=== PATIENT | female | born 1975 | race Caucasian/White ===

== ENCOUNTER 2024-07-07 17:53 | Emergency (ER) | payer OTHER ==
--- OUTSIDE RECORDS SUMMARY | 2024-07-07 17:57 | XMS REPORT | Continuity of Care Document ---
Author Name Unknown Address [address] [facility] [address] [place] [address] [facility] Address [address] [facility] [address] [place] [address] Care Team Providers Care Seater Grinder Name Role Phone Toribio Marcus OBREGON Primary Care Physician [phone] Coretta Morris Attending Clinician Unav ailable TERESA PALMA Attending Clinician Unavailable TERESA PALMA Attending Clinician Unavailable Teresa Palma MD Attending Clinician [phone] Aldo, Generic Provider Attending Clinician Unavailable Elinor Carrillo NP Attending Clinician [phone] MACARIO ERWIN Attending Clinician Unavailab marquez Carlson, Generic Provider Attending Clinician Unavailable CHINA MONTANEZ Attending Clinician Unavailable Hansa VASQUEZ Attending Clinician Unavailable Hansa Brandon Attending Clinician [phone] POLY REYEZ Attending Clinician Unavailab Poly Parr DO Attending Clinician [phone] Tiny Coulter Attending Clinician Unavailable Dai Lehman Attending Clinician Unavailable Coretta Morris Admitting Clinician Unav ailable Hansa VASQUEZ Admitting Clinician Unavailable Physician, No Primary or Family Admitting Clinic christiano Unavailable Payers Payer Name Policy Type Policy Number Effective Date Expirati on Date Source HIM [facility] OON [id number] 2023 00:00:00 [facility] ANAMIRANDA BEGUM [facility] 9 [id number] 2023 00:00:00 Allergies, Adverse Reactions, Alerts Allergy Name Allergy Type Status Severity Reaction(s) Onset Date Inactive Date Treating Clinician Comments Source No Known Allergie s DA Active U 2019-05- 00:00: 00 [facility] No Known Allergie s DA Active U 2019-05 00:00: 00 [facility] No Known Allergie s DA Active U 2019-05- 00:00: 00 [facility] No Known Allergie s DA Active U 2019-0518 00:00: 00 [facility] No Known Allergie s DA Active U 2019-05 2- 00:00: 00 [facility] No Known Allergie s DA Active U 2019-05- 00:00: 00 [facility] No Known Contrast Allergie s DA Active U 2- 00:00: 00 [facility] No Known Drug Allergie s DA Active U 2- 00:00: 00 [facility] No Known Food Allergie s DA Active U 2-05 00:00: 00 [facility] No Known Other Allergie s DA Active U 2-05 00:00: 00 [facility] NO KNOWN ALLERGIE S Drug Class Active [facility] Social History Social Habit Start Date Stop Date Quantity Comments Source Sexual orientation [facility] Exposure to SARS-CoV-2 (event) 2022-09-01 00:00:00 2022-09-11 13:24:00 Not sure [facility] Sex assigned at 1975 00:00:00 1975 00:00:00 [facility] Smoking Status Start Date Stop Date Source Tobacco smoking consumption unknown [facility] Medications Ordered Medication Name Filled Medication Name Start Date Stop Date Current Medication? Ordering Clinician Indication Dosage Frequency Signature (SIG) Comments Components Source HYDROcodone -acetaminop hen (NORCO) 10-325 mg tablet 1 tablet 07-02 13:45: 00 07-02 13:30 :00 No 1{tbl} 1 tablet, Oral, ONCE NOW, 1 dose, On Sarai 07/02/24 at 0745, Routine [facility] fentanyl PF (SUBLIMAZE (PF)) injection 50 mcg 07-02 11:00: 00 07-02 11:30 :00 No 50ug 50 mcg, Slow IV Push, ONCE, 1 dose, On [facility] 07/02/24 at 0500, Routine [facility] traMADoL (ULTRAM) 50 mg tablet 07-02 00:00: 00 Yes [id number] 50mg Take 1 tablet by mouth every 6 (six) hours as needed for Pain (scale 7-10). Indication s: acute pain [facility] Lantus Solostar U-100 Insulin 100 unit/mL (3 mL) subcutaneou s pen - 00:00: 00 Yes (3 mL) Jhony Fuller atorvastati n 20 mg tablet - 00:00: 00 Yes 1mg Jhony Fuller telmisartan 40 mg tablet - 00:00: 00 Yes 1mg Jhony Fuller Xigduo XR 5 mg-1,000 mg tablet,exte nded release - 00:00: 00 Yes 1mg Jhony Fuller gabapentin 300 mg capsule - 00:00: 00 Yes 1mg Jhony Fuller Lantus Solostar U-100 Insulin 100 unit/mL (3 mL) subcutaneou s pen - 00:00: 00 Yes (3 mL) Jhony Fuller atorvastati n 20 mg tablet - 00:00: 00 Yes 1mg Jhony Fuller lisinopril 20 mg tablet 05-26 00:00: 00 Yes 1mg Jhony Fuller metformin ER 1,000 mg 24 hr tablet,exte nded release (gastric reten.) 05-26 00:00: 00 Yes 1mg Jhony Fuller sulfamethox azole-trime thoprim (BACTRIM DS) 800-160 mg per tablet 1 tablet 2023-05 22:15: 00 05-17 22:21 :00 No 1{tbl} 1 tablet, Oral, ONCE, 1 dose, On 05/17/24 at 1615, CLOTILDE, Reason for Anti-Infec tive: Documented Infection, Documented Infection Site: Skin / Soft Tissue, Duration of Therapy: Once (ED) [facility] ketorolac (TORADOL) injection 15 mg 2023-05 20:45: 00 05-17 20:26 :00 No 15mg 15 mg, Slow IV Push, ONCE, 1 dose, On Sat05/17/24 at 1445, CLOTILDE [facility] insulin regular human (HUMULIN R) injection 8 Units 2023-05 20:00: 00 05-17 19:38 :00 No 8U 8 Units, IV Push, ONCE, 1 dose, On 05/17/24 at 1400, CLOTILDE, Indication for insulin: Hyperglyce marco antonio [facility] NaCl 0.9% (NS) bolus infusion 1,000 mL 2023-05 20:00: 00 05-17 20:40 :00 No 1000mL at 999 mL/hr, 1,000 mL, IV Infusion, ONCE, 1 dose, On 05/17/24 at 1400, CLOTILDE [facility] sulfamethox azole-trime thoprim 800-160 mg per tablet 2023-05 00:00: 00 05-28 05:59 :00 Yes [id number] 1{tbl} Take 1 tablet by mouth every 12 (twelve) hours for 10 days. [facility] cephALEXin 500 mg capsule 2023-05 00:00: 00 05-25 05:59 :00 Yes [id number] 500mg Take 1 capsule by mouth in the morning and 1 capsule in the evening. Do all this for 7 days. [facility] mupirocin 2 % ointment 2023-05 00:00: 00 05-25 05:59 :00 Yes [id number] Apply to area(s) 3 (three) times daily for 7 days. [facility] ibuprofen 600 mg tablet 2023-05 00:00: 00 05-23 05:59 :00 Yes [id number] 600mg Take 1 tablet by mouth every 6 (six) hours as needed for Pain (scale 4-6) for up to 5 days. [facility] atorvastati n 20 mg tablet 2023-05 00:00: 00 Yes 1mg Jhony Fuller Lantus Solostar U-100 Insulin 100 unit/mL (3 mL) subcutaneou s pen 2023-05 00:00: 00 Yes (3 mL) Jhony Fuller lisinopril 20 mg tablet 2023-05 00:00: 00 Yes 1mg Jhony Fuller doxycycline hyclate 100 mg tablet 2023-05 00:00: 00 Yes 1mg Jhony Fuller metformin ER 1,000 mg 24 hr tablet,exte nded release (gastric reten.) 2023-05 00:00: 00 Yes 1mg Jhony Fuller NaCl 0.9% (NS) bolus infusion 1,000 mL 07-19 00:30: 00 07-19 01:20 :00 No 1000mL at 999 mL/hr, 1,000 mL, IV Infusion, ONCE, 1 dose, On Sat07/19/23 at 1830, CLOTILDE [facility] ketorolac (TORADOL) injection 15 mg 07-18 21:00: 00 07-18 22:20 :00 No 15mg 15 mg, Slow IV Push, ONCE, 1 dose, On Sat07/19/23 at 1500, CLOTILDE [facility] sodium chloride (NS) injection 5 mL 07-18 20:49: 19 Yes 5mL 5 mL, Intravenou s, PRN, Starting on Sat07/19/23 at 1449, Until Discontinu ed, Routine, IV line flushing [facility] metFORMIN (GLUCOPHAGE ) tablet 500 mg 07-16 18:15: 00 07-16 17:26 :00 No 500mg 500 mg, Oral, ONCE, 1 dose, On Sat07/16/23 at 1215, Routine [facility] cefTRIAXone (ROCEPHIN) 1,000 mg in NaCl 0.9% (NS) 100 mL MINI-BAG 07-16 17:30: 00 07-16 17:51 :00 No 1000mg 1,000 mg, IV Piggyback, ONCE, 1 dose, On Sat07/16/23 at 1130, Administer over 30 Minutes, 100 mL
Reas on for Anti-Infec tive: Documented Infection< br>Documen nereida Infection Site: Urine
D uration of Therapy: Other (see Comments) [facility] ketorolac (TORADOL) injection 15 mg 07-16 17:00: 00 07-16 16:03 :00 No 15mg 15 mg, Slow IV Push, ONCE, 1 dose, On Sat07/16/23 at 1100, CLOTILDE [facility] ondansetron (ZOFRAN (PF)) injection 4 mg 07-16 16:45: 00 07-16 15:52 :00 No 4mg 4 mg, Slow IV Push, ONCE, 1 dose, On Sat07/16/23 at 1045, CLOTILDE [facility] NaCl 0.9% (NS) bolus infusion 1,000 mL 07-16 16:45: 00 07-16 17:51 :00 No 1000mL at 999 mL/hr, 1,000 mL, IV Infusion, ONCE, 1 dose, On Sat07/16/23 at 1045, STAT [facility] metFORMIN 500 mg tablet 07-16 00:00: 00 Yes [id number] 500mg Take 1 tablet by mouth in the morning and 1 tablet in the evening. [facility] ondansetron 4 mg disintegrat ing tablet 07-16 00:00: 00 Yes [id number] 4mg Take 1 tablet by mouth every 8 (eight) hours as needed for Nausea and Vomiting (N/V). [facility] ibuprofen 600 mg tablet 07-16 00:00: 00 Yes [id number] 600mg Take 1 tablet by mouth every 6 (six) hours as needed for Pain (scale 4-6). [facility] cefdinir 300 mg capsule 07-16 00:00: 00 07-26 05:59 :00 No [id number] 300mg Take 1 capsule by mouth every 12 (twelve) hours for 10 days. [facility] NaCl 0.9% (NS) IV infusion 1,000 mL 2022-05 02:30: 00 Yes 1000mL at 999 mL/hr, Intravenou s, CONTINUOUS , Starting on 03/16/23 at 2130, Until Discontinu ed, Routine [facility] ketorolac (TORADOL) injection 30 mg 2022-05 02:30: 00 03-17 01:45 :00 No 30mg 30 mg, Slow IV Push, ONCE, 1 dose, On 03/16/23 at 2130, Routine [facility] diphenhydrA MINE (BENADRYL) injection 25 mg 2022-05 01:30: 00 03-17 01:46 :00 No 25mg 25 mg, Slow IV Push, ONCE, 1 dose, On 03/16/23 at 2030, STAT [facility] metoclopram cruz HCl (REGLAN) injection 10 mg 2022-05 01:30: 00 03-17 01:46 :00 No 10mg 10 mg, Slow IV Push, ONCE, 1 dose, On 03/16/23 at 2030, CLOTILDE [facility] butalbital- acetaminoph en-caff 50-325-40 mg tablet 2022-05 00:00: 00 Yes [id number] 1{tbl} Take 1 tablet by mouth every 6 (six) hours as needed (Headache) . [facility] ondansetron (ZOFRAN) 4 mg tablet 2022-05 0 00:00: 00 Yes [id number] 4mg Take 1 tablet by mouth every 8 (eight) hours as needed for Nausea and Vomiting (N/V). [facility] ketorolac (TORADOL) injection 30 mg 09-11 19:45: 00 09-11 19:51 :00 No 30mg 30 mg, Slow IV Push, ONCE, 1 dose, On Sat09/11/22 at 1445, Routine [facility] NaCl 0.9% (NS) bolus infusion 1,000 mL 09-11 19:45: 00 09-11 20:47 :00 No 1000mL at 999 mL/hr, 1,000 mL, IV Infusion, ONCE, 1 dose, On Sat09/11/22 at 1445, CLOTILDE [facility] diphenhydrA MINE (BENADRYL) injection 25 mg 09-11 19:00: 00 09-11 19:52 :00 No 25mg 25 mg, Slow IV Push, ONCE, 1 dose, On Sat09/11/22 at 1400, STAT [facility] metoclopram cruz HCl (REGLAN) injection 10 mg 09-11 19:00: 00 09-11 19:54 :00 No 10mg 10 mg, Slow IV Push, ONCE, 1 dose, On Sat09/11/22 at 1400, CLOTILDE [facility] doxycycline (VIBRAMYCIN ) 100 mg capsule 08-01 00:00: 00 Yes 100mg Take 1 Cap by mouth 2 (two) times daily. [facility] Vital Signs Vital Name Observation Time Observation Value Comments S maria l Systolic blood pressure 2024-07-02 13:39:00 170 mm[Hg] [facility] Diastolic blood pressure 2024-07-02 13:39:00 110 mm[Hg] [facility] Heart rate 2024-07-02 13:39:00 93 /min [facility] Body temperature 2024-07-02 13:39:00 36.78 Kathryn [facility] Respiratory rate 2024-07-02 13:39:00 16 /min [facility] Oxygen saturation in Arterial blood by Pulse oximetry 2024-07-02 13:39:00 97 /min [facility] Body height 2024-07-02 10:30:00 167.6 cm [facility] Body weight 2024-07-02 10:30:00 81.647 kg [facility] BMI 2024-07-02 10:30:00 29.05 kg/m2 [facility] Systolic blood pressure 2024-05-17 22:00:00 153 mm[Hg] [facility] Diastolic blood pressure 2024-05-17 22:00:00 87 mm[Hg] [facility] Heart rate 2024-05-17 22:00:00 94 /min [facility] Respiratory rate 2024-05-17 22:00:00 12 /min [facility] Oxygen saturation in Arterial blood by Pulse oximetry 2024-05-17 22:00:00 93 /min [facility] Body temperature 2024-05-17 16:31:00 36.78 Kathryn [facility] Body height 2024-05-17 16:31:00 167.6 cm [facility] Body weight 2024-05-17 16:31:00 77.111 kg [facility] BMI 2024-05-17 16:31:00 27.44 kg/m2 [facility] Systolic blood pressure 2023-07-20 01:00:00 159 mm[Hg] [facility] Diastolic blood pressure 2023-07-20 01:00:00 89 mm[Hg] [facility] Heart rate 2023-07-20 01:00:00 83 /min [facility] Respiratory rate 2023-07-20 01:00:00 16 /min [facility] Oxygen saturation in Arterial blood by Pulse oximetry 2023-07-20 01:00:00 98 /min [facility] Body temperature 2023-07-20 00:12:00 36.61 Kathryn [facility] Body height 2023-07-19 20:40:00 167.6 cm [facility] Body weight 2023-07-19 20:40:00 83.915 kg [facility] BMI 2023-07-19 20:40:00 29.86 kg/m2 [facility] Systolic blood pressure 2023-07-16 18:34:00 155 mm[Hg] [facility] Diastolic blood pressure 2023-07-16 18:34:00 91 mm[Hg] [facility] Heart rate 2023-07-16 18:34:00 77 /min [facility] Respiratory rate 2023-07-16 18:34:00 10 /min [facility] Oxygen saturation in Arterial blood by Pulse oximetry 2023-07-16 18:34:00 96 /min [facility] Body temperature 2023-07-16 15:27:00 36.72 Kathryn [facility] Body height 2023-07-16 15:27:00 167.6 cm [facility] Body weight 2023-07-16 15:27:00 83.915 kg [facility] BMI 2023-07-16 15:27:00 29.86 kg/m2 [facility] Systolic blood pressure 2023-03-17 03:00:00 143 mm[Hg] [facility] Diastolic blood pressure 2023-03-17 03:00:00 84 mm[Hg] [facility] Heart rate 2023-03-17 03:00:00 100 /min [facility] Respiratory rate 2023-03-17 03:00:00 20 /min [facility] Oxygen saturation in Arterial blood by Pulse oximetry 2023-03-17 03:00:00 98 /min [facility] Body temperature 2023-03-17 00:54:00 37.44 Kathryn [facility] Body height 2023-03-17 00:16:00 170.2 cm [facility] Body weight 2023-03-17 00:16:00 81.647 kg [facility] BMI 2023-03-17 00:16:00 28.19 kg/m2 [facility] Systolic blood pressure 2022-09-11 20:00:00 153 mm[Hg] [place] [facility] Diastolic blood pressure 2022-09-11 20:00:00 88 mm[Hg] [facility] Heart rate 2022-09-11 20:00:00 92 /min [facility] Respiratory rate 2022-09-11 20:00:00 16 /min [facility] Oxygen saturation in Arterial blood by Pulse oximetry 2022-09-11 20:00:00 95 /min [facility] Body temperature 2022-09-11 18:26:00 36.72 Kathryn [facility] Body height 2022-09-11 18:26:00 170.2 cm [facility] Body weight 2022-09-11 18:26:00 77.111 kg [facility] BMI 2022-09-11 18:26:00 26.63 kg/m2 [facility] BP Systolic 2024-06-25 12:16:00 178 mm[Hg] Step hen F Jonny BP Diastolic 2024-06-25 12:16:00 106 mm[Hg] Maikol phen F Jonny Weight Measured 2024-06-25 12:16:00 181.00 pounds Jhony F Jonny Height Measured 2024-06-25 12:16:00 68.00 inches Jhony F Jonny Body Temperature 2024-06-25 12:16:00 97.60 degrees Jhony F Jonny Heart Rate 2024-06-25 12:16:00 93.00 /min Fide en F Jonny Respiratory Rate 2024-06-25 12:16:00 18.00 /min Jhony F Jonny BP Systolic 2024-06-25 10:36:00 178 mm[Hg] Step hen F Jonny BP Diastolic 2024-06-25 10:36:00 106 mm[Hg] Maikol phen F Jonny Weight Measured 2024-06-25 10:36:00 181.00 pounds Jhony F Jonny Height Measured 2024-06-25 10:36:00 68.00 inches Jhony F Jonny Body Temperature 2024-06-25 10:36:00 97.60 degrees Jhony F Jonny Heart Rate 2024-06-25 10:36:00 93.00 /min Fide en F Jonny Respiratory Rate 2024-06-25 10:36:00 18.00 /min Jhony F Jonny BP Systolic 2024-05-26 10:17:00 186 mm[Hg] Step hen F Jonny BP Diastolic 2024-05-26 10:17:00 104 mm[Hg] Maikol phen F Jonny Weight Measured 2024-05-26 10:17:00 174.20 pounds Jhony F Jonny Height Measured 2024-05-26 10:17:00 68.00 inches Jhony F Jonny Body Temperature 2024-05-26 10:17:00 97.90 degrees Jhony F Jonny Heart Rate 2024-05-26 10:17:00 90.00 /min Fide en F Jonny Respiratory Rate 2024-05-26 10:17:00 17.00 /min Jhony F Jonny Respiratory Rate 2024-05-11 10:52:00 17.00 /min Jhony F Jonny BP Systolic 2024-05-11 10:52:00 174 mm[Hg] Step hen F Jonny BP Diastolic 2024-05-11 10:52:00 98 mm[Hg] Maiklo phen F Jonny Weight Measured 2024-05-11 10:52:00 174.40 pounds Jhony F Jonny Height Measured 2024-05-11 10:52:00 68.00 inches Jhony F Jonny Body Temperature 2024-05-11 10:52:00 98.00 degrees Jhony F Jonny Heart Rate 2024-05-11 10:52:00 97.00 /min Fide en F Jonny Procedures Procedure Date / Time Performed Performing Clinicia n Source URINALYSIS 2024-07-02 11:42:00 Teresa Palma [facility] BASIC METABOLIC PANEL (NA, K, CL, CO2, GLUCOSE, BUN, CREATININE, CA) 2024-07-02 11:30:00 Teresa Palma [facility] CBC WITH DIFF 2024-07-02 11:30:00 Teresa Palma [facility] POCT GLUCOSE(AGE >30DAYS) 2024-05-17 20:58:00 Lorena [facility] POCT GLUCOSE (AUTOMATED) 2024-05-17 20:57:00 Lorena [facility] POCT TEST 2024-05-17 20:23:00 Elinor Carrillo [facility] POCT GLUCOSE (AUTOMATED) 2024-05-17 20:06:00 Elinor Carrillo [facility] POCT GLUCOSE (AUTOMATED) 2024-05-17 19:30:00 Elinor Carrillo [facility] COMP. METABOLIC PANEL ([id number]) 2024-05-17 17:28:00 Elinor Carrillo [facility] CBC WITH DIFF 2024-05-17 17:28:00 [facility] 17:28[facility]00 [facility] 2023-07-19 22:12:00 China [facility] COMP. METABOLIC PANEL ([id number]) 2023-07-19 22:12:00 China Montanez [facility] CBC WITH DIFF 2023-07-19 22:12:00 China Montanez [facility] URINALYSIS 2023-07-19 22:12:00 China [facility] ASSIGNMENT OF BENEFITS 2023-07-19 21:14:17 Docto r Unassigned, [place] [facility] CONSENT/REFUSAL FOR DIAGNOSIS AND TREATMENT 2023-07-19 20:34:55 Doctor Unassigned, [place] [facility] LACTIC ACID WHOLE BLOOD 2023-07-16 17:52:00 Hansa Vasquez [facility] CT ABDOMEN PELVIS WO CONTRAST 2023-07-16 16:39:57 Hansa Vasquez [facility] LIPASE 2023-07-16 15:49:00 [facility]a [facility] MAGNESIUM 2023-07-16 15:49:00 Hansa [facility] TROPONIN I 2023-07-16 15:49:00 Hansa [facility] COMP. METABOLIC PANEL ([id number]) 2023-07-16 15:49:00 Hansa Vasquez [facility] CBC WITH DIFF 2023-07-16 15:49:00 Hansa Vasquez [facility] URINALYSIS 2023-07-16 15:49:00 Hansa Vasquez [facility] POCT GLUCOSE (AUTOMATED) 2023-07-16 15:30:00 Hansa Vasquez [facility] CONSENT/REFUSAL FOR DIAGNOSIS AND TREATMENT 2023-07-16 15:24:28 Doctor Unassigned, [place] [facility] POCT GLUCOSE(AGE >30DAYS) 2023-03-17 02:51:00 Teresa Palma [facility] POCT GLUCOSE (AUTOMATED) 2023-03-17 02:49:00 Teresa Palma [facility] URINALYSIS 2023-03-17 01:44:00 Teresa Palma [facility] LIPASE 2023-03-17 01:36:00 Teresa Palma [facility] COMP. METABOLIC PANEL ([id number]) 2023-03-17 01:36:00 Teresa Palma [facility] ACUTE CARE VENOUS BLOOD GAS 2023-03-17 01:35:00 Teresa Palma [facility] POCT GLUCOSE (AUTOMATED) 2023-03-17 01:33:00 Teresa Palma [facility] CBC WITH DIFF 2023-03-17 00:56:00 Teresa Palma [facility] CONSENT/REFUSAL FOR DIAGNOSIS AND TREATMENT 2023-03-17 00:00:38 Doctor Unassigned, [place] [facility] BASIC METABOLIC PANEL (NA, K, CL, CO2, GLUCOSE, BUN, CREATININE, CA) 2022-09-11 19:33:00 Poly Reyez [facility] NOTICE OF PRIVACY PRACTICES 2022-09-11 18:09:58 Doctor Unassigned, [place] [facility] CONSENT/REFUSAL FOR DIAGNOSIS AND TREATMENT 2022-09-11 18:09:12 Doctor Unassigned, [place] [facility] [id number] 2020-05-06 00:00:00 [facility] Encounters Start Date/Time End Date/Time Encounter Type Admission Type Attending [facility] Care Facility Care Department Encounter ID Source 2020-04-30 01:32:00 Inpatient EM Coretta Blandon [facility] TELE [id number] [address] [facility] 2024-07-02 04:34:00 2024-07-02 07:43:00 Emergency X ALFRED, JACINTABETO YABRENDA, TERESA [facility] ERT [id number] [facility] 2024-07-02 04:34:00 2024-07-02 07:43:00 Emergency Teresa Palma S [facility] 1..840.114 350.1.13.10 4.2.7.2.686 [id number] [facility] 2024-06-25 10:22:39 2024-06-25 10:22:39 Outpatient [facility] [id number] Jhony Fuller 2024-06-25 00:00:00 2024-06-25 00:00:00 Outpatient Visit [facility] [id number] Jhony Fuller 2024-05-27 00:00:00 2024-05-27 11:36:01 Letter (Out) Campaigns, Generic Provider Campaigns, Generic Provider [facility] ..840.114 350.1.13.10 4.2.7.2.686 [id number] [facility] 2024-05-26 10:01:49 2024-05-26 10:01:49 Outpatient [facility] [id number] Jhony Lorenzana Jonny 2024-05-26 00:00:00 2024-05-26 00:00:00 Outpatient Visit [facility] [id number] Jhony Lorenzana Jonny 2024-05-17 10:32:00 2024-05-17 16:37:00 Emergency Elinor Carrillo [facility] 1.2.840.114 350.1.13.10 4.2.7.2.686 [id number] [facility] 2024-05-11 10:38:36 2024-05-11 10:38:36 Outpatient [facility] [id number] Jhony Fuller 2024-05-11 00:00:00 2024-05-11 00:00:00 Outpatient Visit [facility] [id number] Jhony Fuller 2023-10-15 13:30:00 2023-10-15 13:30:00 Outpatient MACARIO ERWIN [id number] [facility] 2023-08-19 09:00:00 2023-08-19 09:00:00 Outpatient MACARIO ERWIN [id number] [facility] 2023-07-24 00:00:00 2023-07-24 00:00:00 Letter (Out) Campaigns, Generic Provider [facility] 1.2.840.114 350.1.13.10 4.2.7.2.686 [id number] [facility] 2023-07-19 14:42:00 2023-07-19 19:26:00 Emergency X CHINA MONTANEZ [facility] ERT [id number] [facility] 2023-07-19 14:42:00 2023-07-19 19:26:00 Emergency China Montanez [facility] 1.2.840.114 350.1.13.10 4.2.7.2.686 [id number] [facility] 2023-07-16 09:31:00 2023-07-16 12:37:00 Emergency X Hansa VASQUEZ [facility] ERT [id number] [facility] 2023-07-16 09:31:00 2023-07-16 12:37:00 Emergency Hansa Vasquez [facility] 1.2.840.114 350.1.13.10 4.2.7.2.686 [id number] [facility] 2023-03-16 19:19:00 2023-03-16 22:14:00 Emergency X TERESA PALMA [facility] ERT [id number] [facility] 2023-03-16 19:19:00 2023-03-16 22:14:00 Emergency Teresa Palma [facility] [id number] 350.1.13.10 [id number] [facility] 2022-09-11 13:34:00 2022-09-11 15:51:00 Emergency X POLY REYEZ [facility] ERT [id number] [facility] 2022-09-11 13:34:00 2022-09-11 15:51:00 Emergency TlPoly J [facility] [id number] [id number] [id number] [id number] [facility] 2021-09-27 23:52:00 2021-09-27 23:52:00 Outpatient Yfn Tiny HCACL LABO [id number] [facility] 2021-09-27 07:25:00 2021-09-27 12:00:00 Emergency EM Coulter, Tiny [facility] [id number] [facility] 2021-09-27 07:25:00 2021-09-27 12:00:00 Emergency EM Coulter, Tiny [facility] LISA [id number] [facility] 2020-04-30 01:32:00 2020-05-09 18:54:00 Inpatient EM Coretta Blandon [facility] TE[facility] [id number] [facility] 2020-04-30 01:04:00 2020-04-30 01:04:00 Outpatient Dai Lehman HCACL LABO [id number] [facility] 2020-04-30 01:04:00 2020-04-30 01:04:00 Outpatient Dai Lehman [facility]ACL LABO [id number] [facility] Results Test Description Test Time Test Comments Results Result Co mments Source [facility] GLUCOSE(AGE >30DAYS)2024-05-17 20:58:00* Test Item Value Reference Range Interpretation Comme nts POCT Glu (age>30days) (test code = 3342) 338 mg/dL 70-110 A Lab Interpretation (test cod e = 31123-0) Abnormal [facility] [id number] 20:23:00* Test Item Value Reference Range Interpretation Comme nts POCT PREG (test code = 1605) Negative On board controls acceptable with C Line (test code = 3574) Yes POCT PREG LOT # (test code = 3575) [id number] POCT PREG TEST DATE ( test code = 3576) 05/04/2025 Lab Interpretation (test cod e = 82292-3) Normal [facility] GLUCOSE (AUTOMATED)2024-05-17 20:07:45* Test Item Value Reference Range Interpretation Comme nts POCT GLU (test code = 4465130191) 440 mg/dL 70-110 H Lab Interpretation (test cod e = 54631-0) Abnormal [facility] GLUCOSE (AUTOMATED)2024-05-17 19:31:17* Test Item Value Reference Range Interpretation Comme nts POCT GLU (test code = 4570201913) 493 mg/dL 70-110 HH Lab Interpretation (test cod e = 12837-7) [facility]24-[facility]-17 18:42:08* Test Item Value Reference Range Interpretation Comme nts NA (test code = 8199912146) 133 mmol/L 135-145 L K (test code = 1074197122) 4.1 mmol/L 3.5-5.0 CL (test code = 6077563527) 102 mmol/L 98-108 CO2 TOTAL (test code = 7339761421) 26 mmol/L 23-31 AGAP (test code = 1588240721) 5 2-16 BUN (test code = 7594857700) 27 mg/dL 7-23 H GLUCOSE (test code = 5858264313) 435 mg/dL 70-110 H CREATININE (test code = 2160-0) 0.79 mg/dL 0.50-1.04 TOTAL BILI (test code = 5053198803) 0.3 mg/dL 0.1-1.1 CALCIUM (test code = 8469780204) 9.2 mg/dL 8.6-10.6 T PROTEIN (test code = 6718268677) 6.2 g/dL 6.3-8.2 L ALBUMIN (test code = 0408995749) 3.2 g/dL 3.5-5.0 L ALK PHOS (test code = 1420329296) 121 U/L 34-122 ALTv (test code = 1742-6) 13 U/L 5-35 AST(SGOT) (test code = 6197894113) 17 U/L 13-40 eGFR (test code = 82937-2) 91.8 mL/min/1.73m2 CKD-EPI eGFR (2020). Assuming creatinine has been stable day-to-day for at least three months, the eGFR indicates Category G1 (>= 90 mL/min/1.73 m2) Lab Interpretation (test code = 60997-7) [facility] [id number] 18:27:42* Test Item Value Reference Range Interpretation Comme nts WBC (test code = 6690-2) 12.91 4.30-11.10 H RBC (test code = 789-8) 4.81 3.93-5.25 HGB (test code = 718-7) 13.1 g/dL 11.6-15.0 HCT (test code = 4544-3) 38.9 % 35.7-45.2 MCV (test code = 787-2) 80.9 fL 80.6-95.5 MCH (test code = 785-6) 27.2 pg 25.9-32.8 MCHC (test code = 786-4) 33.7 g/dL 31.6-35.1 RDW-SD (test code = 43972-7) 35.4 fL 39.0-49.9 L RDW-CV (test code = 788-0) 12.1 % 12.0-15.5 PLT (test code = 777-3) 351 166-358 MPV (test code = 48096-8) 10.2 fL 9.5-12.9 NRBC/100 WBC (test code = 3665764130) 0.0 0.0-10.0 NRBC x10^3 (test code = 8184117190) See_Comment [Automated message] The system which generated this result transmitted reference range: 10*3/?L. The reference range was not used to interpret this result as normal/abnormal. GRAN MAT (NEUT) % (test code = 770-8) 83.4 % IMM GRAN % (test code = 4356071229) 0.60 % LYMPH % (test code = 736-9) 9.7 % MONO % (test code = 5905-5) 5.3 % EOS % (test code = 713-8) 0.5 % BASO % (test code = 706-2) 0.5 % GRAN MAT x10^3(ANC) (test code = 8039195590) 10.77 10*3/uL 1.88-7.09 H IMM GRAN x10^3 (test code = 6656663674) 0.08 10*3/uL 0.00-0.06 H LYMPH x10^3 (test code = 731-0) 1.25 10*3/uL 1.32-3.29 L MONO x10^3 (test code = 742-7) 0.68 10*3/uL 0.33-0.92 EOS x10^3 (test code = 711-2) 0.07 10*3/uL 0.03-0.39 BASO x10^3 (test code = 704-7) 0.06 10*3/uL 0.01-0.07 Lab Interpretation (test code = 62213-6) [facility]normal [facility] [id number] 10:04:44* Test Item Value Reference Range Interpretation Comme nts HEMOGLOBIN A1c (test code = 34918) 13.6 % 4.2-5.6 H [employer] GUIDELINES FOR HGB A1C: PREDIABETES/INCREASED RISK . . . . . . . 5.7-6.4% DIAGNOSIS OF DIABETES . . . . . . . . . >=6.5% WITH CONFIRMATION OR APPROPRIATE SYMPTOMS NOTE: ASSAY MAY BE AFFECTED BY HEMOGLOBINOPATHIES (SICKLE CELL ANEMIA, S-C DISEASE, OTHERS) OR ARTIFICIALLY LOWERED BY DECREASED RED CELL SURVIVAL (HEMOLYTIC ANEMIAS, BLOOD LOSS, ETC.). CONSIDER ALTERNATE TESTING OR LABORATORY CONSULTATION. COMPREHENSIVE METABOLIC [id number] 05:21:07* Test Item Value Reference Range Interpretation Comme nts GLUCOSE (test code = 2217) 460 MG/DL 70-99 H BUN (test code = 2208) 15 MG/DL 6-20 CREATININE (test code = 2214) 1.01 MG/DL 0.60-1.30 eGFR (2020 CKD-EPI) (test co de = 29346) 68 ML/MIN/1.73 >60 CALC BUN/CREAT (test code = 2235) 15 RATIO 6-28 SODIUM (test code = 223) 137 MEQ/L 133-146 POTASSIUM (test code = 2228) 4.6 MEQ/L 3.5-5.4 CHLORIDE (test code = 2215) 99 MEQ/L 95-107 CARBON DIOXIDE (test code = 2206) 26 MEQ/L 19-31 CALCIUM (test code = 2209) 9.3 MG/DL 8.5-10.5 PROTEIN, TOTAL (test code = 2229) 5.4 G/DL 6.1-8.3 L ALBUMIN (test code = 2201) 3.1 G/DL 3.5-5.2 L CALC GLOBULIN (test code = 2240) 2.3 G/DL 1.9-3.7 CALC A/G RATIO (test code = 2234) 1.3 RATIO 1.0-2.6 BILIRUBIN, TOTAL (test code = 2207) 0.2 MG/DL <=1.2 ALKALINE PHOSPHATASE (test code = 2204) 112 U/L 40-125 AST (test code = 2218) 11 U/L 9-40 ALT (test code = 2219) 12 U/L 5-40 LIPID [id number] 05:21:07* Test Item Value Reference Range Interpretation Comme nts CHOLESTEROL (test code = 2210) 311 MG/DL <200 H TRIGLYCERIDES (test code = 2232) 423 MG/DL <150 H HDL CHOLESTEROL (test code = 2220) 47 MG/DL >39 CALC LDL CHOL (test code = 2237) (NOTE) MG/DL <100 UNABLE TO CALCUL ATE A VALID LDL CHOLESTEROL WHEN THE TRIGLYCERIDEVALUE IS GREATER THAN 400 MG/DL.UNABLE TO CALCULATE A VALID LDL CHOLESTEROL WHEN THE TRIGLYCERIDEVALUE IS GREATER THAN 400 MG/DL. NOTE: CALCULATED LDL IS BASED ON ILEANA-MILES METHOD WHICHINCLUDES ADJUSTABLE TRIGLYCERIDE:VLDL CHOLESTEROL RATIO.THIS FACTOR VARIES BY MEASURED TRIGLYCERIDE AND NON-HDLCHOLESTEROL CONCENTRATIONS WITH INCREASED CALCULATED LDL SEENIN HIGHER TRIGLYCERIDE OR LOWER NON-HDL SPECIMENS. FOR MOREINFORMATION, SEE CLIENT ANNOUNCEMENT AT [email or web address] CalcLDL-C RISK RATIO LDL/HDL (test code = 2238) (NOTE) RATIO <3.22 UNABLE TO KAREN CULATE ALBUMIN/CREATININE RATIO, URINE, [id number] 05:10:40* Test Item Value Reference Range Interpretation Comme nts CREATININE, URINE, CONC. (test code = 2072) 41.7 MG/DL NOT ESTAB ALBUMIN, URINE, RANDOM (test code = 14401) 325.4 MG/DL NOT ESTAB CALC ALBUMIN/CREAT, RND (test code = 62381) 7803 MG/G <30 H Note: Albumin/Cr eatinine ratio reference interval reflects ADA and NKF guidelines. UNLESS OTHERWISE INDICATED, ALL TESTING PERFORMED AT [facility] [address] [place] [address] PRESIDENT OF THE [place]: DAVID KENDRICK M.D. [place] NUMBER [id number] [facility] [place]. [id number] COMPREHENSIVE METABOLIC [id number] 00:00:00* Test Item Value Reference Range Interpretation Comme nts GLUCOSE (test code = 7) 460 MG/DL BUN (test code = 2208) 15 MG/DL CREATININE (test code = 2214) 1.01 MG/DL eGFR (2020 CKD-EPI) (test co de = 72050) 68 ML/MIN/1.73 CALC BUN/CREAT (test code = 2234) 15 RATIO SODIUM (test code = 2231) 137 MEQ/L POTASSIUM (test code = 2228) 4.6 MEQ/L CHLORIDE (test code = 2215) 99 MEQ/L CARBON DIOXIDE (test code = 2206) 26 MEQ/L CALCIUM (test code = 2209) 9.3 MG/DL PROTEIN, TOTAL (test code = 2229) 5.4 G/DL ALBUMIN (test code = 2201) 3.1 G/DL CALC GLOBULIN (test code = 2240) 2.3 G/DL CALC A/G RATIO (test code = 2234) 1.3 RATIO BILIRUBIN, TOTAL (test code = 2207) 0.2 MG/DL ALKALINE PHOSPHATASE (test code = 2204) 112 U/L AST (test code = 2218) 11 U/L ALT (test code = 2219) 12 U/L Jhony FullerLIPID [id number] 00:00:00* Test Item Value Reference Range Interpretation Comme nts CHOLESTEROL (test code = 2210) 311 MG/DL TRIGLYCERIDES (test code = 2232) 423 MG/DL HDL CHOLESTEROL (test code = 2220) 47 MG/DL CALC LDL CHOL (test code = 2237) (NOTE) MG/DL RISK RATIO LDL/HDL (test cod e = 2238) (NOTE) RATIO Jhony FullerHEMOGLOBIN [id number] 00:00:00* Test Item Value Reference Range Interpretation Comme [facility] HEMOGLOBIN A1c (test code = 06652) 13.6 % Jhony FullerALBUMIN/CREATININE RATIO, RANDOM [id number] 00:00:00* Test Item Value Reference Range Interpretation Comme nts CREATININE, URINE, CONC. (te st code = 2072) 41.7 MG/DL ALBUMIN, URINE, RANDOM (test code = 20035) 325.4 MG/DL CALC ALBUMIN/CREAT, RND (katerina t code = 78002) 7803 MG/G Jhony FullerCOMPREHENSIVE METABOLIC [id number] 00:00:00* Test Item Value Reference Range Interpretation Comme nts GLUCOSE (test code = 2217) 460 MG/DL BUN (test code = 2208) 15 MG/DL CREATININE (test code = 2214) 1.01 MG/DL eGFR (2020 CKD-EPI) (test co de = 06365) 68 ML/MIN/1.73 CALC BUN/CREAT (test code = 2235) 15 RATIO SODIUM (test code = 2231) 137 MEQ/L POTASSIUM (test code = 2228) 4.6 MEQ/L CHLORIDE (test code = 2215) 99 MEQ/L CARBON DIOXIDE (test code = 2206) 26 MEQ/L CALCIUM (test code = 2209) 9.3 MG/DL PROTEIN, TOTAL (test code = 2229) 5.4 G/DL ALBUMIN (test code = 2201) 3.1 G/DL CALC GLOBULIN (test code = 2240) 2.3 G/DL CALC A/G RATIO (test code = 2234) 1.3 RATIO BILIRUBIN, TOTAL (test code = 2207) 0.2 MG/DL ALKALINE PHOSPHATASE (test code = 2204) 112 U/L AST (test code = 2218) 11 U/L ALT (test code = 2219) 12 U/L Jhony FullerLIPID [id number] 00:00:00* Test Item Value Reference Range Interpretation Comme nts CHOLESTEROL (test code = 2210) 311 MG/DL TRIGLYCERIDES (test code = 2232) 423 MG/DL HDL CHOLESTEROL (test code = 2220) 47 MG/DL CALC LDL CHOL (test code = 2237) (NOTE) MG/DL RISK RATIO LDL/HDL (test cod e = 2238) (NOTE) RATIO Jhony FullerHEMOGLOBIN [id number] 00:00:00* Test Item Value Reference Range Interpretation Comme [facility] HEMOGLOBIN A1c (test code = 53778) 13.6 % Jhony FullerALBUMIN/CREATININE RATIO, RANDOM [id number] 00:00:00* Test Item Value Reference Range Interpretation Comme [facility] CREATININE, URINE, CONC. (te st code = 2072) 41.7 MG/DL ALBUMIN, URINE, RANDOM (test code = 62146) 325.4 MG/DL CALC ALBUMIN/CREAT, RND (katerina t code = 40069) 7803 MG/G Jhony FullerCOMPREHENSIVE METABOLIC [id number] 00:00:00* Test Item Value Reference Range Interpretation Comme nts GLUCOSE (test code = 2217) 460 MG/DL BUN (test code = 2208) 15 MG/DL CREATININE (test code = 2214) 1.01 MG/DL eGFR (2020 CKD-EPI) (test co de = 66218) 68 ML/MIN/1.73 CALC BUN/CREAT (test code = 2235) 15 RATIO SODIUM (test code = 2231) 137 MEQ/L POTASSIUM (test code = 2228) 4.6 MEQ/L CHLORIDE (test code = 2215) 99 MEQ/L CARBON DIOXIDE (test code = 2206) 26 MEQ/L CALCIUM (test code = 2209) 9.3 MG/DL PROTEIN, TOTAL (test code = 2229) 5.4 G/DL ALBUMIN (test code = 2201) 3.1 G/DL CALC GLOBULIN (test code = 2240) 2.3 G/DL CALC A/G RATIO (test code = 2234) 1.3 RATIO BILIRUBIN, TOTAL (test code = 2207) 0.2 MG/DL ALKALINE PHOSPHATASE (test code = 2204) 112 U/L AST (test code = 2218) 11 U/L ALT (test code = 2219) 12 U/L Jhony FullerLIPID [id number] 00:00:00* Test Item Value Reference Range Interpretation Comme nts CHOLESTEROL (test code = 2210) 311 MG/DL TRIGLYCERIDES (test code = 2232) 423 MG/DL HDL CHOLESTEROL (test code = 2220) 47 MG/DL CALC LDL CHOL (test code = 2237) (NOTE) MG/DL RISK RATIO LDL/HDL (test cod e = 2238) (NOTE) RATIO Jhony FullerHEMOGLOBIN [id number] 00:00:00* Test Item Value Reference Range Interpretation Comme nts HEMOGLOBIN A1c (test code = 51865) 13.6 % Jhony FullerALBUMIN/CREATININE RATIO, RANDOM [id number] 00:00:00* Test Item Value Reference Range Interpretation Comme nts CREATININE, URINE, CONC. (te st code = 2072) 41.7 MG/DL ALBUMIN, URINE, RANDOM (test code = 42501) 325.4 MG/DL CALC ALBUMIN/CREAT, RND (katerina t code = 09502) 7803 MG/G Jhony FullerComplete Metabolic [id number] 22:55:37* Test Item Value Reference Range Interpretation Comme nts NA (test code = 9666124556) 132 mmol/L 135-145 L K (test code = 4752638148) 4.2 mmol/L 3.5-5.0 CL (test code = 1453847521) 102 mmol/L 98-108 CO2 TOTAL (test code = 2140253383) 28 mmol/L 23-31 AGAP (test code = 6444026775) 2 2-16 BUN (test code = 2845174891) 12 mg/dL 7-23 GLUCOSE (test code = 6148562676) 340 mg/dL 70-110 H CREATININE (test code = 2160-0) 0.54 mg/dL 0.50-1.04 TOTAL BILI (test code = 1456407562) 0.4 mg/dL 0.1-1.1 CALCIUM (test code = 1160166695) 9.2 mg/dL 8.6-10.6 T PROTEIN (test code = 8191828180) 6.4 g/dL 6.3-8.2 ALBUMIN (test code = 4414042022) 3.4 g/dL 3.5-5.0 L ALK PHOS (test code = 2536364808) 103 U/L 34-122 ALTv (test code = 1742-6) 15 U/L 5-35 AST(SGOT) (test code = 2658507854) 17 U/L 13-40 eGFR (test code = 63612-0) 113.7 mL/min/1.73m2 CKD-EPI eGFR (2020). Assuming creatinine has been stable day-to-day for at least three months, the eGFR indicates Category G1 (>= 90 mL/min/1.73 m2) Lab Interpretation (test code = 93263-1) [facility]normal [facility], [id number] 22:49:26* Test Item Value Reference Range Interpretation Comme nts LIPASE (test code = 3429065165) 449 U/L 0-220 H Lab Interpretation (test cod e = 75263-6) Abnormal [facility] with [id number] 22:40:19* Test Item Value Reference Range Interpretation Comme nts WBC (test code = 6690-2) 8.54 4.30-11.10 RBC (test code = 789-8) 5.05 3.93-5.25 HGB (test code = 718-7) 14.1 g/dL 11.6-15.0 HCT (test code = 4544-3) 40.8 % 35.7-45.2 MCV (test code = 787-2) 80.8 fL 80.6-95.5 MCH (test code = 785-6) 27.9 pg 25.9-32.8 MCHC (test code = 786-4) 34.6 g/dL 31.6-35.1 RDW-SD (test code = 27017-7) 35.6 fL 39.0-49.9 L RDW-CV (test code = 788-0) 12.4 % 12.0-15.5 PLT (test code = 777-3) 289 166-358 MPV (test code = 12273-7) 9.9 fL 9.5-12.9 NRBC/100 WBC (test code = 4798740370) 0.0 0.0-10.0 NRBC x10^3 (test code = 3500809850) See_Comment [Automated messa ge] The system which generated this result transmitted reference range: 10*3/?L. The reference range was not used to interpret this result as normal/abnormal. GRAN MAT (NEUT) % (test code = 770-8) 61.5 % IMM GRAN % (test code = 6793028088) 0.60 % LYMPH % (test code = 736-9) 26.3 % MONO % (test code = 5905-5) 9.4 % EOS % (test code = 713-8) 1.4 % BASO % (test code = 706-2) 0.8 % GRAN MAT x10^3(ANC) (test code = 9153434913) 5.25 10*3/uL 1.88-7.09 IMM GRAN x10^3 (test code = 6166563673) 0.05 10*3/uL 0.00-0.06 LYMPH x10^3 (test code = 731-0) 2.25 10*3/uL 1.32-3.29 MONO x10^3 (test code = 742-7) 0.80 10*3/uL 0.33-0.92 EOS x10^3 (test code = 711-2) 0.12 10*3/uL 0.03-0.39 BASO x10^3 (test code = 704-7) 0.07 10*3/uL 0.01-0.07 Lab Interpretation (test code = 86642-2) Abnormal [facility] Acid Whole [id number] 17:56:21* Test Item Value Reference Range Interpretation Comme nts LACTIC ACID (test code = 1434999723) 1.19 mmol/L 0.50-2.20 Lab Interpretation (test cod e = 07281-1) Normal [facility] [id number] 17:26:41EXAM: CT ABDOMEN PELVIS WO CONTRAST HISTORY: 47 years-old female with flank pain; kidney stone suspected . TECHNIQUE: Contiguous axial imaging from the level of the lung basesthrough the proximal thighs was performed without the intravenousadministration of contrast. Coronal and sagittal reconstructions wereobtained. COMPARISON: None FINDINGS: Please note that the sensitivity for detection of focal lesions or vasculardisease is markedly reduced without intravenous contrast. LOWER THORAX: 6 mm calcified nodule is seen in the left lower lobe, likelyrepresent calcified granuloma. No consolidation. No pleural effusion orpneumothorax. LIVER: The liver is normal in size and contour. No focal hepatic lesion isseen within the limitations of a non-contrasted examination. GALLBLADDER AND BILIARY TREE: Punctate calcification is seen within thegallbladder lumen suggestive of cholelithiasis. Gallbladder is normallydistended. No gallbladder wall thickening or pericholecystic fluid. Nointra or extrahepatic biliary ductal dilation is visualized. SPLEEN: The spleen is normal in size. PANCREAS: No ductal dilation or masses are visualized. ADRENAL GLANDS: No adrenal masses are seen. KIDNEYS: No hydronephrosis, or stones are visualized. PELVIS/BLADDER: Diffuse bladder wall thickening. Air within the bladderlumen. A small focus of air at the right peritoneal margin of the bladderwall appears extraluminal but is felt to likely be within the wall orwithin a diverticulum rather than truly extraperitoneal. Additionalpunctate foci of air seen abutting the bladder wall at the right bladderlumen. 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 Status posthysterectomy. GI TRACT: No bowel dilationor wall thickening is seen. The appendix isvisualized and appears unremarkable. Small fat-containing umbilical hernia. PERITONEUM AND RETROPERITONEUM: No intra-abdominal free air or fluidcollection is visualized. LYMPH NODES: No enlarged intra-abdominal or pelvic lymph nodes are found. VESSELS: Thevessels appear unremarkable within limitations of anon-contrasted examination. BONES AND SOFT TISSUES: No suspicious lytic or sclerotic bony lesions arepresent. Minimal spondylotic changes manifestedby marginal osteophytosisabout the lower thoracic and lower lumbar spine.[facility]. Metabolic Panel (10827)2023-07-16 16:55:43* Test Item Value Reference Range Interpretation Comme nts NA (test code = 4501439640) 134 mmol/L 135-145 L K (test code = 9118609715) 4.7 mmol/L 3.5-5.0 CL (test code = 9936505164) 101 mmol/L 98-108 CO2 TOTAL (test code = 8429597845) 33 mmol/L 23-31 H AGAP (test code = 1229729416) 2-16 L BUN (test code = 7828980699) 15 mg/dL 7-23 GLUCOSE (test code = 3750998310) 366 mg/dL 70-110 H CREATININE (test code = 2160-0) 0.58 mg/dL 0.50-1.04 TOTAL BILI (test code = 6202217735) 0.5 mg/dL 0.1-1.1 CALCIUM (test code = 8046895667) 9.0 mg/dL 8.6-10.6 T PROTEIN (test code = 0761173759) 6.6 g/dL 6.3-8.2 ALBUMIN (test code = 2454526564) 3.3 g/dL 3.5-5.0 L ALK PHOS (test code = 1403091409) 108 U/L 34-122 ALTv (test code = 1742-6) 20 U/L 5-35 AST(SGOT) (test code = 3761010893) 21 U/L 13-40 eGFR (test code = 71538-2) 111.8 mL/min/1.73m2 CKD-EPI eGFR (2020). Assuming creatinine has been stable day-to-day for at least three months, the eGFR indicates Category G1 (>= 90 mL/min/1.73 m2) Lab Interpretation (test code = 92809-8) Abnormal [facility] HospitalTroponin [id number] 16:47:50* Test Item Value Reference Range Interpretation Comme nts TROPONIN I (test code = 9802849772) 0.009 ng/mL <=0.034 GIO (test code = GIO) Reference (Normal) Range (defined by the 99th percentile reference limit): <= 0.034 ng/mL Note: Cardiac troponin begins to rise 3-4 hours after the onset of ischemia. Repeat in 4-6 hours if the sample was drawn within 3-4 hours of the onset of the symptom and found normal. Diagnosis of myocardial injury is made with acute changes in cTn concentrations with at least one serial sample above the 99th percentile upper reference limit (URL), taken together with the patient's clinical presentation. Biotin has been reported to cause a negative bias, interpret results relative to patient's use of biotin. Lab Interpretation (test code = 10945-0) Normal [facility] HospitalMagnesium2024-02-27 16:36:26* Test Item Value Reference Range Interpretation Comme nts MAGNESIUM (test code = 6747173613) 2.0 mg/dL 1.7-2.4 Lab Interpretation (test cod e = 22141-8) Normal [facility] HospitalLipase2024-[facility]-27 16:36:06* Test Item Value Reference Range Interpretation Comme nts LIPASE (test code = 1297719935) 74 U/L 0-220 Lab Interpretation (test cod e = 24173-3) Normal [facility] with [id number] 16:29:20* Test Item Value Reference Range Interpretation Comme nts WBC (test code = 6690-2) 7.01 4.30-11.10 RBC (test code = 789-8) 4.99 3.93-5.25 HGB (test code = 718-7) 14.0 g/dL 11.6-15.0 HCT (test code = 4544-3) 41.2 % 35.7-45.2 MCV (test code = 787-2) 82.6 fL 80.6-95.5 MCH (test code = 785-6) 28.1 pg 25.9-32.8 MCHC (test code = 786-4) 34.0 g/dL 31.6-35.1 RDW-SD (test code = 95614-7) 36.9 fL 39.0-49.9 L RDW-CV (test code = 788-0) 12.4 % 12.0-15.5 PLT (test code = 777-3) 292 166-358 MPV (test code = 82514-1) 10.3 fL 9.5-12.9 NRBC/100 WBC (test code = 3282630706) 0.0 0.0-10.0 NRBC x10^3 (test code = 8597440806) See_Comment [Automated messa ge] The system which generated this result transmitted reference range: 10*3/?L. The reference range was not used to interpret this result as normal/abnormal. GRAN MAT (NEUT) % (test code = 770-8) 65.5 % IMM GRAN % (test code = 1574781628) 0.40 % LYMPH % (test code = 736-9) 23.8 % MONO % (test code = 5905-5) 8.6 % EOS % (test code = 713-8) 1.0 % BASO % (test code = 706-2) 0.7 % GRAN MAT x10^3(ANC) (test code = 1080040645) 4.59 10*3/uL 1.88-7.09 IMM GRAN x10^3 (test code = 6937229210) 0.03 10*3/uL 0.00-0.06 LYMPH x10^3 (test code = 731-0) 1.67 10*3/uL 1.32-3.29 MONO x10^3 (test code = 742-7) 0.60 10*3/uL 0.33-0.92 EOS x10^3 (test code = 711-2) 0.07 10*3/uL 0.03-0.39 BASO x10^3 (test code = 704-7) 0.05 10*3/uL 0.01-0.07 Lab Interpretation (test code = 09559-6) Abnormal [facility] GLUCOSE (AUTOMATED)2023-07-16 15:31:53* Test Item Value Reference Range Interpretation Comme nts POCT GLU (test code = 5003078288) 354 mg/dL 70-110 H Lab Interpretation (test cod e = 28466-0) Abnormal [facility] GLUCOSE(AGE >30DAYS)2023-03-17 02:51:00* Test Item Value Reference Range Interpretation Comme nts POCT Glu (age>30days) (test code = 3342) 271 mg/dL 70-110 A Lab Interpretation (test cod e = 67810-9) [facility]:50:17* Test Item Value Reference Range Interpretation Comme [facility] POCT GLU (test code = 6711146420) 271 mg/dL 70-110 H Lab Interpretation (test cod e = 64169-9) [facility] 02:31:47* Test Item Value Reference Range Interpretation Comme [facility] NA (test code = 7205883969) 136 mmol/L 135-145 K (test code = 6432413852) 3.9 mmol/L 3.5-5.0 CL (test code = 5177332876) 101 mmol/L 98-108 CO2 TOTAL (test code = 6438421076) 23 mmol/L 23-31 AGAP (test code = 7198399099) 12 2-16 BUN (test code = 8742217215) 14 mg/dL 7-23 GLUCOSE (test code = 3824314242) 308 mg/dL 70-110 H CREATININE (test code = 9689153795) 0.45 mg/dL 0.50-1.04 L TOTAL BILI (test code = 2802521987) 0.5 mg/dL 0.1-1.1 CALCIUM (test code = 2959627413) 9.1 mg/dL 8.6-10.6 T PROTEIN (test code = 9761563227) 6.7 g/dL 6.3-8.2 ALBUMIN (test code = 9121601516) 3.5 g/dL 3.5-5.0 ALK PHOS (test code = 4413679548) 94 U/L 34-122 ALTv (test code = 1742-6) 19 U/L 5-35 AST(SGOT) (test code = 5445377621) 17 U/L 13-40 eGFR (test code = 8295207406) 148.7 mL/min/1.73m2 GIO (test code = GIO) [employer] Rate (GFR) and Staging of Kidney Disease* + --+ --+ ------+| GFR (mL/min/1.73 m2) ?| With Kidney Damage ?| ?Without Kidney Damage+ --------+ --------+ +| ?>90 ?| ?Stage one ?| ? Normal ?+ ---+ ---+ -------+| ?60-89 ?| ?Stage two ?| ? Decreased GFR ? + --+ --+ ------+| ?30-59 ?| ?Stage three ?| ? Stage three ? + --+ --+ ------+| ?15-29 ?| ?Stage four ? | ? Stage four ?+ ---+ ---+ -------+| ?<15 (or dialysis) ? ?| ?Stage five ? | ? Stage five ?+ ---+ ---+ -------+ *Each stage assumes the associated GFR level has been in effect for at least three months. ?Stages 1 to 5, with or without kidney disease, indicate chronic kidney disease. Notes: Determination of stages one and two (with eGFR >59mL/min/1.73 m2) requires estimation of kidney damage for at least three months as defined by structural or functional abnormalities of the kidney, manifested by either:Pathological abnormalities or Markers of kidney damage (including abnormalities in the composition of the blood or urine or abnormalities in imaging tests). Lab Interpretation (test code = 24364-8) [facility]normal [facility] [id number] 02:31:27* Test Item Value Reference Range Interpretation Comme [facility] LIPASE (test code = 7748092464) 31 U/L 0-220 Lab Interpretation (test cod e = 33291-2) Normal [facility] HospitalPO[facility]SE (AUTOMATED)2023-03-17 01:34:16* Test Item Value Reference Range Interpretation Comme [facility] POCT GLU (test code = 1466177153) 299 mg/dL 70-110 H Lab Interpretation (test cod e = 22338-5) [facility]normal [facility] HospitalCBC with [id number] 01:15:26* Test Item Value Reference Range Interpretation Comme [facility] WBC (test code = 6690-2) 12.20 See_Comment H [Automated message] The system which generated this result transmitted reference range: 4.30 - 11.10 10*3/?L. The reference range was not used to interpret this result as normal/abnormal. RBC (test code = 789-8) 5.32 See_Comment H [Automated message] The system which generated this result transmitted reference range: 3.93 - 5.25 10*6/?L. The reference range was not used to interpret this result as normal/abnormal. HGB (test code = 718-7) 14.9 g/dL 11.6-15.0 HCT (test code = 4544-3) 43.9 % 35.7-45.2 MCV (test code = 787-2) 82.5 fL 80.6-95.5 MCH (test code = 785-6) 28.0 pg 25.9-32.8 MCHC (test code = 786-4) 33.9 g/dL 31.6-35.1 RDW-SD (test code = 95872-9) 37.0 fL 39.0-49.9 L RDW-CV (test code = 788-0) 12.4 % 12.0-15.5 PLT (test code = 777-3) 279 See_Comment [Automated message] The system which generated this result transmitted reference range: 166 - 358 10*3/?L. The reference range was not used to interpret this result as normal/abnormal. MPV (test code = 20801-5) 10.4 fL 9.5-12.9 NRBC/100 WBC (test code = 0381389291) 0.0 See_Comment [Automated message] The system which generated this result transmitted reference range: 0.0 - 10.0 /100 WBCs. The reference range was not used to interpret this result as normal/abnormal. NRBC x10^3 (test code = 5025701416) See_Comment [Automated message] The system which generated this result transmitted reference range: 10*3/?L. The reference range was not used to interpret this result as normal/abnormal. GRAN MAT (NEUT) % (test code = 770-8) 83.6 % IMM GRAN % (test code = 3661520277) 0.90 % LYMPH % (test code = 736-9) 11.6 % MONO % (test code = 5905-5) 3.4 % EOS % (test code = 713-8) 0.1 % BASO % (test code = 706-2) 0.4 % GRAN MAT x10^3(ANC) (test code = 8572427615) 10.21 10*3/uL 1.88-7.09 H IMM GRAN x10^3 (test code = 6162013449) 0.11 10*3/uL 0.00-0.06 H LYMPH x10^3 (test code = 731-0) 1.41 10*3/uL 1.32-3.29 MONO x10^3 (test code = 742-7) 0.41 10*3/uL 0.33-0.92 EOS x10^3 (test code = 711-2) 0.03-0.39 L BASO x10^3 (test code = 704-7) 0.05 10*3/uL 0.01-0.07 Lab Interpretation (test code = 82921-4) Abnormal [facility] METABOLIC PANEL (NA, K, CL, CO2, GLUCOSE, BUN, CREATININE, CA)2022-09-11 20:13:22* Test Item Value Reference Range Interpretation Comme nts NA (test code = 9866718322) 136 mmol/L 135-145 K (test code = 2341355914) 4.5 mmol/L 3.5-5.0 CL (test code = 3330371237) 101 mmol/L 98-108 CO2 TOTAL (test code = 9395566014) 29 mmol/L 23-31 AGAP (test code = 5990912274) 6 2-16 BUN (test code = 6996997631) 14 mg/dL 7-23 GLUCOSE (test code = 4450620388) 381 mg/dL 70-110 H CREATININE (test code = 1092582662) 0.49 mg/dL 0.50-1.04 L CALCIUM (test code = 4285099931) 9.3 mg/dL 8.6-10.6 eGFR (test code = 0762308945) 135.4 mL/min/1.73m2 GIO (test code = GIO) Association of Glomerular Filtration Rate (GFR) and Staging of Kidney Disease* + --+ --+ ------+| GFR (mL/min/1.73 m2) ?| With Kidney Damage ?| ?Without Kidney Damage+ --------+ --------+ +| ?>90 ?| ?Stage one ?| ? Normal ?+ ---+ ---+ -------+| ?60-89 ?| ?Stage two ?| ? Decreased GFR ? + --+ --+ ------+| ?30-59 ?| ?Stage three ?| ? Stage three ? + --+ --+ ------+| ?15-29 ?| ?Stage four ? | ? Stage four ?+ ---+ ---+ -------+| ?<15 (or dialysis) ? ?| ?Stage five ? | ? Stage five ?+ ---+ ---+ -------+ *Each stage assumes the associated GFR level has been in effect for at least three months. ?Stages 1 to 5, with or without kidney disease, indicate chronic kidney disease. Notes: Determination of stages one and two (with eGFR >59mL/min/1.73 m2) requires estimation of kidney damage for at least three months as defined by structural or functional abnormalities of the kidney, manifested by either:Pathological abnormalities or Markers of kidney damage (including abnormalities in the composition of the blood or urine or abnormalities in imaging tests). Lab Interpretation (test code = 58872-1) Abnormal [facility] HospitalHEPATIC FUNCTION PANEL [id number] 11:35:00* Test Item Value Reference Range Interpretation Comme nts TOTAL PROTEIN (test code = PROT) 7.5 gm/dL 6.4-8.2 N ALBUMIN (test code = ALB) 3.4 gm/dl 3.2-4.7 N BILIRUBIN TOTAL (test code = BILT) 0.3 mg/dl 0.0-1.0 N BILIRUBIN DIRECT (test code = BILD) 0.1 mg/dl 0.0-0.3 N SGOT/AST (test code = AST) 13 Units/L 15-37 L SGPT/ALT (test code = ALT) 29 Units/L 12.0-78.0 N ALKALINE PHOSPHATASE TOTAL ( test code = ALKP) 101 Units/L 50.0-136.0 N [id number] 11:35:00* Test Item Value Reference Range Interpretation Comme nts LIPASE (test code = LIP) 153 Units/L 65.0-230.0 N BASIC METABOLIC [id number] 11:35:00* Test Item Value Reference Range Interpretation Comme nts SODIUM (test code = NA) 137 mmol/l 134.0-147.0 N POTASSIUM (test code = K) 4.6 mmol/L 3.6-5.2 N CHLORIDE (test code = CL) 102 mmol/l 98.0-107.0 N CARBON DIOXIDE (test code = CO2) 28.7 mmol/l 21.0-33.0 N ANION GAP (test code = GAP) 10.9 0-20 N GLUCOSE (test code = GLU) 364 mg/dl 70.0-110.0 H BLOOD UREA NITROGEN (test co de = BUN) 13 mg/dl 7.0-18.0 N CREATININE (test code = CREAT) 0.57 mg/dL 0.60-1.30 L GFR NON BLACK (test code = GFRNONBLACK) 121 mL/min 95-105 H GFR BLACK (test code = GFRBLACK) 146 mL/min 115-127 H CALCIUM (test code = CA) 9.3 mg/dl 8.0-10.5 N CBC W/AUTO [id number] 11:13:00* Test Item Value Reference Range Interpretation Comme nts WHITE BLOOD CELL (test code = WBC) 13.1 K/mm3 4.5-11.0 H RED BLOOD CELL (test code = RBC) 5.52 M/mm3 3.80-5.20 H HEMOGLOBIN (test code = HGB) 15.1 gm/dL 12.0-16.0 N HEMATOCRIT (test code = HCT) 44.9 % 36.0-48.0 N MEAN CELL VOLUME (test code = MCV) 81.3 UM3 82.0-99.0 L MEAN CELL HGB (test code = MCH) 27.4 UUG 25.5-32.5 N MEAN CELL HGB CONCETRATION (test code = MCHC) 33.6 gm/dL 29.0-35.5 N RED CELL DISTRIBUTION WIDTH (test code = RDW) 12.4 % 11.5-15.0 N RED CELL DISTRIBUTION WIDTH SD (test code = RDW-SD) 36.5 fL 34.8-50.2 N PLATELET COUNT (test code = PLT) 276 K/mm3 150-400 N MEAN PLATELET VOLUME (test c ode = MPV) 9.7 fl 7.4-10.4 N NEUTROPHIL % (test code = NT%) 86.4 % 49.0-76.0 H IMMATURE GRANULOCYTE % (test code = IG%) 0.6 % 0.0-0.4 H LYMPHOCYTE % (test code = LY%) 10.1 % 23.0-38.0 L MONOCYTE % (test code = MO%) 2.5 % 1.0-10.0 N EOSINOPHIL % (test code = EO%) 0.1 % 1.0-5.0 L BASOPHIL % (test code = BA%) 0.3 % 0.0-1.0 N NUCLEATED RBC % (test code = NRBC%) 0.0 % 0.0-0.1 N NEUTROPHIL # (test code = NT#) 11.4 K/mm3 2.4-6.3 H IMMATURE GRANULOCYTE # (test code = IG#) 0.08 x10 3/uL 0.00-0.07 H LYMPHOCYTE # (test code = LY#) 1.3 K/mm3 1.2-4.0 N MONOCYTE # (test code = MO#) 0.3 K/mm3 0.0-0.6 N EOSINOPHIL # (test code = EO#) 0.0 K/MM3 0.0-0.7 N BASOPHIL # (test code = BA#) 0.0 K/mm3 0.0-0.2 N NUCLEATED RBC # (test code = NRBC#) 0.00 X10 3uL 0.00-0.01 N DRUGS OF ABUSE SCREEN [id number] 10:28:00* Test Item Value Reference Range Interpretation Comme nts URN COCAINE (test code = COCAURN) NEGATIVE NEGATIVE Cocaine cut-off concentration: 300 ng/mL URN CANNABINOIDS (test code = CANNABURN) NEGATIVE NEGATIVE Cannabinoids c ut-off concentration: 50 ng/mL URN AMPHETAMINE (test code = AMPHETURN) NEGATIVE NEGATIVE Amphetamine cu t-off concentration: 1000 ng/mL URN BARBITURATE (test code = BARBITURN) NEGATIVE NEGATIVE Barbiturate cu t-off concentration: 200 ng/mL URN BENZODIAZEPINE (test code = BENZOURN) NEGATIVE NEGATIVE Benzodiaz epine cut-off concentration: 200 ng/mL URN OPIATES (test code = OPIATURN) NEGATIVE NEGATIVE Opiates cut-off concentration: 2000 ng/mL URN PHENCYCLIDINE (PCP) (test code = PHENCURN) NEGATIVE NEGATIVE Phencycli dine(PCP) cut-off concentration: 25 ng/ml URN METHADONE (test code = METHAURN) NEGATIVE NEGATIVE Methadone cut-o ff concentration: 300 ng/mL URINALYSIS [id number] 10:26:00* Test Item Value Reference Range Interpretation Comme nts UA COLOR (test code = COLU) YELLOW UA APPEARANCE (test code = APPU) HAZY UA GLUCOSE DIPSTICK (test code = DGLUU) 1000 mg/dl mg/dl NORMAL A UA BILIRUBIN DIPSTICK (test code = BILU) NEGATIVE mg/dL NEGATIVE UA KETONE DIPSTICK (test code = KETU) 50 mg/dl mg/dl NEGATIVE A UA SPECIFIC GRAVITY (test code = SGU) 1.020 1.000-1.030 UA BLOOD DIPSTICK (test code = HERBERT) 10 Homero/micL Homero/micL NEGATIVE A UA PH DIPSTICK (test code = ANA M) 5.0 5.0-9.0 UA PROTEIN DIPSTICK (test code = PROU) 30 mg/dl NEGATIVE A UA UROBILINIOGEN DIPSTICK (test code = URO) NORMAL mg/dl NORMAL UA NITRITE DIPSTICK (test code = MYESHA) POSITIVE NEGATIVE A UA LEUKOCYTE ESTERASE DIPSTICK (test code = LEUU) 25 Abigail/micL Abigail/micL NEGATIVE A UA WBC (test code = WBCU) 20-25 WBC/HPF NONE A UA RBC (test code = RBCU) 3-5 RBC/HPF 0-3 UA EPITHELIAL CELLS (test code = EPIU) 5-10 EPI/HPF 0-3 A UA BACTERIA (test code = BACU) MANY NONE A UA YEAST (test code = YEASTU) FEW NEGATIVE SURGICAL [id number] 16:45:00* Test Item Value Reference Range Interpretation Comme nts SURGICAL SPECIMENS (test code = SURG) RUN DATE: 05/11/20 [facility] Lab PAGE 1 RUN TIME: 1646 Specimen Inquiry RUN USER: INTERFACE PATIENT: KURT LLAMAS LOC: [place] U #: [id number] AGE/SX: 44/F ROOM: [facility] RE04/30/20REG DR: Coretta Morris : 73 BED: 1 DIS: 05/09/20 STATUS: DIS IN TLOC: SPEC #: [id number] RECD: 05/09/20 STATUS: XI ADRIENNE #: [id number] ROCKY: 05/09/20- SUBM DR: Coretta Morris MD ENTERED: 05/09/20 SP TYPE: SURG SPEC OTHR DR: No Primary or Family Physician Self Referred Frederick Perry DPM, William S MDORDERED: BONE DECAL/2, GM LEVEL 4/2, REQUEST COMMENTS: 1. RIGHT DISTAL HALLUX 2. RIGHT HALLUX PROXIMAL CLEAR MARGIN COPIES TO: No Primary or Family Physician Self Referred Frederick Perry DPM [address] [place] [address] Coretta Morris MD [address] [facility] [address] [place] [address] @ReferStar Refugio Mora MD [address] [address] ICD CODES: 785.4 - PROCEDURES: BONE DECAL (Incomplete) GM LEVEL 4 (05/11/20-1347) REQUEST (05/09/20-1208) FINAL DIAGNOSIS A. RIGHT DISTAL HALLUX: GANGRENE WITH CHRONIC OSTEOMYELITIS. B. RIGHT HALLUX PROXIMAL CLEAR MARGIN: BONE AND SOFT TISSUE WITH NO PATHOLOGY. CPT CODE: 66401 X 2, 96737 X 2 CONTINUED ON NEXT PAGE RUN DATE: 05/11/20 [place] - Lab PAGE 2 RUN TIME: 1646 Specimen Inquiry RUN USER: INTERFACE SPEC #: [id number] PATIENT: KURT LLAMAS EVIE #[id number] (Continued) MACROSCOPIC Clinical history: Right hallux osteomyelitis A. Specimen labeled "right distal hallux" consists of a terminal portion of a toemeasuring 2.5 cm in length and 2 cm in maximum diameter. The skin underlying the toe showsslippage and separate from the underlying tissue. Forepart Rasper sections including bonein one cassette A. B. Specimen labeled "right hallux proximal clear margins" consists of a roughlyrectangular piece of bone with partial cartilagenous covering measuring 1.4 cm in maximumdiameter. Forepart Rasper sections one cassette, ____ A2 for decalcification. MICROSCOPIC SEE DIAGNOSIS Signed SIGNATURE ON FILE Brian Dubon. 05/11/20 1645 END OF REPORT [id number] 15:25:00* Test Item Value Reference Range Interpretation Comme nts GLUBED (test code = GLUBED) 199 mg/dL 70-110 H [id number] 11:28:00* Test Item Value Reference Range Interpretation Comme nts GLUBED (test code = GLUBED) 249 mg/dL 70-110 H [id number] 08:28:00* Test Item Value Reference Range Interpretation Comme nts GLUBED (test code = GLUBED) 217 mg/dL 70-110 H VANCOMYCIN [id number] 00:42:00* Test Item Value Reference Range Interpretation Comme nts VANCOMYCIN TROUGH (test code = VANCT) 16.8 mcg/mL 10-20 N Other diseas e associated reference ranges: 10 - 15 mcg/mL Cellulitis, urinary tract infection 15 - 20 mcg/mL Bacteremia, infective endocarditis, osteomyelitis, meningitis, pneumonia, severe skin/soft tissue infection, spinal abscess BASIC METABOLIC [id number] 00:41:00* Test Item Value Reference Range Interpretation Comme nts SODIUM (test code = NA) 137 mmol/l 134.0-147.0 N POTASSIUM (test code = K) 3.8 mmol/L 3.6-5.2 N CHLORIDE (test code = CL) 101 mmol/l 98.0-107.0 N CARBON DIOXIDE (test code = CO2) 30.2 mmol/l 21.0-33.0 N ANION GAP (test code = GAP) 9.6 0-20 N GLUCOSE (test code = GLU) 236 mg/dl 70.0-110.0 H BLOOD UREA NITROGEN (test co de = BUN) 11 mg/dl 7.0-18.0 N CREATININE (test code = CREAT) 0.69 mg/dL 0.60-1.30 N GFR NON BLACK (test code = GFRNONBLACK) 97 mL/min 95-105 N GFR BLACK (test code = GFRBLACK) 118 mL/min 115-127 N CALCIUM (test code = CA) 9.0 mg/dl 8.0-10.5 N CBC W/AUTO [id number] 00:33:00* Test Item Value Reference Range Interpretation Comme nts WHITE BLOOD CELL (test code = WBC) 9.6 K/mm3 4.5-11.0 N RED BLOOD CELL (test code = RBC) 4.58 M/mm3 3.80-5.20 N HEMOGLOBIN (test code = HGB) 12.8 gm/dL 12.0-16.0 N HEMATOCRIT (test code = HCT) 37.9 % 36.0-48.0 N MEAN CELL VOLUME (test code = MCV) 82.8 UM3 82.0-99.0 N MEAN CELL HGB (test code = MCH) 27.9 UUG 25.5-32.5 N MEAN CELL HGB CONCETRATION (test code = MCHC) 33.8 gm/dL 29.0-35.5 N RED CELL DISTRIBUTION WIDTH (test code = RDW) 11.9 % 11.5-15.0 N RED CELL DISTRIBUTION WIDTH SD (test code = RDW-SD) 35.8 fL 34.8-50.2 N PLATELET COUNT (test code = PLT) 342 K/mm3 150-400 N MEAN PLATELET VOLUME (test c ode = MPV) 9.0 fl 7.4-10.4 N NEUTROPHIL % (test code = NT%) 62.1 % 49.0-76.0 N IMMATURE GRANULOCYTE % (test code = IG%) 1.1 % 0.0-0.4 H LYMPHOCYTE % (test code = LY%) 23.3 % 23.0-38.0 N MONOCYTE % (test code = MO%) 10.8 % 1.0-10.0 H EOSINOPHIL % (test code = EO%) 2.1 % 1.0-5.0 N BASOPHIL % (test code = BA%) 0.6 % 0.0-1.0 N NUCLEATED RBC % (test code = NRBC%) 0.0 % 0.0-0.1 N NEUTROPHIL # (test code = NT#) 6.0 K/mm3 2.4-6.3 N IMMATURE GRANULOCYTE # (test code = IG#) 0.11 x10 3/uL 0.00-0.07 H LYMPHOCYTE # (test code = LY#) 2.3 K/mm3 1.2-4.0 N MONOCYTE # (test code = MO#) 1.0 K/mm3 0.0-0.6 H EOSINOPHIL # (test code = EO#) 0.2 K/MM3 0.0-0.7 N BASOPHIL # (test code = BA#) 0.1 K/mm3 0.0-0.2 N NUCLEATED RBC # (test code = NRBC#) 0.00 X10 3uL 0.00-0.01 N [id number] 20:46:00* Test Item Value Reference Range Interpretation Comme nts GLUBED (test code = GLUBED) 281 mg/dL 70-110 H BASIC METABOLIC [id number] 05:10:00* Test Item Value Reference Range Interpretation Comme nts SODIUM (test code = NA) 136 mmol/l 134.0-147.0 N POTASSIUM (test code = K) 3.8 mmol/L 3.6-5.2 N CHLORIDE (test code = CL) 103 mmol/l 98.0-107.0 N CARBON DIOXIDE (test code = CO2) 27.4 mmol/l 21.0-33.0 N ANION GAP (test code = GAP) 9.4 0-20 N GLUCOSE (test code = GLU) 249 mg/dl 70.0-110.0 H BLOOD UREA NITROGEN (test co de = BUN) 9 mg/dl 7.0-18.0 N CREATININE (test code = CREAT) 0.63 mg/dL 0.60-1.30 N GFR NON BLACK (test code = GFRNONBLACK) 108 mL/min 95-105 H GFR BLACK (test code = GFRBLACK) 131 mL/min 115-127 H CALCIUM (test code = CA) 8.6 mg/dl 8.0-10.5 N [id number] 21:03:00* Test Item Value Reference Range Interpretation Comme nts GLUBED (test code = GLUBED) 239 mg/dL 70-110 H [id number] 16:36:00* Test Item Value Reference Range Interpretation Comme nts GLUBED (test code = GLUBED) 268 mg/dL 70-110 H [id number] 13:31:00* Test Item Value Reference Range Interpretation Comme nts GLUBED (test code = GLUBED) 307 mg/dL 70-110 H [id number] 07:45:00* Test Item Value Reference Range Interpretation Comme nts GLUBED (test code = GLUBED) 225 mg/dL 70-110 H [id number] 21:52:00* Test Item Value Reference Range Interpretation Comme nts GLUBED (test code = GLUBED) 271 mg/dL 70-110 H - XR FOOT 3 + V [id number] 18:29:00 [facility] 1975 Sex: F FAX: Jerel Goodman DP [phone] [place]: EM St: DIS FAX: Derek Eisenberg [phone] Name: KURT LLAMAS [facility] [place] : 1975 Age/S: 44/F [address] [facility] Unit #: [id number]: [address] [place], [place] Phys: Jerel Goodman DPM [address] Acct: [id number] Dis Date: 20200509 Status: DIS IN PHONE #: [phone] Exam Date: 05/06/20201819 FAX #: [phone] Reason: s/p right partial ampuation hallux EXAMS: CPT CODE: [id number] XR FOOT 3 + V RT 70839 Site ID: [id number] INDICATION: Postoperative, partial amputation of the hallux IMPRESSION: Satisfactory postoperative films following partial first digit amputation the distal portion of the first proximal phalanx at 1829 Reported and signed by: Kuldip Lozano M.D. CC: Jerel Goodman DPM; Coretta Morris MD Technologist: JAMES RANDOLPH [facility] Date/Time/By: 05/06/2020 (1828) : By: [email or web address] PAGE 1 Signed Report FAX: Jerel Goodman [phone] [place]: St: DIS FAX: Derek Eisenberg [phone] Name: KURT LLAMAS [facility] [place] : 1975 Age/S: 44/F [address] Unit #: [id number] Loc: [address] [place], [place] Phys: Jerel Goodman DPM [address] Acct: [id number] Dis Date: 20200509 Status: DIS IN PHONE #: [phone] Exam Date: 05/06/2020 1820 FAX #: [phone] Reason: s/p right partial ampuation hallux EXAMS: CPT CODE: [id number] XR FOOT 3 + [place] RT [address]3845 <Continued> Orig Print D/T: S: 05/06/2020 (5083) PAGE 2 SignedReport- XR FOOT 3 + V [id number] 18:29:00 [facility] : 1975 Sex: F FAX: Jerel Goodman [phone] [place]: [facility]: [facility] FAX: Derek Eisenberg [phone] Name: KURT LLAMAS [facility] [place] : 1975 Age/S: 44/F [address] Unit #: [id number]: [address] [place], [place] Phys: Jerel Goodman DPM [address] Acct: [id number] Dis Date: Status: ADM IN PHONE #: [phone] Exam Date: 05/06/2020 182 FAX #: [phone] Reason: s/p right partial ampuation hallux EXAMS: CPT CODE: [id number] XR FOOT 3 + V RT 18508 Site ID: [id number] INDICATION: Postoperative, partial amputation of the hallux IMPRESSION: Satisfactory postoperative films following partial first digit amputation the distal portion of the first proximal phalanx at 182 Reported and signed by: Kuldip Lozano M.D. CC: Jerel Goodman DPM; Coretta Morris MD Technologist: JAMES RANDOLPH Trnnhrd Date/Time/By: 05/06/2020 (1828) : By: [email or web address] PAGE 1 Signed Report FAX: Jerel Goodman [phone] [place]: St: [facility] FAX: Derek Eisenberg [phone] Name: KURT LLAMAS [facility] : 1975 Age/S: 44/F [address] Unit #: [id number] Loc: [address] [place], [place] Phys: Jerel Goodman DPM [address] Acct: [id number] Dis Date: Status: ADM IN PHONE #: [phone] Exam Date: 05/06/2020 182 FAX #: [phone] Reason: s/p right partial ampuation hallux EXAMS: CPT CODE: [id number] XR FOOT3 + V RT 52294 (Continued) Orig Print D/T: S: 05/06/2020 (1833) PAGE 2 Signed ReportGLUBED 2020-05-06 15:19:00* Test Item Value Reference Range Interpretation Comme nts GLUBED (test code = GLUBED) 174 mg/dL 70-110 H COVID 19 Asymptomatic IH [id number] 12:57:00* Test Item Value Reference Range Interpretation Comme nts COVID 19 Asymptomatic IH AG (test code = COVNONPUIAG) NEGATIVE NEGATIVE Negative results should be treated as presumptive and ifinconsistent with clinical signs and symptoms, or necessaryfor patient management, should be tested with an alternativemolecular assay. Negative results do not preclude ICWI-LjT-4qqooqvbve and should not be used as the sole basis forpatient management decisions. Negative results should beconsidered in the context of a patient's recent exposures,history, presence of clinical signs and symptoms consistentwith COVID-19. Specimen comments: If not done this [id number] 11:17:00* Test Item Value Reference Range Interpretation Comme nts GLUBED (test code = GLUBED) 217 mg/dL 70-110 H [id number] 07:26:00* Test Item Value Reference Range Interpretation Comme nts GLUBED (test code = GLUBED) 263 mg/dL 70-110 H VANCOMYCIN [id number] 05:58:00* Test Item Value Reference Range Interpretation Comme nts VANCOMYCIN TROUGH (test code = VANCT) 8.4 mcg/mL 10-20 L Other diseas e associated reference ranges: 10 - 15 mcg/mL Cellulitis, urinary tract infection 15 - 20 mcg/mL Bacteremia, infective endocarditis, osteomyelitis, meningitis, pneumonia, severe skin/soft tissue infection, spinal abscess Specimen comments: PLEASE DRAW VANCO TROUGH PRIR TO 0500 DOSE, THANK YOUComments to Decatizer: PLEASE MAKE SURE VANCO IS NOT HANGING, THANK YOUCOMPREHENSIVE METABOLIC [id number] 05:49:00* Test Item Value Reference Range Interpretation Comme nts SODIUM (test code = NA) 136 mmol/l 134.0-147.0 N POTASSIUM (test code = K) 3.9 mmol/L 3.6-5.2 N CHLORIDE (test code = CL) 101 mmol/l 98.0-107.0 N CARBON DIOXIDE (test code = CO2) 30.2 mmol/l 21.0-33.0 N ANION GAP (test code = GAP) 8.7 0-20 N GLUCOSE (test code = GLU) 252 mg/dl 70.0-110.0 H BLOOD UREA NITROGEN (test co de = BUN) 10 mg/dl 7.0-18.0 N CREATININE (test code = CREAT) 0.59 mg/dL 0.60-1.30 L GFR NON BLACK (test code = GFRNONBLACK) 117 mL/min 95-105 H GFR BLACK (test code = GFRBLACK) 141 mL/min 115-127 H TOTAL PROTEIN (test code = PROT) 6.4 GM/DL 6.0-8.1 N ALBUMIN (test code = ALB) 2.3 gm/dL 3.2-4.7 L CALCIUM (test code = CA) 8.5 mg/dl 8.0-10.5 N BILIRUBIN TOTAL (test code = BILT) 0.1 mg/dl 0.0-1.0 N SGOT/AST (test code = AST) 14 Units/L 15-37 L SGPT/ALT (test code = ALT) 18 Units/L 12.0-78.0 N ALKALINE PHOSPHATASE TOTAL ( test code = ALKP) 92 Units/L 50.0-136.0 N CBC W/AUTO [id number] 05:29:00* Test Item Value Reference Range Interpretation Comme nts WHITE BLOOD CELL (test code = WBC) 11.2 K/mm3 4.5-11.0 H RED BLOOD CELL (test code = RBC) 4.79 M/mm3 3.80-5.20 N HEMOGLOBIN (test code = HGB) 13.2 gm/dL 12.0-16.0 N HEMATOCRIT (test code = HCT) 40.8 % 36.0-48.0 N MEAN CELL VOLUME (test code = MCV) 85.2 UM3 82.0-99.0 N MEAN CELL HGB (test code = MCH) 27.6 UUG 25.5-32.5 N MEAN CELL HGB CONCETRATION (test code = MCHC) 32.4 gm/dL 29.0-35.5 N RED CELL DISTRIBUTION WIDTH (test code = RDW) 12.0 % 11.5-15.0 N RED CELL DISTRIBUTION WIDTH SD (test code = RDW-SD) 36.6 fL 34.8-50.2 N PLATELET COUNT (test code = PLT) 374 K/mm3 150-400 N MEAN PLATELET VOLUME (test c ode = MPV) 9.1 fl 7.4-10.4 N NEUTROPHIL % (test code = NT%) 63.3 % 49.0-76.0 N IMMATURE GRANULOCYTE % (test code = IG%) 1.6 % 0.0-0.4 H LYMPHOCYTE % (test code = LY%) 22.1 % 23.0-38.0 L MONOCYTE % (test code = MO%) 11.0 % 1.0-10.0 H EOSINOPHIL % (test code = EO%) 1.3 % 1.0-5.0 N BASOPHIL % (test code = BA%) 0.7 % 0.0-1.0 N NUCLEATED RBC % (test code = NRBC%) 0.0 % 0.0-0.1 N NEUTROPHIL # (test code = NT#) 7.1 K/mm3 2.4-6.3 H IMMATURE GRANULOCYTE # (test code = IG#) 0.18 x10 3/uL 0.00-0.07 H LYMPHOCYTE # (test code = LY#) 2.5 K/mm3 1.2-4.0 N MONOCYTE # (test code = MO#) 1.2 K/mm3 0.0-0.6 H EOSINOPHIL # (test code = EO#) 0.1 K/MM3 0.0-0.7 N BASOPHIL # (test code = BA#) 0.1 K/mm3 0.0-0.2 N NUCLEATED RBC # (test code = NRBC#) 0.00 X10 3uL 0.00-0.01 N - MRI LOW EXT W/O CONT [id number] 14:53:00 [facility] 1975 Sex: F FAX: Milton Kraus [phone] [place]: St: DIS FAX: Derek Eisenberg [phone] Name: KURT LLAMAS [facility] [place] : 1975 Age/S: 44/F [address] [facility] Unit #: [id number]: [address] [place], [place] Phys: Milton Teixeira [address] Acct: [id number] Dis Date: [id number] Status: DIS IN PHONE #: [phone] Exam Date: 05/05/2020 1423 FAX #: [phone] Reason: Eval osteort toe EXAMS: CPT CODE: [id number] MRI L[place] EXT W/[place] [address] Site ID: [id number] HISTORY: Right great toe osteomyelitis COMPARISON: CT of the legs of the same day TECHNIQUE: Multiplanar, multisequence MRI of the right mid to forefoot was performed without intravenous contrast FINDINGS: Moderate subcutaneous edema/cellulitis of the hallux, with a thin 2 cm long by 5 mm deep periosseous and subperiosteal abscess at the plantar aspect of the 1st distal phalanx associated with early plantar cortical demineralization and diffuse osteomyelitis of the 1st distal phalanx. No IP joint effusion. The proximal phalanx appears normal. No other site of concern for osteomyelitis. No arthritic change or bony fragmentation. Lisfranc ligament is intact. IMPRESSION: Osteomyelitis changes throughout the 1st distal phalanx with thin associated plantar soft tissue and subperiosteal abscess at 1453 Reported and signed by: Kuldip Lozano M.D. CC: Milton RUIZ; Coretta Morris MD Technologist: JANIE RANDOLPH; YARITZA NGUYỄN Trnscrd Date/Time/By: 05/05/2020 (6219) : By: [email or web address] PAGE 1 Signed Report FAX: Milton Kraus [phone] [place]: St: DIS FAX: Derek Eisenberg [phone] Name: LLAMASKURT [facility] [place] : 1975 Age/S: 44/F [address] [facility] Unit #: [id number] Loc: [address] [place], [place] Phys: Milton Teixeira [address] Acct: [id number] Dis Date: [id number] Status: DIS IN PHONE #: [phone] Exam Date: 05/05/2020 1423 FAX #: [phone] Reason: Eval osteo rt toe EXAMS: CPT CODE: [id number] MRI [place] EXT W/[place] [address] <Continued> Orig Print D/T: S: 05/05/2020 (2190) PAGE 2 Signed Report- MRI LOW EXT W/O CONT [id number] 14:53:00 [facility] TONG EVIE : 1975 Sex: F FAX: Milton Kraus [phone] [place]: St: [facility] FAX: Derek Eisenberg [phone] Name: KURT LLAMAS [facility] [place] : 1975 Age/S: 44/F [address] [facility] Unit #: [id number] Loc: [address] Phys: Milton Teixeira [address] Acct: [id number] Dis Date: Status: ADM IN PHONE #: [phone] Exam Date: 05/05/2020 1423 FAX #: [phone] Reason: Eval osteo rt toe EXAMS: CPT CODE: [id number] MRI [place] EXT W/[place] [address] Site ID: [id number] HISTORY: Right great toe osteomyelitis COMPARISON: CT of the legs of the same day TECHNIQUE: Multiplanar, multisequence MRI of the right mid to forefoot was performed without intravenous contrast FINDINGS: Moderate subcutaneous e memo/cellulitis of the hallux, with a thin 2 cm long by 5 mm deep periosseous and subperiosteal abscess at the plantar aspect of the 1st distal phalanx associated with early plantar cortical demineralization and diffuse osteomyelitis of the 1st distal phalanx. No IP joint effusion. The proximal phal anx appears normal. No other site of concern for osteomyelitis. No arthritic change or bony fragmentation. Lisfranc ligament is intact. IMPRESSION: Osteomyelitis changes throughout the 1st distal phalanx with thin associated plantar soft tissue and subperiosteal abscess at 1453 Reported and signed by: Kuldip Lozano M.D. CC: Milton RUIZ; Coretta Morris MD Technologist: JANIE RANDOLPH; YARITZA NGUYỄN Trnscrd Date/Time/By: 05/05/2020 (8159) : By: [email or web address] PAGE 1 Signed Report FAX: Milton Kraus [phone] [place]: St: ADM FAX: Derek Eisenberg [phone] Name: KURT LLAMAS [facility] [place] : 1975 Age/S: 44/F [address] [facility] Unit #: [id number] Loc: [address] [place], [place] Phys: Milton Teixeira [address] Acct: [id number] Dis Date: Status: ADM IN PHONE #: [phone] Exam Date: 05/05/20203 FAX #: [phone] Reason: Eval osteo rt toe EXAMS: CPT CODE: [id number] [place] W/[place] [address] (Continued) Orig Print D/T: S: 05/05/2020 (9662) PAGE 2 Signed Report- CT LOWER EXTRM W/O C [id number] 13:23:00 [facility] : 1975 Sex: F FAX: Milton Kraus [phone] [place]: St: DIS FAX: Derek Eisenberg [phone] Name: KURT LLAMAS [facility] [place] : 1975 Age/S: 44/F [address] [facility] Unit: [id number] Loc: [address] Phys: Milton Teixeira [address] Acct: [id number] Dis Date: 05/09/2020 Status: DIS IN PHONE #: [phone] Exam Date: 05/05/2020 1126 FAX #: [phone] Reason: r/o osteo EXAMS: CPT CODE: [id number] CT L[place]TR[place] W/[place] [address] EXAM: - CT LOWER EXTRM W/O C RT LOCATION: C3 HISTORY: r/o osteo, pain COMPARISON: None available at time of interpretation. TECHNIQUE: Noncontrast CT images of the bilateral feet with multiplanar reformats. This exam was performed according to our departmental dose-optimization program, which includes automated exposure control, adjustment of the mA and/or kV according to patient size and/or use of iterative reconstruction technique. FINDINGS: Loss of normal cortex at the plantar aspect of the right great toe distal phalanx. ModerateAchilles and plantar calcaneal enthesopathy is noted. No drainable fluid collection. IMPRESSION: Limited evaluation due to the late the examination was ordered. Each foot should be scanned separatelyin order to increase sensitivity of the study. Possible loss of normal cortex at the plantar aspect of the right great toe distal phalanx. Recommend further evaluation with MRI of the right forefoot. at 1323 Reported and signed by: Gaurav Walker M.D. CC: Milton RUIZ; Coretta Morris MD Technologist: PILAR CISNEROS; FLACO ERNST Trnscrd Dt/Tm: 05/05/2020 (1743) t.SDR.HV2 Orig Print D/T: S: 05/05/2020 (1326 PAGE1 Signed Report- CT LOWER EXTRM W/O C [id number] 13:23:00 [facility] : 1975 Sex: F FAX: Milton Kraus [phone] [place]: St: [facility] FAX: Derek Eisenberg [phone] Name: LLAMASKURT TONG EVIE [facility] [place] : 1975 Age/S: 44/F [address] [facility] Unit: [id number] Loc: [address] [place], [place] Phys: Milton Teixeira [address] Acct: [id number] Dis Date: Status: ADM IN PHONE #: [phone] Exam Date: 05/05/2020 1126 FAX #: [phone] Reason: r/o osteo EXAMS: CPT CODE: [id number] CT L[place]TRM W/[place] [address] EXAM: - CT LOWER EXTRM W/O C RT LOCATION: C3 HISTORY: r/o osteo, pain COMPARISON: None available at time of interpretation. TECHNIQUE: Noncontrast CT images of the bilateral feet with multiplanar reformats. This exam was performed according to our depar tmental dose-optimization program, which includes automated exposure control, adjustment of the mA and/or kV according to patient size and/or use of iterative reconstruction technique. FINDINGS: [place] normal cortex at the plantar aspect of the right great toe distal phalanx. Moderate Achilles andplantar calcaneal enthesopathy is noted. No drainable fluid collection. IMPRESSION: Limited evaluation due to the late the examination was ordered. Each foot should be scanned separately in order to increase sensitivity of the study. Possible loss of normal cortex at the plantar aspect of the rightgreat toe distal phalanx. Recommend further evaluation with MRI of the right forefoot. at 1323 Reported and signed by: Gaurav Walker M.D. CC: Milton RUIZ; Coretta Morris MD Technologist: PILAR ERNST Trnscrd Dt/Tm: 05/05/2020 (1323) t.SDR.HV2 Orig Print D/T: S: 05/05/2020 (7126 PAGE 1 Signed ReportGLUBED 2020-05-05 06:41:00* Test Item Value Reference Range Interpretation Comme nts GLUBED (test code = GLUBED) 289 mg/dL 70-110 H [id number] 06:41:00* Test Item Value Reference Range Interpretation Comme nts GLUBED (test code = GLUBED) 356 mg/dL 70-110 H [id number] 20:58:00* Test Item Value Reference Range Interpretation Comme nts GLUBED (test code = GLUBED) 331 mg/dL 70-110 H [id number] 15:23:00* Test Item Value Reference Range Interpretation Comme nts GLUBED (test code = GLUBED) 247 mg/dL 70-110 H [id number] 07:07:00* Test Item Value Reference Range Interpretation Comme nts GLUBED (test code = GLUBED) 282 mg/dL 70-110 H [id number] 20:59:00* Test Item Value Reference Range Interpretation Comme nts GLUBED (test code = GLUBED) 289 mg/dL 70-110 H [id number] 06:56:00* Test Item Value Reference Range Interpretation Comme nts GLUBED (test code = GLUBED) 279 mg/dL 70-110 H [id number] 20:30:00* Test Item Value Reference Range Interpretation Comme nts GLUBED (test code = GLUBED) 319 mg/dL 70-110 H [id number] 15:25:00* Test Item Value Reference Range Interpretation Comme nts GLUBED (test code = GLUBED) 307 mg/dL 70-110 H [id number] 11:29:00* Test Item Value Reference Range Interpretation Comme nts GLUBED (test code = GLUBED) 275 mg/dL 70-110 H [id number] 09:03:00* Test Item Value Reference Range Interpretation Comme nts GLUBED (test code = GLUBED) 232 mg/dL 70-110 H BASIC METABOLIC [id number] 03:15:00* Test Item Value Reference Range Interpretation Comme nts SODIUM (test code = NA) 135 mmol/l 134.0-147.0 N POTASSIUM (test code = K) 3.3 mmol/L 3.6-5.2 L CHLORIDE (test code = CL) 101 mmol/l 98.0-107.0 N CARBON DIOXIDE (test code = CO2) 29.1 mmol/l 21.0-33.0 N ANION GAP (test code = GAP) 8.2 0-20 N GLUCOSE (test code = GLU) 255 mg/dl 70.0-110.0 H BLOOD UREA NITROGEN (test co de = BUN) 8 mg/dl 7.0-18.0 N CREATININE (test code = CREAT) 0.59 mg/dL 0.60-1.30 L GFR NON BLACK (test code = GFRNONBLACK) 117 mL/min 95-105 H GFR BLACK (test code = GFRBLACK) 141 mL/min 115-127 H CALCIUM (test code = CA) 8.6 mg/dl 8.0-10.5 N [id number] 03:15:00* Test Item Value Reference Range Interpretation Comme nts MAGNESIUM (test code = MAG) 1.9 mg/dl 1.8-2.4 N [id number] 03:14:00* Test Item Value Reference Range Interpretation Comme nts HGBA1C% (test code = HGBA1C%) 12.4 %A1C 4.8-6.0 H ESTIMATED AVERAGE GLUCOSE (t est code = EAG) 309 MG/DL CBC W/AUTO [id number] 03:07:00* Test Item Value Reference Range Interpretation Comme nts WHITE BLOOD CELL (test code = WBC) 12.2 K/mm3 4.5-11.0 H RED BLOOD CELL (test code = RBC) 4.82 M/mm3 3.80-5.20 N HEMOGLOBIN (test code = HGB) 13.0 gm/dL 12.0-16.0 N HEMATOCRIT (test code = HCT) 40.1 % 36.0-48.0 N MEAN CELL VOLUME (test code = MCV) 83.2 UM3 82.0-99.0 N MEAN CELL HGB (test code = MCH) 27.0 UUG 25.5-32.5 N MEAN CELL HGB CONCETRATION (test code = MCHC) 32.4 gm/dL 29.0-35.5 N RED CELL DISTRIBUTION WIDTH (test code = RDW) 12.0 % 11.5-15.0 N RED CELL DISTRIBUTION WIDTH SD (test code = RDW-SD) 36.3 fL 34.8-50.2 N PLATELET COUNT (test code = PLT) 386 K/mm3 150-400 N MEAN PLATELET VOLUME (test c ode = MPV) 9.5 fl 7.4-10.4 N NEUTROPHIL % (test code = NT%) 65.2 % 49.0-76.0 N IMMATURE GRANULOCYTE % (test code = IG%) 1.0 % 0.0-0.4 H LYMPHOCYTE % (test code = LY%) 23.0 % 23.0-38.0 N MONOCYTE % (test code = MO%) 9.7 % 1.0-10.0 N EOSINOPHIL % (test code = EO%) 0.7 % 1.0-5.0 L BASOPHIL % (test code = BA%) 0.4 % 0.0-1.0 N NUCLEATED RBC % (test code = NRBC%) 0.0 % 0.0-0.1 N NEUTROPHIL # (test code = NT#) 8.0 K/mm3 2.4-6.3 H IMMATURE GRANULOCYTE # (test code = IG#) 0.12 x10 3/uL 0.00-0.07 H LYMPHOCYTE # (test code = LY#) 2.8 K/mm3 1.2-4.0 N MONOCYTE # (test code = MO#) 1.2 K/mm3 0.0-0.6 H EOSINOPHIL # (test code = EO#) 0.1 K/MM3 0.0-0.7 N BASOPHIL # (test code = BA#) 0.1 K/mm3 0.0-0.2 N NUCLEATED RBC # (test code = NRBC#) 0.00 X10 3uL 0.00-0.01 N [id number] 19:26:00* Test Item Value Reference Range Interpretation Comme nts GLUBED (test code = GLUBED) 275 mg/dL 70-110 H [id number] 17:38:00* Test Item Value Reference Range Interpretation Comme nts GLUBED (test code = GLUBED) 340 mg/dL 70-110 H [id number] 11:12:00* Test Item Value Reference Range Interpretation Comme nts GLUBED (test code = GLUBED) 320 mg/dL 70-110 H COMPREHENSIVE METABOLIC [id number] 07:53:00* Test Item Value Reference Range Interpretation Comme nts SODIUM (test code = NA) 136 mmol/l 134.0-147.0 N POTASSIUM (test code = K) 3.9 mmol/L 3.6-5.2 N CHLORIDE (test code = CL) 102 mmol/l 98.0-107.0 N CARBON DIOXIDE (test code = CO2) 25.1 mmol/l 21.0-33.0 N ANION GAP (test code = GAP) 12.8 0-20 N GLUCOSE (test code = GLU) 299 mg/dl 70.0-110.0 H BLOOD UREA NITROGEN (test co de = BUN) 7 mg/dl 7.0-18.0 N CREATININE (test code = CREAT) 0.58 mg/dL 0.60-1.30 L GFR NON BLACK (test code = GFRNONBLACK) 119 mL/min 95-105 H GFR BLACK (test code = GFRBLACK) 144 mL/min 115-127 H TOTAL PROTEIN (test code = PROT) 6.1 gm/dL 6.4-8.2 L ALBUMIN (test code = ALB) 2.2 gm/dl 3.2-4.7 L CALCIUM (test code = CA) 8.1 mg/dl 8.0-10.5 N BILIRUBIN TOTAL (test code = BILT) 0.3 mg/dl 0.0-1.0 N SGOT/AST (test code = AST) 7 Units/L 15-37 L SGPT/ALT (test code = ALT) 10 Units/L 12.0-78.0 L ALKALINE PHOSPHATASE TOTAL ( test code = ALKP) 95 Units/L 50.0-136.0 N [id number] 07:53:00* Test Item Value Reference Range Interpretation Comme nts MAGNESIUM (test code = MAG) 1.9 mg/dl 1.8-2.4 N THYROID STIMULATING [id number] 07:53:00* Test Item Value Reference Range Interpretation Comme nts THYROID STIMULATING HORMONE (test code = TSH) 0.50 IU/ML 0.47-5.01 N Result is in International Units/milliliter [id number] 07:52:00* Test Item Value Reference Range Interpretation Comme nts GLUBED (test code = GLUBED) 273 mg/dL 70-110 H [id number] 07:38:00* Test Item Value Reference Range Interpretation Comme nts HGBA1C% (test code = HGBA1C%) 12.9 %A1C 4.8-6.0 H ESTIMATED AVERAGE GLUCOSE (t est code = EAG) 324 MG/DL CBC W/AUTO [id number] 06:58:00* Test Item Value Reference Range Interpretation Comme nts WHITE BLOOD CELL (test code = WBC) 12.3 K/mm3 4.5-11.0 H RED BLOOD CELL (test code = RBC) 4.54 M/mm3 3.80-5.20 N HEMOGLOBIN (test code = HGB) 12.6 gm/dL 12.0-16.0 HEMATOCRIT (test code = HCT) 38.2 % 36.0-48.0 N MEAN CELL VOLUME (test code = MCV) 84.1 UM3 82.0-99.0 N MEAN CELL HGB (test code = MCH) 27.8 UUG 25.5-32.5 N MEAN CELL HGB CONCETRATION (test code = MCHC) 33.0 gm/dL 29.0-35.5 N RED CELL DISTRIBUTION WIDTH (test code = RDW) 12.1 % 11.5-15.0 N RED CELL DISTRIBUTION WIDTH SD (test code = RDW-SD) 37.0 fL 34.8-50.2 N PLATELET COUNT (test code = PLT) 316 K/mm3 150-400 N MEAN PLATELET VOLUME (test c ode = MPV) 9.3 fl 7.4-10.4 N NEUTROPHIL % (test code = NT%) 73.7 % 49.0-76.0 N IMMATURE GRANULOCYTE % (test code = IG%) 0.7 % 0.0-0.4 H LYMPHOCYTE % (test code = LY%) 15.0 % 23.0-38.0 L MONOCYTE % (test code = MO%) 10.0 % 1.0-10.0 N EOSINOPHIL % (test code = EO%) 0.2 % 1.0-5.0 L BASOPHIL % (test code = BA%) 0.4 % 0.0-1.0 N NUCLEATED RBC % (test code = NRBC%) 0.0 % 0.0-0.1 N NEUTROPHIL # (test code = NT#) 9.0 K/mm3 2.4-6.3 H IMMATURE GRANULOCYTE # (test code = IG#) 0.09 x10 3/uL 0.00-0.07 H LYMPHOCYTE # (test code = LY#) 1.8 K/mm3 1.2-4.0 N MONOCYTE # (test code = MO#) 1.2 K/mm3 0.0-0.6 H EOSINOPHIL # (test code = EO#) 0.0 K/MM3 0.0-0.7 N BASOPHIL # (test code = BA#) 0.1 K/mm3 0.0-0.2 N NUCLEATED RBC # (test code = NRBC#) 0.00 X10 3uL 0.00-0.01 N [id number] 00:04:00* Test Item Value Reference Range Interpretation Comme nts GLUBED (test code = GLUBED) 291 mg/dL 70-110 H [id number] 21:10:00* Test Item Value Reference Range Interpretation Comme nts GLUBED (test code = GLUBED) 333 mg/dL 70-110 H [id number] 16:13:00* Test Item Value Reference Range Interpretation Comme nts GLUBED (test code = GLUBED) 297 mg/dL 70-110 H [id number] 13:02:00* Test Item Value Reference Range Interpretation Comme nts GLUBED (test code = GLUBED) 266 mg/dL 70-110 H CBC W/AUTO [id number] 06:03:00* Test Item Value Reference Range Interpretation Comme nts WHITE BLOOD CELL (test code = WBC) 17.0 K/mm3 4.5-11.0 H SMEAR SCANNED, N O MAJOR ANOMALLY SEEN.SMEAR SCANNED, AUTO DIFF. CONFIRMED. RED BLOOD CELL (test code = RBC) 5.30 M/mm3 3.80-5.20 H HEMOGLOBIN (test code = HGB) 14.8 gm/dL 12.0-16.0 N HEMATOCRIT (test code = HCT) 44.0 % 36.0-48.0 N MEAN CELL VOLUME (test code = MCV) 83.0 UM3 82.0-99.0 N MEAN CELL HGB (test code = MCH) 27.9 UUG 25.5-32.5 N MEAN CELL HGB CONCETRATION (test code = MCHC) 33.6 gm/dL 29.0-35.5 N RED CELL DISTRIBUTION WIDTH (test code = RDW) 12.2 % 11.5-15.0 N RED CELL DISTRIBUTION WIDTH SD (test code = RDW-SD) 36.9 fL 34.8-50.2 N PLATELET COUNT (test code = PLT) 388 K/mm3 150-400 N MEAN PLATELET VOLUME (test code = MPV) 9.9 fl 7.4-10.4 N NEUTROPHIL % (test code = NT%) 82.7 % 49.0-76.0 H IMMATURE GRANULOCYTE % (test code = IG%) 0.8 % 0.0-0.4 H LYMPHOCYTE % (test code = LY%) 8.1 % 23.0-38.0 L MONOCYTE % (test code = MO%) 7.8 % 1.0-10.0 N EOSINOPHIL % (test code = EO%) 0.2 % 1.0-5.0 L BASOPHIL % (test code = BA%) 0.4 % 0.0-1.0 N NUCLEATED RBC % (test code = NRBC%) 0.0 % 0.0-0.1 N NEUTROPHIL # (test code = NT#) 14.1 K/mm3 2.4-6.3 H IMMATURE GRANULOCYTE # (test code = IG#) 0.14 x10 3/uL 0.00-0.07 H LYMPHOCYTE # (test code = LY#) 1.4 K/mm3 1.2-4.0 N MONOCYTE # (test code = MO#) 1.3 K/mm3 0.0-0.6 H EOSINOPHIL # (test code = EO#) 0.0 K/MM3 0.0-0.7 N BASOPHIL # (test code = BA#) 0.1 K/mm3 0.0-0.2 N NUCLEATED RBC # (test code = NRBC#) 0.00 X10 3uL 0.00-0.01 N MORPHOLOGY COMMENT (test code = MOC) NM PLATELET ESTIMATE (test code = PLTEST) ADQ LACTIC ACID [id number] 03:25:00* Test Item Value Reference Range Interpretation Comme nts LACTIC ACID REPEAT (test cod e = LACTR) 0.6 mmol/L 0.4-2.0 N LACTIC [id number] 01:14:00* Test Item Value Reference Range Interpretation Comme nts LACTIC ACID (test code = LACT) 2.4 MMOL/L 0.4-2.0 H URINALYSIS [id number] 00:04:00* Test Item Value Reference Range Interpretation Comme nts UA COLOR (test code = COLU) COLORLESS UA APPEARANCE (test code = APPU) CLEAR UA GLUCOSE DIPSTICK (test code = DGLUU) 1000 mg/dl mg/dl NORMAL A UA BILIRUBIN DIPSTICK (test code = BILU) NEGATIVE mg/dL NEGATIVE UA KETONE DIPSTICK (test code = KETU) 50 mg/dl mg/dl NEGATIVE A UA SPECIFIC GRAVITY (test code = SGU) 1.010 1.000-1.030 UA BLOOD DIPSTICK (test code = HERBERT) 10 Homero/micL Homero/micL NEGATIVE A UA PH DIPSTICK (test code = ANA M) 5.0 5.0-9.0 UA PROTEIN DIPSTICK (test code = PROU) NEGATIVE mg/dl NEGATIVE UA UROBILINIOGEN DIPSTICK (test code = URO) NORMAL mg/dl NORMAL UA NITRITE DIPSTICK (test code = MYESHA) POSITIVE NEGATIVE A UA LEUKOCYTE ESTERASE DIPSTICK (test code = LEUU) 100 Abigail/micL Abigail/micL NEGATIVE A UA WBC (test code = WBCU) 10-20 WBC/HPF NONE A UA RBC (test code = RBCU) 0-2 RBC/HPF 0-3 UA EPITHELIAL CELLS (test code = EPIU) 0-3 EPI/HPF 0-3 UA BACTERIA (test code = BACU) TNTC NONE A VENOUS BLOOD [id number] 00:02:00* Test Item Value Reference Range Interpretation Comme nts VENOUS BLOOD GAS PH (test co de = PHV) 7.401 VENOUS BLOOD GAS PCO2 (test code = PCO2V) 44.2 MMHG VENOUS BLOOD GAS PO2 (test c ode = PO2V) 42.4 MMHG 10.0-50.0 N VBG HCO3 (test code = HCO3V) 26.8 MMOL/L 22.0-27.0 N VBG BASE EXCESS (test code = GUZMAN) 1.7 MMOL/L -4.0-4.0 N VENOUS BLOOD GAS O2 SAT. (te st code = O2SATV) 82.9 % 60.0-80.0 H VENOUS BLOOD GAS FIO2 (test code = FIO2V) 21.0 URINALYSIS [id number] 23:50:00* Test Item Value Reference Range Interpretation Comme nts UA COLOR (test code = COLU) COLORLESS UA APPEARANCE (test code = APPU) CLEAR UA GLUCOSE DIPSTICK (test code = DGLUU) 1000 mg/dl mg/dl NORMAL A UA BILIRUBIN DIPSTICK (test code = BILU) NEGATIVE mg/dL NEGATIVE UA KETONE DIPSTICK (test code = KETU) 50 mg/dl mg/dl NEGATIVE A UA SPECIFIC GRAVITY (test code = SGU) 1.010 1.000-1.030 UA BLOOD DIPSTICK (test code = HERBERT) 10 Homero/micL Homero/micL NEGATIVE A UA PH DIPSTICK (test code = ANA M) 5.0 5.0-9.0 UA PROTEIN DIPSTICK (test code = PROU) NEGATIVE mg/dl NEGATIVE UA UROBILINIOGEN DIPSTICK (test code = URO) NORMAL mg/dl NORMAL UA NITRITE DIPSTICK (test code = MYESHA) POSITIVE NEGATIVE A UA LEUKOCYTE ESTERASE DIPSTICK (test code = LEUU) 100 Abigail/micL Abigail/micL NEGATIVE A UA WBC (test code = WBCU) WBC/HPF NONE UA RBC (test code = RBCU) RBC/HPF 0-3 UA EPITHELIAL CELLS (test code = EPIU) EPI/HPF 0-3 UA BACTERIA (test code = BACU) NONE ACETONE [id number] 23:26:00* Test Item Value Reference Range Interpretation Comme nts ACETONE BLOOD (test code = ACETB) SMALL NEGATIVE A BASIC METABOLIC [id number] 23:16:00* Test Item Value Reference Range Interpretation Comme nts SODIUM (test code = NA) 128 mmol/l 134.0-147.0 L POTASSIUM (test code = K) 4.0 mmol/L 3.6-5.2 N CHLORIDE (test code = CL) 92 mmol/l 98.0-107.0 L CARBON DIOXIDE (test code = CO2) 27.5 mmol/l 21.0-33.0 N ANION GAP (test code = GAP) 12.5 0-20 N GLUCOSE (test code = GLU) 470 mg/dl 70.0-110.0 HH BLOOD UREA NITROGEN (test co de = BUN) 6 mg/dl 7.0-18.0 L CREATININE (test code = CREAT) 0.75 mg/dL 0.60-1.30 N GFR NON BLACK (test code = GFRNONBLACK) 88 mL/min 95-105 L GFR BLACK (test code = GFRBLACK) 107 mL/min 115-127 L CALCIUM (test code = CA) 9.3 mg/dl 8.0-10.5 N [id number] 23:16:00* Test Item Value Reference Range Interpretation Comme nts TROPONIN-I (test code = TROPI) <0.02 NG/ML 0.00-0.06 N REFERENCE RANGE TROPONIN I HEALTHY INDIVIDUALS: <0.06 ng/mL R/O ISCHEMIA: 0.07 - 0.60 ng/mL CUT-OFF RANGE FOR AMI: 0.60 - 1.5 ng/mL - XR CHEST 1 [id number] 23:05:00 [facility] 1975 Sex: F FAX: Charlie Tapia DO [phone] [place]: St: DIS Name: KURT LLAMAS [facility] [place] : 1975 Age/S: 44/F [address] [facility] Unit #: [id number] Loc: E.403 [place], [place] Phys: [place] [id number] Acct: [id number] Dis Date: 20200509 Status: DIS IN PHONE #: [phone] Exam Date: 04/29/20202258 FAX #: [phone] Reason: SOB EXAMS: CPT CODE: [id number] XR CHEST 1 V 53206 EXAM: - XR CHEST 1 V INDICATION: SOB Location: H62. COMPARISON: None TECHNIQUE: Frontal view of the chest. FINDINGS: Lungs appear clear. Cardiomediastinal silhouette and osseous structures appear unremarkable. No pleural effusion appreciated. IMPRESSION: No acute cardiopulmonary process seen. at 2305 Reported and signed by: Diego Marin M.D. CC:Charlie Tapia DO Technologist: CHARLY TA Trnscrd Date/Time/By: 04/29/2020 (2917) : By: [email or web address] PAGE 1 Signed Report FAX: Charlie Tapia DO [phone] [place]: St: DIS Name: KURT LLAMAS [facility] [place] : 1975 Age/S: 44/F [address] [facility] Unit #: [id number] Loc: E.[address] [place], [place]: [place] [id number] Acct: [id number] Dis Date: [id number] Status: DIS IN PHONE #: [phone] Exam Date: 04/29/2020 FAX #: [phone] Reason: SOB EXAMS: CPT CODE: [id number] XR CHEST 1 V 56282 <Continued> Orig Print D/T: S: 04/29/2020 (8562) PAGE 2 Signed Report- XR CHEST 1 [id number] 23:05:00 [facility] : 1975 Sex: FFAX: WillieCharlie [phone] [place]: St: REG Name: KURT SHARP [facility] [place] : 1975 Age/S: 44/F [address] [facility] [employer] [employer] [facility] Unit #: [id number] Loc: [address] Phys: TapiaCherelletiffanierose [place] [address] Acct: [id number] Dis Date: Status: REG ER PHONE #: [phone] Exam Date: 04/29/20202258 FAX #: [phone] Reason: SOB EXAMS: CPT CODE: [id number] XR CHEST 1 V 12710 EXAM: - XR CHEST 1 VINDICATION: SOB Location: H62. COMPARISON: None TECHNIQUE: Frontal view of the chest. FINDINGS: Lungs appear clear. Cardiomediastinal silhouette and osseous structures appear unremarkable. No pleural effusion appreciated. IMPRESSION: No acute cardiopulmonary process seen. at 2305 Reported and signed by: Diego [place] M.D. CC: Charlie Tapia DO Technologist: CHARLY TA Trnscrd Date/Time/By: 04/29/2020 (2309) : By: [email or web address] PAGE 1 Signed Report FAX: Charlie Tapia DO [phone] [place]: St: REG Name: KURT SHARP [facility] : 1975 Age/S: 44/F [address] Unit #: [id number] Loc: EAlejandroERS2 [place], [place]: [place] [address] Acct: [id number] Dis Date: Status: REG ER PHONE #: [phone] Exam Date: 04/29/20202258 FAX #: [phone] Reason: SOB EXAMS: CPT CODE: [id number] XR CHEST 1 V 90478 (Continued) Orig Print D/T: S: 04/29/2020 (1803) PAGE 2 Signed ReportCBC W/AUTO [id number] 22:48:00* Test Item Value Reference Range Interpretation Comme nts WHITE BLOOD CELL (test code = WBC) 17.0 K/mm3 4.5-11.0 H RED BLOOD CELL (test code = RBC) 5.30 M/mm3 3.80-5.20 H HEMOGLOBIN (test code = HGB) 14.8 gm/dL 12.0-16.0 N HEMATOCRIT (test code = HCT) 44.0 % 36.0-48.0 N MEAN CELL VOLUME (test code = MCV) 83.0 UM3 82.0-99.0 N MEAN CELL HGB (test code = MCH) 27.9 UUG 25.5-32.5 N MEAN CELL HGB CONCETRATION (test code = MCHC) 33.6 gm/dL 29.0-35.5 N RED CELL DISTRIBUTION WIDTH (test code = RDW) 12.2 % 11.5-15.0 N RED CELL DISTRIBUTION WIDTH SD (test code = RDW-SD) 36.9 fL 34.8-50.2 N PLATELET COUNT (test code = PLT) 388 K/mm3 150-400 N MEAN PLATELET VOLUME (test c ode = MPV) 9.9 fl 7.4-10.4 N NEUTROPHIL % (test code = NT%) 82.7 % 49.0-76.0 H IMMATURE GRANULOCYTE % (test code = IG%) 0.8 % 0.0-0.4 H LYMPHOCYTE % (test code = LY%) 8.1 % 23.0-38.0 L MONOCYTE % (test code = MO%) 7.8 % 1.0-10.0 N EOSINOPHIL % (test code = EO%) 0.2 % 1.0-5.0 L BASOPHIL % (test code = BA%) 0.4 % 0.0-1.0 N NUCLEATED RBC % (test code = NRBC%) 0.0 % 0.0-0.1 N NEUTROPHIL # (test code = NT#) 14.1 K/mm3 2.4-6.3 H IMMATURE GRANULOCYTE # (test code = IG#) 0.14 x10 3/uL 0.00-0.07 H LYMPHOCYTE # (test code = LY#) 1.4 K/mm3 1.2-4.0 N MONOCYTE # (test code = MO#) 1.3 K/mm3 0.0-0.6 H EOSINOPHIL # (test code = EO#) 0.0 K/MM3 0.0-0.7 N BASOPHIL # (test code = BA#) 0.1 K/mm3 0.0-0.2 N NUCLEATED RBC # (test code = NRBC#) 0.00 X10 3uL 0.00-0.01 N Coronavirus 2018 nCoV [id number] 22:40:00* Test Item Value Reference Range Interpretation Comme nts Coronavirus 2019 nCoV Bedside (test code = [id number]) Negative NEGATIVE Negative results should be treated as presumptive and ifinconsistent with clinical signs and symptoms, or necessaryfor patient management, should be tested with an alternativemolecular assay. Negative results do not preclude ZZIX-HxI-1klejflhlt and should not be used as the sole basis forpatient management decisions. Negative results should beconsidered in the context of a patient's recent exposures,history, presence of clinical signs and symptoms consistentwith COVID-19. - CT CERVICAL SP WO [id number] 07:30:00 [facility] 1975 Sex: F FAX: Bill Storey MD [phone] [place]: St: [facility] Name: KURT LLAMAS [facility] [place] : 1975 Age/S: 30/F [address] [facility] Unit: [id number] Loc: [place], [place]: [place] [address] Acct: [id number] Dis Date: Status: [facility] PHONE #: [phone] Exam Date: 06/24/2006 034 FAX #: [phone] Reason: am: AMS/FALL EXAMS: CPT CODE: [id number] CT CERVICAL SP WO CON [id number] CT HEAD WO CON 67138 [id number] CHEST 1V AP/PA 68464 [id number] CERVICAL SP MIN 4VWS 72916LNFHXIAT SPINE, TWO VIEWS HISTORY: Fall. The cervical spine shows good alignment over the segments that are seen between C1 and C5. No obvious prevertebral edema can be supported. IMPRESSION: Limited study. Additional work-up may be needed for any residual symptoms. TWO VIEW CHEST, 06/24/06 The lungs appear to be clear. Heart size is normal. No effusions are seen. IMPRESSION: No acute cardiopulmonary disease. CT OF THE BRAIN UNENHANCED HISTORY: Trauma, altered mental status, fall. The ventricular system is midline. No hemorrhage, mass effect or low density areas of CVA are seen. Posterior fossa structures appear to be intact also. No evidence of skull fracture on bone window settings. IMPRESSION: No acute appearing intracranial abnormality. CT OF THE CERVICAL SPINE Unenhanced axial images at 2.5 millimeter increments were obtained. Minimal sinusitis or mucoperiosteal thickening is seen at the left maxillary level. No fractures of the facial bones that are visualized can be seen. TheC1-C2 articulation appears to be intact. The C2-C3 and C3-C4 PAGE 1 Signed Report (CONTINUED) FAX: Bill Storey MD [phone] [place]: St: [facility] Name: KURT LLAMAS [facility] [place] : 1975 Age/S: 30/F [address] [facility] Unit: [id number] Loc: [place], [place]: [place] [address] Acct: [id number] Dis Date: Status: K PHONE #: [phone] Exam Date: 06/24/2006 0349 FAX #: [phone] Reason: am: AMS/FALL EXAMS: CPT CODE: [id number] CT CERVICAL [place] [id number] [place] 89890 [id number] CHEST 1V AP/PA 36883 [id number] CERVICAL SP MIN 4VWS 77439 <Continued> levels are appropriate. The C5, C6 and C7 levels all appear to be free of fracture or asymmetry. No prevertebral edema is supported. IMPRESSION: No acute fracture in the cervical spine. Goodalignment. RECONSTRUCTED IMAGES Sagittal and coronal reconstructed images show good alignment of the cervical spine at all levels. No convincing evidence of fracture or prevertebral edema can be seen. at 1025 Reported and signed by: Pablo Flowers M.D. CC: Bill Starks MD Technologist: SHRUTHI COULTER; DWIGHT GOFF Trnscrd Dt/Tm: 06/24/2006 (0918) E.EDGARDO.CANDACEB/E.HIM.JLB/E.HIM.JLB Orig Print D/T: S: 06/24/2006 (1049 PAGE 2 Signed Report- CT HEAD WO [id number] 07:30:00[facility] : 1975 Sex: F FAX: Bill Storey MD [phone] [place]: St: [facility] Name: KURT LLAMAS [facility] [place] : 1975 Age/S: 30/F [address] [facility] Unit: [id number] Loc: [place], [place]: [place] [address] Acct: [id number] Dis Date: Status: UNK PHONE #: [phone] Exam Date: 06/24/2006 034 FAX #: [phone] Reason: am: AMS/FALL EXAMS: CPT CODE: [id number] CT CERVICAL SP [place] [id number] HEAD WO CON 67739 [id number] CHEST 1V AP/PA 60707 [id number] CERVICAL SP MIN 4VWS 48610 CERVICAL SPINE, TWO VIEWS HISTORY: Fall. The cervical spine shows good alignment over the segments that are seen between C1 and C5. No obvious prevertebral edema can be supported. IMPRESSION: Limited study. Additional work-up may be needed for any residual symptoms. TWO VIEW CHEST, 06/24/06 The lungs appear to be clear. Heart size is normal. No effusions are seen. IMPRESSION: No acute cardiopulmonary disease. CT OF THE BRAIN UNENHANCED HISTORY: Trauma, altered mental status, fall. The ventricular system is midline. No hemorrhage, mass effect or low density areas of CVA are seen. Posterior fossa structures appear to be intact also. No evidence of skull fracture on bone window settings. IMPRESSION: No acute appearing intracranial abnormality. CT OF THE CERVICAL SPINE Unenhanced axial images at 2.5 millimeter increments were obtained. Minimal sinusitis or mucoperiosteal thickening is seen at the left maxillary level. No fractures of the facial bones that are visualized can be seen. The C1-C2 articulation appears to be intact. The C2-C3 and C3-C4 PAGE 1 Signed Report (CONTINUED) FAX: Bill Storey MD [phone] [place]: St: [facility] Name: KURT LLAMAS [facility] [place] : 1975 Age/S: 30/F [address] [facility] Unit: [id number] Loc: [place], [place]: [place] [address] Acct: [id number] Dis Date: Status: K PHONE #: [phone] Exam Date: 06/24/2006 034 FAX #: [phone] Reason: am: AMS/FALL EXAMS: CPT CODE: [id number] CT CERVICAL [place] [id number] HEAD WO CON 91307 [id number] CHEST 1V AP/PA 04081 [id number] CERVICAL SP MIN 4VWS 77107 <Continued> levels are appropriate. The C5, C6 and C7 levels all appear to be free of fracture or asymmetry. No prevertebral edema is supported. IMPRESSION: No acute fracture in the cervical spine. Good alignment. RECONSTRUCTED IMAGES Sagittal and coronal reconstructed images show good alignment of the cervical spine at all levels. No convincing evidence of fracture or prevertebral edema can be seen. at 1025 Reported and signed by: Pablo Flowers M.D. CC: Bill Starks MD Technologist: SHRUTHI COULTER; DWIGHT DENVER [facility] Dt/Tm: 06/24/2006 (0918) E.HIM.JLB/E.HIM.JLB/E.HIM.JLB Orig Print D/T: S: 06/24/2006 (1049 PAGE 2 Signed Report- CHEST 1V [id number] 07:30:00[facility] 1975 Sex: F FAX: Bill Storey MD [phone] [place]: St: [facility] Name: KURT LLAMAS [facility] [place] : 1975 Age/S: 30/F [address] [facility] Unit: [id number] Loc: [place], [place]: [place] [address] Acct: [id number] Dis Date: Status: [facility] PHONE #: [phone] Exam Date: 06/24/2006 0349 FAX #: [phone] Reason: am: AMS/FALL EXAMS: CPT CODE: [id number] CT CERVICAL SP [place] CON [id number] HEAD WO CON 20790 [id number] CHEST 1V AP/PA 67264 [id number] CERVICAL SP MIN 4VWS 93191 CERVICAL SPINE, TWO VIEWS HISTORY: Fall. The cervical spine shows good alignment over the segmentsthat are seen between C1 and C5. No obvious prevertebral edema can be supported. IMPRESSION: Limited study. Additional work-up may be needed for any residual symptoms. TWO VIEW CHEST, 06/24/06 The lungs appear to be clear. Heart size is normal. No effusions are seen. IMPRESSION: No acute cardiopulmonary disease. CT OF THE BRAIN UNENHANCED HISTORY: Trauma, altered mental status, fall. The ventricular system is midline. No hemorrhage, mass effect or low density areas of CVA are seen. Posterior fossa structures appear to be intact also. No evidence of skull fracture on bone window settings. IMPRESSION: No acute appearing intracranial abnormality. CT OF THE CERVICAL SPINE Unenhanced axial images at 2.5 millimeter increments were obtained. Minimal sinusitis or mucoperiosteal thickening is seen at the left maxillary level. No fractures of the facial bones that are visualized can be seen. TheC1-C2 articulation appears to be intact. The C2-C3 and C3-C4 PAGE 1 Signed Report (CONTINUED) FAX:Bill Storey MD [phone] [place]: St: [facility] Name: KURT LLAMAS [facility] [place] : 1975 Age/S: 30/F [address] Unit: [id number] Loc: [place], [place] Phys: Bill Starks MD[address] Acct: [id number] Dis Date: Status: [facility] PHONE #: [phone] Exam Date: 06/24/2006 0349 FAX#: [phone] Reason: am: AMS/FALL EXAMS: CPT CODE: [id number] CT CERVICAL SP [place] CON [id number] HEAD WO CON 37849 [id number] CHEST 1V AP/PA 23357 [id number] CERVICAL SP MIN 4VWS 05952 <Continued> levels are appropriate. The C5, C6 and C7 levels all appear to be free of fracture or asymmetry. No prevertebral edema is supported. IMPRESSION: No acute fracture in the cervical spine. Good alignment. RECONSTRUCTED IMAGES Sagittal and coronal reconstructed images show good alignment of the cervical spine at all levels. No convincing evidence of fracture or prevertebral edema can be seen. at 1025 Reported andsigned by: Pablo Flowers M.D. CC: Bill Starks MD Technologist: SHRUTHI COULTER; DWIGHT GOFF [facility] Dt/Tm: 06/24/2006 (0918) E.HIM.JLB/E.HIM.JLB/E.HIM.JLB Orig Print D/T: S: 06/24/2006 (1049 PAGE 2 Signed Report- CERVICAL SP MIN [id number] 07:30:00[facility] EVIE : 1975 Sex: F FAX: Bill Storey MD [phone] [place]: St: [facility] Name: KURT LLAMAS [facility] [place] : 1975 Age/S: 30/F [address] Unit: [id number] Loc: [place], [place]: [place] [address] Acct: [id number] Dis Date: Status: UNK PHONE #: [phone] Exam Date: 06/24/2006 0 349 FAX #: [phone] Reason: am: AMS/FALL EXAMS: CPT CODE: [id number] CT CERVICAL SP [place] CON [id number] [place] CON 10200 [id number] CHEST 1V AP/PA 22190 [id number] CERVICAL SP MIN 4VWS 45561 CERVICAL SPINE, TWO VIEWS HISTORY: Fall. The cervical spine shows good alignment over the segmentsthat are seen between C1 and C5. No obvious prevertebral edema can be supported. IMPRESSION: Limited study. Additional work-up may be needed for any residual symptoms. TWO VIEW CHEST, 06/24/06 The lungs appear to be clear. Heart size is normal. No effusions are seen. IMPRESSION: No acute cardiopulmonary disease. CT OF THE BRAIN UNENHANCED HISTORY: Trauma, altered mental status, fall. The ventricular system is midline. No hemorrhage, mass effect or low density areas of CVA are seen. Posterior fossa structures appear to be intact also. No evidence of skull fracture on bone window settings. IMPRESSION: No acute appearing intracranial abnormality. CT OF THE CERVICAL SPINE Unenhanced axial images at 2.5 millimeter increments were obtained. Minimal sinusitis or mucoperiosteal thickening is seen at the left maxillary level. No fractures of the facial bones that are visualized can be seen. TheC1-C2 articulation appears to be intact. The C2-C3 and C3-C4 PAGE 1 Signed Report (CONTINUED) FAX: Bill Storey MD [phone] [place]: St: [facility] Name: KURT LLAMAS [facility] [place] : 1975 Age/S: 30/F [address] Unit: [id number] Loc: UNK [place], [place]: [place] [address] Acct: [id number] Dis Date: Status: UNK PHONE #: [phone] Exam Date: 06/24/2006 0349 FAX #: [phone] Reason: am: AMS/FALL EXAMS: CPT CODE: [id number] CT CERVICAL SP WO CON [id number] HEAD WO CON 12509 [id number] CHEST 1V AP/PA 82109 [id number] CERVICAL SP MIN 4VWS 77240 <Continued> levels are appropriate. The C5, C6 and C7 levels all appear to be free of fracture or asymmetry. No prevertebral edema is supported. IMPRESSION: No acute fracture in the cervical spine. Good alignment. RECONSTRUCTED IMAGES Sagittal and coronal reconstructed images show good alignment of the cervical spine at all levels. No convincing evidence of fracture or prevertebral edema can be seen. at 1025 Reported and signed by: Pablo Flowers M.D. CC: Bill Starks MD Technologist: SHRUTHI GOFF Trnscrd Dt/Tm: 06/24/2006 (0918) E.HIM.JLB/E.HIM.JLB/E.HIM.JLB Orig Print D/T: S: 06/24/2006 (1049 PAGE 2 Signed Report Notes Date/Time Note Provider Source 2024-07-02 07:41:13 Pt given printed and verbal discharge instructions regarding acute right sided low back pain with right sided sciatica, DM, and CKD, encouraged hydration. Prescriptions provided. Discussed tramadol side affects and to avoid driving/operating machinery/or engaging in activities requiring alertness while taking. Pt verbalized understanding of instructions, pt awake alert oriented, resp reg unlabored, skin w/d, color appropriate for race, moves all ext well, pt encouraged to follow up with pcp. Advised to seek medical attention for new/prolonged/worsening of symptoms. Symptoms addressed. No adverse reaction to meds given in ER noted upon discharge. PIV d'cd, dressing to site, catheter intact. Pt leaving amb with steady gait, in no apparent distress. Left with . IKE Land RN [facility] 2024-07-02 04:28:07 Patient arrived via WC with family to ED c/o not sleeping for 4 days. Patient states being diabetic with severe lower back pain and bilateral leg cramps. Patient took Ibu last night with no relief. IKE Kennedy RN [facility]2025-01-07 00:00:00 [facility]2024-12-29 16:35:24 Pt given printed and verbal discharge instructions regarding abscess, encouraged hydration, Prescriptions provided Discussed ibuprofen and to take with food to avoid GI distress. Discussed antibiotic therapy and to take until all completed unless adverse reaction occurs - if occurs, discontinue medication and follow up with pcp/seek medical attention Discussed tramadol/phenergan/Tylenol # 3 side affects and to avoid driving/operating machinery/or engaging in activities requiring alertness while taking. Pt verbalized understanding of instructions, pt awake alert oriented, resp reg unlabored, skin w/d, color appropriate for race, moves all ext well,pt encouraged to follow up with pcp. Advised to seek medical attention for new/prolonged/worsening of symptoms. No adverse reaction to meds given in ER noted upon discharge PIV d'cd, dressing to site, catheter in tact. Awake, alert oriented, resp reg unlabored, skin w/d, pt leaving amb with steady gait, in no apparent distress, HAND Lynsey Villeda [id number] 10:30:35 Patient reports having abscess on base of neck just under hairline that she tried to charles herself about 1 week ago and it is not going away and causing her more pain. HAND Ender Neal Replaced by [facility] AnsonQkfuqt5525-19-12 00:00:00 Jhony Cohen [facility]2024-03-01 19:25:21 Pt discharged home following ERP eval. VSS. Given all education and information regarding s/s of worsening condition, pain management and the importance of follow up. Pt verbalized understanding. Alert and ambulatory to pov with spouse. [facility] Keith Hunt Replaced by [facility] AnsonZnpygo2416-89-87 14:38:11 Patient states: "It started Saturday and Saturday. I came here Saturday and they did all this testing. They said it was a bladder infection and gave me abx. It's been getting worse, the pain. I'm hurting so bad I can hardly breath. They said I had gallstones last time I was here. But they didn't think that was the cause of the pain" Pmhx: frequent UTI"s, hysterectomy, DM- type 2, HAND Airam Mahmood Replaced by [facility] AnsonVpflnu4831-42-95 12:36:39 Pt discharged with diagnosis of pyelonephritis. Printed and verbal instructions reviewed with and given to patient. Prescriptions given x 3. Pt verbalized understanding of teaching, medications, and recommended follow-up. Denies questions or concerns at this time. Pt ambulatory at discharge. Appears in no apparent distress. No ataxia noted. Accompanied by spouse. IKE Conn RNUT - [id number] 09:25:54 Patient woke up with lower right side back pain 2 days ago. Reports that the pain has continued along with nausea and vomiting. Additionally reports that she is is a diabetic non-compliant with insulin or oral medications due to financial constraints and that she always has numbers in the 400's. Glucose at triage: 354 mg/dl IKE Maldonado RNUTMB - [id number] 08:45:[address] [facility] ([facility] EMERGENCY PROVIDER REPORT REPORT#:[id number] REPORT STATUS: Signed DATE:09/27/21 TIME: 844 PATIENT: KURT LLAMAS UNIT #: [id number] ROOM/BED: AGE: 45 SEX: F PCP PHYS: No Primary or Family Physician SERVICE AUTHOR: Tiny Coulter MD * ALL edits or amendments must be made on the electronic/computer document * HPI-Headache General Initial Greet Date/Time 09/27/21 0728 Presentation Chief Complaint Headache Sudden in Onset? No Severity: Onset Moderate Free Text HPI Notes Free Text HPI Notes Patient seen external lobby due to capacity Patient with a history of migraine headaches and Cotton's palsy presents with migraine headache with associated nausea vomiting and diarrhea. Patient states migraine began yesterday was a 5 out of 10. Patient had multiple episodes of vomiting yesterday followed by diarrhea today. Patient denies any upper or lower GI bleeding. Patient denies any blunt head trauma or seizure. Patient is a diabetic compliant with medications but states "she always runs high". Patient with negative fever at home, negative complaints Patient denies fever chills. Patient states she been taking whyr-elx-hkgnwoa medications to help with migraines. Risk-Headache Risk Stratification Stroke Risk factors reviewed )( Subarachnoid Hemorrhage Risk factors reviewed )( IC Mass Lesion Risk factors reviewed Review of Systems ROS Statements Complete sys rev neg except as marked. Focused Review of Systems GI Reports: Diarrhea, Nausea, Vomiting. Neurologic Reports: Headache. Past Medical History - Adult Stated Complaint VOMITING, MIGRAINE Allergies Coded Allergies: No Known Allergies (06/07/20) Home Medications Active Scripts Butalb/Acetaminophen/Caffeine (FIORICET) 1 TAB PO Q6H PRN PRN HEADACHE Butalb/Acetaminophen/Caffeine (FIORICET) 1 TAB PO Q6H PRN PRN HEADACHE #20 TAB Prov: 05/03/20 metFORMIN (GLUCOPHAGE) 1,000 MG PO BID metFORMIN (GLUCOPHAGE) 1,000 MG PO BID #60 TABS Prov: 05/03/20 DOXYCYCLINE MONOHYDRATE (MONODOX) 100 MG PO BID DOXYCYCLINE MONOHYDRATE (MONODOX) 100 MG PO BID #20 CAP Prov: 05/09/20 INSULIN GLARGINE (LANTUS) 30 UNITS SUBQ BEDTIME INSULIN GLARGINE (LANTUS) 30 UNITS SUBQ BEDTIME #60 ML Prov: 05/09/20 Reported Medications ALBUTEROL (PROAIR HFA 90 MCG/ACT 8.5 GM) 2 PUFF INH RTQ4H PRN PRN DYSPNEA/ WHEEZING Past Medical History: Reports: Asthma. Additional Surgical History Hysterectomy Additional Family History Noncontributory Alcohol Use Denies EtOH use Drug Use Denies recreational drugs Smoking status: Smoking status for patients 13 years old or older: Former Smoker Other Social History Local resident Physical Exam Vital Signs Vital Signs First Documented: Result Date Time Pulse Ox 99 09/27 725 B/P 128/84 09/27 725 B/P Mean 98 09/27 725 O2 Delivery Room air 09/27 725 Temp 36.6 09/27 725 Pulse 78 09/27 725 Resp 17 09/27 725 Last Documented: Result Date Time Pulse Ox 99 09/27 07 B/P 128/84 09/27 725 B/P Mean 98 09/27 725 O2 Delivery Room air 09/27 725 Temp 36.6 09/27 725 Pulse 78 09/27 725 Resp 17 09/27 725 Review of Vital Signs Reviewed, Vital signs abnormal Free Text PE Notes Free Text PE Notes General: Actively vomiting, moderate distress, nontoxic Head: atraumatic, normocephalic Eyes: atraumatic,eomi EENT: PERRLA, MMM, airway patent, atraumatic neck: supple, from, no kernigs, no meningismus, patient with full range of motion Respiratory: equal breath sounds, no dyspnea, no respiratory distress CV:normal heart rate, regular rhythm, no pedal edema, no calf tenderness Abdo: non tender, no rebound Skin: no rash, no petechiae Neuro: Positive right facial droop consistent with Cotton's palsy history. Patient otherwise neuro intact 5 out of 5 strength all extremities, normal gait, pupils reactive, cranial nerves normal otherwise Psych: normal mood. normal affect Upper Ext: atraumatic, inspection nl Lower Ext: atraumatic, inspection nl Psych: neg si Musculoskeletal: Nl back inspection Interpretation Diagnostics Lab Results Interpretation Results Laboratory Tests 09/27/21 1059: [Embedded Image Not Available] Laboratory Tests: 09/27 09/27 1059 0947 Chemistry Sodium (134.0 - 147.0 mmol/l) 137 Potassium (3.6 - 5.2 mmol/L) 4.6 Chloride (98.0 - 107.0 mmol/l) 102 Carbon Dioxide (21.0 - 33.0 mmol/l) 28.7 Anion Gap (0 - 20) 10.9 BUN (7.0 - 18.0 mg/dl) 13 Creatinine (0.60 - 1.30 mg/dL) 0.57 L Est GFR ( Amer) (115 - 127 mL/min) 146 H Est GFR (Non-Af Amer) (95 - 105 mL/min) 121 H Glucose (70.0 - 110.0 mg/dl) 364 H Calcium (8.0 - 10.5 mg/dl) 9.3 Total Bilirubin (0.0 - 1.0 mg/dl) 0.3 Direct Bilirubin (0.0 - 0.3 mg/dl) 0.1 AST (15 - 37 Units/L) 13 L ALT (12.0 - 78.0 Units/L) 29 Total Alk Phosphatase (50.0 - 136.0 Units/L) 101 Total Protein (6.4 - 8.2 gm/dL) 7.5 Albumin (3.2 - 4.7 gm/dl) 3.4 Lipase (65.0 - 230.0 Units/L) 153 Hematology WBC (4.5 - 11.0 K/mm3) 13.1 H RBC (3.80 - 5.20 M/mm3) 5.52 H Hgb (12.0 - 16.0 gm/dL) 15.1 Hct (36.0 - 48.0 %) 44.9 MCV (82.0 - 99.0 UM3) 81.3 L MCH (25.5 - 32.5 UUG) 27.4 MCHC (29.0 - 35.5 gm/dL) 33.6 RDW (11.5 - 15.0 %) 12.4 Plt Count (150 - 400 K/mm3) 276 MPV (7.4 - 10.4 fl) 9.7 Neut % (Auto) (49.0 - 76.0 %) 86.4 H Lymph % (Auto) (23.0 - 38.0 %) 10.1 L Carlton % (Auto) (1.0 - 10.0 %) 2.5 Eos % (Auto) (1.0 - 5.0 %) 0.1 L Baso % (Auto) (0.0 - 1.0 %) 0.3 Neut # (Auto) (2.4 - 6.3 K/mm3) 11.4 H Lymph # (Auto) (1.2 - 4.0 K/mm3) 1.3 Carlton # (Auto) (0.0 - 0.6 K/mm3) 0.3 Eos # (Auto) (0.0 - 0.7 K/MM3) 0.0 Baso # (Auto) (0.0 - 0.2 K/mm3) 0.0 Absolute Nucleated RBC (0.00 - 0.01 X10 3uL) 0.00 Immature Gran % (0.0 - 0.4 %) 0.6 H Nucleated RBC % (0.0 - 0.1 %) 0.0 Immature Gran # (0.00 - 0.07 x10 3/uL) 0.08 H Toxicology Urine Opiates Screen (NEGATIVE) NEGATIVE Urine Methadone Screen (NEGATIVE) NEGATIVE Urine Barbiturates (NEGATIVE) NEGATIVE Ur Phencyclidine Scrn (NEGATIVE) NEGATIVE Ur Amphetamines Screen (NEGATIVE) NEGATIVE U Benzodiazepines Scrn (NEGATIVE) NEGATIVE Urine Cocaine Screen (NEGATIVE) NEGATIVE Urine Cannabinoids (NEGATIVE) NEGATIVE Urines Urine Color YELLOW Urine Appearance HAZY Urine pH (5.0 - 9.0) 5.0 Ur Specific [place] (1.000 - 1.030) 1.020 Urine Protein (NEGATIVE mg/dl) 30 H Urine Glucose (UA) (NORMAL mg/dl) 1000 mg/dl H Urine Ketones (NEGATIVE mg/dl) 50 mg/dl H Urine Blood (NEGATIVE Homero/micL) 10 Homero/micL H Urine Nitrite (NEGATIVE) POSITIVE H Urine Bilirubin (NEGATIVE mg/dL) NEGATIVE Urine Urobilinogen (NORMAL mg/dl) NORMAL Ur Leukocyte Esterase (NEGATIVE Abigail/micL) 25 Abigail/micL H Urine RBC (0 - 3 RBC/HPF) 3-5 Urine WBC (NONE WBC/HPF) 20-25 H Ur Epithelial Cells (0 - 3 EPI/HPF) 5-10 H Urine Bacteria (NONE) MANY H Urine Yeast (NEGATIVE) FEW Microbiology: Date/Time Procedure - Status Source Growth 09/27 1026 Urine Culture - RECD URINE Lab Imaging Statement Laboratory radiographic studies reviewed and considered in the medical decision-making. ECG #1 Interpretation Text/Dict Note EKG shows normal sinus rate of 77, time is 7:35 AM, no STEMI, interpreted by EDMD, T wave version V1, T wave inversion lead III, abnormal EKG Pulse ox 98% on room air normal Re-Evaluation MDM )( Re-Evaluation/Progress #1 Text/Dict Note Remains in external lobby due to capacity, all meds pending Time of Re-Eval 0845 )( Re-Eval Status Unchanged Re-Evaluation/Progress #2 Text/Dict Note Patient remains external lobby. Patient no longer wanted to wait for medications treatment. Patient to sign AMA form. Patient advised of need for all medications to be given/reassessment. Patient states she no longer wants to wait for medications. Patient advised of abnormal findings. Patient states she normally is hyperglycemic. Patient confirms she will follow-up with her primary care. Patient discharged home with prescriptions since no longer want to wait for ER medications. Patient left AMA with Time of Eval 1145 ED Course Medication(s) Ordered Medication(s) Ordered: Antihistamine Drugs Sig/Mendoza Start time Last Medication Dose Route Stop Time Status Admin Diphenhydramine HCl 25 MG X1ED STA 09/278 DC IV 09/27 0759 Central Nervous System Agents Sig/Mendoza Start time Last Medication Dose Route Stop Time Status Admin Ketorolac 30 MG X1ED STA 09/27 757 DC Tromethamine IV 09/27 0759 Electrolytic, Caloric, And Teressa Sig/Mendoza Start time Last Medication Dose Route Stop Time Status Admin Sodium Chloride 1,000 ML X1ED STA 09/27 757 DC IV 09/27 0857 Gastrointestinal Drugs Sig/Mendoza Start time Last Medication Dose Route Stop Time Status Admin Metoclopramide HCl 10 MG X1ED STA 09/27 757 DC 09/27 IV 09/27 758 1156 Hormones And Synthetic Substit Sig/Mendoza Start time Last Medication Dose Route Stop Time Status Admin Dexamethasone Sodium 8 MG X1ED STA 09/27 757 DC Phosphate IV 09/27 758 Patient Discharge Departure Vital Signs/Condition Vital Signs First Documented: Result Date Time Pulse Ox 99 09/27 725 B/P 128/84 09/27 725 B/P Mean 98 09/27 725 O2 Delivery Room air 09/27 725 Temp 36.6 09/27 07 Pulse 78 09/27 725 Resp 17 09/27 725 Last Documented: Result Date Time Pulse Ox 99 09/27 0626 B/P 128/84 09/27 07 B/P Mean 98 09/27 725 O2 Delivery Room air 09/27 725 Temp 36.6 09/27 07 Pulse 78 09/27 725 Resp 09/27 All vital signs available at the time of this entry have been reviewed. Clinical Impression Clinical Impression Primary Impression: Diabetes mellitus with hyperglycemia Secondary Impressions: Acute cystitis, Acute diarrhea, Acute vomiting, Lynn infection, Elevated WBC count, Migraine headache Disposition Decision Other )( Time 1158 )( Date 09/27/21 Discharge/Care Plan Counseled Regarding Diagnosis, Lab results, Need for follow-up, When to return to ED, NEED FOR TREATMENT (Auto) Prescriptions Current Visit Scripts SULFAMETHOXAZOLE/TMP (BACTRIM DS 800/160 MG) 1 TAB PO Q12H SULFAMETHOXAZOLE/TMP (BACTRIM DS 800/160 MG) 1 TAB PO Q12H #14 TABS UNTIL FINISHED ONDANSETRON ODT (ZOFRAN ODT) 4 MG PO Q6H PRN PRN NAUSEA/VOMITING ONDANSETRON ODT (ZOFRAN ODT) 4 MG PO Q6H PRN PRN NAUSEA/VOMITING #15 TABS METOCLOPRAMIDE (REGLAN) 10 MG PO QID PRN PRN NAUSEA/VOMITING METOCLOPRAMIDE (REGLAN) 10 MG PO QID PRN PRN NAUSEA/VOMITING #20 TABS FAMOTIDINE (PEPCID) 20 MG PO BID FAMOTIDINE (PEPCID) 20 MG PO BID #60 TABS BUTALBITAL/APAP/CAFF 50/300/40 MG (FIORICET) 1 CAP PO Q4H PRN PRN WOOD BUTALBITAL/APAP/CAFF 50/300/40 MG (FIORICET) 1 CAP PO Q4H PRN PRN WOOD #20 CAPS Patient Instructions ED Headache, Migraine, Classic, ED Vomiting (Adult), Urinary Tract Infections in Women Additional Instructions Follow-up with your primary care doctor regarding elevated blood sugar and abnormal labs that we found today and for reassessment. Feel free to return whenever you feel that you need medical attention Departure Forms ABNORMAL RADIOLOGY READING Discharge Note I have spoken with the patient and/or caregivers. I have explained the patient's condition, diagnoses and treatment plan based on the information available to me at this time. I have answered the patient's and/or caregiver's questions and addressed any concerns. The patient and/or caregivers have as good an understanding of the patient's diagnosis, condition and treatment plan as can be expected at this point. The vital signs have been stable. The patient's condition is stable and appropriate for discharge from the emergency department. The patient will pursue further outpatient evaluation with the primary care physician or other designated or consulting physician as outlined in the discharge instructions. The patient and/or caregivers are agreeable to this plan of care and follow-up instructions have been explained in detail. The patient and/or caregivers have received these instructions in written format and have expressed an understanding of the discharge instructions. The patient and/or caregivers are aware that any significant change in condition or worsening of symptoms should prompt an immediate return to this or the closest emergency department or a call to 911. Against Medical Advice AMA Note 1 [] has decided to leave our facility against medical advice. I have assessed the patient's ability to make an informed decision and it is my opinion at this time that the patient has the medical decision-making capacity to comprehend information regarding current medical condition and appreciates the impact of the disease or condition and the consequences of various options for treatment, including foregoing treatment. The patient possesses the ability to evaluate all treatment options, compare the risks and benefits of each option, communicate choice in a consistent manner over time, and is able to make rational choices. I have explained to the patient further testing, treatment, and evaluation I would like to perform during the current emergency department visit as well as any possible alternatives that could be accomplished in a timely manner. I have outlined the possible risks of foregoing any or all of these interventions and the patient understands and acknowledges that the decision to leave may result in undesirable consequences such as , permanent disability, and/or loss of current lifestyle. Even though leaving AMA is not ideal, I have instructed the patient to follow any discharge instructions given, take any medications prescribed, and resume care as soon as possible with another provider. Additionally, we clearly stated that the patient is welcome to return at any time to continue care at our facility. Competent to Decide Yes Reason for leaving AMA Wait too long Discussed Options to AMA Yes Present for Explanation Myself, Nurse, Family at 1539 RPT #:[id number] END OF [id number] 10:27:[address] [facility] ([facility]) Infectious Dis. Progress Note REPORT#:[id number] REPORT STATUS: Signed DATE:05/09/20 TIME: 1027 PATIENT: KURT LLAMAS UNIT #: [id number] ROOM/BED: [place] [address] : 74 AGE: 44 SEX: F ATTEND: Coretta Morris MD ADM AUTHOR: Refugio Mora MD * ALL edits or amendments must be made on the electronic/computer document * Subjective Chief Complaint: Urosepsis. Resolved. Newly diagnosed diabetes. Osteomyelitis of the distal phalanx of the right great toe s/p amputation of the distal phalanx on 05/06/20. HPI: The patient was seen and examined. The patient's chart and labs were reviewed. The patient reports feeling a lot better today. The patient underwent amputation of the distal phalanx of the right great toe on 05/06/20. Wound culture from surgery found a few yeast and a few Coag. negative Staph. x 2, which are skin bacteria, which infected the bone from the diabetic foot ulcer which is no longer present as well. The foot is currently bandaged post- surgery. The patient denies any pain. The patient otherwise has no complaints. Nursing notes that the patient remains afebrile. The patient is a 44-year-old white female with past medical history significant only for asthma and a hysterectomy 20 years ago, who reported to the ER at [facility] with a 4-day history of muscle aches, feeling weak and lightheaded, with some nausea and vomiting. The patient denies any chest pain or shortness of breath, fever, dysuria or urinary frequency, abdominal pain or stool changes. Work-up in the ER found the patient to have diabetes with very elevated blood glucose levels and evidence of a UTI on UA. The patient's initial lactic acid level was elevated, so the patient was admitted for urosepsis. The patient was empirically started on Rocephin. Urine culture came back positive for >100K Klebsiella pneumoniae sensitive to the current Rocephin and many other antibiotics. The patient was changed over to Omnicef to complete her treatment which has since concluded and the patient denies nay dysuria currently. Objective General VS/I O: Last Documented: Result Date Time Pulse Ox 97 05/09 0742 O2 Delivery Room air 05/09 0742 B/P 113/77 05/09 0632 B/P Mean 89.4 05/09 0632 Temp 36.8 05/09 0632 Pulse 72 05/09 0632 Resp 18 05/09 0632 O2 Flow Rate 8 05/06 1807 FiO2 21 05/02 0652 Vital Signs Date Temp Pulse Resp B/P B/P Mean Pulse Ox FiO2 05/08-05/09 36.6-36.9 72-86 18 91-113/64-77 73.1-89.4 95-97 24 hour I O ending at 0700: 05/09 0700 05/08 1900 Intake Total 500.00 Output Total Balance 500.00 Intake, IV 500.00 Number Voids 3 Patient 79.3 kg Weight Weight Bed scale Measurement Method PATIENT WEIGHT: Weight (lb): 174 Weight (oz): 13.23 Weight (kg): 79.300 Medications: Active Meds + DC'd Last 24 Hrs Doxycycline Monohydrate 100 MG BID PO Fluconazole 200 MG DAILY PO Metformin HCl 500 MG C BK DIN PO Vancomycin HCl 1,000 MG Q8H IV (DC) Sodium Chloride 250 ML Insulin Glargine 30 UNITS BEDTIME SUBQ Miscellaneous Information 1 EACH ASDIR IV (DC) Piperacillin Sod/Tazobactam Sod 3.375 GM Q8H IV (DC) Sodium Chloride 100 ML Linagliptin 5 MG DAILY PO Insulin Human Lispro 0 AC HS SUBQ Acetaminophen/Butalbital/Caffeine 1 TAB Q6H PRN PRN PO Dextrose/Water 125 ML ASDIR PRN IV Dextrose/Water 250 ML ASDIR PRN IV Glucagon 1 MG ASDIR PRN IM Albuterol/Ipratropium 3 ML RTQ4H PRN PRN NEB Enoxaparin Sodium 40 MG Q24H SUBQ Physical Exam General appearance: alert, awake, oriented, no acute distress, pleasant, conversational, mental status normal, no respiratory distress Wound/incision: Location: right great toe Site condition: the right foot is bandaged in its entirety and the right great toe is unavailable for inspection at this time Head/Eyes: atraumatic, EOMI, normal conjunctiva/sclera, PERRLA ENT: multiple missing teeth, no oral lesions, no oropharyngeal erythema, nares are patent Neck: non-tender, supple/no meningismus, no lymphadenopathy Cardiovascular: normal heart sounds, regular rate rhythm, no murmur Respiratory: clear to auscultation, aerating well, symmetric expansion Abdomen: non-tender, normal bowel sounds, soft, no distention Extremities: moves all, no clubbing, no cyanosis, no edema Musculoskeletal: normal inspection, no joint swelling Neuro/CLINICAL EXERCISE SPECIALIST: alert, oriented X 3, CNII-XII intact, normal speech Skin: normal color, no rash, see wound description above Lymphatics: no lymphadenopathy Psychiatry: normal affect, normal mood Free Text Obj Notes Free Text Obj Notes: Microbiology: 05/06 1720 ABSCESS: Gram Stain - NO ORGANISMS SEEN 05/06 1720 ABSCESS: Anaerobic Culture - NO ANAEROBIC ORGANISMS ISOLATED AT 48 HOURS 05/06 1720 ABSCESS: Wound Culture - RES FEW COAG NEGATIVE STAPH X2 04/30 51 NASOPHARG: Influenza Virus Type B Antigen - NEGATIVE 04/30 51 NASOPHARG: Influenza Virus Type A Antigen - NEGATIVE 04/30 0034 BLOOD: Blood Culture - NEGATIVE 04/30 002 BLOOD: Blood Culture - NEGATIVE 04/298 URINE: Urine Culture - COMP >100K KLEBSIELLA PNEUMONIAE KLEBSIELLA PNEUMONIAE M.I.C. RX Route Target ----- ------ AMIKACIN <16 S IM/IV URINE AMPICILLIN >16 R PO URINE R IV * AMP/SULBACTAM S <8/4 S IV URINE AZTREONAM <4 S IV URINE CEFAZOLIN <8 S IM URINE S IV CEFOTAXIME <2 S IV URINE CEFOXITIN <8 S IM URINE S IV CEFTRIAXONE <1 S IM/IV URINE CEFEPIME <4 S IV URINE GENTAMICIN <4 S IM/IV URINE * MEROPENEM <1 S IV URINE NITROFURANTOIN <32 S PO URINE PIPERACI/TAZOB <16 S IV URINE TIGECYCLINE <2 S TOBRAMYCIN <4 S IM/IV URINE TRIMETH/SULFA <2/38 S PO URINE S IV Diagnosis, Assessment Plan Free Text A P: ASSESSMENT: 1. Osteomyelitis of the distal phalanx of the right great toe. The patient underwent amputation of the distal phalanx of the right great toe on 05/06/20. Prelim. wound culture from surgery is just showing a few Coag. negative Staph. x 2, which are skin bacteria which infected the bone from the diabetic foot ulcer, which is no longer present as well. 2. Diabetic foot ulcer to the right great toe. Resolved with surgery. 3. UTI with Klebsiella pneumoniae. Resolving on the Rocephin. 4. Newly diagnosed Diabetes Type II. Uncontrolled with symptoms due to the patient being unaware of the condition. The patient is doing better. 5. Diabetic peripheral neuropathy. 6. Asthma. RECOMMENDATIONS: 1. Will change the Vancomycin to Doxycycline 100 mg p.o. q.12 hours x 10 days. 2. OK to discharge the patient to home from ID point of view. 3. Podiatry as per Dr. Goomdan. 4. Medical management as per the [facility]. at 1031 RPT #:[id number] END OF [id number] 07:17:[address] [facility] ([facility] Podiatry Progress Note REPORT#:[id number] REPORT STATUS: Signed DATE:05/09/20 TIME: 716 PATIENT: KURT LLAMAS UNIT #: [id number] ROOM/BED: [place] [address] : 74 AGE: 44 SEX: F ATTEND: Coretta Morris MD ADM AUTHOR: Jerel Goodman DPM * ALL edits or amendments must be made on the electronic/computer document * General Post-op: post surgery rounds Subjective Patient reports: no complaints Objective Physical Exam General appearance: alert, awake, oriented Wound/incision: Location: s/p right hallux partial ampuation. dressing c/d/i. Extremities: Left pedal pulses, Left abnormal capillary refill, Left decreased range of motion, Right pedal pulses, Right abnormal capillary refill, Right decreased range of motion, Right edema LE vascular pulse assess: Palpable R posterior tibialis, Palpable L posterior tibialis, Palpable R dorsalis pedis, Palpable L dorsalis pedis Capillary refill: Capillary refill (in seconds): > 5 seconds Right foot, > 5 seconds Left foot Foot: abnormal ROM, swelling, tenderness, neurological deficit Musculoskeletal: Musculoskeletal: decreased ROM Neuro/CLINICAL EXERCISE SPECIALIST: alert, oriented X 3 Skin: abnormal color, atrophic shiny skin, poor skin turgor Diagnosis, Assessment Plan Free Text A P: Impression: 1. right hallux cellulitis with OM and abscess s/p partial hallux ampuation 2. DM w/ PN Plan: seen and evaluated DVT prophylaxis per medicine Abx per medicine MRI noted CT noted keep dressing c/d/i. heel touch WB Pain control Pending surgical micro and path. Follow up in office < 1 week Will follow Covering for Dr. Neal/Vicky at 0023 RPT #:[id number] END OF [id number] 16:17:[address] [facility] ([facility]) Hospitalist Progress Note REPORT#:[id number] REPORT STATUS: Signed DATE:05/08/20 TIME: 1616 PATIENT: KURT LLAMAS UNIT #: [id number] ROOM/BED: [place] [address] : 74 AGE: 44 SEX: F ATTEND: Coretta Morris MD ADM AUTHOR: Coretta Morris MD * ALL edits or amendments must be made on the electronic/computer document * Subjective Chief Complaint: right foot surgery done on Saturday Blood sugars high Review of Systems Constitutional: Denies: fever, generalized weakness. Respiratory: Denies: SOB. Cardiovascular: Denies: chest pain. GI: Denies: nausea, vomiting. Objective General VS/I O: Laboratory Tests 05/08/20 0310: [Embedded Image Not Available] Active Meds + DC'd Last 24 Hrs Metformin HCl 500 MG C BK DIN PO (UNV) Vancomycin HCl 1,000 MG Q8H IV Sodium Chloride 250 ML Insulin Glargine 30 UNITS BEDTIME SUBQ Miscellaneous Information 1 EACH ASDIR IV (CKD) Piperacillin Sod/Tazobactam Sod 3.375 GM Q8H IV (DC) Sodium Chloride 100 ML Sodium Chloride 1,000 ML .[id number] IV (DC) Insulin Glargine 20 UNITS BEDTIME SUBQ (DC) Vancomycin HCl 1,000 MG Q12H IV (DC) Sodium Chloride 250 ML Linagliptin 5 MG DAILY PO Insulin Human Lispro 0 AC HS SUBQ Acetaminophen/Butalbital/Caffeine 1 TAB Q6H PRN PRN PO Dextrose/Water 125 ML ASDIR PRN IV Dextrose/Water 250 ML ASDIR PRN IV Glucagon 1 MG ASDIR PRN IM Albuterol/Ipratropium 3 ML RTQ4H PRN PRN NEB Enoxaparin Sodium 40 MG Q24H SUBQ Microbiology Date/Time Procedure - Status Source Growth 05/06 1822 Wound Culture - CAN TOE Cancelled: COMBINED TO ONE SOURCE 05/06 1822 Anaerobic Culture - CAN TOE Cancelled: COMBINED TO ONE SOURCE 05/06 1822 Gram Stain - CAN TOE Cancelled: COMBINED TO ONE SOURCE 05/06 172 Wound Culture - RES ABSCESS 05/06 172 Anaerobic Culture - RES ABSCESS 05/06 172 Gram Stain - RES ABSCESS Recent Impressions-Last 72 Hrs RADIOLOGY - XR FOOT 3 + V RT 05/06 1820 Report Impression - Status: SIGNED Entered: 05/06/20201832 IMPRESSION: Satisfactory postoperative films following partial first digit amputation the distal portion of the first proximal phalanx Impression By: [email or web address] - Kuldipvishnu Lozano M.D. Vital Signs: Date Time Temp Pulse Resp B/P B/P Pulse O2 O2 Flow FiO2 Mean Ox Delivery Rate 05/08 0609 97.9 83 18 109/74 86.0 96 Room air 05/08 0229 98.6 90 18 98/71 79.8 96 Room air 05/07 2243 98.6 88 18 100/68 79.0 94 Room air 05/07 1914 98.6 83 18 114/79 90.6 90 Room air 24 hour I O ending at 0700: 05/08 0700 05/07 1900 Intake Total 650.00 600 Output Total Balance 650.00 600 Intake, IV 350.00 Intake, Oral 300 600 Intake, Oral 0 Supplement Number 1 Bowel Movements Number Voids 3 4 Patient 79.1 kg Weight Weight Bed scale Measurement Method PATIENT WEIGHT: Weight (lb): 174 Weight (oz): 6.17 Weight (kg): 79.100 Free Text Obj Notes Free Text Obj Notes: PHYSICAL EXAMINATION: General appearance: awake, no acute distress Head/Eyes: atraumatic, face is symmetric ENT: moist mucosal membranes Neck: supple, non-tender, no masses or swelling Cardiovascular: regular rate rhythm, normal heart sounds Respiratory: clear to auscultation, no distress Abdomen/GI: active bowel sounds, soft, non-tender, no distention Extremities: moves all, no edema, no cyanosis, right foot in dressing Neuro/CLINICAL EXERCISE SPECIALIST: alert, oriented X 3, no focal deficits Skin: dry, right foot surgery none in dressing Psychiatry: normal mood Diagnosis, Assessment Plan Free Text DxA P Notes Free text DxA P notes: Sepsis secondary to acute cystitis culture Klebsiella Consulted ID s/p cefdinir for UTI --> Cellulitis and DFU to rt foot could be contributing -- on vanc Diabetic foot infection with abscess and cellulitis right foot/hallux osteomyelitis Podiatry consulted Right hallux partial amputation done Arterial Doppler no evidence of arterial occlusive disease --MRI osteomyelitis changes first distal phalanx with plantar soft tissue and subperiosteal abscess --ABX per ID DM II uncontrolled- new dx HbA1c 12.9 Started Lantus increased the dose Add Metformin Hyponatremia resolved s/p IVF - dc IVF tolerating PO intake Migraine headache- fioricet DVT prophylaxis Lovenox Discussed with yesterday monitor blood sugars at 1625 RPT #:[id number] END OF [id number] 13:19:[address] [facility] ([facility]) Infectious Dis. Progress Note REPORT#:[id number] REPORT STATUS: Signed DATE:05/08/20 TIME: 9 PATIENT: KURT LLAMAS UNIT #: [id number] ROOM/BED: [place] [address] : 74 AGE: 44 SEX: F ATTEND: Coretta Morris MD ADM AUTHOR: Refugio Mora MD * ALL edits or amendments must be made on the electronic/computer document * Subjective Chief Complaint: Urosepsis. Resolved. Newly diagnosed diabetes. Osteomyelitis of the distal phalanx of the right great toe s/p amputation of the distal phalanx on 05/06/20. HPI: The patient was seen and examined. The patient's chart and labs were reviewed. The patient reports feeling a lot better today. The patient underwent amputation of the distal phalanx of the right great toe on 05/06/20. Prelim. wound culture from surgery is just showing a few Coag. negative Staph. x 2, which are skin bacteria which infected the bone from the diabetic foot ulcer which is no longer present as well. The foot is currently bandaged post- surgery. The patient denies any pain. The patient otherwise has no complaints. Nursing notes that the patient remains afebrile. The patient is a 44-year-old white female with past medical history significant only for asthma and a hysterectomy 20 years ago, who reported to the ER at [facility] with a 4-day history of muscle aches, feeling weak and lightheaded, with some nausea and vomiting. The patient denies any chest pain or shortness of breath, fever, dysuria or urinary frequency, abdominal pain or stool changes. Work-up in the ER found the patient to have diabetes with very elevated blood glucose levels and evidence of a UTI on UA. The patient's initial lactic acid level was elevated, so the patient was admitted for urosepsis. The patient was empirically started on Rocephin. Urine culture came back positive for >100K Klebsiella pneumoniae sensitive to the current Rocephin and many other antibiotics. The patient was changed over to Omnicef to complete her treatment which has since concluded and the patient denies nay dysuria currently. Objective General VS/I O: Last Documented: Result Date Time Pulse Ox 96 05/08 06 B/P 109/74 05/08 0609 B/P Mean 86.0 05/08 0609 O2 Delivery Room air 05/08 06 Temp 36.6 05/08 0609 Pulse 83 05/08 0609 Resp 18 05/08 0609 O2 Flow Rate 8 05/06 1807 FiO2 21 05/02 0652 Vital Signs Date Temp Pulse Resp B/P B/P Mean Pulse Ox FiO2 05/07-05/08 36.6-37.0 83-90 - 98-114/68-79 79.0-90.6 90-98 24 hour I O ending at 0700: 05/08 0700 05/07 1900 Intake Total 650.00 600 Output Total Balance 650.00 600 Intake, IV 350.00 Intake, Oral 300 600 Intake, Oral 0 Supplement Number 1 Bowel Movements Number Voids 3 4 Patient 79.1 kg Weight Weight Bed scale Measurement Method PATIENT WEIGHT: Weight (lb): 174 Weight (oz): 6.17 Weight (kg): 79.100 Medications: Active Meds + DC'd Last 24 Hrs Vancomycin HCl 1,000 MG Q8H IV Sodium Chloride 250 ML Insulin Glargine 30 UNITS BEDTIME SUBQ Miscellaneous Information 1 EACH ASDIR IV (CKD) Piperacillin Sod/Tazobactam Sod 3.375 GM Q8H IV Sodium Chloride 100 ML Sodium Chloride 1,000 ML .[id number] IV (DC) Insulin Glargine 20 UNITS BEDTIME SUBQ (DC) Vancomycin HCl 1,000 MG Q12H IV (DC) Sodium Chloride 250 ML Linagliptin 5 MG DAILY PO Insulin Human Lispro 0 AC HS SUBQ Acetaminophen/Butalbital/Caffeine 1 TAB Q6H PRN PRN PO Dextrose/Water 125 ML ASDIR PRN IV Dextrose/Water 250 ML ASDIR PRN IV Glucagon 1 MG ASDIR PRN IM Albuterol/Ipratropium 3 ML RTQ4H PRN PRN NEB Enoxaparin Sodium 40 MG Q24H SUBQ Physical Exam General appearance: alert, awake, oriented, no acute distress, pleasant, conversational, mental status normal, no respiratory distress Wound/incision: Location: right great toe Site condition: the right foot is bandaged in its entirety and the right great toe is unavailable for inspection at this time Head/Eyes: atraumatic, EOMI, normal conjunctiva/sclera, PERRLA ENT: multiple missing teeth, no oral lesions, no oropharyngeal erythema, nares are patent Neck: non-tender, supple/no meningismus, no lymphadenopathy Cardiovascular: normal heart sounds, regular rate rhythm, no murmur Respiratory: clear to auscultation, aerating well, symmetric expansion Abdomen: non-tender, normal bowel sounds, soft, no distention Extremities: moves all, no clubbing, no cyanosis, no edema Musculoskeletal: normal inspection, no joint swelling Neuro/CLINICAL EXERCISE SPECIALIST: alert, oriented X 3, CNII-XII intact, normal speech Skin: normal color, no rash, see wound description above Lymphatics: no lymphadenopathy Psychiatry: normal affect, normal mood Results Findings/Data: Laboratory Tests 05/080 2035 1617 Chemistry Sodium (134.0 - 147.0 mmol/l) 136 Potassium (3.6 - 5.2 mmol/L) 3.8 Chloride (98.0 - 107.0 mmol/l) 103 Carbon Dioxide (21.0 - 33.0 mmol/l) 27.4 Anion Gap (0 - 20) 9.4 BUN (7.0 - 18.0 mg/dl) 9 Creatinine (0.60 - 1.30 mg/dL) 0.63 Est GFR ( Amer) (115 - 127 mL/min) 131 H Est GFR (Non-Af Amer) (95 - 105 mL/min) 108 H Glucose (70.0 - 110.0 mg/dl) 249 H POC Glucose (70 - 110 mg/dL) 239 H 268 H Calcium (8.0 - 10.5 mg/dl) 8.6 Microbiology: 05/06 1720 ABSCESS: Gram Stain - NO ORGANISMS SEEN 05/06 1720 ABSCESS: Anaerobic Culture - NO ANAEROBIC ORGANISMS ISOLATED AT 48 HOURS 05/06 1720 ABSCESS: Wound Culture - RES FEW COAG NEGATIVE STAPH X2 04/30 005 NASOPHARG: Influenza Virus Type B Antigen - NEGATIVE 04/30 51 NASOPHARG: Influenza Virus Type A Antigen - NEGATIVE 04/30 0034 BLOOD: Blood Culture - NEGATIVE 04/30 0028 BLOOD: Blood Culture - NEGATIVE 04/29 2318 URINE: Urine Culture - COMP >100K KLEBSIELLA PNEUMONIAE KLEBSIELLA PNEUMONIAE M.I.C. RX Route Target ----- ------ AMIKACIN <16 S IM/IV URINE AMPICILLIN >16 R PO URINE R IV * AMP/SULBACTAM S <8/4 S IV URINE AZTREONAM <4 S IV URINE CEFAZOLIN <8 S IM URINE S IV CEFOTAXIME <2 S IV URINE CEFOXITIN <8 S IM URINE S IV CEFTRIAXONE <1 S IM/IV URINE CEFEPIME <4 S IV URINE GENTAMICIN <4 S IM/IV URINE * MEROPENEM <1 S IV URINE NITROFURANTOIN <32 S PO URINE PIPERACI/TAZOB <16 S IV URINE TIGECYCLINE <2 S TOBRAMYCIN <4 S IM/IV URINE TRIMETH/SULFA <2/38 S PO URINE S IV Diagnosis, Assessment Plan Free Text A P: ASSESSMENT: 1. Osteomyelitis of the distal phalanx of the right great toe. The patient underwent amputation of the distal phalanx of the right great toe on 05/06/20. Prelim. wound culture from surgery is just showing a few Coag. negative Staph. x 2, which are skin bacteria which infected the bone from the diabetic foot ulcer, which is no longer present as well. 2. Diabetic foot ulcer to the right great toe. Resolved with surgery. 3. UTI with Klebsiella pneumoniae. Resolving on the Rocephin. 4. Newly diagnosed Diabetes Type II. Uncontrolled with symptoms due to the patient being unaware of the condition. The patient is doing better. 5. Diabetic peripheral neuropathy. 6. Asthma. RECOMMENDATIONS: 1. Continue Vancomycin 1 gm IV q.8 hours for Coag. negative Staph. coverage. The Pharmacy is assisting with the dosing. The patient will only need this for a week since all of the infected bone was removed. 2. Will discontinue the Zosyn at this time. 3. Await final wound culture results. 4. Podiatry as per Dr. Goodman. 5. Medical management as per the [facility]. at 1342 RPT #:[id number] END OF [id number] 09:04:[address] [facility] ([facility]) Pharmacy Prog.Note-Vancomycin REPORT#:[id number] REPORT STATUS: Signed DATE:05/08/20 TIME: 903 PATIENT: KURT LLAMAS UNIT #: [id number] ROOM/BED: [place] [address] : [birth year] AGE: 44 SEX: F ATTEND: Coretta Morris MD ADM AUTHOR: Ayaka Juarez [facility] * ALL edits or amendments must be made on the electronic/computer document * Vancomycin Vancomycin Indication for treatment: bone/joint infection Current therapy: vancomycin 1gm iv q 8hr Weight: Actual weight (kg): 79.1 Labs: Laboratory Test : 05/08 310 Chemistry BUN (7.0 - 18.0 mg/dl) 9 Creatinine (0.60 - 1.30 mg/dL) 0.63 Microbiology: 05/06 1822 TOE: Wound Culture - CAN Cancelled: COMBINED TO ONE SOURCE 05/06 1822 TOE: Anaerobic Culture - CAN Cancelled: COMBINED TO ONE SOURCE 05/06 1822 TOE: Gram Stain - CAN Cancelled: COMBINED TO ONE SOURCE 05/06 1720 ABSCESS: Wound Culture - RES 05/06 1720 ABSCESS: Anaerobic Culture - RES 05/06 1720 ABSCESS: Gram Stain - RES Treatment plan: consult, cont current regimen/dose Additional Comments: HPI: 44-year-old female past medical history of asthma and hysterectomy due to uterine cancer in remission. Presented to [facility] due to muscle aches feeling weak lightheaded nausea and vomiting. Patient was found to have a UA which was indicative of a UTI, lactic acid was 2.4 initially which improved with fluids now 0.6, wbc 17, hemoglobin 14.8, platelets 388 8, potassium 4.0, chloride 92, BUN 6, creatinine 0.75, blood glucose 470. Pharmacy consulted for vancomycin dosing Consulting Physician: Michelle Larry Assessment/Plan Pt vancomycin trough (8.4) subtherapeutic on 1 gm iv q 12 hr dosing Pt with good/stable renal function Dose increased 05/08 to vancomycin 1gm iv q 8 hr vancomycin level ordered 05/09@0000 to assess new dosing regimen Thanks for the consult at 0914 RPT #:[id number] END OF [id number] 23:08:[address] [facility] ([facility]) Podiatry Progress Note REPORT#:[id number] REPORT STATUS: Signed DATE:05/07/20 TIME: 2307 PATIENT: KURT LLAMAS UNIT #: [id number] ROOM/BED: [place] [address] : 74 AGE: 44 SEX: F ATTEND: Coretta Morris MD ADM AUTHOR: Jerel Goodman DPM * ALL edits or amendments must be made on the electronic/computer document * General Post-op: post surgery rounds Subjective Patient reports: no complaints Objective General Medications: Active Meds + DC'd Last 24 Hrs Vancomycin HCl 1,000 MG Q8H IV Sodium Chloride 250 ML Insulin Glargine 30 UNITS BEDTIME SUBQ Miscellaneous Information 1 EACH ASDIR IV (CKD) Piperacillin Sod/Tazobactam Sod 3.375 GM Q8H IV Sodium Chloride 100 ML Sodium Chloride 1,000 ML .[id number] IV (DC) Insulin Glargine 20 UNITS BEDTIME SUBQ (DC) Vancomycin HCl 1,000 MG Q12H IV (DC) Sodium Chloride 250 ML Cefdinir 300 MG Q12HR PO (DC) Linagliptin 5 MG DAILY PO Insulin Human Lispro 0 AC HS SUBQ Acetaminophen/Butalbital/Caffeine 1 TAB Q6H PRN PRN PO Dextrose/Water 125 ML ASDIR PRN IV Dextrose/Water 250 ML ASDIR PRN IV Glucagon 1 MG ASDIR PRN IM Albuterol/Ipratropium 3 ML RTQ4H PRN PRN NEB Enoxaparin Sodium 40 MG Q24H SUBQ Physical Exam General appearance: alert, awake Wound/incision: Location: s/p right hallux partial ampuation. dressing c/d/i. Extremities: Left pedal pulses, Left abnormal capillary refill, Left decreased range of motion, Right pedal pulses, Right abnormal capillary refill, Right decreased range of motion, Right edema LE vascular pulse assess: Palpable R posterior tibialis, Palpable L posterior tibialis, Palpable R dorsalis pedis, Palpable L dorsalis pedis Capillary refill: Capillary refill (in seconds): > 5 seconds Right foot, > 5 seconds Left foot Foot: abnormal ROM, swelling, tenderness, neurological deficit Musculoskeletal: Musculoskeletal: decreased ROM Neuro/CLINICAL EXERCISE SPECIALIST: alert, oriented X 3 Skin: abnormal color, atrophic shiny skin, poor skin turgor Results Findings/Data: Laboratory Tests: 05/07 05/07 05/07 05/07 2035 1617 1310 0632 Chemistry POC Glucose (70 - 110 mg/dL) 239 H 268 H 307 H 225 H Diagnosis, Assessment Plan Free Text A P: Impression: 1. right hallux cellulitis with OM and abscess s/p partial hallux ampuation 2. DM w/ PN Plan: seen and evaluated DVT prophylaxis per medicine Abx per medicine MRI noted CT noted keep dressing c/d/i. heel touch WB Pain control Pending surgical micro and path. Follow up in office < 1 week Will follow Covering for Dr. Neal/Vicky at 2317 RPT #:[id number] END OF [id number] 17:09:[address] [facility] ([facility] Hospitalist Progress Note REPORT#:[id number] REPORT STATUS: Signed DATE:05/07/20 TIME: 1709 PATIENT: KURT LLAMAS UNIT #: [id number] ROOM/BED: [place] [address] : 74 AGE: 44 SEX: F ATTEND: Coretta Morris MD ADM AUTHOR: Coretta Morris MD * ALL edits or amendments must be made on the electronic/computer document * Subjective Chief Complaint: right foot surgery done yesterday Blood sugars high Review of Systems Constitutional: Denies: fever, generalized weakness. Respiratory: Denies: productive cough (sputum). Cardiovascular: Denies: chest pain. GI: Denies: nausea, vomiting. Objective General VS/I O: Laboratory Tests 05/06/20 0420: [Embedded Image Not Available] Active Meds + DC'd Last 24 Hrs Insulin Glargine 30 UNITS BEDTIME SUBQ (UNV) Fentanyl Citrate 50 MCG PACU Q5MIN PRN PRN IV (DC) Hydromorphone HCl 1 MG PACU Q5MIN PRN PRN IV (DC) Lactated Ringer's 1,000 ML .[id number] IV (DC) Ondansetron HCl 4 MG PACU ONCE PRN PRN IV (DC) Sodium Chloride 1,000 ML .[id number] IV (DCr) Insulin Glargine 20 UNITS BEDTIME SUBQ (DCr) Vancomycin HCl 1,000 MG Q12H IV Sodium Chloride 250 ML Cefdinir 300 MG Q12HR PO (DC) Linagliptin 5 MG DAILY PO Insulin Human Lispro 0 AC HS SUBQ Acetaminophen/Butalbital/Caffeine 1 TAB Q6H PRN PRN PO Dextrose/Water 125 ML ASDIR PRN IV Dextrose/Water 250 ML ASDIR PRN IV Glucagon 1 MG ASDIR PRN IM Albuterol/Ipratropium 3 ML RTQ4H PRN PRN NEB Enoxaparin Sodium 40 MG Q24H SUBQ Microbiology Date/Time Procedure - Status Source Growth 05/06 182 Wound Culture - CAN TOE Cancelled: COMBINED TO ONE SOURCE 05/06 182 Anaerobic Culture - CAN TOE Cancelled: COMBINED TO ONE SOURCE 05/06 182 Gram Stain - CAN TOE Cancelled: COMBINED TO ONE SOURCE 05/06 1720 Wound Culture - RES ABSCESS 05/06 1720 Anaerobic Culture - RES ABSCESS 05/06 1720 Gram Stain - RES ABSCESS Recent Impressions-Last 72 Hrs CAT SCAN - CT LOWER EXTRM W/O C RT 05/05 1106 Report Impression - Status: SIGNED Entered: 05/05/2020 1326 IMPRESSION: Limited evaluation due to the late the examination was ordered. Each foot should be scanned separately in order to increase sensitivity of the study. Possible loss of normal cortex at the plantar aspect of the right great toe distal phalanx. Recommend further evaluation with MRI of the right forefoot. Impression By: RockyHVKelvin - Gaurav Walker M.D. [facility] - MRI LOW EXT W/O CONT RT 05/05 1350 Report Impression - Status: SIGNED Entered: 05/05/2020 1456 IMPRESSION: Osteomyelitis changes throughout the 1st distal phalanx with thin associated plantar soft tissue and subperiosteal abscess Impression By: Shelly Lozano M.D. RADIOLOGY - XR FOOT 3 + V RT 05/06 1820 Report Impression - Status: SIGNED Entered: 05/06/20201832 IMPRESSION: Satisfactory postoperative films following partial first digit amputation the distal portion of the first proximal phalanx Impression By: Shelly Lozano M.D. Vital Signs: Date Time Temp Pulse Resp B/P B/P Pulse O2 O2 Flow FiO2 Mean Ox Delivery Rate 05/07 1619 97.9 88 20 111/78 89.2 98 05/07 1146 97.9 89 15 106/72 83.5 94 Room air 05/07 0633 99.0 84 15 101/68 79.4 94 Room air 05/07 0334 98.6 91 18 104/72 83.0 96 Room air 05/06 2316 98.8 84 18 115/79 91.0 95 Room air 05/06 1850 98.4 83 18 104/72 83.0 97 Room air 05/06 1817 88 18 99/63 97 Room air 05/06 1807 87 16 114/71 100 Simple 8 mask 05/06 1746 98.7 97 16 121/78 97 Simple 8 mask 24 hour I O ending at 0700: 05/07 0700 05/06 1900 Intake Total 1100.00 75.00 Output Total Balance 1100.00 75.00 Intake, IV 1000.00 75.00 Intake, Oral 100 Number Voids 4 2 Patient 78 kg Weight Weight Bed scale Measurement Method PATIENT WEIGHT: Weight (lb): 171 Weight (oz): 15.37 Weight (kg): 78.000 Free Text Obj Notes Free Text Obj Notes: PHYSICAL EXAMINATION: General appearance: awake, no acute distress Head/Eyes: atraumatic, face is symmetric ENT: moist mucosal membranes Neck: supple, non-tender, no masses or swelling Cardiovascular: regular rate rhythm, normal heart sounds Respiratory: clear to auscultation, no distress Abdomen/GI: active bowel sounds, soft, non-tender, no distention Extremities: moves all, no edema, no cyanosis Neuro/CLINICAL EXERCISE SPECIALIST: alert, oriented X 3, no focal deficits Skin: dry, right foot surgery none in dressing Psychiatry: normal mood Diagnosis, Assessment Plan Free Text DxA P Notes Free text DxA P notes: Sepsis secondary to acute cystitis culture Klebsiella Consulted ID on cefdinir --> Cellulitis and DFU to rt foot could be contributing -- on vanc Diabetic foot infection with abscess and cellulitis right foot/hallux osteomyelitis Podiatry consulted Right hallux partial amputation done yesterday Arterial Doppler no evidence of arterial occlusive disease --MRI osteomyelitis changes first distal phalanx with plantar soft tissue and subperiosteal abscess DM II uncontrolled- new dx HbA1c 12.9 Started Lantus increase the dose Add Metformin at discharge Hyponatremia resolved s/p IVF - dc IVF tolerating PO intake Migraine headache- fioricet DVT prophylaxis Lovenox at 1717 RPT #:[id number] END OF [id number] 17:51:[id number] [place] [address] PATIENT NAME: KURT LLAMAS ADMIT DATE: 04/30/20 ACCOUNT NO: [id number] DISCHARGE DATE: 05/09/20 ROOM NO: E.403 REPORT TYPE: OPERATIVE REPORT DATE OF : [birth year] AGE: 44 SEX: F ADMITTING PHYSICIAN:Coretta Morris MD ATTENDING PHYSICIAN:Coretta Morris MD OPERATION DATE: 05/06/2020 PREOPERATIVE DIAGNOSIS: Right hallux osteomyelitis. POSTOPERATIVE DIAGNOSIS: Right hallux osteomyelitis. PROCEDURE PERFORMED: Right hallux partial amputation. PRIMARY SURGEON: Jerel Goodman DPM REFRIGERATOR ROOM CLERK: None. ANESTHESIA: General with local anesthesia. ESTIMATED BLOOD LOSS: 10 mL. SPECIMENS REMOVED: 1. Cultures to microbiology x2. 2. Distal phalanx to pathology. 3. Proximal phalanx clear margin to pathology. DRAINS: None. TUBES: None. IMPLANTS: None. COMPLICATIONS: None. INDICATIONS FOR PROCEDURE: Ms. Llamas is a 44-year-old female, who was admitted to the hospital for UTI, was found to have a right hallux infection. MRI was ordered, which there was noted to be distal phalanx osteomyelitis at that time with an abscess to the plantar aspect of the foot. Due to these findings as well as the patient's abscess that was noted, it was deemed necessary that the patient would be needed to have surgery at this time. All risks and benefits of surgical versus nonsurgical treatment were discussed in great detail with the patient. No guarantees were given or implied as outcome of the procedure. All questions were answered to the patient's satisfaction. Understanding all above, the patient wishes to proceed with the outlined procedure. All risks and complications including, but not limited to, skin, bone infection, delayed healing, nonhealing, extensive wound care, repeat surgery, loss of limb were discussed with the patient in great detail. The patient understands the above and wishes to proceed. PATIENT NAME: KURT LLAMAS PROCEDURE IN DETAIL: Under mild sedation, the patient was identified and brought to the operating room and placed on the operating table in supine position. Following IV sedation, it should be noted no ankle tourniquet was placed on the patient's right lower extremity. Next, the right foot was scrubbed, prepped, and draped in the usual aseptic manner. Next, attention was then directed to the right foot where there was noted a bulbous appearance to the right hallux with purulent drainage from the distal aspect of the toe with erythema extending to the mid foot. Next, utilizing #15 blade, a plantar flap was made with a fishmouth-type incision. Incision was carried down to subcutaneous tissue with care being taken to retract all neurovascular structures and cauterize bleeders as necessary. The incision was further carried down until bone was noted. Then, utilizing the contours of the distal phalanx base, the interphalangeal joint was found and the distal phalanx was removed in total from the operative site and sent to pathology for analysis. Next, the soft tissue was freed from the proximal phalanx head. Next, utilizing a bone cutter, the proximal phalanx head was transected in total and sent to pathology for clear margin. Next, it should be noted that 2 cultures were taken and sent to microbiology for analysis. Next, the area was copiously irrigated with sterile normal saline. Next, it should be noted no purulent drainage was noted from the area and nonviable tissue was removed. Next, the flaps were fashioned to allow for no tension on the area. Next, utilizing 3-0 nylon, the skin was reapproximated with simple interrupted suture technique. Once this was performed, a 0.5% Marcaine plain, a total of 10 mL was utilized with a block to the right foot. Next, a compressive dressing of Adaptic, Betadine, 4x4's, Kerlix, Ke bandage was placed on the patient's right lower extremity. The patient tolerated the procedure well with vital signs stable and vascular status intact to right lower extremity as before surgery. Following a period of postoperative monitoring, the patient will be returned to floor with his right foot following written and oral instructions. PLAN: 1. The patient to keep dressing clean, dry, and intact. 2. The patient is to heel-touch weightbear when walking. 3. Physical therapy and gait horse trainer to evaluate the patient. 4. The patient is to be kept in-house until the pathology comes back as well as microbiology for outpatient antibiotics. 5. The patient follow up in the office in 3 to 5 weeks after discharge. 6. The patient will be followed while in-house. Dictated By: Jerel Goodman DPM WT: OP:E.EDGARDO/CHANDLER/DANNIELLE Conf#: [id number]/DID#: [id number] Authenticated by Jerel Goodman MD On 05/14/2020 05:27:45 PM at 1728 PATIENT NAME: KURT LLAMAS 17:42:[address] [facility] ([facility] Brief Op Note REPORT#:[id number] REPORT STATUS: Signed DATE:05/06/20 TIME: 1741 PATIENT: KURT LLAMAS UNIT #: [id number] ROOM/BED: [place] [address] : [birth year] AGE: 44 SEX: F ATTEND: Coretta Morris MD ADM AUTHOR: Jerel Goodman DPM * ALL edits or amendments must be made on the electronic/computer document * Op/Inv Proc Note - Brief Pre-procedure diagnosis: right hallux osteomyeltitis Post-procedure diagnosis: same as pre procedure dx Procedures performed: right hallux partial amputation Primary Surgeon: Dr. Goodman DPAlysa Cdl Dedicated Truck Driver(s): none Anesthesia: general anesthesia, local anesthesia Findings: fully dictated Complications: none Estimated blood loss in ml's: 10cc Specimens removed/altered: cultures to micro x 2 path distal phalanx path clear margin proximal Drain(s): None Tube(s): none Implant(s): none Fluids: as per anesthesia Urine output: as per anesthesia Approach: open Wound class: infected Disposition: return to floor, stable at 1743 RPT #:[id number] END OF [id number] 13:16:[id number] [place] [address] PATIENT NAME: KURT LLAMAS ADMIT DATE: 04/30/20 ACCOUNT NO: [id number] ROOM NO: E.403 AGE: 44 REPORT TYPE: eVASCULAR STUDY DATE OF : 73 SEX: F ADMITTING PHYSICIAN:Coretta Morris MD ATTENDING PHYSICIAN:Coretta Morris MD Exam Date: 05/05/2020 15:33:00 Exam Type: Non-Invasive Vascular Procedure Codes: 25045 - Duplex scan of lower extremity arteries or arterial bypass grafts; complete bilateral study , Lower Arterial Duplex () Conclusions Duplex interogation of bilateral lower extremities revealed no evidence of arterial occlusive disease. Finding Grids Lower Arterial Duplex Waveforms Right Left External Iliac Artery T T Common Femoral Artery T T Prox Superficial Femoral Artery T T Mid Superficial Femoral Artery T T Distal Superficial Femoral Artery T T Popliteal Artery T T Anterior Tibial Artery T T Posterior Tibial Artery T T King --------- T = Triphasic Measurements Right PSV Name Value Units EIA 134.9 cm/sec DEPLOYMENT TECHNICIAN 70.28 cm/sec PATIENT NAME: KURT LLAMAS SFA - pro 94.18 cm/sec SFA - mid 78.72 cm/sec SFA - dis 66.07 cm/sec Popliteal 78.72 cm/sec MARTY - dis 78.72 cm/sec HOSTESS - dis 50.6 cm/sec Left PSV Name Value Units EIA 120.8 cm/sec DEPLOYMENT TECHNICIAN 57.63 cm/sec SFA - pro 81.53 cm/sec SFA - mid 60.44 cm/sec SFA - dis 52.01 cm/sec Popliteal 60.44 cm/sec MARTY - dis 43.58 cm/sec HOSTESS - dis 63.26 cm/sec at 1321 PATIENT NAME: KURT LLAMAS 11:24:00 [facility] Hospitalist Progress Note REPORT#:[id number] REPORT STATUS: Signed DATE:05/06/20 TIME: 1124 PATIENT: KURT LLAMAS UNIT #: [id number] ROOM/BED: [place] [address] : [birth year] AGE: 44 SEX: F ATTEND: Coretta Morris MD ADM AUTHOR: Coretta Morris MD * ALL edits or amendments must be made on the electronic/computer document * Subjective Chief Complaint: Awaiting surgery on her right foot N.p.o. Review of Systems Constitutional: Denies: fever. Respiratory: Denies: productive cough (sputum), SOB. Cardiovascular: Denies: chest pain. GI: Denies: nausea, vomiting. Objective General VS/I O: Laboratory Tests 05/06/20 0420: [Embedded Image Not Available] Active Meds + DC'd Last 24 Hrs Insulin Glargine 20 UNITS BEDTIME SUBQ Vancomycin HCl 1,000 MG Q12H IV Sodium Chloride 250 ML Cefdinir 300 MG Q12HR PO Linagliptin 5 MG DAILY PO Insulin Human Lispro 0 AC HS SUBQ Acetaminophen/Butalbital/Caffeine 1 TAB Q6H PRN PRN PO Dextrose/Water 125 ML ASDIR PRN IV Dextrose/Water 250 ML ASDIR PRN IV Glucagon 1 MG ASDIR PRN IM Albuterol/Ipratropium 3 ML RTQ4H PRN PRN NEB Enoxaparin Sodium 40 MG Q24H SUBQ Recent Impressions-Last 72 Hrs CAT SCAN - CT LOWER EXTRM W/O C RT 05/05 1106 Report Impression - Status: SIGNED Entered: 05/05/2020 1326 IMPRESSION: Limited evaluation due to the late the examination was ordered. Each foot should be scanned separately in order to increase sensitivity of the study. Possible loss of normal cortex at the plantar aspect of the right great toe distal phalanx. Recommend further evaluation with MRI of the right forefoot. Impression By: [email or web address] Macie Walker M.D. [facility] - MRI LOW EXT W/O CONT RT 05/05 1350 Report Impression - Status: SIGNED Entered: 05/05/2020 1456 IMPRESSION: Osteomyelitis changes throughout the 1st distal phalanx with thin associated plantar soft tissue and subperiosteal abscess Impression By: [email or web address] - Kuldip Lozano M.D. Vital Signs: Date Time Temp Pulse Resp B/P B/P Pulse O2 O2 Flow FiO2 Mean Ox Delivery Rate 05/06 1013 97.9 82 16 103/70 0.0 97 Room air 05/06 0658 97.9 87 16 101/74 82.8 97 Room air 05/06 0247 98.2 89 17 123/80 94.4 96 Room air 05/05 2241 99.0 90 18 99/63 75.1 96 Room air 05/05 2103 98 Room air 05/05 1850 98.6 92 18 109/73 85.0 98 Room air 05/05 1452 97.9 91 16 113/66 81.6 96 Room air PATIENT WEIGHT: Weight (lb): Weight (oz): Weight (kg): 78.500 Free Text Obj Notes Free Text Obj Notes: PHYSICAL EXAMINATION: General appearance: awake, no acute distress Head/Eyes: atraumatic, face is symmetric ENT: moist mucosal membranes Neck: supple, non-tender, no masses or swelling Cardiovascular: regular rate rhythm, normal heart sounds Respiratory: clear to auscultation, no distress Abdomen/GI: active bowel sounds, soft, non-tender, no distention Extremities: moves all, no edema, no cyanosis Neuro/CLINICAL EXERCISE SPECIALIST: alert, oriented X 3, no focal deficits Skin: dry, right foot first and second toe erythema and darkening of the skin, ulcerations Psychiatry: normal mood Diagnosis, Assessment Plan Free Text DxA P Notes Free text DxA P notes: Sepsis secondary to acute cystitis culture Klebsiella IV antibiotics Consulted ID on cefdinir --> Cellulitis and DFU to rt foot could be contributing. Will add Vanc. Diabetic foot infection with abscess and cellulitis right foot Podiatry consulted Right hallux partial amputation today Arterial Doppler no evidence of arterial occlusive disease --MRI osteomyelitis changes first distal phalanx with plantar soft tissue and subperiosteal abscess DM II uncontrolled- new dx HbA1c 12.9 Started Lantus adjust the dose as needed Add Metformin at discharge Hyponatremia resolved s/p IVF - dc IVF tolerating PO intake Migraine headache- fioricet DVT prophylaxis Lovenox at 0832 [facility] #:[id number] END OF [id number] 19:47:[address] [facility] ([facility]) Podiatry Consult Note REPORT#:[id number] REPORT STATUS: Signed DATE:05/05/20 TIME: 1946 PATIENT: KURT LLAMAS UNIT #: [id number] ROOM/BED: [place] [address] : 74 AGE: 44 SEX: F ATTEND: Coretta Morris MD ADM AUTHOR: Jerel Goodman DPM * ALL edits or amendments must be made on the electronic/computer document * History of Present Illness Requesting clinician: Dr. Morris Reason for consult: right hallux infection Chief complaint: right hallux infection HPI: 44-year-old female past medical history of asthma and hysterectomy due to uterine cancer in remission. Presented to [facility] due to muscle aches feeling weak lightheaded nausea and vomiting. Patient was found to have a UA which was indicative of a UTI. Patient was found to have right foot ulcer with infection. Patient states unknown time period for ulcer. Patient states neuropathy and does not know inciting event. Patient denies N/V/F/C/chest pain/ SOB. History - Adult longitudinal Past medical history: Reports: Asthma. Additional surgical history: Hysterectomy Additional family history: Noncontributory Alcohol use: Denies EtOH use Drug use: Denies recreational drugs Smoking status for patients 13 years old or older: Never Smoker Other social history: Local resident Allergies: Coded Allergies: No Known Allergies (04/29/20) Review of Systems Constitutional: Denies: chills, fatigue, fever, generalized weakness, lethargy, malaise, recent wt loss. Skin: Denies: abrasion, bruising, contusion, diaphoresis, ecchymosis, itching, laceration, rash, swelling. Allergy/Immun: Denies: allergic reaction, anaphylaxis, hives, itching, rhinorrhea, sneezing. Eyes: Denies: redness, discharge, visual loss/blurred, itching, diplopia, eye pain, photophobia, swelling. ENT: Denies: ear drainage, ear ringing, earache, hearing loss, mouth pain, nasal congestion, nose bleeding, sinus problem, sore throat, throat pain, throat swelling, tongue pain, tongue swelling, toothache, voice change. Respiratory: Denies: GEIGER (dyspnea on exertion), hemoptysis, non productive cough, parox nocturnal dyspnea, pleurisy, pleuritic pain, pneumonia, productive cough (sputum ), SOB, wheezing. Cardiovascular: Denies: chest pain, GEIGER (dyspnea on exertion), edema, orthopnea, palpitations, parox nocturnal dyspnea. GI: Denies: abdominal pain, anorexia, constipation, diarrhea, dysphagia, GERD, hematemesis, hematochezia, hiatal hernia, melena, nausea, rectal pain, vomiting. : Denies: dysuria, flank pain, frequency, hematuria, nocturia, pelvic pain, , previous pregnancies, urgency, urinary retention, vaginal bleeding, vaginal discharge. Musculoskeletal: extremity swelling. Denies: arthritis, extremity pain, joint pain, lumbar pain, myalgias, neck pain, thoracic pain. Heme: Denies: adenopathy, bleeding, bruising, petechiae. Endocrine: Denies: cold intolerance, heat intolerance, polydipsia, polyphagia, polyuria, weight gain, weight loss. Neuro: Denies: bladder dysfunction, bowel dysfunction, change in LOC, confusion, dizziness, focal weakness, gait problem, headache, lightheaded, numbness, seizure, slurred speech, spinning sensation, syncope, unable to speak, vision change, weakness. Objective General Medications: Active Meds + DC'd Last 24 Hrs Insulin Glargine 20 UNITS BEDTIME SUBQ Potassium Chloride 40 MEQ ONCE ONE PO (DC) Vancomycin HCl 1,000 MG Q12H IV Sodium Chloride 250 ML Cefdinir 300 MG Q12HR PO Linagliptin 5 MG DAILY PO Insulin Glargine 10 UNITS BEDTIME SUBQ (DC) Insulin Human Lispro 0 AC HS SUBQ Acetaminophen/Butalbital/Caffeine 1 TAB Q6H PRN PRN PO Dextrose/Water 125 ML ASDIR PRN IV Dextrose/Water 250 ML ASDIR PRN IV Glucagon 1 MG ASDIR PRN IM Albuterol/Ipratropium 3 ML RTQ4H PRN PRN NEB Enoxaparin Sodium 40 MG Q24H SUBQ Physical Exam General appearance: alert, awake Wound/incision: Location: right hallux full thickness ulceration probing deep with periwound erythema extending to midfoot with maceration noted to first interspace. Extremities: Left pedal pulses, Left abnormal capillary refill, Left decreased range of motion, Right pedal pulses, Right abnormal capillary refill, Right decreased range of motion, Right edema LE vascular pulse assess: Palpable R posterior tibialis, Palpable L posterior tibialis, Palpable R dorsalis pedis, Palpable L dorsalis pedis Capillary refill: Capillary refill (in seconds): > 5 seconds Right foot, > 5 seconds Left foot Edema: non-pitting Right foot Foot: abnormal ROM, swelling, tenderness, neurological deficit Musculoskeletal: Musculoskeletal: decreased ROM Neuro/CLINICAL EXERCISE SPECIALIST: alert, oriented X 3 Skin: abnormal color, atrophic shiny skin, erythema, poor skin turgor Results Findings/Data: Laboratory Tests: 05/05 612 Chemistry POC Glucose (70 - 110 mg/dL) 289 H Recent Impressions: CAT SCAN - CT LOWER EXTRM W/O C RT 05/05 1106 Report Impression - Status: SIGNED Entered: 05/05/2020 1326 IMPRESSION: Limited evaluation due to the late the examination was ordered. Each foot should be scanned separately in order to increase sensitivity of the study. Possible loss of normal cortex at the plantar aspect of the right great toe distal phalanx. Recommend further evaluation with MRI of the right forefoot. Impression By: [email or web address] Macie Walker M.D. [facility] - MRI LOW EXT W/O CONT RT 05/05 1350 Report Impression - Status: SIGNED Entered: 05/05/2020 1456 IMPRESSION: Osteomyelitis changes throughout the 1st distal phalanx with thin associated plantar soft tissue and subperiosteal abscess Impression By: [email or web address] Macie Lozano M.D. Diagnosis, Assessment Plan Free Text A P: Impression: 1. right hallux cellulitis with OM and abscess 2. DM w/ PN Plan: seen and evaluated DVT prophylaxis per medicine Abx per medicine NPO after midnight Patient for OR tomorrow for right hallux amputation Discussed with patient risks, benefits, complications of surgery. MRI noted CT noted Start local wound care with betadine and DSD. Pain control Will follow Covering for Dr. Neal/Vicky at 2354 RPT #:[id number] END OF [id number] 13:31:[address] [facility] ([facility] Hospitalist Progress Note REPORT#:[id number] REPORT STATUS: Signed DATE:05/05/20 TIME: 1 PATIENT: KURT LLAMAS UNIT #: [id number] ROOM/BED: [place] [address] : 74 AGE: 44 SEX: F ATTEND: Coretta Morris MD ADM AUTHOR: Milton Teixeira * ALL edits or amendments must be made on the electronic/computer document * Subjective Chief Complaint: co migraine headache BS running high still tolerating PO intake Patient reports: Yes: pain controlled, resting comfortably. No: abdominal pain, chest pain, chills, cough, fever, headache, nausea, shortness of breath, vomiting. Objective General VS/I O: Vital Signs: Date Time Temp Pulse Resp B/P B/P Pulse O2 O2 Flow FiO2 Mean Ox Delivery Rate 05/05 1041 92 Room air 05/05 1023 98.4 86 16 110/75 86.6 95 Room air 05/05 0613 98.1 86 16 110/77 88.3 96 Room air 05/04 2345 98.4 89 18 106/72 83.0 92 Room air 05/04 2319 97 Room air 05/04 1854 98.8 97 18 97/68 78.0 97 Room air 05/04 1507 98.2 92 16 116/81 92.6 97 Room air 24 hour I O ending at 0700: 05/05 0700 05/04 1900 Intake Total 650.00 236 Output Total Balance 650.00 236 Intake, IV 250.00 Intake, Oral 400 236 Number Voids 2 PATIENT WEIGHT: Weight (lb): Weight (oz): Weight (kg): 78.500 Physical Exam General appearance: alert, awake, oriented Head/Eyes: EOMI, normocephalic, PERRL ENT: moist mucosal membranes Neck: non-tender, no JVD Cardiovascular: normal capillary refill, normal heart sounds, regular rate rhythm Respiratory: aerating well, clear to auscultation Abdomen: non-tender, no distention Extremities: no clubbing, no cyanosis, no edema Musculoskeletal: no CVA tenderness, no midline vertebral tend, no muscle spasm Neuro/CLINICAL EXERCISE SPECIALIST: alert, oriented X 3, CNII-XII intact, normal speech Skin: dry, intact, no rash, Rt #1 and #2 with erythema and blackening to plamar aspect. Ulcerations to palmar aspect as well. #1 with erythema and warmth extending towards foot. Psychiatry: normal affect, normal mood Results Findings/Data: Laboratory Tests 05/05 05/04 05/04 05/04 0612 2115 2041 1506 Chemistry POC Glucose (70 - 110 mg/dL) 289 H 356 H 331 H 247 H Diagnosis, Assessment Plan Plan discussed with: patient, nurse Free Text DxA P Notes Free text DxA P notes: 1. Sepsis secondary to acute cystitis IV antibiotics Consult ID Follow cultures--gram neg rods --> Cellulitis and DFU to rt foot could be contributing. Will add Vanc. 2. DM II uncontrolled- new dx a1c -- start lantus and tradjenta will dc home on metformin as well cw ISS -12.9 -Increase lantus to 20 units HS 3. Hyponatremia resolved s/p IVF - dc IVF tolerating PO intake 4. Migraine headache- fioricet 5. DFU/Cellultis- Rt foot -Start Vanc -Check arterial doppler -Podiatry -CT suggests possible loss of cortex, likely needs MRI. Will order; continue abx and await podiatry. DVT prophylaxis Lovenox at 1334 RPT #:[id number] END OF [id number] 15:04:[address] [facility] ([facility] Hospitalist Progress Note REPORT#:[id number] REPORT STATUS: Signed DATE:05/04/20 TIME: 1504 PATIENT: KURT LLAMAS UNIT #: [id number] ROOM/BED: [place] [address] : 74 AGE: 44 SEX: F ATTEND: Coretta Morris MD ADM AUTHOR: Milton Teixeira * ALL edits or amendments must be made on the electronic/computer document * Subjective Chief Complaint: co migraine headache BS running high still tolerating PO intake Patient reports: Yes: resting comfortably. No: abdominal pain, chest pain, chills, constipation, cough, diarrhea, dizziness, fever, headache, nausea, pain, shortness of breath, vomiting. Comments: Pt and nurse "found" a large wound to the pts rt #1 and #2 toes yesterday prior to DC. Pt did not know she had an infection to the foot. She reports minimal feelings to her feet. DC held and podiatry consulted. Objective General VS/I O: Vital Signs: Date Time Temp Pulse Resp B/P B/P Pulse O2 O2 Flow FiO2 Mean Ox Delivery Rate 05/04 1047 97.9 85 16 107/74 84.8 96 Room air 05/04 0750 94 Room air 05/04 0633 97.9 84 16 104/69 0.0 97 Room air 05/04 0237 98.4 86 18 115/74 87.8 96 Room air 05/04 0237 98.4 86 18 115/74 87.8 96 Room air 05/03 2225 98.4 88 18 105/73 83.5 95 Room air 05/03 2225 98.4 88 18 105/73 83.5 95 Room air 05/03 1910 98.6 99 18 107/76 86.6 94 Room air 05/03 1910 98.6 99 18 107/76 86.6 94 Room air 24 hour I O ending at 0700: 05/04 0700 05/03 1900 Intake Total 100 236 Output Total Balance 100 236 Intake, Oral 100 236 PATIENT WEIGHT: Weight (lb): Weight (oz): Weight (kg): 78.500 Physical Exam General appearance: alert, awake, oriented, no acute distress, pleasant, no respiratory distress Head/Eyes: EOMI, normocephalic, PERRL ENT: moist mucosal membranes Neck: non-tender, no JVD Cardiovascular: normal capillary refill, normal heart sounds, regular rate rhythm Respiratory: aerating well, clear to auscultation Abdomen: non-tender, no distention Extremities: no clubbing, no cyanosis, no edema Musculoskeletal: no CVA tenderness, no midline vertebral tend, no muscle spasm Neuro/CLINICAL EXERCISE SPECIALIST: alert, oriented X 3, CNII-XII intact, normal speech Skin: dry, intact, no rash, Rt #1 and #2 with erythema and blackening to plamar aspect. Ulcerations to palmar aspect as well. #1 with erythema and warmth extending towards foot. Psychiatry: normal affect, normal mood Diagnosis, Assessment Plan Plan discussed with: patient, nurse Free Text DxA P Notes Free text DxA P notes: 1. Sepsis secondary to acute cystitis IV antibiotics Consult ID Follow cultures--gram neg rods --> Cellulitis and DFU to rt foot could be contributing. Will add Vanc. 2. DM II uncontrolled- new dx a1c 2.15-- start lantus and tradjenta will dc home on metformin as well cw ISS 3. Hyponatremia resolved s/p IVF - dc IVF tolerating PO intake 4. Migraine headache- fioricet 5. DFU/Cellultis- Rt foot -Start Vanc -Check arterial doppler -Podiatry DVT prophylaxis Lovenox at 1509 RPT #:[id number] END OF [id number] 11:14:[address] [facility] ([facility]) Infect Disease Consult Note REPORT#:[id number] REPORT STATUS: Signed DATE:05/02/20 TIME: 1114 PATIENT: KURT LLAMAS UNIT #: [id number] ROOM/BED: [place] [address] : 74 AGE: 44 SEX: F ATTEND: Coretta Morris MD ADM AUTHOR: Refugio Mora MD * ALL edits or amendments must be made on the electronic/computer document * History of Present Illness Requesting Clinician: Dr. Johnson Reason for consult: Urosepsis. Newly diagnosed diabetes. Chief complaint: "I was just feeling weak and lightheaded with some nausea and vomiting and muscle aches and fatigue, so I came to the ER where they told me I had diabetes and a bladder infection." HPI: The patient is a 44-year-old white female with past medical history significant only for asthma and a hysterectomy 20 years ago, who reported to the ER at [facility] with a 4-day history of muscle aches, feeling weak and lightheaded, with some nausea and vomiting. The patient denies any chest pain or shortness of breath, fever, dysuria or urinary frequency, abdominal pain or stool changes. Work-up in the ER found the patient to have diabetes with very elevated blood glucose levels and evidence of a UTI on UA. The patient's initial lactic acid level was elevated, so the patient was admitted for urosepsis. The patient was empirically started on Rocephin. Since being hospitalized, the patient reports feeling a lot better. Urine culture came back positive for >100K Klebsiella pneumoniae sensitive to the current Rocephin. Infectious Disease is consulted for evaluation and for antibiotic recommendations. History - Adult longitudinal Past medical history: Reports: Asthma. Additional surgical history: Hysterectomy Additional family history: Noncontributory Alcohol use: Denies EtOH use Drug use: Denies recreational drugs Smoking status for patients 13 years old or older: Never Smoker Other social history: Local resident Medications: Home Medications: Medication Dose/Rte/Freq Days Qty Entered Last Max Daily Dose Reviewed ALBUTEROL 2 PUFF INH 04/30/20 04/30/20 (PROAIR HFA 90 MCG/ACT RTQ4H PRN PRN 0853 0853 8.5 GM) DYSPNEA/WHEEZING Strength: 90 MCG INHALER Current Hospital Medications: Anti-Infective Agents Sig/Mendoza Start time Last Medication Dose Route Stop Time Status Admin Cefdinir 300 MG Q12HR 05/02 1135 AC 05/02 (OMNICEF) PO 05/07 1100 1235 Ceftriaxone Sodium 1,000 MG Q24H 05/01 0030 DC 05/02 (cefTRIAXone 1,000 IV 05/10 0029 0122 MG VIAL) Sodium Chloride 10 ML (SODIUM CHLORIDE 0.9% 10ML) Autonomic Drugs Sig/Mendoza Start time Last Medication Dose Route Stop Time Status Admin Albuterol/Ipratropium 3 ML RTQ4H PRN PRN 04/30 1230 AC (IPRATR-ALBUTEROL NEB 05/30 1229 0.5-3 MG/3 ML) Blood Formation,Coagulation Sig/Mendoza Start time Last Medication Dose Route Stop Time Status Admin Enoxaparin Sodium 40 MG Q24H 04/30 1230 AC 05/02 (LOVENOX) SUBQ 05/30 1229 1131 Central Nervous System Agents Sig/Mendoza Start time Last Medication Dose Route Stop Time Status Admin Acetaminophen/ 1 TAB Q6H PRN PRN 05/01 1100 AC 05/02 Butalbital/Caffeine PO 05/31 1059 1130 (FIORICET) Electrolytic, Caloric, And Teressa Sig/Mendoza Start time Last Medication Dose Route Stop Time Status Admin Dextrose/Water 125 ML ASDIR PRN 05/01 1100 AC (DEXTROSE 10%) IV 05/31 1059 Dextrose/Water 250 ML ASDIR PRN 05/01 1100 AC (DEXTROSE 10%) IV 05/31 1059 Hormones And Synthetic Substit Sig/Mendoza Start time Last Medication Dose Route Stop Time Status Admin Linagliptin 5 MG DAILY 12/14 0900 AC 05/02 (TRADJENTA) PO 06/01 0859 0941 Insulin Glargine 10 UNITS BEDTIME 05/01 2100 AC 05/01 (LANTUS) SUBQ 05/31 2058 2131 Insulin Human Lispro 0 AC HS 05/01 1130 AC 05/02 (HumaLOG 100 UNITS/ SUBQ 05/31 1129 1230 ML) Glucagon 1 MG ASDIR PRN 05/01 1100 AC (GLUCAGON) IM 05/31 1059 Allergies: Coded Allergies: No Known Allergies (04/29/20) Review of Systems Constitutional: Reports: fatigue (resolved), lethargy (resolved), malaise (resolved). Denies: chills, fever, generalized weakness. Skin: Denies: abrasion, bruising, contusion, itching, rash. Allergy/Immun: Denies allergic reaction, Denies hives, Denies itching, Denies sneezing Eyes: Denies redness, Denies discharge, Denies itching, Denies eye pain, Denies photophobia, Denies swelling ENT: Denies: earache, mouth pain, nasal congestion, sinus problem, sore throat. Respiratory: Denies: GEIGER (dyspnea on exertion), hemoptysis, non productive cough, SOB, wheezing. Cardiovascular: Denies: chest pain, GEIGER (dyspnea on exertion), edema, orthopnea, palpitations. GI: Reports: nausea (resolved), vomiting (resolved). Denies: abdominal pain, constipation, diarrhea, GERD. Musculoskeletal: Denies: arthritis, extremity pain, joint pain, neck pain. Heme: Denies: bleeding, bruising, petechiae. Endocrine: Denies: cold intolerance, heat intolerance, polydipsia, polyphagia, polyuria. Neuro: Denies: change in LOC, confusion, dizziness, focal weakness, headache, lightheaded, numbness, seizure, slurred speech. Psych: Denies: agitation, anxiety, confusion, delusional, depression. All systems rev neg: except as marked Objective General VS/I O: Last Documented: Result Date Time Pulse Ox 94 05/02 1055 B/P 107/73 05/02 1055 B/P Mean 84.1 05/02 1055 O2 Delivery Room air 05/02 1055 Temp 36.9 05/02 1055 Pulse 91 05/02 1055 Resp 18 05/02 1055 FiO2 21 05/02 0652 O2 Flow Rate 0 05/02 0652 Vital Signs Date Temp Pulse Resp B/P B/P Mean Pulse Ox FiO2 05/01-05/02 36.6-37.2 84-91 -18 107-119/70-81 82.8-93.0 94-97 21 PATIENT WEIGHT: Weight (lb): Weight (oz): Weight (kg): 78.500 Physical Exam General appearance: alert, awake, oriented, no acute distress, pleasant, conversational, mental status normal, no respiratory distress Wound/incision: Location: no open wounds Head/eyes: atraumatic, EOMI, normal conjunctiva/sclera, PERRLA ENT: no oral lesions, no orapharyngeal erythema, nares are patent Neck: non-tender, supple/no meningismus, no lymphadenopathy Cardiovascular: normal heart sounds, regular rate rhythm, no murmur Respiratory: clear to auscultation, aerating well, symmetric expansion Abdomen: non-tender, normal bowel sounds, soft, no distention Extremities: moves all, no clubbing, no cyanosis, no edema Musculoskeletal: normal inspection, no joint swelling Neuro/CLINICAL EXERCISE SPECIALIST: alert, oriented X 3, CNII-XII intact, normal speech Skin: intact, normal color, no rash Lymphatics: no lymphadenopathy Psychiatry: normal affect, normal mood Results Findings/Data: Laboratory Tests 05/02 05/02 05/02 05/02 05/01 1055 0838 0137 0137 1912 Chemistry Sodium (134.0 - 147.0 mmol/l) 135 Potassium (3.6 - 5.2 mmol/L) 3.3 L Chloride (98.0 - 107.0 mmol/l) 101 Carbon Dioxide (21.0 - 33.0 mmol/l) 29.1 Anion Gap (0 - 20) 8.2 BUN (7.0 - 18.0 mg/dl) 8 Creatinine (0.60 - 1.30 mg/dL) 0.59 L Est GFR ( Amer) (115 - 127 mL/min) 141 H Est GFR (Non-Af Amer) (95 - 105 mL/min) 117 H Glucose (70.0 - 110.0 mg/dl) 255 H POC Glucose (70 - 110 mg/dL) 275 H 232 H 275 H Hemoglobin A1c (4.8 - 6.0 %A1C) 12.4 H Estim Average Glucose (MG/DL) 309 Calcium (8.0 - 10.5 mg/dl) 8.6 Magnesium (1.8 - 2.4 mg/dl) 1.9 05/01 1721 Chemistry POC Glucose (70 - 110 mg/dL) 340 H Laboratory Tests 05/02 0137 Hematology WBC (4.5 - 11.0 K/mm3) 12.2 H RBC (3.80 - 5.20 M/mm3) 4.82 Hgb (12.0 - 16.0 gm/dL) 13.0 Hct (36.0 - 48.0 %) 40.1 MCV (82.0 - 99.0 UM3) 83.2 MCH (25.5 - 32.5 UUG) 27.0 MCHC (29.0 - 35.5 gm/dL) 32.4 RDW (11.5 - 15.0 %) 12.0 Plt Count (150 - 400 K/mm3) 386 MPV (7.4 - 10.4 fl) 9.5 Neut % (Auto) (49.0 - 76.0 %) 65.2 Lymph % (Auto) (23.0 - 38.0 %) 23.0 Carlton % (Auto) (1.0 - 10.0 %) 9.7 Eos % (Auto) (1.0 - 5.0 %) 0.7 L Baso % (Auto) (0.0 - 1.0 %) 0.4 Neut # (Auto) (2.4 - 6.3 K/mm3) 8.0 H Lymph # (Auto) (1.2 - 4.0 K/mm3) 2.8 Carlton # (Auto) (0.0 - 0.6 K/mm3) 1.2 H Eos # (Auto) (0.0 - 0.7 K/MM3) 0.1 Baso # (Auto) (0.0 - 0.2 K/mm3) 0.1 Absolute Nucleated RBC (0.00 - 0.01 X10 3uL) 0.00 Immature Gran % (0.0 - 0.4 %) 1.0 H Nucleated RBC % (0.0 - 0.1 %) 0.0 Immature Gran # (0.00 - 0.07 x10 3/uL) 0.12 H Microbiology: 04/30 51 NASOPHARG: Influenza Virus Type B Antigen - NEGATIVE 04/30 51 NASOPHARG: Influenza Virus Type A Antigen - NEGATIVE 04/30 0034 BLOOD: Blood Culture - NO GROWTH AFTER 48 HOURS 04/30 0028 BLOOD: Blood Culture - NO GROWTH AFTER 48 HOURS 04/29 2318 URINE: Urine Culture - COMP >100K KLEBSIELLA PNEUMONIAE KLEBSIELLA PNEUMONIAE M.I.C. RX Route Target ----- ------ AMIKACIN <16 S IM/IV URINE AMPICILLIN >16 R PO URINE R IV * AMP/SULBACTAM S <8/4 S IV URINE AZTREONAM <4 S IV URINE CEFAZOLIN <8 S IM URINE S IV CEFOTAXIME <2 S IV URINE CEFOXITIN <8 S IM URINE S IV CEFTRIAXONE <1 S IM/IV URINE CEFEPIME <4 S IV URINE GENTAMICIN <4 S IM/IV URINE * MEROPENEM <1 S IV URINE NITROFURANTOIN <32 S PO URINE PIPERACI/TAZOB <16 S IV URINE TIGECYCLINE <2 S TOBRAMYCIN <4 S IM/IV URINE TRIMETH/SULFA <2/38 S PO URINE S IV Diagnosis, Assessment Plan Free Text DxA P Notes Free text DxA P notes: ASSESSMENT: 1. UTI with Klebsiella pneumoniae. Resolving on the Rocephin. 2. Newly diagnosed Diabetes Type II. Uncontrolled with symptoms due to the patient being unaware of the condition. The patient is doing better. 3. Asthma. RECOMMENDATIONS: 1. Will change the patient from Rocephin to Omnicef 300 mg p.o. q.12 hours x 5 days to complete treatment of her UTI. 2. OK to discharge the patient to home from ID point of view once the diabetes is addressed. 3. Medical management as per the [facility]. at 1501 RPT #:[id number] END OF [id number] 11:26:00 [facility] Hospitalist Progress Note REPORT#:[id number] REPORT STATUS: Signed DATE:05/01/20 TIME: 1126 PATIENT: KURT LLAMAS UNIT #: [id number] ROOM/BED: [place] [address] : 74 AGE: 44 SEX: F ATTEND: Coretta Morris MD ADM AUTHOR: Leonid Tello NP * ALL edits or amendments must be made on the electronic/computer document * Subjective Chief Complaint: co migraine headache BS running high still tolerating PO intake Review of Systems Constitutional: Reports: fever. Skin: Denies: diaphoresis. Respiratory: Denies: GEIGER (dyspnea on exertion), SOB. Cardiovascular: Denies: GEIGER (dyspnea on exertion), edema, palpitations. GI: Denies: abdominal pain, constipation, diarrhea. Endocrine: Reports: polydipsia, polyphagia, polyuria. Objective General VS/I O: Laboratory Tests 05/01/20 0625: [Embedded Image Not Available] Medication(s) Ordered: Anti-Infective Agents Sig/Mendoza Start time Last Medication Dose Route Stop Time Status Admin Ceftriaxone Sodium 1,000 MG Q24H 05/01 0030 DC Sodium Chloride 10 ML IV 05/01 0144 Ceftriaxone Sodium 1,000 MG Q24H 05/01 0030 AC 05/01 Sodium Chloride 10 ML IV 05/10 0029 0014 Autonomic Drugs Sig/Mendoza Start time Last Medication Dose Route Stop Time Status Admin Albuterol/Ipratropium 3 ML RTQ4H PRN PRN 04/30 1230 AC NEB 05/30 1229 Blood Formation,Coagulation Sig/Mendoza Start time Last Medication Dose Route Stop Time Status Admin Enoxaparin Sodium 40 MG Q24H 04/30 1230 AC 04/30 SUBQ 05/30 1229 1256 Central Nervous System Agents Sig/Mendoza Start time Last Medication Dose Route Stop Time Status Admin Acetaminophen/ 1 TAB Q6H PRN PRN 05/01 1100 AC Butalbital/Caffeine PO 05/31 1059 Acetaminophen 650 MG Q4H PRN PRN 04/30 0130 DC 04/30 PO 05/01 0030 1707 Hydrocodone Bitart/ 1 TAB Q4H PRN PRN 04/30 0130 DC Acetaminophen PO 05/01 0030 Electrolytic, Caloric, And Teressa Sig/Mendoza Start time Last Medication Dose Route Stop Time Status Admin Dextrose/Water 125 ML ASDIR PRN 05/01 1100 AC IV 05/31 1059 Dextrose/Water 250 ML ASDIR PRN 05/01 1100 AC IV 05/31 1059 Dextrose/Water 125 ML ASDIR PRN 04/30 1245 DC IV 05/30 1244 Dextrose/Water 250 ML ASDIR PRN 04/30 1245 DC IV 05/30 1244 Sodium Chloride 1,000 ML .Q10H 04/30 1230 DCr 05/01 IV 05/30 1229 0913 Dextrose/Water 125 ML ASDIR PRN 04/30 0130 DC IV 05/01 0030 Dextrose/Water 250 ML ASDIR PRN 04/30 0130 DC IV 05/01 0030 Gastrointestinal Drugs Sig/Mendoza Start time Last Medication Dose Route Stop Time Status Admin Ondansetron HCl 4 MG Q6H PRN PRN 04/30 0130 DC IV 05/01 0030 Hormones And Synthetic Substit Sig/Mendoza Start time Last Medication Dose Route Stop Time Status Admin Linagliptin 5 MG DAILY 05/02 0900 UNV PO 06/01 0859 Insulin Glargine 10 UNITS BEDTIME 05/01 2100 UNV SUBQ 05/31 2059 Insulin Human Lispro 0 AC HS 05/01 1130 AC SUBQ 05/31 1129 Glucagon 1 MG ASDIR PRN 05/01 1100 AC IM 05/31 1059 Insulin Human Lispro 0 AC HS 04/30 1630 DC SUBQ 05/30 1629 Glucagon 1 MG ASDIR PRN 04/30 1245 DC IM 05/30 1244 Insulin Human Lispro See Dose AC HS 04/30 0730 DC 04/30 Insts (1) SUBQ 05/01 0030 2120 Glucagon 1 MG ASDIR PRN 04/30 0130 DC IM 05/01 0030 Dose Instructions: (1)Insulin Human Lispro: SLIDING SCALE Microbiology: 04/30 0051 NASOPHARG: Influenza Virus Type B Antigen - COMP 04/30 0051 NASOPHARG: Influenza Virus Type A Antigen - COMP 04/30 0034 BLOOD: Blood Culture - RES 04/30 0028 BLOOD: Blood Culture - RES 04/29 231 URINE: Urine Culture - RES GRAM NEGATIVE JESSI Recent Impressions: RADIOLOGY - XR CHEST 1 V 04/29 534 Report Impression - Status: SIGNED Entered: 04/29/2020 9995 IMPRESSION: No acute cardiopulmonary process seen. Impression By: Maria Marin M.D. Vital Signs: Date Time Temp Pulse Resp B/P B/P Pulse O2 O2 Flow FiO2 Mean Ox Delivery Rate 05/01 1045 98.2 73 16 118/80 92.6 96 Room air 05/01 0728 98.1 97 17 124/78 93.5 94 Room air 05/01 0342 99.5 99 16 120/76 91.0 96 04/30 2333 98.6 96 16 119/74 89.3 95 04/30 2215 92 Nasal 21 cannula 04/30 191 98.4 94 16 104/68 80.2 95 04/30 1508 98.4 98 17 104/71 82.2 93 04/30 1426 Room air Vital Signs: Date Time Temp Pulse Resp B/P B/P Pulse O2 O2 Flow FiO2 Mean Ox Delivery Rate 05/01 1045 98.2 73 16 118/80 92.6 96 Room air 05/01 0728 98.1 97 17 124/78 93.5 94 Room air 05/01 0342 99.5 99 16 120/76 91.0 96 04/30 2333 98.6 96 16 119/74 89.3 95 04/30 2215 92 Nasal 21 cannula 04/30 1917 98.4 94 16 104/68 80.2 95 04/30 1508 98.4 98 17 104/71 82.2 93 04/30 1426 Room air 24 hour I O ending at 0700: 05/01 0700 04/30 1900 Intake Total 250 Output Total Balance 250 Intake, Oral 250 Number Voids 1 PATIENT WEIGHT: Weight (lb): Weight (oz): Weight (kg): 78.500 Physical Exam General appearance: alert, awake, oriented Head/Eyes: EOMI, normocephalic, PERRL ENT: moist mucosal membranes Neck: non-tender, no JVD Cardiovascular: normal capillary refill, normal heart sounds, regular rate rhythm Respiratory: aerating well, clear to auscultation Abdomen: non-tender, no distention Extremities: no clubbing, no cyanosis, no edema Skin: dry, intact, no rash Diagnosis, Assessment Plan Free Text DxA P Notes Free text DxA P notes: 1. Sepsis secondary to acute cystitis IV antibiotics Consult ID Follow cultures--gram neg rods 2. DM II uncontrolled- new dx a1c 2.15-- start lantus and tradjenta will dc home on metformin as wel cw ISS 3. Hyponatremia resolved s/p IVF - dc IVF tolerating PO intake 4. migraine headache- fioricet 4. DVT prophylaxis Lovenox at 1133 RPT #:[id number] END OF [id number] 11:26:00 [facility] Hospitalist Progress Note REPORT#:[id number] REPORT STATUS: Signed DATE:05/01/20 TIME: 112 PATIENT: KURT LLAMAS UNIT #: [id number] ROOM/BED: [place] [address] : 74 AGE: 44 SEX: F ATTEND: Coretta Morris MD ADM AUTHOR: Leonid Tello NP * ALL edits or amendments must be made on the electronic/computer document * Subjective Chief Complaint: co migraine headache BS running high still tolerating PO intake Review of Systems Constitutional: Reports: fever. Skin: Denies: diaphoresis. Respiratory: Denies: GEIGER (dyspnea on exertion), SOB. Cardiovascular: Denies: GEIGER (dyspnea on exertion), edema, palpitations. GI: Denies: abdominal pain, constipation, diarrhea. Endocrine: Reports: polydipsia, polyphagia, polyuria. Objective General VS/I O: Laboratory Tests 05/01/20 0625: [Embedded Image Not Available] Medication(s) Ordered: Anti-Infective Agents Sig/Mendoza Start time Last Medication Dose Route Stop Time Status Admin Ceftriaxone Sodium 1,000 MG Q24H 05/01 0030 DC Sodium Chloride 10 ML IV 05/01 0144 Ceftriaxone Sodium 1,000 MG Q24H 05/01 0030 AC 05/01 Sodium Chloride 10 ML IV 05/10 0029 0014 Autonomic Drugs Sig/Mendoza Start time Last Medication Dose Route Stop Time Status Admin Albuterol/Ipratropium 3 ML RTQ4H PRN PRN 04/30 1230 AC NEB 05/30 1229 Blood Formation,Coagulation Sig/Mendoza Start time Last Medication Dose Route Stop Time Status Admin Enoxaparin Sodium 40 MG Q24H 04/30 1230 AC 12 SUBQ 05/30 1229 1256 Central Nervous System Agents Sig/Mendoza Start time Last Medication Dose Route Stop Time Status Admin Acetaminophen/ 1 TAB Q6H PRN PRN 05/01 1100 AC Butalbital/Caffeine PO 05/31 1059 Acetaminophen 650 MG Q4H PRN PRN 04/30 0130 DC 12 PO 05/01 0030 1707 Hydrocodone Bitart/ 1 TAB Q4H PRN PRN 04/30 0130 DC Acetaminophen PO 05/01 0030 Electrolytic, Caloric, And Teressa Sig/Mendoza Start time Last Medication Dose Route Stop Time Status Admin Dextrose/Water 125 ML ASDIR PRN 05/01 1100 AC IV 05/31 1059 Dextrose/Water 250 ML ASDIR PRN 05/01 1100 AC IV 05/31 1059 Dextrose/Water 125 ML ASDIR PRN 04/30 1245 DC IV 05/30 1244 Dextrose/Water 250 ML ASDIR PRN 04/30 1245 DC IV 05/30 1244 Sodium Chloride 1,000 ML .Q10H 04/30 1230 DCr 05/01 IV 05/30 1229 0913 Dextrose/Water 125 ML ASDIR PRN 04/30 0130 DC IV 05/01 0030 Dextrose/Water 250 ML ASDIR PRN 04/30 0130 DC IV 05/01 0030 Gastrointestinal Drugs Sig/Mendoza Start time Last Medication Dose Route Stop Time Status Admin Ondansetron HCl 4 MG Q6H PRN PRN 04/30 0130 DC IV 05/01 0030 Hormones And Synthetic Substit Sig/Mendoza Start time Last Medication Dose Route Stop Time Status Admin Linagliptin 5 MG DAILY 05/02 0900 UNV PO 06/01 0859 Insulin Glargine 10 UNITS BEDTIME 05/01 2100 UNV SUBQ 05/31 2059 Insulin Human Lispro 0 AC HS 05/01 1130 AC SUBQ 05/31 1129 Glucagon 1 MG ASDIR PRN 05/01 1100 AC IM 05/31 1059 Insulin Human Lispro 0 AC HS 04/30 1630 DC SUBQ 05/30 1629 Glucagon 1 MG ASDIR PRN 04/30 1245 DC IM 05/30 1244 Insulin Human Lispro See Dose AC HS 04/30 0730 DC 04/30 Insts (1) SUBQ 05/01 0030 2120 Glucagon 1 MG ASDIR PRN 04/30 0130 DC IM 05/01 0030 Dose Instructions: (1)Insulin Human Lispro: SLIDING SCALE Microbiology: 04/30 005 NASOPHARG: Influenza Virus Type B Antigen - COMP 04/30 51 NASOPHARG: Influenza Virus Type A Antigen - COMP 04/30 003 BLOOD: Blood Culture - RES 04/30 0028 BLOOD: Blood Culture - RES 04/29 231 URINE: Urine Culture - RES GRAM NEGATIVE JESSI Recent Impressions: RADIOLOGY - XR CHEST 1 V 04/29 2259 Report Impression - Status: SIGNED Entered: 04/29/20202307 IMPRESSION: No acute cardiopulmonary process seen. Impression By: [email or web address] Macie Marin M.D. Vital Signs: Date Time Temp Pulse Resp B/P B/P Pulse O2 O2 Flow FiO2 Mean Ox Delivery Rate 05/01 1045 98.2 73 16 118/80 92.6 96 Room air 05/01 0728 98.1 97 17 124/78 93.5 94 Room air 05/01 0342 99.5 99 16 120/76 91.0 96 04/30 233 98.6 96 16 119/74 89.3 95 04/30 2215 92 Nasal 21 cannula 04/30 1917 98.4 94 16 104/68 80.2 95 04/30 1508 98.4 98 17 104/71 82.2 93 04/30 1426 Room air Vital Signs: Date Time Temp Pulse Resp B/P B/P Pulse O2 O2 Flow FiO2 Mean Ox Delivery Rate 05/01 1045 98.2 73 16 118/80 92.6 96 Room air 05/01 0728 98.1 97 17 124/78 93.5 94 Room air 05/01 0342 99.5 99 16 120/76 91.0 96 04/30 233 98.6 96 16 119/74 89.3 95 04/30 221 92 Nasal 21 cannula 04/30 1917 98.4 94 16 104/68 80.2 95 04/30 1508 98.4 98 17 104/71 82.2 93 04/30 1426 Room air 24 hour I O ending at 0700: 05/01 0700 04/30 1900 Intake Total 250 Output Total Balance 250 Intake, Oral 250 Number Voids 1 PATIENT WEIGHT: Weight (lb): Weight (oz): Weight (kg): 78.500 Physical Exam General appearance: alert, awake, oriented Head/Eyes: EOMI, normocephalic, PERRL ENT: moist mucosal membranes Neck: non-tender, no JVD Cardiovascular: normal capillary refill, normal heart sounds, regular rate rhythm Respiratory: aerating well, clear to auscultation Abdomen: non-tender, no distention Extremities: no clubbing, no cyanosis, no edema Skin: dry, intact, no rash Diagnosis, Assessment Plan Free Text DxA P Notes Free text DxA P notes: 1. Sepsis secondary to acute cystitis IV antibiotics Consult ID Follow cultures--gram neg rods 2. DM II uncontrolled- new dx a1c 2.15-- start lantus and tradjenta will dc home on metformin as wel cw ISS 3. Hyponatremia resolved s/p IVF - dc IVF tolerating PO intake 4. migraine headache- fioricet 4. DVT prophylaxis Lovenox at 1133 at 1003 RPT #:[id number] END OF [id number] 12:23:[address] [facility] ([facility]) History Physical - Adult REPORT#:[id number] REPORT STATUS: Signed DATE:04/30/20 TIME: 1223 PATIENT: KURT LLAMAS UNIT #: [id number] ROOM/BED: [place] [address] : 74 AGE: 44 SEX: F ATTEND: Coretta Morris MD ADM AUTHOR: Leonid Tello ISO COORDINATOR * ALL edits or amendments must be made on the electronic/computer document * History of Present Illness HPI Chief complaint: Sepsis due to acute cystitis Hyperglycemia Hyponatremia PCP: PCP: No Primary or Family Physician HPI: 44-year-old female past medical history of asthma and hysterectomy due to uterine cancer in remission. Presented to [facility] due to muscle aches feeling weak lightheaded nausea and vomiting. Patient was found to have a UA which was indicative of a UTI, lactic acid was 2.4 initially which improved with fluids now 0.6, wbc 17, hemoglobin 14.8, platelets 388 8, potassium 4.0, chloride 92, BUN 6, creatinine 0.75, blood glucose 470. History Past medical history: Reports: Asthma. Additional surgical history: Hysterectomy Additional family history: Noncontributory Alcohol use: Denies EtOH use Drug use: Denies recreational drugs Smoking status for patients 13 years old or older: Never Smoker Medication/Allergy-Vaccine Hx Allergies: Coded Allergies: No Known Allergies (04/29/20) Review of Systems Constitutional: Reports: generalized weakness. Skin: Denies: diaphoresis, ecchymosis. Allergy/Immun: Denies: rhinorrhea, sneezing. Eyes: Denies: diplopia, eye pain, photophobia. ENT: Denies: nose bleeding, throat pain. Respiratory: Denies: pleuritic pain, pneumonia, SOB. Cardiovascular: Denies: edema, palpitations, parox nocturnal dyspnea. GI: Denies: GERD. Endocrine: Denies: polydipsia, polyphagia, polyuria. Neuro: Denies: dizziness. Physical Exam VS/I O Laboratory Tests 04/29/20 2214: [Embedded Image Not Available] Vital Signs: Date Time Temp Pulse Resp B/P B/P Pulse O2 O2 Flow FiO2 Mean Ox Delivery Rate 04/30 1022 92 112/78 89 04/30 0621 94 15 126/82 96 94 Room air 04/30 0400 98 15 102/56 71 98 Room air 04/30 0200 103 15 118/71 86 94 04/30 0001 98.5 58 15 109/72 84 97 04/29 2339 111 17 139/84 102 96 Room air 04/29 2154 100.0 115 18 130/89 102 96 Room air 24 hour I O ending at 0700: 04/30 0700 04/29 1900 Intake Total Output Total Balance Output, Emesis Patient 78.5 kg Weight Weight Standing scale Measurement Method PATIENT WEIGHT: Weight (lb): Weight (oz): Weight (kg): 78.500 General appearance: awake Head/Eyes: atraumatic, EOMI, PERRLA ENT: moist mucosal membranes Neck: no JVD Cardiovascular: normal capillary refill, regular rate rhythm, normal heart sounds, BP/pulses equal bilat. Respiratory: clear to auscultation Abdomen/GI: soft Extremities: moves all Musculoskeletal: full range of motion Neuro/CLINICAL EXERCISE SPECIALIST: alert, oriented X 3 Diagnosis, Assessment Plan Free Text DxA P Notes Free Text DxA P Notes: 1. Sepsis secondary to acute cystitis IV antibiotics Consult ID Follow cultures 2. Hyperglycemia likely diabetic We will start patient on low-dose insulin sliding scale coverage Check hemoglobin A1c 3. Hyponatremia Likely secondary to polyuria IVF BMP in a.m. 4. DVT prophylaxis Lovenox Further recs to follow depending on clinical course at 1233 RPT #:[id number] END OF [id number] 12:23:[address] [facility] ([facility]) History Physical - Adult REPORT#:[id number] REPORT STATUS: Signed DATE:04/30/20 TIME: 1223 PATIENT: KURT LLAMAS UNIT #: [id number] ROOM/BED: [place] [address] : 74 AGE: 44 SEX: F ATTEND: Coretta Morris MD ADM AUTHOR: Leonid Tello ISO COORDINATOR * ALL edits or amendments must be made on the electronic/computer document * History of Present Illness HPI Chief complaint: Sepsis due to acute cystitis Hyperglycemia Hyponatremia PCP: PCP: No Primary or Family Physician HPI: 44-year-old female past medical history of asthma and hysterectomy due to uterine cancer in remission. Presented to [facility] due to muscle aches feeling weak lightheaded nausea and vomiting. Patient was found to have a UA which was indicative of a UTI, lactic acid was 2.4 initially which improved with fluids now 0.6, wbc 17, hemoglobin 14.8, platelets 388 8, potassium 4.0, chloride 92, BUN 6, creatinine 0.75, blood glucose 470. History Past medical history: Reports: Asthma. Additional surgical history: Hysterectomy Additional family history: Noncontributory Alcohol use: Denies EtOH use Drug use: Denies recreational drugs Smoking status for patients 13 years old or older: Never Smoker Medication/Allergy-Vaccine Hx Allergies: Coded Allergies: No Known Allergies (04/29/20) Review of Systems Constitutional: Reports: generalized weakness. Skin: Denies: diaphoresis, ecchymosis. Allergy/Immun: Denies: rhinorrhea, sneezing. Eyes: Denies: diplopia, eye pain, photophobia. ENT: Denies: nose bleeding, throat pain. Respiratory: Denies: pleuritic pain, pneumonia, SOB. Cardiovascular: Denies: edema, palpitations, parox nocturnal dyspnea. GI: Denies: GERD. Endocrine: Denies: polydipsia, polyphagia, polyuria. Neuro: Denies: dizziness. Physical Exam VS/I O Laboratory Tests 04/29/20 2214: [Embedded Image Not Available] Vital Signs: Date Time Temp Pulse Resp B/P B/P Pulse O2 O2 Flow FiO2 Mean Ox Delivery Rate 04/30 1022 92 112/78 89 04/30 0621 94 15 126/82 96 94 Room air 04/30 0400 98 15 102/56 71 98 Room air 04/30 0200 103 15 118/71 86 94 04/30 0001 98.5 58 15 109/72 84 97 04/29 2339 111 17 139/84 102 96 Room air 04/29 2154 100.0 115 18 130/89 102 96 Room air 24 hour I O ending at 0700: 04/30 0700 04/29 1900 Intake Total Output Total Balance Output, Emesis Patient 78.5 kg Weight Weight Standing scale Measurement Method PATIENT WEIGHT: Weight (lb): Weight (oz): Weight (kg): 78.500 General appearance: awake Head/Eyes: atraumatic, EOMI, PERRLA ENT: moist mucosal membranes Neck: no JVD Cardiovascular: normal capillary refill, regular rate rhythm, normal heart sounds, BP/pulses equal bilat. Respiratory: clear to auscultation Abdomen/GI: soft Extremities: moves all Musculoskeletal: full range of motion Neuro/CLINICAL EXERCISE SPECIALIST: alert, oriented X 3 Diagnosis, Assessment Plan Free Text DxA P Notes Free Text DxA P Notes: 1. Sepsis secondary to acute cystitis IV antibiotics Consult ID Follow cultures 2. Hyperglycemia likely diabetic We will start patient on low-dose insulin sliding scale coverage Check hemoglobin A1c 3. Hyponatremia Likely secondary to polyuria IVF BMP in a.m. 4. DVT prophylaxis Lovenox Further recs to follow depending on clinical course at 1233 at 1003 RPT #:[id number] END OF [id number] 22:21:[address] [facility] ([facility]) EMERGENCY PROVIDER REPORT REPORT#:[id number] REPORT STATUS: Signed DATE:04/29/20 TIME: 2220 PATIENT: KURT SHARP UNIT #: [id number] ROOM/BED: AGE: 44 SEX: F PCP PHYS: No Primary or Family Physician SERVICE AUTHOR: Charlie Tapia DO * ALL edits or amendments must be made on the electronic/computer document * Charlie Tapia 04/29/202220: Past Medical History - Adult Stated Complaint WEAKNESS, DIZZY Allergies Coded Allergies: No Known Allergies (04/29/20) Home Medications Reported Medications LACTOBACILLUS ACIDOPHILUS (PROBIOTIC ACIDOPHILUS) 1 CAP PO DAILY Calculated suicide risk level: No risk Smoking status for patients 13 years old or older: Never Smoker Physical Exam Vital Signs Vital Signs First Documented: Result Date Time Pulse Ox 96 04/29 2154 B/P 130/89 04/29 2154 B/P Mean 102 04/29 2154 O2 Delivery Room air 04/29 2154 Temp 37.8 04/29 2154 Pulse 115 04/29 2154 Resp 18 04/29 2154 Last Documented: Result Date Time Pulse Ox 96 04/29 2339 B/P 139/84 04/29 2339 B/P Mean 102 04/29 2339 O2 Delivery Room air 04/29 2339 Pulse 111 04/29 2339 Resp 17 04/29 2339 Temp 37.8 04/29 2154 Patient Discharge Departure Vital Signs/Condition Vital Signs First Documented: Result Date Time Pulse Ox 96 04/29 2154 B/P 130/89 04/29 2154 B/P Mean 102 04/29 2154 O2 Delivery Room air 04/29 2154 Temp 37.8 04/29 2154 Pulse 115 04/29 2154 Resp 18 04/29 2154 Last Documented: Result Date Time Pulse Ox 96 04/29 2339 B/P 139/84 04/29 2339 B/P Mean 102 04/29 2339 O2 Delivery Room air 04/29 2339 Pulse 111 04/29 2339 Resp 17 04/29 2339 Temp 37.8 04/29 2154 All vital signs available at the time of this entry have been reviewed. Dai Lehman 04/30/20 0128: HPI-Dizziness/Weakness General Initial Greet Date/Time 04/29/202206 Presentation Chief Complaint Dizzy Physical Exam Vital Signs Review of Vital Signs Reviewed Interpretation Diagnostics Lab Results Interpretation Results Laboratory Tests 04/29/202213: [Embedded Image Not Available] Laboratory Tests: 04/30 04/29 04/29 0028 [id number] Blood Gas VBG pH 7.401 VBG pCO2 (MMHG) 44.2 VBG pO2 (10.0 - 50.0 MMHG) 42.4 VBG HCO3 (22.0 - 27.0 MMOL/L) 26.8 VBG O2 Sat (Calc) (60.0 - 80.0 %) 82.9 H VBG Base Excess (-4.0 - 4.0 MMOL/L) 1.7 FiO2 21.0 Chemistry Lactic Acid (0.4 - 2.0 MMOL/L) 2.4 H Urines Urine Color COLORLESS Urine Appearance CLEAR Urine pH (5.0 - 9.0) 5.0 Ur Specific [place] (1.000 - 1.030) 1.010 Urine Protein (NEGATIVE mg/dl) NEGATIVE Urine Glucose (UA) (NORMAL mg/dl) 1000 mg/dl H Urine Ketones (NEGATIVE mg/dl) 50 mg/dl H Urine Blood (NEGATIVE Homero/micL) 10 Homero/micL H Urine Nitrite (NEGATIVE) POSITIVE H Urine Bilirubin (NEGATIVE mg/dL) NEGATIVE Urine Urobilinogen (NORMAL mg/dl) NORMAL Ur Leukocyte Esterase (NEGATIVE Abigail/micL) 100 Abigail/micL H Urine RBC (0 - 3 RBC/HPF) 0-2 Urine WBC (NONE WBC/HPF) 10-20 H Ur Epithelial Cells (0 - 3 EPI/HPF) 0-3 Urine Bacteria (NONE) TNTC H 04/29 Chemistry Sodium (134.0 - 147.0 mmol/l) 128 L Potassium (3.6 - 5.2 mmol/L) 4.0 Chloride (98.0 - 107.0 mmol/l) 92 L Carbon Dioxide (21.0 - 33.0 mmol/l) 27.5 Anion Gap (0 - 20) 12.5 BUN (7.0 - 18.0 mg/dl) 6 L Creatinine (0.60 - 1.30 mg/dL) 0.75 Est GFR ( Amer) (115 - 127 mL/min) 107 L Est GFR (Non-Af Amer) (95 - 105 mL/min) 88 L Glucose (70.0 - 110.0 mg/dl) 470 *H Calcium (8.0 - 10.5 mg/dl) 9.3 Troponin I (0.00 - 0.06 NG/ML) <0.02 Hematology WBC (4.5 - 11.0 K/mm3) 17.0 H RBC (3.80 - 5.20 M/mm3) 5.30 H Hgb (12.0 - 16.0 gm/dL) 14.8 Hct (36.0 - 48.0 %) 44.0 MCV (82.0 - 99.0 UM3) 83.0 MCH (25.5 - 32.5 UUG) 27.9 MCHC (29.0 - 35.5 gm/dL) 33.6 RDW (11.5 - 15.0 %) 12.2 Plt Count (150 - 400 K/mm3) 388 MPV (7.4 - 10.4 fl) 9.9 Neut % (Auto) (49.0 - 76.0 %) 82.7 H Lymph % (Auto) (23.0 - 38.0 %) 8.1 L Carlton % (Auto) (1.0 - 10.0 %) 7.8 Eos % (Auto) (1.0 - 5.0 %) 0.2 L Baso % (Auto) (0.0 - 1.0 %) 0.4 Neut # (Auto) (2.4 - 6.3 K/mm3) 14.1 H Lymph # (Auto) (1.2 - 4.0 K/mm3) 1.4 Carlton # (Auto) (0.0 - 0.6 K/mm3) 1.3 H Eos # (Auto) (0.0 - 0.7 K/MM3) 0.0 Baso # (Auto) (0.0 - 0.2 K/mm3) 0.1 Absolute Nucleated RBC (0.00 - 0.01 X10 3uL) 0.00 Immature Gran % (0.0 - 0.4 %) 0.8 H Nucleated RBC % (0.0 - 0.1 %) 0.0 Immature Gran # (0.00 - 0.07 x10 3/uL) 0.14 H Serology SARS CoV-2 RNA Rapid RINA (NEGATIVE) Negative Toxicology Acetone Level (NEGATIVE) SMALL H Microbiology: Date/Time Procedure - Status Source Growth 04/30 005 Influenza Virus Type B Antigen - COMP NASOPHARG 04/30 0051 Influenza Virus Type A Antigen - COMP NASOPHARG 04/30 0034 Blood Culture - RECD BLOOD 04/30 0028 Blood Culture - RECD BLOOD 04/29 2318 Urine Culture - RECD URINE Recent Impressions: RADIOLOGY - XR CHEST 1 V 04/29 225 Report Impression - Status: SIGNED Entered: 04/29/20202307 IMPRESSION: No acute cardiopulmonary process seen. Impression By: [email or web address] Macie Marin M.D. Re-Evaluation MDM Re-Evaluation/Progress #1 Text/Dict Note Patient found to be hyperglycemic, she is awaiting lab work to rule out DKA. Time of Re-Eval 2315 Re-Evaluation/Progress #2 Text/Dict Note Patient states feeling better after insulin. She is noted to still be tachycardic, urinalysis does show evidence of UTI. Will obtain sepsis work-up. Administer IV fluids and antibiotics. States she does have history of hyperglycemia although no official diagnosis of diabetes, dose when she was 500 pounds, she lost a lot of weight and thought that her sugar would be better. Time of Eval 0000 Re-Eval Status Improved Re-Evaluation/Progress #3 Text/Dict Note Heart rate improving after IV fluids. Lactate elevated 2.4, will admit for urosepsis, hyperglycemia. pH is normal, anion gap is normal, no DKA. Time of Eval 0130 Re-Eval Status Improved ED Course Medication(s) Ordered Medication(s) Ordered: Anti-Infective Agents Sig/Mendoza Start time Last Medication Dose Route Stop Time Status Admin Ceftriaxone Sodium 1,000 MG X1ED STA 04/30 0004 DC 04/30 Sodium Chloride 10 ML IV 04/30 0006 0039 Electrolytic, Caloric, And Teressa Sig/Mendoza Start time Last Medication Dose Route Stop Time Status Admin Sodium Chloride 2,355 ML X1ED STA 04/30 0004 DC 04/30 IV 04/30 0005 0039 Hormones And Synthetic Substit Sig/Mendoza Start time Last Medication Dose Route Stop Time Status Admin Insulin Human Regular 10 UNITS X1ED STA 04/29 2324 DC 04/29 IV 04/29 2325 2334 Patient Discharge Departure Vital Signs/Condition Condition Stable Clinical Impression Clinical Impression Primary Impression: Sepsis Secondary Impressions: Hyperglycemia, UTI (urinary tract infection) Disposition Decision Admit Admit Physician Name AlexandraDerekCoretta MD Admit Physician Hospitalist Request Time 0130 Request Date 04/30/20 )( Admission Accepts Yes )( Accepted Time 129 )( Accepted Date 04/30/20 Discharge/Care Plan Counseled Regarding Diagnosis, Lab results, Need for admission Admit Note I have spoken with the patient and/or caregivers. I have explained the patient's condition, diagnoses and treatment plan based on the information available to me at this time. I have answered the patient's and/or caregiver's questions and addressed any concerns. The patient and/or caregivers have as good an understanding of the patient's diagnosis, condition and treatment plan as can be expected at this point. The patient has been stabilized within the capability of the emergency department. The patient will be transported for further care and management or will be moved to an observation or inpatient service. I have communicated with the staff or medical practitioner taking over this patient's care. Hold in ED Note I have spoken with the patient and/or caregivers. I have explained the patient's condition, diagnoses and treatment plan based on the information available to me at this time. I have answered the patient's and/or caregiver's questions and addressed any concerns. The patient and/or caregivers have as good an understanding of the patient's diagnosis, condition and treatment plan as can be expected at this point. The patient has been stabilized within the capability of the emergency department. Although the emergency department has completed all appropriate management and is prepared to transport the patient to an observation or inpatient service, there are no available beds. Therefore the patient will be placed in "ED Hold" status until such time as a bed becomes available. Critical Care Time Spent (minutes): 32 Services Performed Patient management by me, Time spent at bedside, Reviewing test results, Reviewing imaging, Discussing patient care, Documentation in record Patient was critically ill due to: Sepsis, tachycardia My treatment and management were: IV fluid resuscitation, IV antibiotics, reassessment CC Note 1 Total critical care time [32] minutes. Total critical care time documented does not include time spent on separately billed procedures or the services of residents, students, nurses or physician assistants. I personally saw and examined the patient. I have reviewed all diagnostic interpretations and treatment plans as written. I was present for the king portions of any procedures performed and the inclusive time noted in any critical care statement. Critical care time includes patient management by me, time spent at the patients bedside, time to review lab and imaging results, discussing patient care, documentation in the medical record, and time spent with the family or caregiver. at 0134 RPT #:[id number] END OF [id number] 22:21:[address] [facility] ([facility]) EMERGENCY PROVIDER REPORT REPORT#:[id number] REPORT STATUS: Signed DATE:04/29/20 TIME: 2220 PATIENT: KURT LLAMAS UNIT #: [id number] ROOM/BED: [place] [address] AGE: 44 SEX: F PCP PHYS: No Primary or Family Physician SERVICE AUTHOR: Charlie Tapia DO * ALL edits or amendments must be made on the electronic/computer document * Charlie Tapia 04/29/202220: HPI-Dizziness/Weakness General Initial Greet Date/Time 04/29/202206 Past Medical History - Adult Stated Complaint WEAKNESS, DIZZY Allergies Coded Allergies: No Known Allergies (04/29/20) Home Medications Reported Medications LACTOBACILLUS ACIDOPHILUS (PROBIOTIC ACIDOPHILUS) 1 CAP PO DAILY Calculated suicide risk level: No risk Smoking status for patients 13 years old or older: Never Smoker Dai Lehman 04/30/20 0128: HPI-Dizziness/Weakness Presentation Chief Complaint Dizzy Physical Exam Vital Signs Vital Signs First Documented: Result Date Time Pulse Ox 96 04/29 2154 B/P 130/89 04/29 2154 B/P Mean 102 04/29 2154 O2 Delivery Room air 04/29 2154 Temp 37.8 04/29 2154 Pulse 115 04/29 2154 Resp 18 04/29 2154 Last Documented: Result Date Time Pulse Ox 97 04/30 2339 B/P 109/72 04/30 2339 B/P Mean 84 04/30 2339 Temp 36.9 12/12 0001 Pulse 58 04/30 0001 Resp 15 04/30 0001 O2 Delivery Room air 04/29 4150 Review of Vital Signs Reviewed Interpretation Diagnostics Lab Results Interpretation Results Laboratory Tests 04/29/202213: [Embedded Image Not Available] Laboratory Tests: 04/30 04/29 04/29 0028 9522 2314 Blood Gas VBG pH 7.401 VBG pCO2 (MMHG) 44.2 VBG pO2 (10.0 - 50.0 MMHG) 42.4 VBG HCO3 (22.0 - 27.0 MMOL/L) 26.8 VBG O2 Sat (Calc) (60.0 - 80.0 %) 82.9 H VBG Base Excess (-4.0 - 4.0 MMOL/L) 1.7 FiO2 21.0 Chemistry Lactic Acid (0.4 - 2.0 MMOL/L) 2.4 H Urines Urine Color COLORLESS Urine Appearance CLEAR Urine pH (5.0 - 9.0) 5.0 Ur Specific [place] (1.000 - 1.030) 1.010 Urine Protein (NEGATIVE mg/dl) NEGATIVE Urine Glucose (UA) (NORMAL mg/dl) 1000 mg/dl H Urine Ketones (NEGATIVE mg/dl) 50 mg/dl H Urine Blood (NEGATIVE Homero/micL) 10 Homero/micL H Urine Nitrite (NEGATIVE) POSITIVE H Urine Bilirubin (NEGATIVE mg/dL) NEGATIVE Urine Urobilinogen (NORMAL mg/dl) NORMAL Ur Leukocyte Esterase (NEGATIVE Abigail/micL) 100 Abigail/micL H Urine RBC (0 - 3 RBC/HPF) 0-2 Urine WBC (NONE WBC/HPF) 10-20 H Ur Epithelial Cells (0 - 3 EPI/HPF) 0-3 Urine Bacteria (NONE) TNTC H 04/29 2214 Chemistry Sodium (134.0 - 147.0 mmol/l) 128 L Potassium (3.6 - 5.2 mmol/L) 4.0 Chloride (98.0 - 107.0 mmol/l) 92 L Carbon Dioxide (21.0 - 33.0 mmol/l) 27.5 Anion Gap (0 - 20) 12.5 BUN (7.0 - 18.0 mg/dl) 6 L Creatinine (0.60 - 1.30 mg/dL) 0.75 Est GFR ( Amer) (115 - 127 mL/min) 107 L Est GFR (Non-Af Amer) (95 - 105 mL/min) 88 L Glucose (70.0 - 110.0 mg/dl) 470 *H Calcium (8.0 - 10.5 mg/dl) 9.3 Troponin I (0.00 - 0.06 NG/ML) <0.02 Hematology WBC (4.5 - 11.0 K/mm3) 17.0 H RBC (3.80 - 5.20 M/mm3) 5.30 H Hgb (12.0 - 16.0 gm/dL) 14.8 Hct (36.0 - 48.0 %) 44.0 MCV (82.0 - 99.0 UM3) 83.0 MCH (25.5 - 32.5 UUG) 27.9 MCHC (29.0 - 35.5 gm/dL) 33.6 RDW (11.5 - 15.0 %) 12.2 Plt Count (150 - 400 K/mm3) 388 MPV (7.4 - 10.4 fl) 9.9 Neut % (Auto) (49.0 - 76.0 %) 82.7 H Lymph % (Auto) (23.0 - 38.0 %) 8.1 L Carlton % (Auto) (1.0 - 10.0 %) 7.8 Eos % (Auto) (1.0 - 5.0 %) 0.2 L Baso % (Auto) (0.0 - 1.0 %) 0.4 Neut # (Auto) (2.4 - 6.3 K/mm3) 14.1 H Lymph # (Auto) (1.2 - 4.0 K/mm3) 1.4 Carlton # (Auto) (0.0 - 0.6 K/mm3) 1.3 H Eos # (Auto) (0.0 - 0.7 K/MM3) 0.0 Baso # (Auto) (0.0 - 0.2 K/mm3) 0.1 Absolute Nucleated RBC (0.00 - 0.01 X10 3uL) 0.00 Immature Gran % (0.0 - 0.4 %) 0.8 H Nucleated RBC % (0.0 - 0.1 %) 0.0 Immature Gran # (0.00 - 0.07 x10 3/uL) 0.14 H Platelet Estimate ADQ Morphology Comment NM Serology SARS CoV-2 RNA Rapid RINA (NEGATIVE) Negative Toxicology Acetone Level (NEGATIVE) SMALL H Microbiology: Date/Time Procedure - Status Source Growth 04/30 0051 Influenza Virus Type B Antigen - COMP NASOPHARG 04/30 0051 Influenza Virus Type A Antigen - COMP NASOPHARG 04/30 0034 Blood Culture - RECD BLOOD 04/30 0028 Blood Culture - RECD BLOOD 04/29 2318 Urine Culture - RECD URINE Recent Impressions: RADIOLOGY - XR CHEST 1 V 04/29 2259 Report Impression - Status: SIGNED Entered: 04/29/2020 2308 IMPRESSION: No acute cardiopulmonary process seen. Impression By: [email or web address] Macie Marin M.D. Re-Evaluation MDM Re-Evaluation/Progress #1 Text/Dict Note Patient found to be hyperglycemic, she is awaiting lab work to rule out DKA. Time of Re-Eval 2315 Re-Evaluation/Progress #2 Text/Dict Note Patient states feeling better after insulin. She is noted to still be tachycardic, urinalysis does show evidence of UTI. Will obtain sepsis work-up. Administer IV fluids and antibiotics. States she does have history of hyperglycemia although no official diagnosis of diabetes, dose when she was 500 pounds, she lost a lot of weight and thought that her sugar would be better. Time of Eval 0000 Re-Eval Status Improved Re-Evaluation/Progress #3 Text/Dict Note Heart rate improving after IV fluids. Lactate elevated 2.4, will admit for urosepsis, hyperglycemia. pH is normal, anion gap is normal, no DKA. Time of Eval 0130 Re-Eval Status Improved ED Course Medication(s) Ordered Medication(s) Ordered: Anti-Infective Agents Sig/Mendoza Start time Last Medication Dose Route Stop Time Status Admin Ceftriaxone Sodium 1,000 MG Q24H 05/01 0030 AC Sodium Chloride 10 ML IV 05/01 0144 Ceftriaxone Sodium 1,000 MG X1ED STA 04/30 0004 DC 04/30 Sodium Chloride 10 ML IV 04/30 0006 0039 Central Nervous System Agents Sig/Mendoza Start time Last Medication Dose Route Stop Time Status Admin Acetaminophen 650 MG Q4H PRN PRN 04/30 0130 AC PO 05/01 0030 Hydrocodone Bitart/ 1 TAB Q4H PRN PRN 04/30 0130 AC Acetaminophen PO 05/01 0030 Electrolytic, Caloric, And Teressa Sig/Mendoza Start time Last Medication Dose Route Stop Time Status Admin Dextrose/Water 125 ML ASDIR PRN 04/30 0130 AC IV 05/01 0030 Dextrose/Water 250 ML ASDIR PRN 04/30 0130 AC IV 05/01 0030 Dextrose/Water 125 ML ASDIR PRN 04/30 0130 CAN IV 05/01 0030 Dextrose/Water 250 ML ASDIR PRN 04/30 0130 CAN IV 05/01 0030 Sodium Chloride 2,355 ML X1ED STA 04/30 0004 DC 04/30 IV 04/30 0005 0039 Gastrointestinal Drugs Sig/Mendoza Start time Last Medication Dose Route Stop Time Status Admin Ondansetron HCl 4 MG Q6H PRN PRN 04/30 0130 AC IV 05/01 0030 Hormones And Synthetic Substit Sig/Mendoza Start time Last Medication Dose Route Stop Time Status Admin Insulin Human Lispro See Dose AC HS 04/30 0730 AC Insts (1) SUBQ 05/01 0030 Glucagon 1 MG ASDIR PRN 04/30 0130 AC IM 05/01 0030 Glucagon 1 MG ASDIR PRN 04/30 0130 CAN IM 05/01 0030 Insulin Human Regular 10 UNITS X1ED STA 04/29 2324 DC 04/29 IV 04/29 2325 2334 Dose Instructions: (1)Insulin Human Lispro: SLIDING SCALE Patient Discharge Departure Vital Signs/Condition Vital Signs First Documented: Result Date Time Pulse Ox 96 04/29 2154 B/P 130/89 04/29 2154 B/P Mean 102 04/29 2154 O2 Delivery Room air 04/29 2154 Temp 37.8 04/29 2154 Pulse 115 04/29 2154 Resp 18 04/29 2154 Last Documented: Result Date Time Pulse Ox 97 04/30 0001 B/P 109/72 04/30 0001 B/P Mean 84 04/30 0001 Temp 36.9 04/30 0001 Pulse 58 04/30 0001 Resp 15 04/30 0001 O2 Delivery Room air 04/29 233 All vital signs available at the time of this entry have been reviewed. Condition Stable Clinical Impression Clinical Impression Primary Impression: Sepsis Secondary Impressions: Hyperglycemia, UTI (urinary tract infection) Disposition Decision Admit Admit Physician Name Coretta Morris MD Admit Physician Hospitalist Request Time 0130 Request Date 04/30/20 )( Admission Accepts Yes )( Accepted Time 0130 )( Accepted Date 04/30/20 Discharge/Care Plan Counseled Regarding Diagnosis, Lab results, Need for admission Admit Note I have spoken with the patient and/or caregivers. I have explained the patient's condition, diagnoses and treatment plan based on the information available to me at this time. I have answered the patient's and/or caregiver's questions and addressed any concerns. The patient and/or caregivers have as good an understanding of the patient's diagnosis, condition and treatment plan as can be expected at this point. The patient has been stabilized within the capability of the emergency department. The patient will be transported for further care and management or will be moved to an observation or inpatient service. I have communicated with the staff or medical practitioner taking over this patient's care. Hold in ED Note I have spoken with the patient and/or caregivers. I have explained the patient's condition, diagnoses and treatment plan based on the information available to me at this time. I have answered the patient's and/or caregiver's questions and addressed any concerns. The patient and/or caregivers have as good an understanding of the patient's diagnosis, condition and treatment plan as can be expected at this point. The patient has been stabilized within the capability of the emergency department. Although the emergency department has completed all appropriate management and is prepared to transport the patient to an observation or inpatient service, there are no available beds. Therefore the patient will be placed in "ED Hold" status until such time as a bed becomes available. Critical Care Time Spent (minutes): 32 Services Performed Patient management by me, Time spent at bedside, Reviewing test results, Reviewing imaging, Discussing patient care, Documentation in record Patient was critically ill due to: Sepsis, tachycardia My treatment and management were: IV fluid resuscitation, IV antibiotics, reassessment CC Note 1 Total critical care time [32] minutes. Total critical care time documented does not include time spent on separately billed procedures or the services of residents, students, nurses or physician assistants. I personally saw and examined the patient. I have reviewed all diagnostic interpretations and treatment plans as written. I was present for the king portions of any procedures performed and the inclusive time noted in any critical care statement. Critical care time includes patient management by me, time spent at the patients bedside, time to review lab and imaging results, discussing patient care, documentation in the medical record, and time spent with the family or caregiver. at 0134 RPT #:[id number] END OF [id number] 22:21:[address] [facility] ([facility]) EMERGENCY PROVIDER REPORT REPORT#:[id number] REPORT STATUS: Signed DATE:04/29/20 TIME: 2220 PATIENT: KURT LLAMAS UNIT #: [id number] ROOM/BED: [place] [address] AGE: 44 SEX: F PCP PHYS: No Primary or Family Physician SERVICE AUTHOR: Charlie Tapia DO * ALL edits or amendments must be made on the electronic/computer document * Charlie Tapia 04/29/202220: HPI-Dizziness/Weakness General Initial Greet Date/Time 04/29/202154 Free Text HPI Notes Free Text HPI Notes 44-year-old female presenting to the ED with 4-day history of muscle aches, feeling weak, lightheaded, some nausea and some vomiting. He denies any chest pain or shortness of breath, denies any fever. Patient states that she had a mild cough that has since resolved. Denies any dysuria or urinary frequency. Patient has not had any abdominal pain or diarrhea Review of Systems Free Text ROS Notes Free Text ROS Notes Constitutional: Patient denies recent illness fever injury Musculoskeletal: Reports generalized musculoskeletal pain Pulm: Pt denies cough, dyspnea Chest: Pt denies chest pain, palpitations Lymph: Patient denies palpable lymph nodes or ankle swelling GI: Denies abdominal pain reports nausea and vomiting, denies diarrhea : Patient denies problems with urination Eyes: Patient denies problems with vision HEENT: Patient denies sore throat, difficulty swallowing Skin: Patient denies rash, redness Endo: Patient denies recent weight change Neuro: Reports generalized weakness, reports dizziness Psych: Patient denies anxiety or depression, denies SI All other systems reviewed and negative Past Medical History - Adult Stated Complaint WEAKNESS, DIZZY Allergies Coded Allergies: No Known Allergies (04/29/20) Home Medications Reported Medications LACTOBACILLUS ACIDOPHILUS (PROBIOTIC ACIDOPHILUS) 1 CAP PO DAILY Calculated suicide risk level: No risk Smoking status for patients 13 years old or older: Never Smoker Physical Exam Free Text PE Notes Free Text PE Notes General: Patient in no acute distress, appears stated age HEENT: Normocephalic, atraumatic, nares are patent bilaterally, pupils are equal round reactive to light and accommodation intact Neck: Trachea is midline, no JVD present, no subcutaneous emphysema Chest: Breath sounds are present in all pol[place], no wheezes rales or rhonchi, equal excursion normal respiratory effort Cardiovascular: Tachycardic rate, regular rhythm no murmurs rubs or gallops Extremities: Normal range of movement active and passive, 2+ pulses in all extremities, no edema, normal color Neuro: Cranial nerves II through XII grossly intact, patient able to move all extremities, no focal neuro deficits Psych: Appropriate mood and affect Back: No vertebral tenderness, no CVA tenderness Abdomen: Abdomen is soft non-tender non-distended, no pulsatile masses, no abdominal bruits, normal bowel sounds Re-Evaluation MDM Free Text MDM Notes Free Text MDM Notes Patient has been signed out to Dr. Lehman pending completion of work-up and disposition. Re-Evaluation/Progress #4+ Addl Re-Evaluation/Progress Time of Eval 2229 Re-Eval Status Improved Dai Lehman 04/30/20 0128: HPI-Dizziness/Weakness Presentation Chief Complaint Dizzy Physical Exam Vital Signs Vital Signs First Documented: Result Date Time Pulse Ox 96 04/29 2154 B/P 130/89 04/29 2154 B/P Mean 102 04/29 2154 O2 Delivery Room air 04/29 2154 Temp 37.8 04/29 2154 Pulse 115 04/29 2154 Resp 18 04/29 2154 Last Documented: Result Date Time Pulse Ox 97 04/30 0001 B/P 109/72 04/30 0001 B/P Mean 84 04/30 0001 Temp 36.9 04/30 0001 Pulse 58 04/30 0001 Resp 15 04/30 2339 O2 Delivery Room air 04/29 2339 Review of Vital Signs Reviewed Interpretation Diagnostics Lab Results Interpretation Results Laboratory Tests 04/29/20 2214: [Embedded Image Not Available] Laboratory Tests: 04/30 04/29 04/29 0028 2352 2318 Blood Gas VBG pH 7.401 VBG pCO2 (MMHG) 44.2 VBG pO2 (10.0 - 50.0 MMHG) 42.4 VBG HCO3 (22.0 - 27.0 MMOL/L) 26.8 VBG O2 Sat (Calc) (60.0 - 80.0 %) 82.9 H VBG Base Excess (-4.0 - 4.0 MMOL/L) 1.7 FiO2 21.0 Chemistry Lactic Acid (0.4 - 2.0 MMOL/L) 2.4 H Urines Urine Color COLORLESS Urine Appearance CLEAR Urine pH (5.0 - 9.0) 5.0 Ur Specific [place] (1.000 - 1.030) 1.010 Urine Protein (NEGATIVE mg/dl) NEGATIVE Urine Glucose (UA) (NORMAL mg/dl) 1000 mg/dl H Urine Ketones (NEGATIVE mg/dl) 50 mg/dl H Urine Blood (NEGATIVE Homero/micL) 10 Homero/micL H Urine Nitrite (NEGATIVE) POSITIVE H Urine Bilirubin (NEGATIVE mg/dL) NEGATIVE Urine Urobilinogen (NORMAL mg/dl) NORMAL Ur Leukocyte Esterase (NEGATIVE Abigail/micL) 100 Abigail/micL H Urine RBC (0 - 3 RBC/HPF) 0-2 Urine WBC (NONE WBC/HPF) 10-20 H Ur Epithelial Cells (0 - 3 EPI/HPF) 0-3 Urine Bacteria (NONE) TNTC H 04/29 04/29 2221 2214 Chemistry Sodium (134.0 - 147.0 mmol/l) 128 L Potassium (3.6 - 5.2 mmol/L) 4.0 Chloride (98.0 - 107.0 mmol/l) 92 L Carbon Dioxide (21.0 - 33.0 mmol/l) 27.5 Anion Gap (0 - 20) 12.5 BUN (7.0 - 18.0 mg/dl) 6 L Creatinine (0.60 - 1.30 mg/dL) 0.75 Est GFR ( Amer) (115 - 127 mL/min) 107 L Est GFR (Non-Af Amer) (95 - 105 mL/min) 88 L Glucose (70.0 - 110.0 mg/dl) 470 *H Calcium (8.0 - 10.5 mg/dl) 9.3 Troponin I (0.00 - 0.06 NG/ML) <0.02 Hematology WBC (4.5 - 11.0 K/mm3) 17.0 H RBC (3.80 - 5.20 M/mm3) 5.30 H Hgb (12.0 - 16.0 gm/dL) 14.8 Hct (36.0 - 48.0 %) 44.0 MCV (82.0 - 99.0 UM3) 83.0 MCH (25.5 - 32.5 UUG) 27.9 MCHC (29.0 - 35.5 gm/dL) 33.6 RDW (11.5 - 15.0 %) 12.2 Plt Count (150 - 400 K/mm3) 388 MPV (7.4 - 10.4 fl) 9.9 Neut % (Auto) (49.0 - 76.0 %) 82.7 H Lymph % (Auto) (23.0 - 38.0 %) 8.1 L Carlton % (Auto) (1.0 - 10.0 %) 7.8 Eos % (Auto) (1.0 - 5.0 %) 0.2 L Baso % (Auto) (0.0 - 1.0 %) 0.4 Neut # (Auto) (2.4 - 6.3 K/mm3) 14.1 H Lymph # (Auto) (1.2 - 4.0 K/mm3) 1.4 Carlton # (Auto) (0.0 - 0.6 K/mm3) 1.3 H Eos # (Auto) (0.0 - 0.7 K/MM3) 0.0 Baso # (Auto) (0.0 - 0.2 K/mm3) 0.1 Absolute Nucleated RBC (0.00 - 0.01 X10 3uL) 0.00 Immature Gran % (0.0 - 0.4 %) 0.8 H Nucleated RBC % (0.0 - 0.1 %) 0.0 Immature Gran # (0.00 - 0.07 x10 3/uL) 0.14 H Platelet Estimate ADQ Morphology Comment NM Serology SARS CoV-2 RNA Rapid RINA (NEGATIVE) Negative Toxicology Acetone Level (NEGATIVE) SMALL H Microbiology: Date/Time Procedure - Status Source Growth 04/30 0051 Influenza Virus Type B Antigen - COMP NASOPHARG 04/30 0051 Influenza Virus Type A Antigen - COMP NASOPHARG 04/30 0034 Blood Culture - RECD BLOOD 04/30 0028 Blood Culture - RECD BLOOD 04/29 2318 Urine Culture - RECD URINE Recent Impressions: RADIOLOGY - XR CHEST 1 V 04/29 2824 Report Impression - Status: SIGNED Entered: 04/29/2020 2769 IMPRESSION: No acute cardiopulmonary process seen. Impression By: Maria Marin M.D. Re-Evaluation MDM Re-Evaluation/Progress #1 Text/Dict Note Patient found to be hyperglycemic, she is awaiting lab work to rule out DKA. Time of Re-Eval 2315 Re-Evaluation/Progress #2 Text/Dict Note Patient states feeling better after insulin. She is noted to still be tachycardic, urinalysis does show evidence of UTI. Will obtain sepsis work-up. Administer IV fluids and antibiotics. States she does have history of hyperglycemia although no official diagnosis of diabetes, dose when she was 500 pounds, she lost a lot of weight and thought that her sugar would be better. Time of Eval 0000 Re-Eval Status Improved Re-Evaluation/Progress #3 Text/Dict Note Heart rate improving after IV fluids. Lactate elevated 2.4, will admit for urosepsis, hyperglycemia. pH is normal, anion gap is normal, no DKA. Time of Eval 0130 Re-Eval Status Improved ED Course Medication(s) Ordered Medication(s) Ordered: Anti-Infective Agents Sig/Mendoza Start time Last Medication Dose Route Stop Time Status Admin Ceftriaxone Sodium 1,000 MG Q24H 05/01 0030 AC Sodium Chloride 10 ML IV 05/01 0144 Ceftriaxone Sodium 1,000 MG X1ED STA 04/30 0004 DC 04/30 Sodium Chloride 10 ML IV 04/30 0006 0039 Central Nervous System Agents Sig/Mendoza Start time Last Medication Dose Route Stop Time Status Admin Acetaminophen 650 MG Q4H PRN PRN 04/30 0130 AC PO 05/01 0030 Hydrocodone Bitart/ 1 TAB Q4H PRN PRN 04/30 0130 AC Acetaminophen PO 05/01 0030 Electrolytic, Caloric, And Teressa Sig/Mendoza Start time Last Medication Dose Route Stop Time Status Admin Dextrose/Water 125 ML ASDIR PRN 04/30 0130 AC IV 05/01 0030 Dextrose/Water 250 ML ASDIR PRN 04/30 0130 AC IV 05/01 0030 Dextrose/Water 125 ML ASDIR PRN 04/30 0130 CAN IV 05/01 0030 Dextrose/Water 250 ML ASDIR PRN 04/30 0130 CAN IV 05/01 0030 Sodium Chloride 2,355 ML X1ED STA 04/30 0004 DC 04/30 IV 04/30 0005 0039 Gastrointestinal Drugs Sig/Mendoza Start time Last Medication Dose Route Stop Time Status Admin Ondansetron HCl 4 MG Q6H PRN PRN 04/30 0130 AC IV 05/01 0030 Hormones And Synthetic Substit Sig/Mendoza Start time Last Medication Dose Route Stop Time Status Admin Insulin Human Lispro See Dose AC HS 04/30 0730 AC Insts (1) SUBQ 05/01 0030 Glucagon 1 MG ASDIR PRN 04/30 013 AC IM 05/01 0030 Glucagon 1 MG ASDIR PRN 04/30 0130 CAN IM 05/01 0030 Insulin Human Regular 10 UNITS X1ED STA 04/29 2324 DC 04/29 IV 04/29 2325 2334 Dose Instructions: (1)Insulin Human Lispro: SLIDING SCALE Patient Discharge Departure Vital Signs/Condition Vital Signs First Documented: Result Date Time Pulse Ox 96 04/29 2154 B/P 130/89 04/29 2154 B/P Mean 102 04/29 2154 O2 Delivery Room air 04/29 2154 Temp 37.8 04/29 2154 Pulse 115 04/29 2154 Resp 18 04/29 2154 Last Documented: Result Date Time Pulse Ox 97 04/30 0001 B/P 109/72 04/30 0001 B/P Mean 84 04/30 0001 Temp 36.9 04/30 0001 Pulse 58 04/30 0001 Resp 15 04/30 0001 O2 Delivery Room air 04/29 2339 All vital signs available at the time of this entry have been reviewed. Condition Stable Clinical Impression Clinical Impression Primary Impression: Sepsis Secondary Impressions: Hyperglycemia, UTI (urinary tract infection) Disposition Decision Admit Admit Physician Name Coretta Morris MD Admit Physician Hospitalist Request Time 013 Request Date 04/30/20 )( Admission Accepts Yes )( Accepted Time 129 )( Accepted Date 04/30/20 Discharge/Care Plan Counseled Regarding Diagnosis, Lab results, Need for admission Admit Note I have spoken with the patient and/or caregivers. I have explained the patient's condition, diagnoses and treatment plan based on the information available to me at this time. I have answered the patient's and/or caregiver's questions and addressed any concerns. The patient and/or caregivers have as good an understanding of the patient's diagnosis, condition and treatment plan as can be expected at this point. The patient has been stabilized within the capability of the emergency department. The patient will be transported for further care and management or will be moved to an observation or inpatient service. I have communicated with the staff or medical practitioner taking over this patient's care. Hold in ED Note I have spoken with the patient and/or caregivers. I have explained the patient's condition, diagnoses and treatment plan based on the information available to me at this time. I have answered the patient's and/or caregiver's questions and addressed any concerns. The patient and/or caregivers have as good an understanding of the patient's diagnosis, condition and treatment plan as can be expected at this point. The patient has been stabilized within the capability of the emergency department. Although the emergency department has completed all appropriate management and is prepared to transport the patient to an observation or inpatient service, there are no available beds. Therefore the patient will be placed in "ED Hold" status until such time as a bed becomes available. Critical Care Time Spent (minutes): 32 Services Performed Patient management by me, Time spent at bedside, Reviewing test results, Reviewing imaging, Discussing patient care, Documentation in record Patient was critically ill due to: Sepsis, tachycardia My treatment and management were: IV fluid resuscitation, IV antibiotics, reassessment CC Note 1 Total critical care time [32] minutes. Total critical care time documented does not include time spent on separately billed procedures or the services of residents, students, nurses or physician assistants. I personally saw and examined the patient. I have reviewed all diagnostic interpretations and treatment plans as written. I was present for the king portions of any procedures performed and the inclusive time noted in any critical care statement. Critical care time includes patient management by me, time spent at the patients bedside, time to review lab and imaging results, discussing patient care, documentation in the medical record, and time spent with the family or caregiver. at 0134 at 0854 RPT #:[id number] END OF REPORTHCAMN
[2024-07-07] MEDS ORDERED: ONDANSETRON 4 MG/2 ML VIAL ONE (19:28)
[2024-07-07] MEDS ORDERED: NA CHLORIDE 0.9% 1,000 ML ONE (19:29)
[2024-07-07 19:31] LABS: Absolute Basophils 0.1 K/uL (0-0.5); Absolute Lymphocytes (CBC) 1.7 K/uL (0.7-4.9); Absolute Monocytes 0.8 K/uL (0.1-1.3); Absolute Neutrophil 6.1 K/uL (1.8-8.0); Basophils % 0.6 % (0-1.3); Eosinophils % 0.4 % (0-4.4); Hematocrit 36.8 % (36.0-45.0); Hemoglobin 12.5 g/dL (12.0-15.0); Lymphocytes % 19.6 % (15.3-44.8); MCH 27.6 pg (27.0-35.0); MCV 81.1 fL (80-100); MPV 7.3 fL (7.6-11.3); Monocytes % 8.8 % (3.3-12.3); Neutrophils % 70.6 % (41.7-73.7); Platelets 337 thou/uL (152-406); RBC Red Blood Cell Count 4.54 M/uL (3.86-4.86); Red Cell Distribution Width 13.5 % (12.1-15.2)
[2024-07-07 19:43] LABS: PT Prothrombin Time 12.1 SECONDS (9.4-12.5); PTT, Activated Partial Thromb 32.8 SECONDS (24.3-36.9); Protime INR 1.15
[2024-07-07 19:50] LABS: ALT/SGPT 22 U/L (13-56); AST/SGOT 15 U/L (15-37); Albumin 2.1 g/dL (3.4-5.0); Albumin/Globulin Ratio 0.7 (1.1-1.8); Alkaline Phosphatase 84 U/L (45-117); Anion Gap 6.7 mEq/L (5.0-15.0); BUN Blood Urea Nitrogen 14 mg/dL (7-18); Bicarbonate 31 mEq/L (21-32); Bilirubin Total 0.3 mg/dL (0.2-1.0); Globulin 3.2 g/dL (2.3-3.5); Glomerular Filtration Rate 74 ml/min (=/>90); Glucose Level 270 mg/dL (74-106); Magnesium 2.1 mg/dL (1.6-2.4); Potassium 3.7 mEq/L (3.5-5.1); Protein, Total 5.3 g/dL (6.4-8.2); Sodium Level 135 mEq/L (136-145); Troponin High Sensitivity 13.5 pg/mL (<58.9)
[2024-07-07 20:01] LABS: Specific Gravity 1.017 (1.005-1.030); Sqamous Epithelial <5 /HPF (None Seen); Urine Bacteria <20 /HPF (<20); Urine Bilirubin NEGATIVE (Negative); Urine Blood 1+ (Negative); Urine Clarity Turbid (Clear); Urine Color Light-Yellow (Yellow); Urine Culture Reflex Order NOT NEEDED; Urine Glucose 4+ (Over) (Negative); Urine Ketones TRACE (Negative); Urine Microscopic Reflex YN ORDER UMIC; Urine Mucus Slight /HPF (None Seen); Urine Nitrite NEGATIVE (Negative); Urine Protein 4+ (Over) (Negative); Urine Urobilinogen Normal (Normal); Urine WBC <5 /HPF (<5); Urine pH 7.5 (5.0-7.0)
[2024-07-07 20:16] LABS: Bilirubin Direct < 0.2 mg/dL (0-0.2); Bilirubin Indirect, Calculated 0.1 mg/dL (0.2-0.8)
[2024-07-07] MEDS ORDERED: KETOROLAC 30 MG/ML INJ ONE (21:17)
[2024-07-07] MEDS ORDERED: MORPHINE 4 MG/ML SYR ONE (21:46)
--- NOTE | 2024-07-07 22:17 | RAD REPORT ---
EXAMINATION: CT ABDOMEN AND PELVIS WITHOUT CONTRAST-stone protocol CLINICAL INDICATION: Female, 48 years old.FLANK PAIN TECHNIQUE: CT abdomen and pelvis was performed, without IV contrast, as per department protocol. Axia l, sagittal and coronal reconstructions were obtained. One or more of the following dose reduction techniques were used: Automated exposure control, adjustment of the mA and/or kV according to the pat ient size, and/or iterative reconstruction. Unless otherwise specified, incidental findings do not require dedicated imaging follow-up. [id number]. IV CONTRAST: Not administered. COMPARISON: 04/12/2015 FINDINGS: The lack of intravenous contrast limits the sensitivity of this exam for evaluation of solid visceral organs, vascular structures, and retroperitoneum. LOWER CHEST: No acute process identified.No significant pericardial effusion. Mild circumferential th ickening of the distal esophagus which could reflect esophagitis. UPPER GI: No significant abnormality. LIVER: No significant focal abnormality. GALLBLADDER/BILE DUCTS: Cholelithiasis without CT evidence of acute cholecystitis.? PANCREAS: No mass, ductal dilation, or linda-pancreatic fluid. SPLEEN: Unremarkable. ADRENALS: Adrenal thickening without discrete mass. KIDNEYS AND URETERS: No hydronephrosis.Within the limitations of a noncontrast CT, no suspicious felisha l lesions.Mild nonspecific bilateral perinephric stranding.No renal or ureteral calculi. ABDOMINAL AORTA AND OTHER VESSELS: Normal caliber aorta and IVC. PERITONEUM: No abnormal free fluid. No free air. LYMPH NODES: No pathologic lymphadenopathy. ABDOMINAL WALL: Mild body wall edema. SMALL BOWEL/COLON: Small bowel has normal course and caliber. No colonic wall thickening or pericolon ic inflammatory changes.Normal appendix. Mild diverticulosis without diverticulitis. URINARY BLADDER: Underdistended but grossly unremarkable. REPRODUCTIVE ORGANS: Uterus surgically absent. No adnexal abnormality. MUSCULOSKELETAL: No acute or suspicious osseous abnormality. ADDITIONAL FINDINGS: None. IMPRESSION: No acute or significant abnormalities in the abdomen or pelvis, with evaluation limited by lack of IV contrast. No urinary tract calculi. Normal appendix. Nonspecific body wall edema.
--- NOTE | 2024-07-07 22:31 | ER ---
Nurse's Notes [facility] Name: Sarita Zelaya Age: 48 yrs Sex: Female : 1975 Arrival Date: 07/07/2024 Time: 17:53 Bed 2 Private MD: Diagnosis: Noninfective gastroenteritis and colitis, unspecified;Sciatica, right side Presentation: 07/07 18:43 Chief complaint: Patient states: N/V, weak, dizzy X 3 days. Lower right back pain - ld1 radiating down leg X 3 days. Pt reports taking tramadol for leg pain. Coronavirus screen: At this time, the client does not indicate any symptoms associated with coronavirus-19. Ebola Screen: No symptoms or risks identified at this time. Initial Sepsis Screen: Does the patient meet any 2 criteria? No. Patient's initial sepsis screen is negative. Does the patient have a suspected source of infection? No. Patient's initial sepsis screen is negative. Risk Assessment: Do you want to hurt yourself or someone else? Patient reports no desire to harm self or others. Onset of symptoms was July 07, 2024. 18:43 Method Of Arrival: Wheelchair ld1 18:43 Acuity: BC 3 ld1 Triage Assessment: 18:45 General: Appears in no apparent distress. comfortable, Behavior is calm, cooperative, ld1 appropriate for age. Pain: Denies pain. EENT: No signs and/or symptoms were reported regarding the EENT system. Neuro: Level of Consciousness is awake, alert, obeys commands, Oriented to person, place, time, situation. Cardiovascular: Capillary refill < 3 seconds Patient's skin is warm and dry. Respiratory: Airway is patent Respiratory effort is even, unlabored. GI: Abdomen is flat, non-distended. : No signs and/or symptoms were reported regarding the genitourinary system. Derm: No signs and/or symptoms reported regarding the dermatologic system. Musculoskeletal: No signs and/or symptoms reported regarding the musculoskeletal system. 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 - Infectious Disease History:: Denies. - Social history:: Smoking status: Patient denies any tobacco usage or history of. Screenin:02 [facility] ED Fall Risk Assessment (Adult) History of falling in the last 3 months, dd2 including since admission No falls in past 3 months (0 pts) Confusion or Disorientation No (0 pts) Intoxicated or Sedated No (0 pts) Impaired Gait No (0 pts) Mobility Assist Device Used No (0 pt) Altered Elimination No (0 pt) Score/Fall Risk Level 0 - 2 = Low Risk Oriented to surroundings, Maintained a safe environment, Educated pt \T\ family on fall prevention, incl call for assistance when getting out of bed, Assessed \T\ reinforced patient's understanding of fall precautions, Hourly rounding (assess needs \T\ fall precautionary measures) done. Abuse screen: Denies threats or abuse. Nutritional screening: No deficits noted. Tuberculosis screening: No symptoms or risk factors identified. Assessment: 20:02 General: Appears in no apparent distress. uncomfortable, Behavior is calm, cooperative, dd2 appropriate for age. Pain: Complains of pain in right low back Pain radiates to right gluteal fold and right hamstring Pain currently is 9 out of 10 on a pain scale. Neuro: Valero Agitation-Sedation Scale (RASS): 0 - Alert and Calm Level of Consciousness is awake, alert, obeys commands, Oriented to person, place, time, situation, Appropriate for age Office Support are equal bilaterally Moves all extremities. Full function. Cardiovascular: Patient's skin is warm and dry. Respiratory: Airway is patent Respiratory effort is even, unlabored, Respiratory pattern is regular, symmetrical. GI: Abdomen is non-distended, Bowel sounds present X 4 quads. Abd is soft and non tender X 4 quads. Reports nausea. : No deficits noted. No signs and/or symptoms were reported regarding the genitourinary system. EENT: No deficits noted. No signs and/or symptoms were reported regarding the EENT system. Derm: No deficits noted. No signs and/or symptoms reported regarding the dermatologic system. Musculoskeletal: Circulation, motion, and sensation intact. Range of motion: intact in all extremities, Reports weakness in right leg pain in right low back, right gluteal fold and right hamstring. Vital Signs: 18:43 Pulse 105; Resp 18; Temp 97.6(TE); Pulse Ox 100% on R/A; Weight 81.65 kg; Height 5 ft. ld1 6 in. ; Pain 10/10; 18:43 BP 196 / 115; ld1 21:15 BP 156 / 93; Pulse 91; Resp 16; Pulse Ox 100% on R/A; dd2 22:28 BP 176 / 99; Pulse 90; Resp 16; Pulse Ox 99% on R/A; dd2 18:43 Body Mass Index 29.05 (81.65 kg, 167.64 cm) ld1 18:43 Pain Scale: Adult ld1 Ben Coma Score: 20:02 Eye Response: spontaneous(4). Motor Response: obeys commands(6). Verbal Response: dd2 oriented(5). Total: 15. ED Course: 18:42 Patient arrived in ED. im 18:45 Desiree Waldrop FNP-C is PHCP. kb 18:45 Javi Lozano MD is Attending Physician. kb 18:45 Triage completed. ld1 18:45 Arm band placed on right wrist. ld1 19:06 GILDARDO GOVEA, RN is Primary Nurse. dd2 19:19 No provider procedures requiring assistance completed. Initial lab(s) drawn, by me, dd2 sent to lab. Inserted saline lock: 20 gauge in right antecubital area, using aseptic technique. Blood collected. Flushed with 10 mL NS. Patient maintains SpO2 saturation greater than 95% on room air. 19:21 Basic Metabolic Panel Sent. dd2 19:21 CBC with Diff Sent. dd2 19:21 Hepatic Function Sent. dd2 19:21 Magnesium Sent. dd2 19:21 Protime (+inr) Sent. dd2 19:21 Ptt, Activated Sent. dd2 19:21 Troponin High Sensitivity Sent. dd2 19:21 Urinalysis w/ reflexes Sent. dd2 20:02 Patient has correct armband on for positive identification. Bed in low position. Call dd2 light in reach. Side rails up X2. Client placed on continuous cardiac and pulse oximetry monitoring. NIBP monitoring applied. monitoring tech on. Door closed. Noise minimized. Warm blanket given. Pillow given. Verbal reassurance given. 22:07 CT Stone Protocol In Process Unspecified. EDMS 22:47 Provided Education on: D/C EDUCATION AND F/U. dd2 22:47 IV discontinued, intact, bleeding controlled, No redness/swelling at site. Pressure dd2 dressing applied. Administered Medications: 19:35 Drug: NS 0.9% IV 1000 ml IV at 1000 ml once; to be given as a bolus over 60 minutes dd2 Route: IV; Rate: 1000 ml; Site: right antecubital; 20:35 Follow up: IV Status: Completed infusion; IV Intake: 1000ml dd2 19:35 Drug: Ondansetron IVP 4 mg IVP once; over 2 minutes Route: IVP; Site: right antecubital;dd2 19:50 Follow up: Response: No adverse reaction dd2 21:19 Drug: Ketorolac IVP 30 mg IVP once Route: IVP; Site: right antecubital; dd2 21:34 Follow up: Response: No adverse reaction dd2 21:48 Drug: morphine IVP or IV 4 mg IVP once over 4 mins Route: IVP; Infused Over: 4 mins; dd2 Site: right antecubital; 22:04 Follow up: Response: No adverse reaction dd2 Medication: 20:02 VIS not applicable for this client. dd2 Intake: 20:35 IV: 1000ml; Total: 1000ml. dd2 Outcome: 22:31 Discharge ordered by . earlene 22:47 Discharged to home ambulatory, dd2 22:47 Condition: stable 22:47 Discharge instructions given to patient, Instructed on discharge instructions, follow up and referral plans. medication usage, Demonstrated understanding of instructions, follow-up care, medications, Prescriptions given X 1, 22:48 Patient left the ED. dd2 Signatures: Dispatcher [employer] EDDesiree Caro, RAMAN CASTANEDAP-Natalie Hobbs, RN RN ld1 Lina Tanner DIANA RN RN dd2 Corrections: (The following items were deleted from the chart) 20:07 20:02 Musculoskeletal: Circulation, motion, and sensation intact. Range of motion: dd2 intact in all extremities, Reports pain in right low back, right gluteal fold and right hamstring dd2 22:28 21:15 BP 176 / 99; Pulse 90bpm; Resp 16bpm; Pulse Ox 99% RA; dd2 dd2
--- NOTE | 2024-07-07 22:31 | EDPHYS ---
Physician Documentation [facility] Name: Sarita Zelaya Age: 48 yrs Sex: Female : 1975 Arrival Date: 07/07/2024 Time: 17:53 Bed 2 Private MD: ED Physician Javi Lozano HPI: 07/07 21:47 This 48 yrs old Female presents to ER via Wheelchair with complaints of General kb Weakness, Low Back Pain. 21:47 Patient is a 48-year-old female who presents for nausea, vomiting, diarrhea and kb dizziness that started 3 days ago. States has been unable to tolerate anything by mouth. Also reports right low back/upper buttock pain that radiates down right leg that began last week. Was seen at [place] [facility] and diagnosed with sciatica, given tramadol for pain.. 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 - Infectious Disease History:: Denies. - Social history:: Smoking status: Patient denies any tobacco usage or history of. ROS: 21:47 Constitutional: As per HPI kb Exam: 20:10 Constitutional: This is a well developed, well nourished patient who is awake, alert, kb and in no acute distress. Head/Face: Normocephalic, atraumatic. ENT: Moist Mucous membranes Cardiovascular: Regular rate Respiratory: Respirations even and unlabored. No increased work of breathing. Talking in full sentences Abdomen/GI: Soft, non-tender. No distention Skin: Warm, dry with normal turgor. Normal color. MS/ Extremity: Pulses equal, no cyanosis. Neurovascular intact. Full, normal range of motion. Neuro: Awake and alert, GCS 15, oriented to person, place, time, and situation. 20:10 ECG was reviewed by the Attending Physician. Vital Signs: 18:43 Pulse 105; Resp 18; Temp 97.6(TE); Pulse Ox 100% on R/A; Weight 81.65 kg; Height 5 ft. ld1 6 in. ; Pain 10/10; 18:43 BP 196 / 115; ld1 21:15 BP 156 / 93; Pulse 91; Resp 16; Pulse Ox 100% on R/A; dd2 22:28 BP 176 / 99; Pulse 90; Resp 16; Pulse Ox 99% on R/A; dd2 18:43 Body Mass Index 29.05 (81.65 kg, 167.64 cm) ld1 18:43 Pain Scale: Adult ld1 Ben Coma Score: 20:02 Eye Response: spontaneous(4). Motor Response: obeys commands(6). Verbal Response: dd2 oriented(5). Total: 15. MDM: 18:45 Medical Screening Exam initiated 21:46 Data reviewed: vital signs, nurses notes. ED course: Discussed diagnostic findings with kb patient and was preparing for discharge but patient began having intense flank pain. Will obtain CT scan to rule out kidney stone. 22:29 Differential diagnosis: sciatica, uti, kidney stone, gastroenteritis, dehydration. kb Historians other than the Patient: Spouse/Significant Other: spouse. Counseling: I had a detailed discussion with the patient and/or guardian regarding the historical points, exam findings, and any diagnostic results supporting the discharge/admit diagnosis, lab results, radiology results, the need for outpatient follow up, a family practitioner, to return to the emergency department if symptoms worsen or persist or if there are any questions or concerns that arise at home. 07/07 19:02 Order name: Basic Metabolic Panel; Complete Time: 20:18 kb 07/07 19:02 Order name: CBC with Diff; Complete Time: 19:40 kb 07/07 19:02 Order name: Hepatic Function; Complete Time: 20:18 kb 07/07 19:02 Order name: Magnesium; Complete Time: 20:18 kb 18 19:02 Order name: Protime (+inr); Complete Time: 19:46 kb 18 19:02 Order name: Ptt, Activated; Complete Time: 19:46 kb 07/07 19:02 Order name: Troponin High Sensitivity; Complete Time: 20:18 kb 07/07 19:02 Order name: Urinalysis w/ reflexes; Complete Time: 20:01 kb 07/07 20:10 Order name: Flu; Complete Time: 21:39 kb 07/07 21:43 Order name: CT Stone Protocol; Complete Time: 22:28 kb 07/07 19:02 Order name: Cardiac monitoring; Complete Time: 19:58 kb 07/07 19:02 Order name: EKG - Nurse/Tech; Complete Time: 19:58 kb 07/07 19:02 Order name: IV Saline Lock; Complete Time: 19:21 kb 07/07 19:02 Order name: Labs collected and sent; Complete Time: 19:21 kb 07/07 19:02 Order name: NPO; Complete Time: 19:21 kb 07/07 19:02 Order name: O2 Per Protocol; Complete Time: 19:21 kb 07/07 19:02 Order name: O2 Sat Monitoring; Complete Time: 19:21 kb 07/07 21:21 Order name: PO challenge; Complete Time: 21:48 lg3 EC:10 Rate is 92 beats/min. Rhythm is regular. QRS [employer] is Normal. SD interval is normal at kb 162 msec. QRS interval is normal at 74 msec. QT interval is normal at 420 msec. Administered Medications: 19:35 Drug: NS 0.9% IV 1000 ml IV at 1000 ml once; to be given as a bolus over 60 minutes dd2 Route: IV; Rate: 1000 ml; Site: right antecubital; 20:35 Follow up: IV Status: Completed infusion; IV Intake: 1000ml dd2 19:35 Drug: Ondansetron IVP 4 mg IVP once; over 2 minutes Route: IVP; Site: right antecubital;dd2 19:50 Follow up: Response: No adverse reaction dd2 21:19 Drug: Ketorolac IVP 30 mg IVP once Route: IVP; Site: right antecubital; dd2 21:34 Follow up: Response: No adverse reaction dd2 21:48 Drug: morphine IVP or IV 4 mg IVP once over 4 mins Route: IVP; Infused Over: 4 mins; dd2 Site: right antecubital; 22:04 Follow up: Response: No adverse reaction dd2 Disposition Summary: 07/07/24 22:31 Discharge Ordered Notes: Location: Home kb Condition: Stable kb Diagnosis - Noninfective gastroenteritis and colitis, unspecified kb - Sciatica, right side kb Followup: kb - With: Emergency Department - When: As needed - Reason: Worsening of condition Followup: kb - With: Private Physician - When: 2 - 3 days - Reason: Recheck today's complaints, Continuance of care, Re-evaluation by your physician Discharge Instructions: - Discharge Summary Sheet kb - Food Choices to Help Relieve Diarrhea, Adult kb - Viral Gastroenteritis, Adult kb - Sciatica, [id number] kb Forms: - Medication Reconciliation Form kb - Antibiotic Education kb - Prescription Opioid Use kb - Patient Portal Instructions kb - Leadership Thank You Letter kb Prescriptions: - Zofran 4 mg Oral tablet - take 1 tablet ORAL route every 6 hours As needed; 12 tablet; Refills: 0, kb Product Selection Permitted Signatures: Dispatcher [employer] EDMS Desiree Waldrop, CERTIFIED PATHOLOGY ASSISTANT-C CERTIFIED PATHOLOGY ASSISTANT-Ckb Sravani Choe, RN RN lg3 Natalie Denis, RN RN ld1 Fuad Lieberman MD MD sp4 GILDARDO GOVEA RN RN dd2 Corrections: (The following items were deleted from the chart) 19:02 19:02 BASIC METABOLIC PANEL+C.LAB.BRZ ordered. EDMS EDMS 19:02 19:02 CBC+H.LAB.BRZ ordered. EDMS EDMS 19:02 19:02 HEPATIC FUNCTION+C.LAB.BRZ ordered. EDMS EDMS 19:02 19:02 MAGNESIUM+C.LAB.BRZ ordered. EDMS EDMS 19:02 19:02 PROTIME (+INR)+COAG.LAB.BRZ ordered. EDMS EDMS 19:02 19:02 PTT, ACTIVATED+COAG.LAB.BRZ ordered. EDMS EDMS 19:02 19:02 Troponin High Sensitivity+C.LAB.BRZ ordered. EDMS EDMS 19:02 19:02 Urinalysis+U.LAB.BRZ ordered. EDMS EDMS 20:11 20:11 Influenza Screen (A \T\ B)+BA.LAB.BRZ ordered. EDMS EDMS 21:44 21:44 Stone Protocol+CT.RAD.BRZ ordered. EDMS EDMS
[2024-07-08 03:15] VITALS: TEMP 97.6
[2024-07-08 03:18] VITALS: BP 176/99; O2SAT 99
== END 2024-07-07 22:48 | disposition home or self-care (01) ==
LOC: ER 17:53
DX: K52.9 Noninfective gastroenteritis and colitis, unspecified (principal); M54.31 Sciatica, right side
CPT/HCPCS: 85025; 81001; 80048; 36415; 83735; 85610; 80076; 85730; 84484; 87804 ×2; 76377; 74176; J2405; J7030; 93005

== ENCOUNTER 2024-09-07 11:20 | Emergency (ER) | payer OTHER ==
--- OUTSIDE RECORDS SUMMARY | 2024-09-07 11:28 | XMS REPORT | Continuity of Care Document ---
Author Name Unknown Address [address] [facility] [place] [address] [facility] [place] Address [address] [facility] [place] [address] Care Team Providers Care Lawn Sprinkler Servicer Name Role Phone Toribio CASTANEDAP Marcus Primary Care Physician [phone] Coretta Morris Attending Clinician Unav ailable Campaigns, Generic Provider Attending Clinician Unavailable POLY REYEZ Attending Clinician Unavailab POLY Valentin Attending Clinician UnavailPoly Ambriz DO Attending Clinician TERESA PALMA Attending Clinician Unavailable TERESA PALMA Attending Clinician Unavailable Teresa Palma MD Attending Clinician [phone] Elinor Carrillo NP Attending Clinician MACARIO ERWIN Attending Clinician Unavailab marquez Carlson, Generic Provider Attending Clinician Unavailable CHINA MONTANEZ Attending Clinician Unavailable Hansa KENYON Attending Clinician Unavailable Hansa Brandon Attending Clinician Tiny Coulter Attending Clinician Unavailable Dai Lehman Attending Clinician Unavailable Coretta Morris Admitting Clinician Unav ailable Hansa KENYON Admitting Clinician Unavailable Physician, No Primary or Family Admitting Clinic christiano Unavailable Payers Payer Name Policy Type Policy Number Effective Date Expirati on Date Source [facility] SAUNDRA TYSON FOCUS 9 [id number] 2023 00:00:00 Allergies, Adverse Reactions, Alerts Allergy Name Allergy Type Status Severity Reaction(s) Onset Date Inactive Date Treating Clinician Comments Source No Known Allergie s DA Active U 2019-05 00:00: 00 [facility] No Known Allergie s DA Active U 2019-05 00:00: 00 [facility] No Known Allergie s DA Active U 2019-05-18 00:00: 00 [facility] No Known Allergie s DA Active U 2019-0518 00:00: 00 [facility] No Known Allergie s DA Active U 2019-05 2- 00:00: 00 [facility] No Known Allergie s DA Active U 2019-05 2- 00:00: 00 [facility] No Known Contrast Allergie s DA Active U 2- 00:00: 00 [facility] No Known Drug Allergie s DA Active U 2- 00:00: 00 [facility] No Known Food Allergie s DA Active U 2-05 00:00: 00 [facility] No Known Other Allergie s DA Active U 2-05 00:00: 00 [facility] NO KNOWN ALLERGIE S Drug Class Active [facility] Social History Social Habit Start Date Stop Date Quantity Comments Source Sexual orientation U [facility] Exposure to SARS-CoV-2 (event) 2022-09-01 00:00:00 2022-09-11 13:24:00 Not sure [facility] Sex assigned at 1975 00:00:1975 00:00:00 [facility] Smoking Status Start Date Stop Date Source Tobacco smoking consumption unknown [facility] Medications Ordered Medication Name Filled Medication Name Start Date Stop Date Current Medication? Ordering Clinician Indication Dosage Frequency Signature (SIG) Comments Components Source duloxetine 60 mg capsule,del ayed release -08 00:00: 00 Yes 1mg Jhony Fuller Xigduo XR 5 mg-1,000 mg tablet,exte nded release 07-22 00:00: 00 Yes 1mg Jhony Fuller ondansetron 8 mg disintegrat ing tablet 07-21 00:00: 00 Yes 1mg Jhony Fuller duloxetine 60 mg capsule,del ayed release 07-21 00:00: 00 Yes 1mg Jhony Fuller diazePAM (VALIUM) tablet 5 mg 07-10 16:00: 00 07-10 16:10 :00 No 5mg 5 mg, Oral, ONCE, 1 dose, On Sat07/10/24 at 1000, CLOTILDE [facility] dexamethaso ne sod phos PF injection 10 mg 07-10 16:00: 00 07-10 16:10 :00 No 10mg 10 mg, Oral, ONCE, 1 dose, On Sat07/10/24 at 1000, 1 mL [facility] methocarbam oL 750 mg tablet 07-10 00:00: 00 Yes [id number] 750mg Take 1 tablet by mouth every 6 (six) hours as needed for Pain (scale 1-3). [facility] HYDROcodone -acetaminop hen (NORCO) 10-325 mg tablet 1 tablet 07-02 13:45: 00 07-02 13:30 :00 No 1{tbl} 1 tablet, Oral, ONCE NOW, 1 dose, On Sat07/02/24 at 0745, Routine [facility] fentanyl PF (SUBLIMAZE (PF)) injection 50 mcg 07-02 11:00: 00 07-02 11:30 :00 No 50ug 50 mcg, Slow IV Push, ONCE, 1 dose, On Sat07/02/24 at 0500, Routine [facility] traMADoL (ULTRAM) 50 mg tablet 07-02 00:00: 00 Yes [id number] 50mg Take 1 tablet by mouth every 6 (six) hours as needed for Pain (scale 7-10). Indication s: acute pain [facility] Lantus Solostar U-100 Insulin 100 unit/mL (3 mL) subcutaneou s pen 06-25 00:00: 00 Yes (3 mL) Jhony Fuller atorvastati n 20 mg tablet 06-25 00:00: 00 Yes 1mg Jhony Fuller telmisartan 40 mg tablet 06-25 00:00: 00 Yes 1mg Jhony Fuller Xigduo XR 5 mg-1,000 mg tablet,exte nded release 06-25 00:00: 00 Yes 1mg Jhony Fuller gabapentin 300 mg capsule 06-25 00:00: 00 Yes 1mg Jhony Fuller Lantus Solostar U-100 Insulin 100 unit/mL (3 mL) subcutaneou s pen 05-26 00:00: 00 Yes (3 mL) Jhony Fuller atorvastati n 20 mg tablet 05-26 00:00: 00 Yes 1mg Jhony Fuller lisinopril [...] Soft Tissue, Duration of Therapy: Once (ED) [facility] ketorolac (TORADOL) injection 15 mg 2023-05 20:45: 00 05-17 20:26 :00 No 15mg 15 mg, Slow IV Push, ONCE, 1 dose, On 05/17/24 at 1445, CLOTILDE [facility] insulin regular human (HUMULIN R) injection 8 Units 2023-05 20:00: 00 05-17 19:38 :00 No 8U 8 Units, IV Push, ONCE, 1 dose, On 05/17/24 at 1400, CLOTILDE, Indication for insulin: Hyperglyce marco antonio [facility] NaCl 0.9% (NS) bolus infusion 1,000 mL 2023-05 20:00: 00 05-17 20:40 :00 No 1000mL at 999 mL/hr, 1,000 mL, IV Infusion, ONCE, 1 dose, On 05/17/24 at 1400, CLOTILDE [facility] sulfamethox azole-trime thoprim 800-160 mg per tablet 2023-05 00:00: 00 05-28 05:59 :00 No [id number] 1{tbl} Take 1 tablet by mouth every 12 (twelve) hours for 10 days. [facility] cephALEXin 500 mg capsule 2023-05 00:00: 00 05-25 05:59 :00 No [id number] 500mg Take 1 capsule by mouth in the morning and 1 capsule in the evening. Do all this for 7 days. [facility] mupirocin 2 % ointment 2023-05 00:00: 00 05-25 05:59 :00 No [id number] Apply to area(s) 3 (three) times daily for 7 days. [facility] ibuprofen 600 mg tablet 2023-05 00:00: 00 05-23 05:59 :00 No [id number] 600mg Take 1 tablet by mouth every 6 (six) hours as needed for Pain (scale 4-6) for up to 5 days. [facility] atorvastati n 20 mg tablet 2023-05 00:00: 00 Yes 1mg Jhony Jacksonar U-100 Insulin 100 unit/mL (3 mL) subcutaneou [...] ONCE, 1 dose, On Sat07/19/23 at 1830, [facility] ketorolac (TORADOL) injection 15 mg 07-18 21:00: 00 07-18 22:20 :00 No 15mg 15 mg, Slow IV Push, ONCE, 1 dose, On Sat07/19/23 at 1500, [facility] sodium chloride (NS) injection 5 mL 07-18 20:49: 19 Yes 5mL 5 mL, Intravenou s, PRN, Starting on Sat07/19/23 at 1449, Until Discontinu ed, Routine, IV line flushing [facility] metFORMIN (GLUCOPHAGE ) tablet 500 mg 07-16 18:15: 00 07-16 17:26 :00 No 500mg 500 mg, Oral, ONCE, 1 dose, On Sat07/16/23 at 1215, Routine [facility] cefTRIAXone (ROCEPHIN) 1,000 mg in NaCl 0.9% (NS) 100 mL MINI-BAG 07-16 17:30: 00 07-16 17:51 :00 No 1000mg 1,000 mg, IV Piggyback, ONCE, 1 dose, On Sat07/16/23 at 1130, Administer over 30 Minutes, 100 mL
Reas on for Anti-Infec tive: Documented Infection< br>Documen nereida Infection Site: Urine
D uration of Therapy: Other (see Comments) [facility] ketorolac (TORADOL) injection 15 mg 07-16 17:00: 00 07-16 16:03 :00 No 15mg 15 mg, Slow IV Push, ONCE, 1 dose, On Sat07/16/23 at 1100, [facility] ondansetron (ZOFRAN (PF)) injection 4 mg 07-16 16:45: 00 07-16 15:52 :00 No 4mg 4 mg, Slow IV Push, ONCE, 1 dose, [facility] Sat07/16/23 at 1045[facility].9% (NS) bolus infusion 1,000 mL 07-16 16:45: 00 07-16 17:51 :00 No 1000mL at 999 mL/hr, 1,000 mL, IV Infusion, ONCE, 1 dose, On Sat07/16/23 at 1045, STAT [facility] metFORMIN 500 mg tablet 07-16 00:00: 00 Yes [id number] 500mg Take 1 tablet by mouth in the morning and 1 tablet in the evening. [facility] ondansetron 4 mg disintegrat ing tablet 07-16 00:00: 00 Yes [id number] 4mg Take 1 tablet by mouth every 8 (eight) hours as needed for Nausea and Vomiting (N/V). [facility] ibuprofen 600 mg tablet 07-16 00:00: 00 Yes [id number] 600mg Take 1 tablet by mouth every 6 (six) hours as needed for Pain (scale 4-6). [facility] cefdinir 300 mg capsule 07-16 00:00: 00 07-26 05:59 :00 No [id number] 300mg Take 1 capsule by mouth every 12 (twelve) hours for 10 days. [facility] NaCl 0.9% (NS) IV infusion 1,000 mL 2022-05 0 02:30: 00 Yes 1000mL at 999 mL/hr, Intravenou s, CONTINUOUS , Starting on 03/16/23 at 2130, Until Discontinu ed, Routine [facility] ketorolac (TORADOL) injection 30 mg 2022-05 02:30: 00 03-17 01:45 :00 No 30mg 30 mg, Slow IV Push, ONCE, 1 dose, On 03/16/23 at 2130, Routine [facility] diphenhydrA MINE (BENADRYL) injection 25 mg 2022-05 01:30: 00 03-17 01:46 :00 No 25mg 25 mg, Slow IV Push, ONCE, 1 dose, On Sat03/16/23 at 2030, STAT [facility] metoclopram cruz HCl (REGLAN) injection 10 mg 2022-05 01:30: 00 03-17 01:46 :00 No 10mg 10 mg, Slow IV Push, ONCE, 1 dose, On Sat03/16/23 at 2030, CLOTILDE [facility] butalbital- acetaminoph en-caff 50-325-40 mg tablet 2022-05 00:00: 00 Yes [id number] 1{tbl} Take 1 tablet by mouth every 6 (six) hours as needed (Headache) . [facility] ondansetron (ZOFRAN) 4 mg tablet 2022-05 00:00: 00 Yes [id number] 4mg Take 1 tablet by mouth every 8 (eight) hours as needed for Nausea and Vomiting (N/V). [facility] ketorolac (TORADOL) injection 30 mg 09-11 19:45: 00 09-11 19:51 :00 No 30mg 30 mg, Slow IV Push, ONCE, 1 dose, On Sat09/11/22 at 1445, Routine [facility] NaCl 0.9% (NS) bolus infusion 1,000 mL 09-11 19:45: 00 09-11 20:47 :00 No 1000mL at 999 mL/hr, 1,000 mL, IV Infusion, ONCE, 1 dose, On Sat09/11/22 at 1445, CLOTILDE [facility] diphenhydrA MINE (BENADRYL) injection 25 mg 09-11 19:00: 00 09-11 19:52 :00 No 25mg 25 mg, Slow IV Push, ONCE, 1 dose, On Sat09/11/22 at 1400, STAT [facility] metoclopram cruz HCl (REGLAN) injection 10 mg 09-11 19:00: 00 09-11 19:54 :00 No 10mg 10 mg, Slow IV Push, ONCE, 1 dose, On Sat09/11/22 at 1400, CLOTILDE [facility] doxycycline (VIBRAMYCIN ) 100 mg capsule 08-01 00:00: 00 Yes 100mg Take 1 Cap by mouth 2 (two) times daily. [facility] Vital Signs Vital Name Observation Time Observation Value Comments S ource Systolic blood pressure 2024-07-10 16:09:31 184 mm[Hg] [facility] Diastolic blood pressure 2024-07-10 16:09:31 96 mm[Hg] [facility] Heart rate 2024-07-10 16:09:31 84 /min [facility] Body temperature 2024-07-10 16:09:31 36.94 Kathryn [facility] Respiratory rate 2024-07-10 16:09:31 16 /min [facility] Oxygen saturation in Arterial blood by Pulse oximetry 2024-07-10 16:09:31 100 /min [facility] Body height 2024-07-10 14:40:00 167.6 cm [facility] Body weight 2024-07-10 14:40:00 81.647 kg [facility] BMI 2024-07-10 14:40:00 29.05 kg/m2 [facility] Systolic blood pressure 2024-07-02 13:39:00 170 mm[Hg] [facility] Diastolic blood pressure 2024-07-02 13:39:00 110 mm[Hg] [facility] Heart rate 2024-07-02 13:39:00 93 /min [facility] Body temperature 2024-07-02 13:39:00 36.78 Kathryn [facility] Respiratory rate 2024-07-02 13:39:00 16 /min [facility] Oxygen saturation in Arterial blood by Pulse oximetry 2024-07-02 13:39:00 97 /min [facility] Body height 2024-07-02 10:30:00 167.6 cm [facility] Body weight 2024-07-02 10:30:00 81.647 kg [facility] BMI 2024-07-02 10:30:00 29.05 kg/m2 [facility] Systolic blood pressure 2024-05-17 22:00:00 153 mm[Hg] [facility] Diastolic blood pressure 2024-05-17 22:00:00 87 mm[Hg] [facility] Heart rate 2024-05-17 22:00:00 94 /min [facility] Respiratory rate 2024-05-17 22:00:00 12 /min [facility] Oxygen saturation in Arterial blood by Pulse oximetry 2024-05-17 22:00:00 93 /min [facility] Body temperature 2024-05-17 16:31:00 36.78 Kathryn [facility] Body height 2024-05-17 16:31:00 167.6 cm [facility] Body weight 2024-05-17 16:31:00 77.111 kg [facility] BMI 2024-05-17 16:31:00 27.44 kg/m2 [facility] Systolic blood pressure 2023-07-20 01:00:00 159 mm[Hg] [facility] Diastolic blood pressure 2023-07-20 01:00:00 89 mm[Hg] [facility] Heart rate 2023-07-20 01:00:00 83 /min [facility] Respiratory rate 2023-07-20 01:00:00 16 /min [facility] Oxygen saturation in Arterial blood by Pulse oximetry 2023-07-20 01:00:00 98 /min [facility] Body temperature 2023-07-20 00:12:00 36.61 Kathryn [facility] Body height 2023-07-19 20:40:00 167.6 cm [facility] Body weight 2023-07-19 20:40:00 83.915 kg [facility] BMI 2023-07-19 20:40:00 29.86 kg/m2 [facility] Systolic blood pressure 2023-07-16 18:34:00 155 mm[Hg] [facility] Diastolic blood pressure 2023-07-16 18:34:00 91 mm[Hg] [facility] Heart rate 2023-07-16 18:34:00 77 /min [facility] Respiratory rate 2023-07-16 18:34:00 10 /min [facility] Oxygen saturation in Arterial blood by Pulse oximetry 2023-07-16 18:34:00 96 /min [facility] Body temperature 2023-07-16 15:27:00 36.72 Kathryn [facility] Body height 2023-07-16 15:27:00 167.6 cm [facility] Body weight 2023-07-16 15:27:00 83.915 kg [facility] BMI 2023-07-16 15:27:00 29.86 kg/m2 [facility] Systolic blood pressure 2023-03-17 03:00:00 143 mm[Hg] [facility] Diastolic blood pressure 2023-03-17 03:00:00 84 mm[Hg] [facility] Heart rate 2023-03-17 03:00:00 100 /min [facility] Respiratory rate 2023-03-17 03:00:00 20 /min [facility] Oxygen saturation in Arterial blood by Pulse oximetry 2023-03-17 03:00:00 98 /min [facility] Body temperature 2023-03-17 00:54:00 37.44 Kathryn [facility] Body height 2023-03-17 00:16:00 170.2 cm [facility] Body weight 2023-03-17 00:16:00 81.647 kg [facility] BMI 2023-03-17 00:16:00 28.19 kg/m2 [facility] Systolic blood pressure 2022-09-11 20:00:00 153 mm[Hg] [facility] Diastolic blood pressure 2022-09-11 20:00:00 88 mm[Hg] [facility] Heart rate 2022-09-11 20:00:00 92 /min [facility] Respiratory rate 2022-09-11 20:00:00 16 /min [facility] Oxygen saturation in Arterial blood by Pulse oximetry 2022-09-11 20:00:00 95 /min [facility] Body temperature 2022-09-11 18:26:00 36.72 Kathryn [facility] Body height 2022-09-11 18:26:00 170.2 cm [facility] Body weight 2022-09-11 18:26:00 77.111 kg [facility] BMI 2022-09-11 18:26:00 26.63 kg/m2 [facility] BP Systolic 2024-08-25 11:04:00 Step hen F Jonny BP Diastolic 2024-08-25 11:04:00 Maikol phen F Jonny Weight Measured 2024-08-25 11:04:00 Jhony Harriett Fuller Height Measured 2024-08-25 11:04:00 Jhony Harriett Fuller Body Temperature 2024-08-25 11:04:00 Jhony F Jonny Heart Rate 2024-08-25 11:04:00 Fide en F Jonny Respiratory Rate 2024-08-25 11:04:00 Jhony Harriett Fuller BP Diastolic 2024-08-25 10:58:00 81 mm[Hg] Maikol phen F Jonny Weight Measured 2024-08-25 10:58:00 160.00 pounds Jhony Harriett Fuller Height Measured 2024-08-25 10:58:00 68.00 inches Jhony F Jonny Body Temperature 2024-08-25 10:58:00 98.20 degrees Jhony F Jonny Heart Rate 2024-08-25 10:58:00 95.00 /min Fide en F Jonny Respiratory Rate 2024-08-25 10:58:00 18.00 /min Jhony F Jonny BP Systolic 2024-08-25 10:58:00 136 mm[Hg] Step hen F Jonny Respiratory Rate 2024-07-21 10:28:00 19.00 /min Jhony F Jonny BP Systolic 2024-07-21 10:28:00 153 mm[Hg] Step hen F Jonny BP Diastolic 2024-07-21 10:28:00 104 mm[Hg] Maikol phen F Jonny Weight Measured 2024-07-21 10:28:00 162.00 pounds Jhony F Jonny Height Measured 2024-07-21 10:28:00 68.00 inches Jhony F Jonny Body Temperature 2024-07-21 10:28:00 97.90 degrees Jhony F Jonny Heart Rate 2024-07-21 10:28:00 110.00 /min Step hen F Jonny BP Systolic 2024-06-25 12:16:00 178 mm[Hg] Step [...] Weight Measured 2024-05-26 10:17:00 174.20 pounds Jhony Fuller Height Measured 2024-05-26 10:17:00 68.00 inches Jhony Fuller Body Temperature 2024-05-26 10:17:00 97.90 degrees Jhony Fuller Heart Rate 2024-05-26 10:17:00 90.00 /min Fide en F Jonny Respiratory Rate 2024-05-26 10:17:00 17.00 /min Jhony Harriett Fuller Respiratory Rate 2024-05-11 10:52:00 17.00 /min Jhonyashlee Fuller BP Systolic 2024-05-11 10:52:00 174 mm[Hg] Step hen F Jonny BP Diastolic 2024-05-11 10:52:00 98 mm[Hg] Maikol phen Harriett Fuller Weight Measured 2024-05-11 10:52:00 174.40 pounds Jhony Fuller Height Measured 2024-05-11 10:52:00 68.00 inches Jhony Fuller Body Temperature 2024-05-11 10:52:00 98.00 degrees Jhony Fuller Heart Rate 2024-05-11 10:52:00 97.00 /min Fide en Harriett Fuller Procedures Procedure Date / Time Performed Performing Clinicia n Source URINALYSIS 2024-07-02 11:42:00 Teresa Palma [facility] BASIC METABOLIC PANEL (NA, K, CL, CO2, GLUCOSE, BUN, CREATININE, CA) 2024-07-02 11:30:00 Teresa Palma [facility] CBC WITH DIFF 2024-07-02 11:30:00 Teresa Palma [facility] POCT GLUCOSE(AGE >30DAYS) 2024-05-17 20:58:00 Elinor Carrillo [facility] POCT GLUCOSE (AUTOMATED) 2024-05-17 20:57:00 Elinor Carrillo [facility] POCT TEST 2024-05-17 20:23:00 Elinor Carrillo [facility] POCT GLUCOSE (AUTOMATED) 2024-05-17 20:06:00 Lorena [facility] POCT GLUCOSE (AUTOMATED) 2024-05-17 19:30:00 Lorena [facility] COMP. METABOLIC PANEL ([id number]) 2024-05-17 17:28:[facility]24-[facility]-17 17:28[facility]00 [facility]24-05-17 17:28:00 Elinor Carrillo [facility] LIPASE 2023-07-19 22:12:00 China [facility]z [facility] COMP. METABOLIC PANEL ([id number]) 2023-07-19 22:12:00 China Montanez [facility] CBC WITH DIFF 2023-07-19 22:12:00 Cadence Montanezherine [facility] URINALYSIS 2023-07-19 22:12:00 China Montanez [facility] ASSIGNMENT OF BENEFITS 2023-07-19 21:14:17 Docto r Unassigned, Claiborne [facility] CONSENT/REFUSAL FOR DIAGNOSIS AND TREATMENT 2023-07-19 20:34:55 Doctor Unassigned, Claiborne [facility] LACTIC ACID WHOLE BLOOD 2023-07-16 17:52:00 Hansa Kenyon [facility] CT ABDOMEN PELVIS WO CONTRAST 2023-07-16 16:39:57 Hansa Kenyon [facility] LIPASE 2023-07-16 15:49:00 Hansa [facility] MAGNESIUM 2023-07-16 15:49:00 Hansa Kenyon [facility] TROPONIN I 2023-07-16 15:49:00 Hansa [facility] COMP. METABOLIC PANEL ([id number]) 2023-07-16 15:49:00 Hansa Kenyon [facility] CBC WITH DIFF 2023-07-16 15:49:00 Hansa Kenyon [facility] URINALYSIS 2023-07-16 15:49:00 Hansa Kenyon [facility] POCT GLUCOSE (AUTOMATED) 2023-07-16 15:30:00 Hansa Kenyon [facility] CONSENT/REFUSAL FOR DIAGNOSIS AND TREATMENT 2023-07-16 15:24:28 Doctor Unassigned, Claiborne [facility] POCT GLUCOSE(AGE >30DAYS) 2023-03-17 02:51:00 Teresa Palma [facility] POCT GLUCOSE (AUTOMATED) 2023-03-17 02:49:00 Teresa Palma [facility] URINALYSIS 2023-03-17 01:44:00 Teresa Palma [facility] LIPASE 2023-03-17 01:36:00 Teresa Palma [facility] COMP. METABOLIC PANEL ([id number]) 2023-03-17 01:36:00 Teresa Palma [facility] ACUTE CARE VENOUS BLOOD GAS 2023-03-17 01:35:00 Teresa Palma [facility] POCT GLUCOSE (AUTOMATED) 2023-03-17 01:33:00 Teresa Palma [facility] CBC WITH DIFF 2023-03-17 00:56:00 Teresa Palma [facility] CONSENT/REFUSAL FOR DIAGNOSIS AND TREATMENT 2023-03-17 00:00:38 Doctor Unassigned, Claiborne [facility] BASIC METABOLIC PANEL (NA, K, CL, CO2, GLUCOSE, BUN, CREATININE, CA) 2022-09-11 19:33:00 Poly Reyez [facility] NOTICE OF PRIVACY PRACTICES 2022-09-11 18:09:58 Doctor Unassigned, Claiborne [facility] CONSENT/REFUSAL FOR DIAGNOSIS AND TREATMENT 2022-09-11 18:09:12 Doctor Unassigned, Claiborne [facility] [id number] 2020-05-06 00:00:00 [facility] Encounters Start Date/Time End Date/Time Encounter Type Admission Type Attending Clinicians Care Facility Care Department Encounter ID Source 2020-04-30 01:32:00 Inpatient EM Coretta Blandon [facility] TELE [id number] 51 [facility] 2024-08-25 00:00:00 2024-08-25 00:00:[address] [facility] [id number] Jhony Fuller 2024-07-21 09:42:54 2024-07-21 09:42:[address] [facility] [id number] Jhony Fuller 2024-07-21 00:00:00 2024-07-21 00:00:[address] [facility] [id number] Jhony Fuller 2024-07-17 11:20:22 2024-07-17 11:20:[address] [facility] [id number] Jhony Lorenzana Jonny 2024-07-15 00:00:00 2024-07-15 10:07:00 Letter (Out) Campaigns, Generic Provider Campaigns, Generic Provider [facility] ..[id number] [facility] 2024-07-10 08:46:00 2024-07-10 10:17:00 Emergency X POLY REYEZ SANDRA [facility] ERT [id number] [facility] 2024-07-10 08:46:00 2024-07-10 10:17:00 Emergency Poly Reyez [facility] ..[id number] [facility] 2024-07-02 04:34:00 2024-07-02 07:43:00 Emergency X TERESA PALMA WAKILI [facility] ERT [id number] [facility] 2024-07-02 04:34:00 2024-07-02 07:43:00 Emergency Teresa Palma [facility] 1..840.114 [id number] [facility] 2024-06-25 10:22:39 2024-06-25 10:22:[address] [facility] [facility] [id number] Jhony Fuller 2024-06-25 00:00:00 2024-06-25 00:00:[address] [facility] [id number] Jhony Fuller 2024-05-27 00:00:00 2024-05-27 11:36:01 Letter (Out) Campaigns, Generic Provider Campaigns, Generic Provider [facility] 1..840.114 350.1.13.10 4.2.7.2.686 [id number] [facility] 2024-05-26 10:01:49 2024-05-26 10:01:[address] [facility] [id number] Jhony Fuller 2024-05-26 00:00:00 2024-05-26 00:00:[address] [facility] [id number] Jhony Fuller 2024-05-17 10:32:00 2024-05-17 16:37:00 Emergency Elinor Carrillo [facility] 1..840.114 350.1.13.10 4.2.7.2.686 [id number] [facility] 2024-05-11 10:38:36 2024-05-11 10:38:[address] [facility] [id number] Jhony Fuller 2024-05-11 00:00:00 2024-05-11 00:00:[address] [facility] [id number] Jhony Fuller 2023-10-15 13:30:00 2023-10-15 13:30:00 Outpatient MACARIO ERWIN [id number] Ana Mohamud 2023-08-19 09:00:00 2023-08-19 09:00:00 Outpatient MACARIO ERWIN [id number] Ana Mohamud 2023-07-24 00:00:00 2023-07-24 00:00:00 Letter (Out) Campaigns, Generic Provider [facility] 1.84.114 350.1.13.10 4.2.7.2.686 [id number] [facility] 2023-07-19 14:42:00 2023-07-19 19:26:00 Emergency X LISSETH CHINA [facility] E[facility] [id number] [facility] 2023-07-19 14:42:00 2023-07-19 19:26:00 Emergency Lisseth China [facility] 1.840.114 350.1.13.10 4.2.7.2.686 [id number] [facility] 2023-07-16 09:31:00 2023-07-16 12:37:00 Emergency X Hansa KENYON [facility] [id number] [facility] 2023-07-16 09:31:00 2023-07-16 12:37:00 Emergency Hansa Kenyon [facility] 1.840.114 350.1.13.10 4.2.7.2.686 [id number] [facility] 2023-03-16 19:19:00 2023-03-16 22:14:00 Emergency X TERESA PALMA [facility] ERT [id number] [facility] 2023-03-16 19:19:00 2023-03-16 22:14:00 Emergency Teresa Palma [facility] 1.840.114 350.1.13.10 4.2.7.2.686 [id number] [facility] 2022-09-11 13:34:00 2022-09-11 15:51:00 Emergency X POLY REYEZ [facility] ERT [id number] [facility] 2022-09-11 13:34:00 2022-09-11 15:51:00 Emergency Poly Reyez [facility] 1.2.840.114 350.1.13.10 4.2.7.2.686 [id number] [facility] 2021-09-27 23:52:00 2021-09-27 23:52:00 Outpatient Tiny Coulter [facility] [id number] 68 [facility] 2021-09-27 07:25:00 2021-09-27 12:00:00 Emergency EM Yfn Tiny HCAMN HCAMN [id number] [facility] 2021-09-27 07:25:00 2021-09-27 12:00:00 Emergency EM Tiny Coulter [facility] LISA [id number] [facility] 2020-04-30 01:32:00 2020-05-09 18:54:00 Inpatient EM Coretta Blandon [facility] TELE [id number] 51 [facility] 2020-04-30 01:04:00 2020-04-30 01:04:00 Outpatient Lalityazan Dai [facility] [id number] 19 [facility] 2020-04-30 01:04:00 2020-04-30 01:04:00 Outpatient LalitDai hand [facility] [id number] 19 [facility] Results Test Description Test Time Test Comments Results Result Co mments Source Jhony Lorenzana AustinLIPID [id number] 00:00:00* Test Item Value Reference Range Interpretation Comme nts CHOLESTEROL, TOTAL (test cod e = 2093-3) 283 mg/dL HDL CHOLESTEROL (test code = 2085-9) 48 mg/dL TRIGLYCERIDES (test code = 2571-8) 317 mg/dL LDL-CHOLESTEROL (test code = 22165-1) 181 mg/dL(calc) CHOL/HDLC RATIO (test code = 9830-1) 5.9 (calc) NON HDL CHOLESTEROL (test code = 20850-9) 235 mg/dL(calc) Jhony FullerHEMOGLOBIN [id number] 00:00:00* Test Item Value Reference Range Interpretation Comme [facility] HEMOGLOBIN A1c (test code = 4548-4) 10.2 %oftotalHgb Jhony FullerMICROALBUMIN, RANDOM URINE (W/CREATININE)2024-07-22 00:00:00* Test Item Value Reference Range Interpretation Comme nts CREATININE, RANDOM URINE (te st code = 2161-8) 55 mg/dL ALBUMIN, URINE (test code = 95427-3) 435.4 mg/dL ALBUMIN/CREATININE RATIO, RANDOM URINE (test code = 9318-7) 7916 mg/gcreat Jhony FullerCOMPREHENSIVE METABOLIC [id number] 00:00:00* Test Item Value Reference Range Interpretation Comme nts GLUCOSE (test code = 2345-7) 270 mg/dL UREA NITROGEN (BUN) (test code = 3094-0) 11 mg/dL CREATININE (test code = 2160-0) 1.05 mg/dL EGFR (test code = 36116-6) 65 mL/min/1.73m2 BUN/CREATININE RATIO (test code = 3097-3) 10 (calc) SODIUM (test code = 2951-2) 138 mmol/L POTASSIUM (test code = 2823-3) 3.9 mmol/L CHLORIDE (test code = 2075-0) 102 mmol/L CARBON DIOXIDE (test code = 2027-9) 27 mmol/L CALCIUM (test code = 64114-0) 8.7 mg/dL PROTEIN, TOTAL (test code = 2885-2) 4.9 g/dL ALBUMIN (test code = 1751-7) 2.7 g/dL GLOBULIN (test code = 71513-2) 2.2 g/dL(calc) ALBUMIN/GLOBULIN RATIO (test code = 1759-0) 1.2 (calc) BILIRUBIN, TOTAL (test code = 1975-2) 0.4 mg/dL ALKALINE PHOSPHATASE (test code = 6768-6) 84 U/L AST (test code = 1920-8) 9 U/L ALT (test code = 1742-6) 11 U/L Jhony FullerLIPID [id number] 00:00:00* Test Item Value Reference Range Interpretation Comme dannielle CHOLESTEROL, TOTAL (test cod e = 2093-3) 283 mg/dL HDL CHOLESTEROL (test code = 2085-9) 48 mg/dL TRIGLYCERIDES (test code = 2571-8) 317 mg/dL LDL-CHOLESTEROL (test code = 26266-0) 181 mg/dL(calc) CHOL/HDLC RATIO (test code = 9830-1) 5.9 (calc) NON HDL CHOLESTEROL (test code = 32102-9) 235 mg/dL(calc) Jhony FullerHEMOGLOBIN [id number] 00:00:00* Test Item Value Reference Range Interpretation Comme [facility] HEMOGLOBIN A1c (test code = 4548-4) 10.2 %oftotalHgb Jhony FullerMICROALBUMIN, RANDOM URINE (W/CREATININE)2024-07-22 00:00:00* Test Item Value Reference Range Interpretation Comme [facility] CREATININE, RANDOM URINE (te st code = 2161-8) 55 mg/dL ALBUMIN, URINE (test code = 31615-7) 435.4 mg/dL ALBUMIN/CREATININE RATIO, RANDOM URINE (test code = 9318-7) 7916 mg/gcreat Jhony Lorenzana [facility] GLUCOSE (AUTOMATED)2024-05-17 20:59:47* Test Item Value Reference Range Interpretation Comme [facility] POCT GLU (test code = 3907179052) 338 mg/dL 70-110 H Lab Interpretation (test cod e = 30279-9) Abnormal [facility] GLUCOSE(AGE >30DAYS)2024-05-17 20:58:00* Test Item Value Reference Range Interpretation Comme [facility] POCT Glu (age>30days) (test code = 3342) 338 mg/dL 70-110 A Lab Interpretation (test cod e = 12837-5) Abnormal [facility] [id number] 20:23:00* Test Item Value Reference Range Interpretation Comme [facility] POCT PREG (test code = 1605) Negative On board controls acceptable with C Line (test code = 3574) Yes POCT PREG LOT # (test code = 3571) 302131 POCT PREG TEST DATE ( test code = 3576) 05/04/2025 Lab Interpretation (test cod e = 49065-1) Normal [facility] GLUCOSE (AUTOMATED)2024-05-17 20:07:45* Test Item Value Reference Range Interpretation Comme nts POCT GLU (test code = 9152568669) 440 mg/dL 70-110 H Lab Interpretation (test cod e = 73342-9) Abnormal [facility] GLUCOSE (AUTOMATED)2024-05-17 19:31:17* Test Item Value Reference Range Interpretation Comme nts POCT GLU (test code = 0735206675) 493 mg/dL 70-110 HH Lab Interpretation (test cod e = 42867-6) Abnormal [facility]. METABOLIC PANEL (28890)2024-05-17 18:42:08* Test Item Value Reference Range Interpretation Comme nts NA (test code = 0447484363) 133 mmol/L 135-145 L K (test code = 3950227569) 4.1 mmol/L 3.5-5.0 CL (test code = 3410713958) 102 mmol/L 98-108 CO2 TOTAL (test code = 6175489800) 26 mmol/L 23-31 AGAP (test code = 0977377443) 5 2-16 BUN (test code = 2146954622) 27 mg/dL 7-23 H GLUCOSE (test code = 6311311631) 435 mg/dL 70-110 H CREATININE (test code = 2160-0) 0.79 mg/dL 0.50-1.04 TOTAL BILI (test code = 6224084167) 0.3 mg/dL 0.1-1.1 CALCIUM (test code = 2427615087) 9.2 mg/dL 8.6-10.6 T PROTEIN (test code = 4294663416) 6.2 g/dL 6.3-8.2 L ALBUMIN (test code = 8040790855) 3.2 g/dL 3.5-5.0 L ALK PHOS (test code = 9765583761) 121 U/L 34-122 ALTv (test code = 1742-6) 13 U/L 5-35 AST(SGOT) (test code = 0244267214) 17 U/L 13-40 eGFR (test code = 62865-7) 91.8 mL/min/1.73m2 CKD-EPI eGFR (2020). Assuming creatinine has been stable day-to-day for at least three months, the eGFR indicates Category G1 (>= 90 mL/min/1.73 m2) Lab Interpretation (test code = 33794-3) Abnormal [facility] WITH [id number] 18:27:42* Test Item Value Reference Range Interpretation [...] 33.7 g/dL 31.6-35.1 RDW-SD (test code = 09140-0) 35.4 fL 39.0-49.9 L RDW-CV (test code = 788-0) 12.1 % 12.0-15.5 PLT (test code = 777-3) 351 166-358 MPV (test code = 57903-2) 10.2 fL 9.5-12.9 NRBC/100 WBC (test code = 0324193225) 0.0 0.0-10.0 NRBC x10^3 (test code = 8822006375) See_Comment [Automated message] The system which generated this result transmitted reference range: 10*3/?L. The reference range was not used to interpret this result as normal/abnormal. GRAN MAT (NEUT) % (test code = 770-8) 83.4 % IMM GRAN % (test code = 4619312056) 0.60 % LYMPH % (test code = 736-9) 9.7 % MONO % (test code = 5905-5) 5.3 % EOS % (test code = 713-8) 0.5 % BASO % (test code = 706-2) 0.5 % GRAN MAT x10^3(ANC) (test code = 3621430138) 10.77 10*3/uL 1.88-7.09 H IMM GRAN x10^3 (test code = 1869510950) 0.08 10*3/uL 0.00-0.06 H LYMPH x10^3 (test code = 731-0) 1.25 10*3/uL 1.32-3.29 L MONO x10^3 (test code = 742-7) 0.68 10*3/uL 0.33-0.92 EOS x10^3 (test code = 711-2) 0.07 10*3/uL 0.03-0.39 BASO x10^3 (test code = 704-7) 0.06 10*3/uL 0.01-0.07 Lab Interpretation (test code = 24221-0) [facility]normal [facility] [id number] 10:04:44* Test Item Value Reference Range Interpretation Comme nts HEMOGLOBIN A1c (test code = 52585) 13.6 % 4.2-5.6 H [employer] GUIDELINES FOR HGB A1C: [...] ALTERNATE TESTING OR LABORATORY CONSULTATION. COMPREHENSIVE METABOLIC [id number] 05:21:07* Test Item Value Reference Range Interpretation Comme nts GLUCOSE (test code = 2217) 460 MG/DL 70-99 H BUN (test code = 8) 15 MG/DL 6-20 CREATININE (test code = 2214) 1.01 MG/DL 0.60-1.30 eGFR (2020 CKD-EPI) (test co de = 61649) 68 ML/MIN/1.73 >60 CALC BUN/CREAT (test code = 2235) 15 RATIO 6-28 SODIUM (test code = 2231) 137 MEQ/L 133-146 POTASSIUM (test code = 2227) 4.6 MEQ/L 3.5-5.4 CHLORIDE (test code = 5) 99 MEQ/L 95-107 CARBON DIOXIDE (test code = 2205) 26 MEQ/L 19-31 CALCIUM (test code = 2208) 9.3 MG/DL 8.5-10.5 PROTEIN, TOTAL (test code = 2228) 5.4 G/DL 6.1-8.3 L ALBUMIN (test code = 2200) 3.1 G/DL 3.5-5.2 L CALC GLOBULIN (test code = 0) 2.3 G/DL 1.9-3.7 CALC A/G RATIO (test code = 2233) 1.3 RATIO 1.0-2.6 BILIRUBIN, TOTAL (test code = 2206) 0.2 MG/DL <=1.2 ALKALINE PHOSPHATASE (test code = 2203) 112 U/L 40-125 AST (test code = 2217) 11 U/L 9-40 ALT (test code = 2218) 12 U/L 5-40 LIPID [id number] 05:21:07* Test Item Value Reference Range Interpretation Comme nts CHOLESTEROL (test code = 2209) 311 MG/DL <200 H TRIGLYCERIDES (test code = 2231) 423 MG/DL <150 H HDL CHOLESTEROL (test code = 2219) 47 MG/DL >39 CALC LDL CHOL (test code = 2236) (NOTE) MG/DL <100 UNABLE TO CALCUL ATE [...] SPECIMENS. FOR MOREINFORMATION, SEE CLIENT ANNOUNCEMENT AT [email or web address] CalcLDL-C RISK RATIO LDL/HDL (test code = 223) (NOTE) RATIO <3.22 UNABLE TO KAREN CULATE ALBUMIN/CREATININE RATIO, URINE, [id number] 05:10:40* Test Item Value Reference Range Interpretation Comme nts CREATININE, URINE, CONC. (test code = 207) 41.7 MG/DL NOT ESTAB ALBUMIN, URINE, RANDOM (test code = 39340) 325.4 MG/DL NOT ESTAB CALC ALBUMIN/CREAT, RND (test code = 28090) 7803 MG/G <30 H Note: Albumin/Cr eatinine ratio reference interval reflects ADA and NKF guidelines. UNLESS OTHERWISE INDICATED, ALL TESTING PERFORMED AT [facility] [address] [place] [address] O AND M SUPERVISOR: DAVID KENDRICK M.D. IA NUMBER [id number] [facility] [place] [id number] COMPREHENSIVE METABOLIC [id number] 00:00:00* Test Item Value Reference Range Interpretation Comme nts GLUCOSE (test code = 2217) 460 MG/DL BUN (test code = 2208) 15 MG/DL CREATININE (test code = 2214) 1.01 MG/DL eGFR (2020 CKD-EPI) (test co de = 56495) 68 ML/MIN/1.73 CALC BUN/CREAT (test code = [...] code = 2219) 12 U/L Jhony FullerLIPID [id number] 00:00:00* Test Item Value Reference Range Interpretation Comme nts CHOLESTEROL (test code = 2210) 311 MG/DL TRIGLYCERIDES (test code = 2232) 423 MG/DL HDL CHOLESTEROL (test code = 2220) 47 MG/DL CALC LDL CHOL (test code = 2237) (NOTE) MG/DL RISK RATIO LDL/HDL (test cod e = 2238) (NOTE) RATIO Jhony FullerCOMPREHENSIVE METABOLIC [id number] 00:00:00* Test Item Value Reference Range Interpretation Comme nts GLUCOSE (test code = 2217) 460 MG/DL BUN (test code = 2208) 15 MG/DL CREATININE (test code = 2214) 1.01 MG/DL eGFR (2020 CKD-EPI) (test co de = 61690) 68 ML/MIN/1.73 CALC BUN/CREAT (test code = [...] (test code = 2219) 12 U/L Jhony FullerHEMOGLOBIN [id number] 00:00:00* Test Item Value Reference Range Interpretation Comme dannielle HEMOGLOBIN A1c (test code = 66344) 13.6 % Jhony FullerALBUMIN/CREATININE RATIO, RANDOM [id number] 00:00:00* Test Item Value Reference Range Interpretation Comme nts CREATININE, URINE, CONC. (te st code = 2072) 41.7 MG/DL ALBUMIN, URINE, RANDOM (test code = 31481) 325.4 MG/DL CALC ALBUMIN/CREAT, RND (katerina t code = 29285) 7803 MG/G Jhony FullerLIPID [id number] 00:00:00* Test Item Value Reference Range Interpretation Comme nts CHOLESTEROL (test code = 2210) 311 MG/DL TRIGLYCERIDES (test code = 223) 423 MG/DL HDL CHOLESTEROL (test code = 2220) 47 MG/DL CALC LDL CHOL (test code = 2237) (NOTE) MG/DL RISK RATIO LDL/HDL (test cod e = 2238) (NOTE) RATIO Jhony FullerHEMOGLOBIN [id number] 00:00:00* Test Item Value Reference Range Interpretation Comme nts HEMOGLOBIN A1c (test code = 93211) 13.6 % Jhony Lorenzana AustinALBUMIN/CREATININE RATIO, RANDOM [id number] 00:00:00* Test Item Value Reference Range Interpretation Comme nts CREATININE, URINE, CONC. (te st code = 2072) 41.7 MG/DL ALBUMIN, URINE, RANDOM (test code = 72760) 325.4 MG/DL CALC ALBUMIN/CREAT, RND (katerina t code = 38758) 7803 MG/G Jhony FullerCOMPREHENSIVE METABOLIC [id number] 00:00:00* Test Item Value Reference Range Interpretation Comme nts GLUCOSE (test code = 2217) 460 MG/DL BUN (test code = 2208) 15 MG/DL CREATININE (test code = 2214) 1.01 MG/DL eGFR (2020 CKD-EPI) (test co de = 66688) 68 ML/MIN/1.73 CALC BUN/CREAT (test code = [...] (test code = 2219) 12 U/L Jhony Lorenzana AustinLIPID [id number] 00:00:00* Test Item Value Reference Range Interpretation Comme nts CHOLESTEROL (test code = 2210) 311 MG/DL TRIGLYCERIDES (test code = 2232) 423 MG/DL HDL CHOLESTEROL (test code = 2220) 47 MG/DL CALC LDL CHOL (test code = 2237) (NOTE) MG/DL RISK RATIO LDL/HDL (test cod e = 2238) (NOTE) RATIO Jhony FullerHEMOGLOBIN [id number] 00:00:00* Test Item Value Reference Range Interpretation Comme nts HEMOGLOBIN A1c (test code = 85144) 13.6 % Jhony Lorenzana AustinALBUMIN/CREATININE RATIO, RANDOM [id number] 00:00:00* Test Item Value Reference Range Interpretation Comme nts CREATININE, URINE, CONC. (te st code = 2072) 41.7 MG/DL ALBUMIN, URINE, RANDOM (test code = 19019) 325.4 MG/DL CALC ALBUMIN/CREAT, RND (katerina t code = 54879) 7803 MG/G Jhony FullerCOMPREHENSIVE METABOLIC [id number] 00:00:00* Test Item Value Reference Range Interpretation Comme nts GLUCOSE (test code = 2217) 460 MG/DL BUN (test code = 2208) 15 MG/DL CREATININE (test code = 2214) 1.01 MG/DL eGFR (2020 CKD-EPI) (test co de = 89564) 68 ML/MIN/1.73 CALC BUN/CREAT (test code = [...] (test code = 2219) 12 U/L Jhony Lorenzana AustinLIPID [id number] 00:00:00* Test Item Value Reference Range Interpretation Comme nts CHOLESTEROL (test code = 2210) 311 MG/DL TRIGLYCERIDES (test code = 2232) 423 MG/DL HDL CHOLESTEROL (test code = 2220) 47 MG/DL CALC LDL CHOL (test code = 2237) (NOTE) MG/DL RISK RATIO LDL/HDL (test cod e = 2238) (NOTE) RATIO Jhony FullerHEMOGLOBIN [id number] 00:00:00* Test Item Value Reference Range Interpretation Comme nts HEMOGLOBIN A1c (test code = 67381) 13.6 % Jhony Lorenzana AustinALBUMIN/CREATININE RATIO, RANDOM [id number] 00:00:00* Test Item Value Reference Range Interpretation Comme nts CREATININE, URINE, CONC. (te st code = 2072) 41.7 MG/DL ALBUMIN, URINE, RANDOM (test code = 85928) 325.4 MG/DL CALC ALBUMIN/CREAT, RND (katerina t code = 17395) 7803 MG/G Jhony FullerCOMPREHENSIVE METABOLIC [id number] 00:00:00* Test Item Value Reference Range Interpretation Comme nts GLUCOSE (test code = 2217) 460 MG/DL BUN (test code = 2208) 15 MG/DL CREATININE (test code = 2214) 1.01 MG/DL eGFR (2020 CKD-EPI) (test co de = 32178) 68 ML/MIN/1.73 CALC BUN/CREAT (test code = [...] code = 2219) 12 U/L Jhony FullerLIPID [id number] 00:00:00* Test Item Value Reference Range Interpretation Comme nts CHOLESTEROL (test code = 2210) 311 MG/DL TRIGLYCERIDES (test code = 2232) 423 MG/DL HDL CHOLESTEROL (test code = 2220) 47 MG/DL CALC LDL CHOL (test code = 2237) (NOTE) MG/DL RISK RATIO LDL/HDL (test cod e = 2238) (NOTE) RATIO Jhony FullerHEMOGLOBIN [id number] 00:00:00* Test Item Value Reference Range Interpretation Comme dannielle HEMOGLOBIN A1c (test code = 13021) 13.6 % Jhony FullerALBUMIN/CREATININE RATIO, RANDOM [id number] 00:00:00* Test Item Value Reference Range Interpretation Comme nts CREATININE, URINE, CONC. (te st code = 2072) 41.7 MG/DL ALBUMIN, URINE, RANDOM (test code = 66194) 325.4 MG/DL CALC ALBUMIN/CREAT, RND (katerina t code = 23673) 7803 MG/G Jhony FullerComplete Metabolic [id number] 22:55:37* Test Item Value Reference Range Interpretation Comme nts NA (test code = 7983720043) 132 mmol/L 135-145 L K (test code = 3887406106) 4.2 mmol/L 3.5-5.0 CL (test code = 6146873490) 102 mmol/L 98-108 CO2 TOTAL (test code = 1536959689) 28 mmol/L 23-31 AGAP (test code = 9375091617) 2 2-16 BUN (test code = 2176578739) 12 mg/dL 7-23 GLUCOSE (test code = 2898110817) 340 mg/dL 70-110 H CREATININE (test code = 2160-0) 0.54 mg/dL 0.50-1.04 TOTAL BILI (test code = 2105318380) 0.4 mg/dL 0.1-1.1 CALCIUM (test code = 9814777113) 9.2 mg/dL 8.6-10.6 T PROTEIN (test code = 1013605535) 6.4 g/dL 6.3-8.2 ALBUMIN (test code = 1439417585) 3.4 g/dL 3.5-5.0 L ALK PHOS (test code = 4601140474) 103 U/L 34-122 ALTv (test code = 1742-6) 15 U/L 5-35 AST(SGOT) (test code = 1423683137) 17 U/L 13-40 eGFR (test code = 94576-4) 113.7 mL/min/1.73m2 CKD-EPI eGFR (2020). Assuming creatinine has been stable day-to-day for at least three months, the eGFR indicates Category G1 (>= 90 mL/min/1.73 m2) Lab Interpretation (test code = 75521-5) [facility]normal [facility], [id number] 22:49:26* Test Item Value Reference Range Interpretation Comme nts LIPASE (test code = 3255472431) 449 U/L 0-220 H Lab Interpretation (test cod e = 41068-9) Abnormal [facility] with [id number] 22:40:19* Test Item Value Reference Range Interpretation [...] 34.6 g/dL 31.6-35.1 RDW-SD (test code = 79268-5) 35.6 fL 39.0-49.9 L RDW-CV (test code = 788-0) 12.4 % 12.0-15.5 PLT (test code = 777-3) 289 166-358 MPV (test code = 77403-6) 9.9 fL 9.5-12.9 NRBC/100 WBC (test code = 8428184844) 0.0 0.0-10.0 NRBC x10^3 (test code = 1447370141) See_Comment [Automated messa ge] The system which generated this result transmitted reference range: 10*3/?L. The reference range was not used to interpret this result as normal/abnormal. GRAN MAT (NEUT) % (test code = 770-8) 61.5 % IMM GRAN % (test code = 9156563499) 0.60 % LYMPH % (test code = 736-9) 26.3 % MONO % (test code = 5905-5) 9.4 % EOS % (test code = 713-8) 1.4 % BASO % (test code = 706-2) 0.8 % GRAN MAT x10^3(ANC) (test code = 2280340697) 5.25 10*3/uL 1.88-7.09 IMM GRAN x10^3 (test code = 9237063118) 0.05 10*3/uL 0.00-0.06 LYMPH x10^3 (test code = 731-0) 2.25 10*3/uL 1.32-3.29 MONO x10^3 (test code = 742-7) 0.80 10*3/uL 0.33-0.92 EOS x10^3 (test code = 711-2) 0.12 10*3/uL 0.03-0.39 BASO x10^3 (test code = 704-7) 0.07 10*3/uL 0.01-0.07 Lab Interpretation (test code = 52275-0) [facility] Whole [id number] 17:56:21* Test Item Value Reference Range Interpretation Comme nts LACTIC ACID (test code = 7772922383) 1.19 mmol/L 0.50-2.20 Lab Interpretation (test cod e = 16495-5) Normal [facility] PEL[facility] WO [id number] 17:26:41EXAM: CT ABDOMEN PELVIS WO CONTRAST HISTORY: [...] osteophytosisabout the lower thoracic and lower lumbar spine.[facility]wayComp. Metabolic Panel (29082)2023-07-16 16:55:43* Test Item Value Reference Range Interpretation Comme nts NA (test code = 3106126835) 134 mmol/L 135-145 L K (test code = 8713116681) 4.7 mmol/L 3.5-5.0 CL (test code = 3217008282) 101 mmol/L 98-108 CO2 TOTAL (test code = 0413644754) 33 mmol/L 23-31 H AGAP (test code = 9355152445) 2-16 L BUN (test code = 0745439071) 15 mg/dL 7-23 GLUCOSE (test code = 5089520252) 366 mg/dL 70-110 H CREATININE (test code = 2160-0) 0.58 mg/dL 0.50-1.04 TOTAL BILI (test code = 1801876852) 0.5 mg/dL 0.1-1.1 CALCIUM (test code = 1656457987) 9.0 mg/dL 8.6-10.6 T PROTEIN (test code = 9643913829) 6.6 g/dL 6.3-8.2 ALBUMIN (test code = 6400337977) 3.3 g/dL 3.5-5.0 L ALK PHOS (test code = 6835945302) 108 U/L 34-122 ALTv (test code = 1742-6) 20 U/L 5-35 AST(SGOT) (test code = 9787221735) 21 U/L 13-40 eGFR (test code = 42522-7) 111.8 mL/min/1.73m2 CKD-EPI eGFR (2020). Assuming creatinine has been stable day-to-day for at least three months, the eGFR indicates Category G1 (>= 90 mL/min/1.73 m2) Lab Interpretation (test code = 46041-4) [facility]normal [facility]wayTroponin [id number] 16:47:50* Test Item Value Reference Range Interpretation Comme nts TROPONIN I (test code = 8716389606) 0.009 ng/mL <=0.034 GIO (test code = [...] of biotin. Lab Interpretation (test code = 38022-6) Normal [facility]wayMagnesium2024-02-27 16:36:26* Test Item Value Reference Range Interpretation Comme nts MAGNESIUM (test code = 1084360360) 2.0 mg/dL 1.7-2.4 Lab Interpretation (test cod e = 40100-1) Normal [facility]wayLipase2024-02-27 16:36:06* Test Item Value Reference Range Interpretation Comme nts LIPASE (test code = 8073885398) 74 U/L 0-220 Lab Interpretation (test cod e = 76919-6) Normal [facility] ParkwayCbc with [id number] 16:29:20* Test Item Value Reference Range Interpretation [...] 34.0 g/dL 31.6-35.1 RDW-SD (test code = 78241-5) 36.9 fL 39.0-49.9 L RDW-CV (test code = 788-0) 12.4 % 12.0-15.5 PLT (test code = 777-3) 292 166-358 MPV (test code = 43931-5) 10.3 fL 9.5-12.9 NRBC/100 WBC (test code = 4933986567) 0.0 0.0-10.0 NRBC x10^3 (test code = 2114062041) See_Comment [Automated [employer]] The system which generated this result transmitted reference range: 10*3/?L. The reference range was not used to interpret this result as normal/abnormal. GRAN MAT (NEUT) % (test code = 770-8) 65.5 % IMM GRAN % (test code = 2972723299) 0.40 % LYMPH % (test code = 736-9) 23.8 % MONO % (test code = 5905-5) 8.6 % EOS % (test code = 713-8) 1.0 % BASO % (test code = 706-2) 0.7 % GRAN MAT x10^3(ANC) (test code = 5400960380) 4.59 10*3/uL 1.88-7.09 IMM GRAN x10^3 (test code = 8074259113) 0.03 10*3/uL 0.00-0.06 LYMPH x10^3 (test code = 731-0) 1.67 10*3/uL 1.32-3.29 MONO x10^3 (test code = 742-7) 0.60 10*3/uL 0.33-0.92 EOS x10^3 (test code = 711-2) 0.07 10*3/uL 0.03-0.39 BASO x10^3 (test code = 704-7) 0.05 10*3/uL 0.01-0.07 Lab Interpretation (test code = 17077-9) Abnormal [facility] GLUCOSE (AUTOMATED)2023-07-16 15:31:53* Test Item Value Reference Range Interpretation Comme nts POCT GLU (test code = 4387840242) 354 mg/dL 70-110 H Lab Interpretation (test cod e = 20695-8) Abnormal [facility] GLUCOSE(AGE >30DAYS)2023-03-17 02:51:00* Test Item Value Reference Range Interpretation Comme nts POCT Glu (age>30days) (test code = 3342) 271 mg/dL 70-110 A Lab Interpretation (test cod e = 00147-8) Abnormal [facility] GLUCOSE (AUTOMATED)2023-03-17 02:50:17* Test Item Value Reference Range Interpretation Comme nts POCT GLU (test code = 7790291041) 271 mg/dL 70-110 H Lab Interpretation (test cod e = 03712-3) [facility]normal [facility] Metabolic [id number] 02:31:47* Test Item Value Reference Range Interpretation Comme nts NA (test code = 3452286283) 136 mmol/L 135-145 K (test code = 9261391953) 3.9 mmol/L 3.5-5.0 CL (test code = 0757333457) 101 mmol/L 98-108 CO2 TOTAL (test code = 0213376325) 23 mmol/L 23-31 AGAP (test code = 2524718625) 12 2-16 BUN (test code = 7789349585) 14 mg/dL 7-23 GLUCOSE (test code = 0591415120) 308 mg/dL 70-110 H CREATININE (test code = 7641166865) 0.45 mg/dL 0.50-1.04 L TOTAL BILI (test code = 3964261495) 0.5 mg/dL 0.1-1.1 CALCIUM (test code = 4773027316) 9.1 mg/dL 8.6-10.6 T PROTEIN (test code = 9590679333) 6.7 g/dL 6.3-8.2 ALBUMIN (test code = 6945682691) 3.5 g/dL 3.5-5.0 ALK PHOS (test code = 9125925090) 94 U/L 34-122 ALTv (test code = 1742-6) 19 U/L 5-35 AST(SGOT) (test code = 4310761832) 17 U/L 13-40 eGFR (test code = 6132251531) 148.7 mL/min/1.73m2 GIO (test code = GIO) [...] imaging tests). Lab Interpretation (test code = 65235-8) Abnormal [facility]wayLipase, Rixoh7061-52-92 02:31:27* Test Item Value Reference Range Interpretation Comme [facility] LIPASE (test code = 2932704391) 31 U/L 0-220 Lab Interpretation (test cod e = 51652-0) Normal [facility] (AUTOMATED)2023-03-17 01:34:16* Test Item Value Reference Range Interpretation Comme [facility] POCT GLU (test code = 9619576452) 299 mg/dL 70-110 H Lab Interpretation (test cod e = 65406-2) Abnormal [facility]wayCBC with Crkcuwqeexoe4953-81-00 01:15:26* Test Item Value Reference Range Interpretation Comme nts WBC (test code = 6690-2) 12.20 See_Comment [...] 33.9 g/dL 31.6-35.1 RDW-SD (test code = 39603-6) 37.0 fL 39.0-49.9 L RDW-CV (test code = 788-0) 12.4 % 12.0-15.5 PLT (test code = 777-3) 279 See_Comment [Automated message] The system which generated this result transmitted reference range: 166 - 358 10*3/?L. The reference range was not used to interpret this result as normal/abnormal. MPV (test code = 69700-1) 10.4 fL 9.5-12.9 NRBC/100 WBC (test code = 3279583032) 0.0 See_Comment [Automated message] The system which generated this result transmitted reference range: 0.0 - 10.0 /100 WBCs. The reference range was not used to interpret this result as normal/abnormal. NRBC x10^3 (test code = 1174907828) See_Comment [Automated message] The system which generated this result transmitted reference range: 10*3/?L. The reference range was not used to interpret this result as normal/abnormal. GRAN MAT (NEUT) % (test code = 770-8) 83.6 % IMM GRAN % (test code = 9462535829) 0.90 % LYMPH % (test code = 736-9) 11.6 % MONO % (test code = 5905-5) 3.4 % EOS % (test code = 713-8) 0.1 % BASO % (test code = 706-2) 0.4 % GRAN MAT x10^3(ANC) (test code = 2458109364) 10.21 10*3/uL 1.88-7.09 H IMM GRAN x10^3 (test code = 1425920004) 0.11 10*3/uL 0.00-0.06 H LYMPH x10^3 (test code = 731-0) 1.41 10*3/uL 1.32-3.29 MONO x10^3 (test code = 742-7) 0.41 10*3/uL 0.33-0.92 EOS x10^3 (test code = 711-2) 0.03-0.39 L BASO x10^3 (test code = 704-7) 0.05 10*3/uL 0.01-0.07 Lab Interpretation (test code = 83546-6) [facility]normal [facility] (NA, K, CL, CO2, GLUCOSE, BUN, CREATININE, CA)2022-09-11 20:13:22* Test Item Value Reference Range Interpretation Comme nts NA (test code = 6861832786) 136 mmol/L 135-145 K (test code = 8225547112) 4.5 mmol/L 3.5-5.0 CL (test code = 7057930292) 101 mmol/L 98-108 CO2 TOTAL (test code = 5559971676) 29 mmol/L 23-31 AGAP (test code = 9988445132) 6 2-16 BUN (test code = 1044778043) 14 mg/dL 7-23 GLUCOSE (test code = 7151998740) 381 mg/dL 70-110 H CREATININE (test code = 4335577418) 0.49 mg/dL 0.50-1.04 L CALCIUM (test code = 6684578053) 9.3 mg/dL 8.6-10.6 eGFR (test code = 0781530915) 135.4 mL/min/1.73m2 GIO (test code = GIO) [...] imaging tests). Lab Interpretation (test code = 67709-5) Abnormal [facility]way[facility]I METABOLIC [id number] 11:35:00* Test Item Value Reference Range Interpretation [...] code = CA) 9.3 mg/dl 8.0-10.5 N HEPATIC FUNCTION PANEL [id number] 11:35:00* Test Item Value Reference Range Interpretation [...] code = ALKP) 101 Units/L 50.0-136.0 N [id number] 11:35:00* Test Item Value Reference Range Interpretation Comme nts LIPASE (test code = LIP) 153 Units/L 65.0-230.0 N CBC W/AUTO [id number] 11:13:00* Test Item Value Reference Range Interpretation [...] 3uL 0.00-0.01 N DRUGS OF ABUSE SCREEN [id number] 10:28:00* Test Item Value Reference Range Interpretation [...] Methadone cut-o ff concentration: 300 ng/mL URINALYSIS YLPZALPJ4449-88-68 10:26:00* Test Item Value Reference Range Interpretation [...] (test code = YEASTU) FEW NEGATIVE SURGICAL FBVYFRRBM6736-76-74 16:45:00* Test Item Value Reference Range Interpretation Comme nts SURGICAL SPECIMENS (test code = SURG) RUN DATE: 05/11/20 [facility] - Lab PAGE 1 RUN TIME: 1646 Specimen Inquiry RUN USER: INTERFACE PATIENT: KURT LLAMAS [facility] [id number] AGE/SX: 44/F ROOM: [facility] RE04/30/20REG DR: Coretta Morris : 73 BED: 1 DIS: 05/09/20 STATUS: DIS IN TLOC: SPEC #: [id number] RECD: 05/09/20 STATUS: XI RESabrina #: [id number] ROCKY: 05/09/20- SUBM DR: Coretta Morris MD ENTERED: 05/09/20 SP TYPE: SURG SPEC OTHR DR: No Primary or Family Physician Self Referred ClauseFrederick DPM, William S MDORDERED: BONE DECAL/2, GM LEVEL 4/2, REQUEST COMMENTS: 1. RIGHT DISTAL HALLUX 2. RIGHT HALLUX PROXIMAL CLEAR MARGIN COPIES TO: No Primary or Family Physician Self Referred Frederick Perry DPM [address] [facility] [address] [place] [address] Coretta Morris MD [address] [facility] [address] [place] [address] @[employer] Refugio Mora MD [address] [place] [address] ICD CODES: 785.4 - PROCEDURES: BONE DECAL (Incomplete) GM LEVEL 4 (05/11/20-1347) REQUEST (05/09/20) FINAL DIAGNOSIS A. RIGHT DISTAL HALLUX: GANGRENE WITH CHRONIC OSTEOMYELITIS. B. RIGHT HALLUX PROXIMAL CLEAR MARGIN: BONE AND SOFT TISSUE WITH NO PATHOLOGY. CPT CODE: 80689 X 2, 01254 X 2 CONTINUED ON NEXT PAGE RUN DATE: 05/11/20 [facility] Lab PAGE 2 RUN TIME: 1646 Specimen Inquiry RUN USER: INTERFACE SPEC #: [id number] PATIENT: KURT LLAMAS #[id number] (Continued) MACROSCOPIC Clinical history: Right hallux osteomyelitis A. Specimen labeled "right distal hallux" consists of a terminal portion of a toemeasuring 2.5 cm in length and 2 cm in maximum diameter. The skin underlying the toe showsslippage and separate from the underlying tissue. Mri Supervisor sections including bonein one cassette A. B. Specimen labeled "right hallux proximal clear margins" consists of a roughlyrectangular piece of bone with partial cartilagenous covering measuring 1.4 cm in maximumdiameter. Mri Supervisor sections one cassette, ____ A2 for decalcification. MICROSCOPIC SEE DIAGNOSIS Signed SIGNATURE ON FILE Dekmezian,Roupen H. 05/11/20 1645 END OF REPORT [id number] 15:25:00* Test Item Value Reference Range Interpretation Comme nts GLUBED (test code = GLUBED) 199 mg/dL 70-110 H [id number] 11:28:00* Test Item Value Reference Range Interpretation Comme nts GLUBED (test code = GLUBED) 249 mg/dL 70-110 H [id number] 08:28:00* Test Item Value Reference Range Interpretation Comme nts GLUBED (test code = GLUBED) 217 mg/dL 70-110 H VANCOMYCIN [id number] 00:42:00* Test Item Value Reference Range Interpretation Comme nts VANCOMYCIN TROUGH (test code = VANCT) 16.8 mcg/mL 10-20 N Other diseas e associated reference ranges: 10 - 15 mcg/mL Cellulitis, urinary tract infection 15 - 20 mcg/mL Bacteremia, infective endocarditis, osteomyelitis, meningitis, pneumonia, severe skin/soft tissue infection, spinal abscess BASIC METABOLIC [id number] 00:41:00* Test Item Value Reference Range Interpretation [...] CA) 9.0 mg/dl 8.0-10.5 N CBC W/AUTO [id number] 00:33:00* Test Item Value Reference Range Interpretation [...] = NRBC#) 0.00 X10 3uL 0.00-0.01 N [id number] 20:46:00* Test Item Value Reference Range Interpretation Comme nts GLUBED (test code = GLUBED) 281 mg/dL 70-110 H BASIC METABOLIC [id number] 05:10:00* Test Item Value Reference Range Interpretation [...] code = CA) 8.6 mg/dl 8.0-10.5 N [id number] 21:03:00* Test Item Value Reference Range Interpretation Comme nts GLUBED (test code = GLUBED) 239 mg/dL 70-110 H [id number] 16:36:00* Test Item Value Reference Range Interpretation Comme nts GLUBED (test code = GLUBED) 268 mg/dL 70-110 H [id number] 13:31:00* Test Item Value Reference Range Interpretation Comme nts GLUBED (test code = GLUBED) 307 mg/dL 70-110 H [id number] 07:45:00* Test Item Value Reference Range Interpretation Comme nts GLUBED (test code = GLUBED) 225 mg/dL 70-110 H [id number] 21:52:00* Test Item Value Reference Range Interpretation Comme nts GLUBED (test code = GLUBED) 271 mg/dL 70-110 H - XR FOOT 3 + V [id number] 18:29:00 [facility] 1975 Sex: F FAX: Jerel Goodman [phone] [place]: St: DIS FAX: Derek Eisenberg [phone] Name: KURT LLAMASEE [facility] : 1975 Age/S: 44/F [address] [facility] Unit #: [id number]: [address] [place], [place] Phys: Jerel Goodman DPM [address] Acct: [id number] Dis Date: 20200509 Status: DIS IN PHONE #: [phone] Exam Date: 05/06/20201819 FAX #: [phone] Reason: s/p right partial ampuation hallux EXAMS: CPT CODE: [id number] XR FOOT 3 + V RT 77637 Site ID: [id number] INDICATION: Postoperative, partial amputation of the hallux IMPRESSION: Satisfactory postoperative films following partial first digit amputation the distal portion of the first proximal phalanx at 1829 Reported and signed by: Kuldip Lozano M.D. CC: Jerel Goodman DPM; Coretta Morris MD Technologist: JAMES RANDOLPH Trnscrd Date/Time/By: 05/06/2020 (1828) : By: [email or web address] PAGE 1 Signed Report FAX: Jerel Goodman [phone] [place]: St: DIS FAX: Derek Eisenberg [phone] Name: KURT LLAMAS [facility] [place] : 1975 Age/S:44/F [address] [facility] Unit #: [id number] Loc: [address] [place], [place] Phys: Jerel Goodman DPM [address] Acct: [id number] Dis Date: 20200509 Status: DIS IN PHONE #: [phone] Exam Date: 05/06/2020 1820 FAX #: [phone] Reason: s/p right partial ampuation hallux EXAMS: CPT CODE: [id number] XR FOOT 3 + V RT 58472 <Continued> Orig Print D/T: S: 05/06/2020 (1833) PAGE 2 Signed Report- XR FOOT 3 + V [id number] 18:29:00 [facility] : 1975 Sex: F FAX: Jerel Goodman [phone] [place]: St: [facility] FAX: Derek Eisenberg [phone] Name: KURT LLAMAS [facility] : 1975 Age/S: 44/F [address] [facility] Unit #: [id number] Loc: [address] [place] [address] Phys: Jerel Goodman DPM [address] Acct: [id number] Dis Date: Status: ADM IN PHONE #: [phone] Exam Date: 05/06/2020 1820 FAX #: [phone] Reason: s/p right partialampuation hallux EXAMS: CPT CODE: [id number] XR FOOT 3 + V RT 86158 Site ID: [id number] INDICATION: Postoperative, partial amputation of the hallux IMPRESSION: Satisfactory postoperative films following partial first digit amputation the distal portion of the first proximal phalanx at 1829 Reported and signed by: Kuldip Lozano M.D. CC: Jerel WHITEM; Coretta Morris MD Technologist: JAMES RANDOLPH Trnscrd Date/Time/By: 05/06/2020 (1828) : By: [email or web address] PAGE 1 Signed Report FAX: Jerel Goodman [phone] [place]: St: ADM FAX: Derek Eisenberg [phone] Name: KURT LLAMAS [facility] : 1975 Age/S: 44/F [address] [facility] Unit #: [id number] Loc: [address] [place], [place] Phys: Jerel Goodman DPM [address] Acct: [id number] Dis Date: Status: ADM IN PHONE #: [phone] Exam Date: 05/06/20201819 FAX #: [phone] Reason: s/p right partial ampuation hallux EXAMS: CPT CODE: [id number] XR FOOT 3 + V RT 47485 (Continued) Orig Print D/T: S: 05/06/2020 (183) PAGE 2 Signed ReportGLUBED 2020-05-06 15:19:00* Test Item Value Reference Range Interpretation Comme nts GLUBED (test code = GLUBED) 174 mg/dL 70-110 H COVID 19 Asymptomatic IH [id number] 12:57:00* Test Item Value Reference Range Interpretation Comme nts COVID 19 Asymptomatic IH AG (test code = COVNONPUIAG) NEGATIVE NEGATIVE Negative results should be treated as presumptive and ifinconsistent with clinical signs and symptoms, or necessaryfor patient management, should be tested with an alternativemolecular assay. Negative results do not preclude LDEM-JvW-8fpaifmgdd and should not be used as the sole basis forpatient management decisions. Negative results should beconsidered in the context of a patient's recent exposures,history, presence of clinical signs and symptoms consistentwith COVID-19. Specimen comments: If not done this [id number] 11:17:00* Test Item Value Reference Range Interpretation Comme nts GLUBED (test code = GLUBED) 217 mg/dL 70-110 H [id number] 07:26:00* Test Item Value Reference Range Interpretation Comme nts GLUBED (test code = GLUBED) 263 mg/dL 70-110 H VANCOMYCIN [id number] 05:58:00* Test Item Value Reference Range Interpretation Comme nts VANCOMYCIN TROUGH (test code = VANCT) 8.4 mcg/mL 10-20 L Other diseas e associated reference ranges: 10 - 15 mcg/mL Cellulitis, urinary tract infection 15 - 20 mcg/mL Bacteremia, infective endocarditis, osteomyelitis, meningitis, pneumonia, severe skin/soft tissue infection, spinal abscess Specimen comments: PLEASE DRAW VANCO TROUGH PRIR TO 0500 DOSE, THANK YOUComments to [employer]: PLEASE MAKE SURE VANCO IS NOT HANGING, THANK YOUCOMPREHENSIVE METABOLIC [id number] 05:49:00* Test Item Value Reference Range Interpretation [...] ALKP) 92 Units/L 50.0-136.0 N CBC W/AUTO [id number] 05:29:00* Test Item Value Reference Range Interpretation [...] N - MRI LOW EXT W/O CONT [id number] 14:53:00 [facility] : 1975 Sex: F FAX: Milton Kraus [phone] [place]: St: DIS FAX: Derek Eisenberg [phone] Name: KURT LLAMAS [facility] : 1975 Age/S: 44/F [address] Unit #: [id number] Loc: [address] [place], [place] Phys: Milton Teixeira [address] Acct: [id number] Dis Date: 20200509 Status: DIS IN PHONE #: [phone] Exam Date: 05/05/2020 1423 FAX #: [phone] Reason: Eval osteo rt toe EXAMS: CPT CODE: [id number] MRI [place]T W/[place] [address] Site ID: [id number] HISTORY: Right greattoe osteomyelitis COMPARISON: CT of the legs of the same day TECHNIQUE: Multiplanar, multisequence MRI of the right mid to forefoot was performed without intravenous contrast FINDINGS: Moderate subcutaneous edema/cellulitis of the hallux, with a thin 2 cm long by 5 mm deep periosseous and subperiosteal abscess at the plantar aspect of the 1st distal phalanx associated with early plantar corticaldemineralization and diffuse osteomyelitis of the 1st distal phalanx. No IP joint effusion. The proximal phalanx appears normal. No other site of concern for osteomyelitis. No arthritic change or bony fragmentation. Lisfranc ligament is intact. IMPRESSION: Osteomyelitis changes throughout the 1st distal phalanx with thin associated plantar soft tissue and subperiosteal abscess at 2108 Reported and signed by: Kuldip Lozano M.D. CC: Milton RUIZ; Coretta Morris MD Technologist: JANIE NGUYỄN Trnscrd Date/Time/By: 05/05/2020 (3921) : By: [email or web address] PAGE 1 Signed Report FAX: Milton Kraus [phone] [place]: St: DIS FAX: Derek Eisenberg [phone] Name: KURT LLAMAS [facility] [place] : 1975 Age/S: 44/F [address] [employer] Unit #: [id number] Loc: [address] [place], [place] Phys: Milton Teixeira [address] Acct: [id number] Dis Date: 20200509 Status: DIS IN PHONE #: [phone] ExamDate: 05/05/2020 1423 FAX #: [phone] Reason: Eval osteo rt toe EXAMS: CPT CODE: [id number] MRILOW EXT W/[place] [address] <Continued> Orig Print D/T: S: 05/05/2020 (6069) PAGE 2 Signed Report- MRI LOW EXT W/O CONT [id number] 14:53:00 [facility] : 1975 Sex: F FAX: Milton Kraus [phone] [place]: St: [facility] FAX: Derek Eisenberg [phone] Name: KURT LLAMAS [facility] : 1975 Age/S: 44/F [address] Unit #: [id number]: [address] [place], [place] Phys: Milton Teixeira [address] Acct: [id number] Dis Date: Status: ADMIN PHONE #: [phone] Exam Date: 05/05/2020 1423 FAX #: [phone] Reason: Eval osteo rt toe EXAMS: CPT CODE: [id number] MRI LOW EXT W/[place] [address] Site ID: [id number] HISTORY: Right great toe osteomyelitis COMPARISON: CT of the legs of the same day TECHNIQUE: Multiplanar, multisequence MRI of the right mid to forefoot was performed without intravenous contrast FINDINGS: Moderate subcutaneous yamila a/cellulitis of the hallux, with a thin 2 [...] plantar soft tissue and subperiosteal abscess at 8819 Reported and signed by: Kuldip Lozano M.D. CC: Milton RUIZ; Coretta Morris MD Technologist: JANIE NGUYỄN Trnscrd Date/Time/By: 05/05/2020 (2559) : By: [email or web address] PAGE 1 Signed Report FAX: Milton Kraus [phone] [place]: St: [facility] FAX: Derek Eisenberg [phone] Name: KURT LLAMAS [facility] : 1975 Age/S: 44/F[address] [employer] Unit #: [id number] Loc: [address] [place], [place] Phys: Milton Teixeira [address] Acct: [id number] Dis Date: Status: ADM IN PHONE #: [phone] Exam Date: 05/05/2020 1423 FAX #: [phone] Reason: Eval osteo rt toe EXAMS: CPT CODE: [id number] MRI [place] EXT W/[place] [address] (Continued) Orig Print D/T: S: 05/05/2020 (1456) PAGE 2 Signed Report- CT LOWER EXTRM W/O C [id number] 13:23:00 [facility] : 1975 Sex: F FAX: Milton Kraus [phone] [place]: St: DIS FAX: Derek Eisenberg [phone] Name: KURT LLAMAS [facility] : 1975 Age/S: 44/F [address] [facility] Unit: [id number] Loc: [address] [place], [place] Phys: Milton Teixeira [address] Acct: [id number] Dis Date: 05/09/2020 Status: DIS IN PHONE #: [phone] Exam Date: 05/05/2020 1126 FAX #: [phone] Reason: r/o osteo EXAMS: CPT CODE: [id number] [place]TR[place] W/[place] [address] EXAM: - CT LOWER EXTRM W/O C RT LOCATION: C3 HISTORY: r/o osteo, pain COMPARISON: None available at time of interpretation. TECHNIQUE: Noncontrast CT images of the bilateral feet with multiplanar reformats. This exam was performed accordingto our departmental dose-optimization program, which includes automated [...] Technologist: PILAR ERNST Trnscrd Dt/Tm: 05/05/2020 (1323) RockyHV2 Orig Print D/T: S: 05/05/2020 (9436 PAGE1 Signed Report- CT LOWER EXTRM W/O C [id number] 13:23:00 [facility] : 1975 Sex: F FAX: Milton Kraus [phone] [place]: St: [facility] FAX: Kathya SharonaneloscarDerek pérez [phone] Name: KURT LLAMAS [facility] : 1975 Age/S: 44/F [address] [facility] Unit: [id number] Loc: [address] [place], [place] Phys: Milton Teixeira [address] Acct: [id number] Dis Date: Status: ADM IN PHONE #: [phone] Exam Date: 05/05/2020 1126 FAX #: [phone] Reason: r/o osteo EXAMS: CPT CODE: [id number] [place] [address] EXAM: - CT LOWER EXTRM W/O C RT LOCATION: C3 HISTORY: r/o osteo, pain COMPARISON: None available at time of interpretation. TECHNIQUE: Noncontrast CT images of the bilateral feet with multiplanar reformats. This exam was performed according to our depa rtmental dose-optimization program, which includes automated exposure control, adjustment of the mAand/or kV according to patient size and/or use of iterative reconstruction technique. FINDINGS: Loss of normal cortex at the plantar aspect of the right great toe distal phalanx. Moderate Achilles and plantar calcaneal enthesopathy is noted. No drainable fluid collection. IMPRESSION: Limited evaluation due to the late the examination was ordered. Each foot should be scanned separately in order toincrease sensitivity of the study. Possible loss of normal cortex at the plantar aspect of the right great toe distal phalanx. Recommend further evaluation with MRI of the right forefoot. at 1323 Reported and signed by: Gaurav Walker M.D. CC: Milton RUIZ; Coretta Morris MD Technologist: PILAR ERNST Trnscrd Dt/Tm: 05/05/2020 (1323) t.[email or web address].[email or web address] Orig Print D/T: S: 05/05/2020 (3586 PAGE 1 Signed ReportGLUBED 2020-05-05 06:41:00* Test Item Value Reference Range Interpretation Comme nts GLUBED (test code = GLUBED) 289 mg/dL 70-110 H [id number] 06:41:00* Test Item Value Reference Range Interpretation Comme nts GLUBED (test code = GLUBED) 356 mg/dL 70-110 H [id number] 20:58:00* Test Item Value Reference Range Interpretation Comme nts GLUBED (test code = GLUBED) 331 mg/dL 70-110 H [id number] 15:23:00* Test Item Value Reference Range Interpretation Comme nts GLUBED (test code = GLUBED) 247 mg/dL 70-110 H [id number] 07:07:00* Test Item Value Reference Range Interpretation Comme nts GLUBED (test code = GLUBED) 282 mg/dL 70-110 H [id number] 20:59:00* Test Item Value Reference Range Interpretation Comme nts GLUBED (test code = GLUBED) 289 mg/dL 70-110 H [id number] 06:56:00* Test Item Value Reference Range Interpretation Comme nts GLUBED (test code = GLUBED) 279 mg/dL 70-110 H [id number] 20:30:00* Test Item Value Reference Range Interpretation Comme nts GLUBED (test code = GLUBED) 319 mg/dL 70-110 H [id number] 15:25:00* Test Item Value Reference Range Interpretation Comme nts GLUBED (test code = GLUBED) 307 mg/dL 70-110 H [id number] 11:29:00* Test Item Value Reference Range Interpretation Comme nts GLUBED (test code = GLUBED) 275 mg/dL 70-110 H [id number] 09:03:00* Test Item Value Reference Range Interpretation Comme nts GLUBED (test code = GLUBED) 232 mg/dL 70-110 H BASIC METABOLIC [id number] 03:15:00* Test Item Value Reference Range Interpretation [...] code = CA) 8.6 mg/dl 8.0-10.5 N [id number] 03:15:00* Test Item Value Reference Range Interpretation Comme nts MAGNESIUM (test code = MAG) 1.9 mg/dl 1.8-2.4 N [id number] 03:14:00* Test Item Value Reference Range Interpretation Comme nts HGBA1C% (test code = HGBA1C%) 12.4 %A1C 4.8-6.0 H ESTIMATED AVERAGE GLUCOSE (t est code = EAG) 309 MG/DL CBC W/AUTO [id number] 03:07:00* Test Item Value Reference Range Interpretation [...] = NRBC#) 0.00 X10 3uL 0.00-0.01 N [id number] 19:26:00* Test Item Value Reference Range Interpretation Comme nts GLUBED (test code = GLUBED) 275 mg/dL 70-110 H [id number] 17:38:00* Test Item Value Reference Range Interpretation Comme nts GLUBED (test code = GLUBED) 340 mg/dL 70-110 H [id number] 11:12:00* Test Item Value Reference Range Interpretation Comme nts GLUBED (test code = GLUBED) 320 mg/dL 70-110 H COMPREHENSIVE METABOLIC [id number] 07:53:00* Test Item Value Reference Range Interpretation [...] code = ALKP) 95 Units/L 50.0-136.0 N [id number] 07:53:00* Test Item Value Reference Range Interpretation Comme nts MAGNESIUM (test code = MAG) 1.9 mg/dl 1.8-2.4 N THYROID STIMULATING [id number] 07:53:00* Test Item Value Reference Range Interpretation Comme nts THYROID STIMULATING HORMONE (test code = TSH) 0.50 IU/ML 0.47-5.01 N Result is in International Units/milliliter [id number] 07:52:00* Test Item Value Reference Range Interpretation Comme nts GLUBED (test code = GLUBED) 273 mg/dL 70-110 H [id number] 07:38:00* Test Item Value Reference Range Interpretation Comme nts HGBA1C% (test code = HGBA1C%) 12.9 %A1C 4.8-6.0 H ESTIMATED AVERAGE GLUCOSE (t est code = EAG) 324 MG/DL CBC W/AUTO [id number] 06:58:00* Test Item Value Reference Range Interpretation [...] = NRBC#) 0.00 X10 3uL 0.00-0.01 N [id number] 00:04:00* Test Item Value Reference Range Interpretation Comme nts GLUBED (test code = GLUBED) 291 mg/dL 70-110 H [id number] 21:10:00* Test Item Value Reference Range Interpretation Comme nts GLUBED (test code = GLUBED) 333 mg/dL 70-110 H [id number] 16:13:00* Test Item Value Reference Range Interpretation Comme nts GLUBED (test code = GLUBED) 297 mg/dL 70-110 H [id number] 13:02:00* Test Item Value Reference Range Interpretation Comme nts GLUBED (test code = GLUBED) 266 mg/dL 70-110 H CBC W/AUTO [id number] 06:03:00* Test Item Value Reference Range Interpretation [...] (test code = PLTEST) ADQ LACTIC ACID [id number] 03:25:00* Test Item Value Reference Range Interpretation Comme nts LACTIC ACID REPEAT (test cod e = LACTR) 0.6 mmol/L 0.4-2.0 N LACTIC [id number] 01:14:00* Test Item Value Reference Range Interpretation Comme nts LACTIC ACID (test code = LACT) 2.4 MMOL/L 0.4-2.0 H URINALYSIS [id number] 00:04:00* Test Item Value Reference Range Interpretation [...] = BACU) TNTC NONE A VENOUS BLOOD [id number] 00:02:00* Test Item Value Reference Range Interpretation [...] FIO2 (test code = FIO2V) 21.0 URINALYSIS [id number] 23:50:00* Test Item Value Reference Range Interpretation [...] BACTERIA (test code = BACU) NONE ACETONE [id number] 23:26:00* Test Item Value Reference Range Interpretation Comme nts ACETONE BLOOD (test code = ACETB) SMALL NEGATIVE A BASIC METABOLIC [id number] 23:16:00* Test Item Value Reference Range Interpretation [...] code = CA) 9.3 mg/dl 8.0-10.5 N [id number] 23:16:00* Test Item Value Reference Range Interpretation Comme nts TROPONIN-I (test code = TROPI) <0.02 NG/ML 0.00-0.06 N REFERENCE RANGE TROPONIN I HEALTHY INDIVIDUALS: <0.06 ng/mL R/O ISCHEMIA: 0.07 - 0.60 ng/mL CUT-OFF RANGE FOR AMI: 0.60 - 1.5 ng/mL - XR CHEST 1 [id number] 23:05:00 [facility] 1975 Sex: F FAX: WillieCharlie [phone] [place]: St: DIS Name: KURT LLAMAS [facility] : 1975 Age/S: 44/F [address] [facility] [employer] [facility] Unit #: [id number] Loc: [address] [place], [place] Phys: TapiaCherelletiffaniegermán ACOSTA [address] Acct: [id number] Dis Date: [id number] Status: DIS IN PHONE #: [phone] Exam Date: 04/29/2020 2259 FAX #: [phone] Reason: SOB EXAMS: CPT CODE: [id number] XR CHEST 1 V 68567 EXAM:- XR CHEST 1 V INDICATION: SOB Location: H62. COMPARISON: None TECHNIQUE: Frontal view of the chest. FINDINGS: Lungs appear clear. Cardiomediastinal silhouette and osseous structures appear unremarkable. No pleural effusion appreciated. IMPRESSION: No acute cardiopulmonary process seen. Electron ically Signed by Alina Marin on 04/29/2020 at 2305 Reported and signed by: Diego Marin M.D. CC: Charlie Tapia DO Technologist: CHARLY TA Trnscrd Date/Time/By: 04/29/2020 (2305) : By: [email or web address] PAGE 1 Signed Report FAX: Charlie Tapia DO [phone] [place]: St: DIS Name: KURT LLAMAS [facility] [place] : 1975 Age/S: 44/F [address] [employer] Unit #: [id number] Loc: E.[address] [place], [place]: [place] [address] Acct: [id number] Dis Date: 20200509 Status: DIS IN PHONE#: [phone] Exam Date: 04/29/2020 3543 FAX #: [phone] Reason: SOB EXAMS: CPT CODE: [id number] XR CHEST 1 V 51380 <Continued> Orig Print D/T: S: 04/29/2020 (1859) PAGE 2 Signed Report- XR CHEST 1 [id number] 23:05:00 [facility] : 1975 Sex: FFAX: Charlie Tapia DO [phone] [place]: ROBERT St: REG Name: KURT SHARP [facility] : 1975 Age/S: 44/F[address] [employer] [facility] Unit #: [id number] Loc: E.ERS[address] [place], [place] Phys: Charlie Tapia [id number] Acct: [id number] Dis Date: Status: REG ER PHONE #: [phone] Exam Date: 04/29/20209FAX #: [phone] Reason: SOB EXAMS: CPT CODE: [id number] XR CHEST 1 V 98343 EXAM: - XR CHEST 1 VINDICATION: SOB Location: H62. COMPARISON: None TECHNIQUE: Frontal view of the chest. FINDINGS: Lungs appear clear. Cardiomediastinal silhouette and osseous structures appear unremarkable. No pleuraleffusion appreciated. IMPRESSION: No acute cardiopulmonary process seen. at 2304 Reported and signed by: Diego Marin M.D. CC: Charlie Tapia DO Technologist: CHARLY TA Trnmoiserd Date/Time/By: 04/29/2020 (2140) : By: [email or web address] PAGE 1 Signed Report FAX: Charlie Tapia DO [phone] [place]: St: REG Name: KURT SHARP [facility] [place] : 1975 Age/S: 44/F [address] [facility] Unit #: [id number] Loc: E.ERS[address] [place], [place]: [place] [address] Acct: [id number] Dis Date: Status: REG ER PHONE #: [phone] Exam Date: 04/29/20202258 FAX #: [phone] Reason: SOB EXAMS: CPT CODE: [id number] XR CHEST 1 V 02189 (Continued) Orig Print D/T: S: 04/29/2020 (0225) PAGE 2 Signed ReportCB W/AUTO [id number] 22:48:00* Test Item Value Reference Range Interpretation [...] NRBC#) 0.00 X10 3uL 0.00-0.01 N Coronavirus 2019 nCoV [id number] 22:40:00* Test Item Value Reference Range Interpretation Comme nts Coronavirus 2019 nCoV Bedside (test code = [id number]) Negative NEGATIVE Negative results should be treated as presumptive and ifinconsistent with clinical signs and symptoms, or necessaryfor patient management, should be tested with an alternativemolecular assay. Negative results do not preclude RYAL-OcO-7bvtobycqd and should not be used as the sole basis forpatient management decisions. Negative results should beconsidered in the context of a patient's recent exposures,history, presence of clinical signs and symptoms consistentwith COVID-19. - CT CERVICAL SP WO [id number] 07:30:00 [facility] : 1975 Sex: F FAX: Bill Storey MD [phone] [place]: ROBERT St: UNK Name: KURT LLAMAS [facility] [place] : 1975 Age/S: 30/F [address] [facility] Unit: [id number] Loc: [place], [place]: [place] [address] Acct: [id number] Dis Date: Status: UNK PHONE #: [phone] Exam Date: 06/24/2006 0349 FAX #: [phone] Reason: am: AMS/FALL EXAMS: CPT CODE: [id number] CT CERVICAL SP WO CON [id number] CT HEAD WO CON 73467 [id number] CHEST 1V AP/PA 13235 [id number] CERVICAL SP MIN 4VWS 70546 CERVICAL SPINE, TWO VIEWS HISTORY: Fall. The [...] Signed Report (CONTINUED) FAX: Bill Storey MD [phone] [place]: St: [facility] Name: KURT LLAMAS [facility] [place] : 1975 Age/S: 30/F [address] [facility] Unit: [id number] Loc: UNK [place], [place]: [place] [address] Acct: [id number] Dis Date: Status: UNK PHONE #: [phone] Exam Date: 06/24/2006 0349 FAX #: [phone] Reason: am: AMS/FALL EXAMS: CPT CODE: [id number] CT CERVICAL SP WO CON [id number] HEAD WO CON 15678 [id number] CHEST 1V AP/PA 01874 [id number] CERVICAL SP MIN 4VWS 82513 <Continued> levels are appropriate. The C5, C6 [...] Bill Starks MD Technologist: SHRUTHI COULTER; DWIGHT Mosqueda Dt/Tm: 06/24/2006 (0918) E.HIM.JLB/E.HIM.JLB/E.HIM.JLB Orig Print D/T: S: 06/24/2006 (1049 PAGE 2 Signed Report- CT HEAD WO [id number] 07:30:00[facility] : 1975 Sex: F FAX: Bill Storey MD [phone] [place]: St: [facility] Name: KURT LLAMAS [facility] [place] : 1975 Age/S: 30/F [address] [facility] Unit: [id number] Loc: [place], [place]: [place] [address] Acct: [id number] Dis Date: Status: K PHONE #: [phone] Exam Date: 06/24/2006 0 349 FAX #: [phone] Reason: am: AMS/FALL EXAMS: CPT CODE: [id number] CT CERVICAL SP WO CON [id number] CT HEAD WO CON 26987 [id number] CHEST 1V AP/PA 25618 [id number] CERVICAL SP MIN 4VWS [id number] SPINE, TWO VIEWS HISTORY: Fall. The cervical spine shows good alignment over the segments that are seen between C1 and C5. No obvious prevertebral edema can be supported. IMPRESSION: Limitedstudy. Additional work-up may be needed for any [...] Signed Report (CONTINUED) FAX: Bill Storey MD [phone] [place]: St: [facility] Name: KURT LLAMAS [facility] [place] : 1975 Age/S: 30/F [address] [facility] [employer] [facility] Unit: [id number] Loc: [place], [place] Phys: Bill Starks MD[address] Acct: [id number] Dis Date: Status: K PHONE #: [phone] Exam Date: 06/24/2006 034 FAX #: [phone] Reason: am: AMS/FALL EXAMS: CPT CODE: [id number] CT CERVICAL SP WO CON [id number] HEAD WO CON 63067 [id number] CHEST 1V AP/PA 53928 [id number] CERVICAL SP MIN 4VWS 91405 <Continued> levels are appropriate. The C5, C6 [...] Technologist: SHRUTHI GOFF Trnscrd Dt/Tm: 06/24/2006 (0918) JOSEFINA/ILDAB/Germán.MARTINB Orig Print D/T: S: 06/24/2006 (1049 PAGE 2 Signed Report- CHEST 1V AP/[id number] 07:30:00[facility] : 1975 Sex: F FAX: Bill Storey MD [phone] [place]: St: UNK Name: KURT LLAMAS [facility] : 1975 Age/S: 30/F [address] [facility] Unit: [id number] Loc: [place], [place]: [place] [address] Acct: [id number] Dis Date: Status: UNK PHONE #: [phone] Exam Date: 06/24/2006 0 349 FAX #: [phone] Reason: am: AMS/FALL EXAMS: CPT CODE: [id number] CT CERVICAL SP WO CON [id number] CT HEAD WO CON 26126 [id number] CHEST 1V AP/PA 63549 [id number] CERVICAL SP MIN 4VWS 25505SYMCZAOH SPINE, TWO VIEWS HISTORY: Fall. The cervical spine shows good alignment over the segments that are seen between C1 and C5. No obvious prevertebral edema can be supported. IMPRESSION: Limitedstudy. Additional work-up may be needed for any [...] CT OF THE CERVICAL SPINE Unenhanced axial imagesat 2.5 millimeter increments were obtained. Minimal sinusitis or mucoperiosteal thickening is seen at the left maxillary level. No fractures of the facial bones that are visualized can be seen. The C1-C2 articulation appears to be intact. The C2-C3 and C3-C4 PAGE 1 Signed Report (CONTINUED) FAX: Bill Storey MD [phone] [place]: St: [facility] Name: KURT LLAMAS [facility] : 1975 Age/S: 30/F [address] [facility] Unit: [id number] Loc: [place], [place]: [place] [address] Acct: [id number] Dis Date: Status: [facility] PHONE #: [phone] Exam Date: 06/24/2006 034 FAX #: [phone] Reason: am: AMS/FALL EXAMS: CPT CODE: [id number] CT CERVICAL SP WO CON [id number] HEAD WO CON 76561 [id number] CHEST 1V AP/PA 43839 [id number] CERVICAL SP MIN 4VWS 87800 <Continued> levels are appropriate. The C5, C6 [...] can be seen. at 1025 Reported and signedby: Pablo Flowers M.D. CC: Bill Starks MD Technologist: SHRUTHI COULTER; DWIGHT GOFF Trnscrd Dt/Tm: 06/24/2006 (0918) E.EDGARDO.JLB/E.EDGARDO.JLB/E.HIM.JLB Orig Print D/T: S: 06/24/2006 (1049 PAGE 2 Signed Report- CERVICAL SP MIN [id number] 07:30:00[facility] : 1975 Sex: F FAX: Bill Storey MD [phone] [place]: St: [facility] Name: KURT LLAMAS [facility] : 1975 Age/S: 30/F [address] [facility] Unit: [id number] Loc: [place], [place]: [place] [address] Acct: [id number] Dis Date: Status: UNK PHONE #: [phone] Exam Date: 06/24/2006 034 FAX #: [phone] Reason: am: AMS/FALL EXAMS: CPT CODE: [id number] CT CERVICAL SP WO CON [id number] HEAD WO CON 00865 [id number] CHEST 1V AP/PA 59129 [id number] CERVICAL SP MIN 4VWS 14200URLKUSGD SPINE, TWO VIEWS HISTORY: Fall. The cervical [...] 1 Signed Report (CONTINUED) FAX:Bill Storey MD [phone] [place]: St: [facility] Name: KURT LLAMAS [facility] [place] : 1975 Age/S: 30/F [address] [facility] Unit: [id number] Loc: [place], [place] Phys: Bill Starks [id number] Acct: [id number] Dis Date: Status: [facility] PHONE #: [phone] Exam Date: 06/24/2006348 FAX#: [phone] Reason: am: AMS/FALL EXAMS: CPT CODE: [id number] CT CERVICAL SP WO CON [id number] HEAD WO CON 17874 [id number] CHEST 1V AP/PA 77971 [id number] CERVICAL SP MIN 4VWS 19429 <Continued> levels are appropriate. The C5, C6 [...] COULTER; DWIGHT GOFF Trnscrd Dt/Tm: 06/24/2006 (0918) E.HIM.JLB/E.HIM.JLB/E.HIM.JLB Orig Print D/T: S: 06/24/2006 (1049 PAGE 2 Signed Report Notes Date/Time Note Provider Source Jhony Cohen [facility]2025-03-04 00:00:00 Jhony Cohen [facility]2025-02-21 10:16:45 Patient given discharge instructions on sciatica. Given prescription X 1 for robaxin. Advised to follow up with pcp. Pt left ER via wheelchair with adult. No signs of distress. IKE Mahmood [facility]70-20-13 08:41:33 CC: patient presents to the ER with complaints of right sided back and leg pain. Patient states she was seen in the ER last week and was diagnosed with sciatica, states medications sent home did not help with pain. States pain radiates down the leg, has also used OTC therapies without relief. Awake, alert, oriented, resp reg unlabored, skin warm and dry, color appropriate for race, moves all ext without difficulty, using wheelchair. Appears in no distress. 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 She denies any injury or trauma. No loss of bowel or bladder function. No dysuria or hematuria. She has been using naproxen, IcyHot as well as tramadol at home and reports is not helping. She reports her pain is worse with bending and movement and is better when she is still. Here for evaluation. Past Medical History/Immunizations: Past Medical History: Diagnosis Date DM (diabetes mellitus) Tetanus received in last 5 years: No Allergies: No Known Allergies Past Social History: Substance & Sexual Activity No substance use or sexual activity history on file. Past Surgical History: Past Surgical History: Procedure Laterality Date MYRINGOTOMY TOE AMPUTATION TONSILLECTOMY TOTAL ABDOMINAL HYSTERECTOMY Review of Systems: Review of Systems Constitutional: Negative for chills and fever. Respiratory: Negative for cough and shortness of breath. Cardiovascular: Negative for chest pain. Gastrointestinal: Negative for abdominal pain and vomiting. Genitourinary: Negative for dysuria. Musculoskeletal: Positive for back pain. Negative for neck pain and neck stiffness. Skin: Negative for wound. Neurological: Negative for dizziness. Psychiatric/Behavioral: Negative for agitation. Endocrine: Negative for goiter. Physical Exam: ED Triage Vitals [07/10/24 0840] Weight 81.6 kg (180 lb) Actual or estimated Estimated by patient/family report Height 1.676 m (5' 6") BP (!) 175/91 Pulse 106 Resp 22 Temp 36.6 ?C (97.9 ?F) Temp source Oral SpO2 100 % Measured on Room air Physical Exam Vitals and nursing note reviewed. Constitutional: Appearance: Normal appearance. She is normal weight. HENT: Head: Normocephalic and atraumatic. Cardiovascular: Rate and Rhythm: Normal rate and regular rhythm. Pulmonary: Effort: Pulmonary effort is normal. No respiratory distress. Abdominal: General: There is no distension. Musculoskeletal: General: Normal range of motion. Cervical back: Normal range of motion and neck supple. Comments: No vertebral body tenderness to her lumbar spine. She does have tightness and tenderness to the right side low lumbar area but none on the left. Muscle strength is 5/5 to lower extremities bilaterally. Skin: General: Skin is warm. Neurological: General: No focal deficit present. Mental Status: She is alert and oriented to person, place, and time. Radiology: No orders to display Lab Results: Lab Results - No data to display EKG: If EKG completed, see Procedure Note. Orders and Treatments: No orders of the defined types were placed in this encounter. Orders Placed This Encounter Medications dexamethasone sod phos PF injection 10 mg diazePAM (VALIUM) tablet 5 mg methocarbamoL 750 mg tablet First Provider Eval: ED Events Date/Time Event User Comments 07/10/24 0851 Medical Screening Begins POLY REYEZ DO -- 07/10/24 0851 First Provider Evaluation POLY REYEZ DO -- ED COURSE Diagnosis/Impression as of 07/10/24 0959 Sciatica of right side Procedures: Procedures MDM: Medical Decision Making The patient presents from home for evaluation of right-sided low back pain for the past 7 days. She denies any injury or trauma. No loss of bowel or bladder function. No dysuria or hematuria. She has been using naproxen, IcyHot as well as tramadol at home and reports is not helping. She reports her pain is worse with bending and movement and is better when she is still. Vital signs are stable in the ER. She has no vertebral body tenderness to her lumbar spine. She does have mild tightness and tenderness to the paraspinal muscles of the low right Lumbar area. Muscle strength is 5/5 to lower extremities bilaterally. No concern for cauda equina syndrome or fracture based on her presentation. Will treat with muscle relaxers here in the ER. She remained stable here in the ER and is okay for discharge home with PCP follow-up. Problems Addressed: Sciatica of right side: acute illness or injury Risk Prescription drug management. Flowsheet Documentation: Scoring Tools: No data recorded Disposition/Condition: ED Disposition ED Disposition Discharge Condition Stable Comment -- Discharge Medications: Patient's Medications START taking these medications METHOCARBAMOL 750 MG TABLET Take 1 tablet by mouth every 6 (six) hours as needed for Pain (scale 1-3). CONTINUE taking these medications which have NOT CHANGED KATWIZHBBU-NXDZRQSTEXJFM-MHHL 50-325-40 MG TABLET Take 1 tablet by mouth every 6 (six) hours as needed (Headache). DOXYCYCLINE (VIBRAMYCIN) 100 MG CAPSULE Take 1 Cap by mouth 2 (two) times daily. METFORMIN 500 MG TABLET Take 1 tablet by mouth in the morning and 1 tablet in the evening. ONDANSETRON (ZOFRAN) 4 MG TABLET Take 1 tablet by mouth every 8 (eight) hours as needed for Nausea and Vomiting (N/V). ONDANSETRON 4 MG DISINTEGRATING TABLET Take 1 tablet by mouth every 8 (eight) hours as needed for Nausea and Vomiting (N/V). TRAMADOL (ULTRAM) 50 MG TABLET Take 1 tablet by mouth every 6 (six) hours as needed for Pain (scale 7-10). Indications: acute pain START taking Modified Medications as Prescribed No medications on file STOP taking these medications No medications on file Follow-up: Electronically signed by: Poly Reyez DO 07/10/24 0959 [facility] - Gyictq2389-24-94 07:41:13 Pt given printed and verbal discharge [...] apparent distress. Left with . IKE Land [facility]Onlbjc0092-[facility]-79 04:28:07 Patient arrived via WC with family to ED c/o not sleeping for 4 days. Patient states being diabetic with severe lower back pain and bilateral leg cramps. Patient took Ibu last night with no relief. IKE Kennedy [facility] HospitalQyetyx9473-86-25 00:00:00 [facility]2025-01-07 00:00:00 [facility]2024-12-29 16:35:24 Pt given printed and verbal discharge [...] with steady gait, in no apparent distress, IKE Villeda [facility] HospitalWimhjc1826-36-37 10:30:35 Patient reports having abscess on base of neck just under hairline that she tried to charles herself about 1 week ago and it is not going away and causing her more pain. STEWARD Ender Neal [facility] HospitalOhtupq1715-88-67 00:00:00 Jhony Cohen [facility]2024-03-01 19:25:21 Pt discharged home following ERP eval. VSS. Given all education and information regarding s/s of worsening condition, pain management and the importance of follow up. Pt verbalized understanding. Alert and ambulatory to pov with spouse. STEWARD Keith Hunt [facility] HospitalFsxrgy0950-95-07 14:38:11 Patient states: "It started Saturday and [...] Pmhx: frequent UTI"s, hysterectomy, DM- type 2, STEWARD Airam Mahmood [place] [address]-02-27 12:36:39 Pt discharged with diagnosis of pyelonephritis. Printed and verbal instructions reviewed with and given to patient. Prescriptions given x 3. Pt verbalized understanding of teaching, medications, and recommended follow-up. Denies questions or concerns at this time. Pt ambulatory at discharge. Appears in no apparent distress. No ataxia noted. Accompanied by spouse. STEWARD Nini Conn RNUTMB - Ebvvur0012-38-06 09:25:54 Patient woke up with lower right side back pain 2 days ago. Reports that the pain has continued along with nausea and vomiting. Additionally reports that she is is a diabetic non-compliant with insulin or oral medications due to financial constraints and that she always has numbers in the 400's. Glucose at triage: 354 mg/dl IKE Maldonado RNPAMB - Ugclwq1743-68-30 08:45:[address] [facility] ([facility]) EMERGENCY PROVIDER REPORT REPORT#:[id number] REPORT STATUS: Signed DATE:09/27/21 TIME: 844 PATIENT: KURT LLAMAS UNIT #: [id number] ROOM/BED: AGE: 45 SEX: F PCP PHYS: [...] fever chills. Patient states she been taking nibi-zlf-sixpqql medications to help with migraines. Risk-Headache Risk [...] (Auto) (23.0 - 38.0 %) 10.1 L [place] % (Auto) (1.0 - 10.0 %) 2.5 Eos % (Auto) (1.0 - 5.0 %) 0.1 L Baso % (Auto) (0.0 - 1.0 %) 0.3 Neut # (Auto) (2.4 - 6.3 K/mm3) 11.4 H Lymph # (Auto) (1.2 - 4.0 K/mm3) 1.3 [place] # (Auto) (0.0 - 0.6 K/mm3) 0.3 [...] pH (5.0 - 9.0) 5.0 Ur Specific [place] (1.000 - 1.030) 1.020 Urine Protein (NEGATIVE [...] is 7:35 AM, no STEMI, interpreted by ED, T wave version V1, T wave inversion [...] Admin Diphenhydramine HCl 25 MG X1ED STA 09/27 0758 DC IV 09/27 0759 Central Nervous System Agents Sig/Mendoza Start time Last Medication Dose Route Stop Time Status Admin Ketorolac 30 MG X1ED STA 09/27 0758 DC Tromethamine IV 09/27 075 Electrolytic, Caloric, And Teressa Sig/Mendoza Start time Last Medication Dose Route Stop Time Status Admin Sodium Chloride 1,000 ML X1ED STA 09/27 0758 DC IV 09/27 0857 Gastrointestinal Drugs Sig/Mendoza Start time Last Medication Dose Route Stop Time Status Admin Metoclopramide HCl 10 MG X1ED STA 09/27 757 DC / IV 09/27 758 1156 Hormones And Synthetic [...] Temp 36.6 09/27 07 Pulse 78 09/27 07 Resp 17 09/27 725 Last Documented: Result Date Time Pulse Ox 99 09/27 725 B/P 128/84 09/27 725 B/P Mean 98 09/27 725 O2 Delivery Room air 09/27 725 Temp 36.6 09/27 0626 Pulse 78 09/27 07 Resp 09/27 All vital signs available at [...] Explanation Myself, Nurse, Family at 1539 RPT #:[id number] END OF [id number] 10:27:[address] [facility] ([facility]) Infectious Dis. Progress Note REPORT#:[id number] REPORT STATUS: Signed DATE:05/09/20 TIME: 1027 PATIENT: KURT LLAMAS UNIT #: [id number] ROOM/BED: [place] [address] : [birth year] AGE: 44 SEX: F ATTEND: [...] significant only for asthma and a hysterectomy years ago, who reported to the ER at [facility] with a 4-day history of muscle [...] edema Musculoskeletal: normal inspection, no joint swelling Neuro/MACHINE PECAN GATHERER: alert, oriented X 3, CNII-XII intact, normal [...] 04/30 0028 BLOOD: Blood Culture - NEGATIVE 04/298 URINE: [...] of view. 3. Podiatry as per Dr. Goodman. 4. Medical management as per the [facility]. at 1031 RPT #:[id number] END OF [id number] 07:17:[address] [facility] ([facility] Podiatry Progress Note REPORT#:[id number] REPORT STATUS: Signed DATE:05/09/20 TIME: 716 PATIENT: KURT LLAMAS UNIT #: [id number] ROOM/BED: [place] [address] : 74 AGE: 44 SEX: F ATTEND: [...] tenderness, neurological deficit Musculoskeletal: Musculoskeletal: decreased ROM Neuro/MACHINE PECAN GATHERER: alert, oriented X 3 Skin: abnormal color, [...] Covering for Dr. Neal/Vicky at 0023 RPT #:[id number] END OF [id number] 16:17:[address] [facility] ([facility] Hospitalist Progress Note REPORT#:[id number] REPORT STATUS: Signed DATE:05/08/20 TIME: 1616 PATIENT: KURT LLAMAS UNIT #: [id number] ROOM/BED: [place] [address] : 74 AGE: 44 SEX: F ATTEND: [...] Chloride 100 ML Sodium Chloride 1,000 ML .[id number] IV (DC) Insulin Glargine 20 UNITS BEDTIME [...] 1720 Wound Culture - RES ABSCESS 05/06 172 Anaerobic Culture - RES ABSCESS 05/06 1720 Gram Stain - RES ABSCESS Recent Impressions-Last 72 Hrs RADIOLOGY - XR FOOT 3 + V RT 05/06 1820 Report Impression - Status: SIGNED Entered: 05/06/20201832 IMPRESSION: Satisfactory postoperative films following partial first digit amputation the distal portion of the first proximal phalanx Impression By: [email or web address] - Kuldip Alina Lozano Vital Signs: Date Time Temp Pulse Resp [...] edema, no cyanosis, right foot in dressing Neuro/MACHINE PECAN GATHERER: alert, oriented X 3, no focal deficits [...] yesterday monitor blood sugars at 1625 RPT #:[id number] END OF [id number] 13:19:[address] [facility] ([facility]) Infectious Dis. Progress Note REPORT#:[id number] REPORT STATUS: Signed DATE:05/08/20 TIME: 1319 PATIENT: KURT LLAMAS UNIT #: [id number] ROOM/BED: [place] [address] : 74 AGE: 44 SEX: F ATTEND: [...] ago, who reported to the ER at [facility] with a 4-day history of muscle [...] Chloride 100 ML Sodium Chloride 1,000 ML .[id number] IV (DC) Insulin Glargine 20 UNITS BEDTIME [...] edema Musculoskeletal: normal inspection, no joint swelling Neuro/MACHINE PECAN GATHERER: alert, oriented X 3, CNII-XII intact, normal speech Skin: normal color, no rash, see wound description above Lymphatics: no lymphadenopathy Psychiatry: normal affect, normal mood Results Findings/Data: Laboratory Tests 05/080 2034 1617 Chemistry Sodium (134.0 - 147.0 mmol/l) [...] Virus Type B Antigen - NEGATIVE 04/30 005 NASOPHARG: Influenza Virus Type A Antigen - NEGATIVE 04/30 0034 BLOOD: Blood Culture - NEGATIVE 04/30 0028 BLOOD: Blood Culture - NEGATIVE 04/298 URINE: [...] Goodman. 5. Medical management as per the [facility]. at 1342 RPT #:[id number] END OF [id number] 09:04:[address] [facility] ([facility]) Pharmacy Prog.Note-Vancomycin REPORT#:[id number] REPORT STATUS: Signed DATE:05/08/20 TIME: 09 PATIENT: KURT LLAMAS UNIT #: [id number] ROOM/BED: [facility] : 74 AGE: 44 SEX: F ATTEND: Coretta Morris MD ADM AUTHOR: Ayaka Juarez [facility] * ALL edits or amendments [...] to uterine cancer in remission. Presented to [facility] due to muscle aches feeling weak lightheaded [...] regimen Thanks for the consult at 09[address] [facility] #:[id number] END OF [id number] 23:08:[address] [facility] ([facility]) Podiatry Progress Note REPORT#:[id number] REPORT STATUS: Signed DATE:05/07/20 TIME: 2308 PATIENT: KURT LLAMAS UNIT #: [id number] ROOM/BED: [place] [address] : 74 AGE: 44 SEX: F ATTEND: [...] Chloride 100 ML Sodium Chloride 1,000 ML .[id number] IV (DC) Insulin Glargine 20 UNITS BEDTIME [...] tenderness, neurological deficit Musculoskeletal: Musculoskeletal: decreased ROM Neuro/MACHINE PECAN GATHERER: alert, oriented X 3 Skin: abnormal color, [...] Covering for Dr. Neal/Vicky at 2317 RPT #:[id number] END OF [id number] 17:09:[address] [facility] ([facility] Hospitalist Progress Note REPORT#:[id number] REPORT STATUS: Signed DATE:05/07/20 TIME: 1708 PATIENT: KURT LLAMAS UNIT #: [id number] ROOM/BED: [place] [address] : 74 AGE: 44 SEX: F ATTEND: [...] PRN IV (DC) Lactated Ringer's 1,000 ML .[id number] IV (DC) Ondansetron HCl 4 MG PACU ONCE PRN PRN IV (DC) Sodium Chloride 1,000 ML .[id number] IV (DCr) Insulin Glargine 20 UNITS BEDTIME [...] MRI of the right forefoot. Impression By: Chana - Gaurav Walker M.D. [employer] [...] Extremities: moves all, no edema, no cyanosis Neuro/MACHINE PECAN GATHERER: alert, oriented X 3, no focal deficits [...] fioricet DVT prophylaxis Lovenox at 1717 RPT #:[id number] END OF [id number] 17:51:[id number] [place] [address] PATIENT NAME: KURT LLAMAS ADMIT DATE: 04/30/20 ACCOUNT NO: [id number] DISCHARGE DATE: 05/09/20 ROOM NO: [facility] REPORT TYPE: OPERATIVE REPORT DATE OF : [birth year] AGE: 44 SEX: F ADMITTING PHYSICIAN:Coretta Morris MD ATTENDING PHYSICIAN:Coretta Morris MD OPERATION DATE: 05/06/2020 PREOPERATIVE DIAGNOSIS: Right hallux osteomyelitis. POSTOPERATIVE DIAGNOSIS: Right hallux osteomyelitis. PROCEDURE PERFORMED: Right hallux partial amputation. PRIMARY SURGEON: Jerel Goodman DPM AUTOMOTIVE MANAGER: None. ANESTHESIA: General with local anesthesia. ESTIMATED [...] when walking. 3. Physical therapy and gait dolphin trainer to evaluate the patient. 4. The patient is to be kept in-house until the pathology comes back as well as microbiology for outpatient antibiotics. 5. The patient follow up in the office in 3 to 5 weeks after discharge. 6. The patient will be followed while in-house. Dictated By: Jerel Goodman DPM WT: OP:ECARLITOS/CHANDLER/DANNIELLE Conf#: [id number]/DID#: [id number] Authenticated by Jerel Goodman MD On 05/14/2020 05:27:45 PM at 1728 PATIENT NAME: KURT LLAMAS 17:42:[address] [facility] ([facility] Brief Op Note REPORT#:[id number] REPORT STATUS: Signed DATE:05/06/20 TIME: 174 PATIENT: KURT LLAMAS UNIT #: [id number] ROOM/BED: [place] [address] : 74 AGE: 44 SEX: F ATTEND: Coretta Morris MD ADM AUTHOR: Jerel Goodman DPM * ALL edits or amendments must be made on the electronic/computer document * Op/Inv Proc Note - Brief Pre-procedure diagnosis: right hallux osteomyeltitis Post-procedure diagnosis: same as pre procedure dx Procedures performed: right hallux partial amputation Primary Surgeon: Dr. Goodman DPM Cream Hauler(s): none Anesthesia: general anesthesia, local anesthesia Findings: fully dictated Complications: none Estimated blood loss in ml's: 10cc Specimens removed/altered: cultures to micro x 2 path distal phalanx path clear margin proximal Drain(s): None Tube(s): none Implant(s): none Fluids: as per anesthesia Urine output: as per anesthesia Approach: open Wound class: infected Disposition: return to floor, stable at 1743 RPT #:[id number] END OF [id number] 13:16:[id number] [place] [address] PATIENT NAME: KURT LLAMAS ADMIT DATE: 04/30/20 ACCOUNT NO: [id number] ROOM NO: [facility] AGE: 44 REPORT TYPE: eVASCULAR STUDY DATE OF : 73 SEX: F ADMITTING PHYSICIAN:Coretta Morris MD ATTENDING PHYSICIAN:Coretta Morris MD Exam Date: 05/05/2020 15:33:00 Exam Type: Non-Invasive Vascular Procedure Codes: 03564 - Duplex scan of lower extremity arteries [...] PSV Name Value Units EIA 134.9 cm/sec TWIST MAKER 70.28 cm/sec PATIENT NAME: KURT LLAMAS SFA - pro 94.18 cm/sec SFA - mid 78.72 cm/sec SFA - dis 66.07 cm/sec Popliteal 78.72 cm/sec MARTY - dis 78.72 cm/sec INTERNATIONAL STUDENT ADVISOR - dis 50.6 cm/sec Left PSV Name Value Units EIA 120.8 cm/sec TWIST MAKER 57.63 cm/sec SFA - pro 81.53 cm/sec SFA - mid 60.44 cm/sec SFA - dis 52.01 cm/sec Popliteal 60.44 cm/sec MARTY - dis 43.58 cm/sec INTERNATIONAL STUDENT ADVISOR - dis 63.26 cm/sec at 1321 PATIENT NAME: KURT LLAMAS 11:24:00 [facility] Hospitalist Progress Note REPORT#:[id number] REPORT STATUS: Signed DATE:05/06/20 TIME: 1124 PATIENT: KURT LLAMAS UNIT #: [id number] ROOM/BED: [place] [address] : 74 AGE: 44 SEX: F ATTEND: [...] of the right forefoot. Impression By: [email or web address] - aGurav Walker M.D. [employer]AG[employer] - MRI LOW EXT W/O CONT RT 05/05 1350 Report Impression - Status: SIGNED Entered: 05/05/2020 1456 IMPRESSION: Osteomyelitis changes throughout the 1st distal phalanx with thin associated plantar soft tissue and subperiosteal abscess Impression By: [email or web address] Macie Lozano M.D. Vital Signs: Date Time Temp [...] Extremities: moves all, no edema, no cyanosis Neuro/MACHINE PECAN GATHERER: alert, oriented X 3, no focal deficits [...] headache- fioricet DVT prophylaxis Lovenox at 0832 RPT #:[id number] END OF [id number] 19:47:[address] [facility] ([facility]) Podiatry Consult Note REPORT#:[id number] REPORT STATUS: Signed DATE:05/05/20 TIME: 1946 PATIENT: KURT LLAMAS UNIT #: [id number] ROOM/BED: [facility] : 74 AGE: 44 SEX: F ATTEND: [...] to uterine cancer in remission. Presented to [facility] due to muscle aches feeling weak lightheaded [...] tenderness, neurological deficit Musculoskeletal: Musculoskeletal: decreased ROM Neuro/MACHINE PECAN GATHERER: alert, oriented X 3 Skin: abnormal color, atrophic shiny skin, erythema, poor skin turgor Results Findings/Data: Laboratory Tests: 05/05 06 Chemistry POC Glucose (70 - 110 mg/dL) [...] Impression By: [email or web address] - Kuldip Lozano M.D. Diagnosis, Assessment Plan Free Text [...] Covering for Dr. Neal/Vicky at 2354 RPT #:[id number] END OF [id number] 13:31:[address] [facility] ([facility]) Hospitalist Progress Note REPORT#:[id number] REPORT STATUS: Signed DATE:05/05/20 TIME: 1331 PATIENT: KURT LLAMAS UNIT #: [id number] ROOM/BED: [place] [address] : 74 AGE: 44 SEX: F ATTEND: [...] no midline vertebral tend, no muscle spasm Neuro/MACHINE PECAN GATHERER: alert, oriented X 3, CNII-XII intact, normal [...] podiatry. DVT prophylaxis Lovenox at 1334 RPT #:[id number] END OF [id number] 15:04:[address] [facility] ([facility] Hospitalist Progress Note REPORT#:[id number] REPORT STATUS: Signed DATE:05/04/20 TIME: 1504 PATIENT: KURT LLAMAS UNIT #: [id number] ROOM/BED: [place] [address] : 74 AGE: 44 SEX: F ATTEND: [...] no midline vertebral tend, no muscle spasm Neuro/MACHINE PECAN GATHERER: alert, oriented X 3, CNII-XII intact, normal [...] -Podiatry DVT prophylaxis Lovenox at 1509 RPT #:[id number] END OF [id number] 11:14:[address] [facility] ([facility]) Infect Disease Consult Note REPORT#:[id number] REPORT STATUS: Signed DATE:05/02/20 TIME: 1114 PATIENT: KURT LLAMAS UNIT #: [id number] ROOM/BED: [place] [address] : 74 AGE: 44 SEX: F ATTEND: [...] ago, who reported to the ER at [facility] with a 4-day history of muscle [...] Admin Linagliptin 5 MG DAILY 05/02 0900 AC 05/02 (TRADJENTA) PO 06/01 0859 0941 Insulin Glargine 10 UNITS BEDTIME 05/01 2100 AC 05/01 (LANTUS) SUBQ 05/31 205 2131 Insulin Human Lispro 0 AC HS [...] Mean Pulse Ox FiO2 05/01-05/02 36.6-37.2 84-91 13-18 107-119/70-81 82.8-93.0 94-97 21 PATIENT WEIGHT: Weight [...] edema Musculoskeletal: normal inspection, no joint swelling Neuro/MACHINE PECAN GATHERER: alert, oriented X 3, CNII-XII intact, normal [...] % (Auto) (23.0 - 38.0 %) 23.0 [place] % (Auto) (1.0 - 10.0 %) 9.7 Eos % (Auto) (1.0 - 5.0 %) 0.7 L Baso % (Auto) (0.0 - 1.0 %) 0.4 Neut # (Auto) (2.4 - 6.3 K/mm3) 8.0 H Lymph # (Auto) (1.2 - 4.0 K/mm3) 2.8 [place] # (Auto) (0.0 - 0.6 K/mm3) 1.2 H Eos # (Auto) (0.0 - 0.7 K/MM3) 0.1 Baso # (Auto) (0.0 - 0.2 K/mm3) 0.1 Absolute Nucleated RBC (0.00 - 0.01 X10 3uL) 0.00 Immature Gran % (0.0 - 0.4 %) 1.0 H Nucleated RBC % (0.0 - 0.1 %) 0.0 Immature Gran # (0.00 - 0.07 x10 3/uL) 0.12 H Microbiology: 04/30 0051 NASOPHARG: Influenza Virus Type B Antigen - NEGATIVE 04/30 0051 NASOPHARG: Influenza Virus Type A [...] the [facility]. at 1501 RPT #:[id number] END OF [id number] 11:26:00 [facility] Hospitalist Progress Note REPORT#:[id number] REPORT STATUS: Signed DATE:05/01/20 TIME: 1126 PATIENT: KURT LLAMAS UNIT #: [id number] [address] AGE: 44 SEX: F ATTEND: Coretta [...] 0028 BLOOD: Blood Culture - RES 04/29 2318 URINE: Urine Culture - RES GRAM NEGATIVE JESSI Recent Impressions: RADIOLOGY - XR CHEST 1 V 04/29 2259 Report Impression - Status: SIGNED Entered: 04/29/2020 1753 IMPRESSION: No acute cardiopulmonary process seen. Impression By: RockyAHNakita Marin M.D. Vital Signs: Date Time Temp [...] 4. DVT prophylaxis Lovenox at 1133 RPT #:[id number] END OF [id number] 11:26:[address] [facility] ([facility]) Hospitalist Progress Note REPORT#:[id number] REPORT STATUS: Signed DATE:05/01/20 TIME: 1125 PATIENT: KURT LLAMAS UNIT #: [id number] ROOM/BED: [place] [address] : 73 AGE: 44 SEX: F ATTEND: [...] Virus Type B Antigen - COMP 04/30 005 NASOPHARG: Influenza Virus Type A Antigen - COMP 04/30 0034 BLOOD: Blood Culture - RES 04/30 002 BLOOD: Blood Culture - RES 04/29 231 URINE: Urine Culture - RES GRAM NEGATIVE JESSI Recent Impressions: RADIOLOGY - XR CHEST 1 V 04/29 2259 Report Impression - Status: SIGNED Entered: 04/29/20202307 IMPRESSION: No acute cardiopulmonary process seen. Impression By: RockyAHNakita Marin M.D. Vital Signs: Date Time Temp [...] prophylaxis Lovenox at 1133 at 1003 RPT #:[id number] END OF [id number] 12:23:[address] [facility] ([facility]) History Physical - Adult REPORT#:[id number] REPORT STATUS: Signed DATE:04/30/20 TIME: 1223 PATIENT: KURT LLAMAS UNIT #: [id number] ROOM/BED: [place] [address] : [birth year] AGE: 44 SEX: F ATTEND: [...] to uterine cancer in remission. Presented to [facility] due to muscle aches feeling weak lightheaded [...] moves all Musculoskeletal: full range of motion Neuro/MACHINE PECAN GATHERER: alert, oriented X 3 Diagnosis, Assessment Plan [...] depending on clinical course at 1233 RPT #:[id number] END OF [id number] 12:23:[address] [facility] ([facility]) History Physical - Adult REPORT#:[id number] REPORT STATUS: Signed DATE:04/30/20 TIME: 1223 PATIENT: KURT LLAMAS UNIT #: [id number] ROOM/BED: [place] [address] : [birth year] AGE: 44 SEX: F ATTEND: [...] to uterine cancer in remission. Presented to [facility] due to muscle aches feeling weak lightheaded [...] moves all Musculoskeletal: full range of motion Neuro/MACHINE PECAN GATHERER: alert, oriented X 3 Diagnosis, Assessment Plan [...] clinical course at 1233 at 1003 RPT #:[id number] END OF [id number] 22:21:[address] [facility] ([facility] EMERGENCY PROVIDER REPORT REPORT#:[id number] REPORT STATUS: Signed DATE:04/29/20 TIME: 2220 PATIENT: KURT SHARP UNIT #: [id number] ROOM/BED: AGE: 44 SEX: F PCP PHYS: [...] 04/29/202213: [Embedded Image Not Available] Laboratory Tests: 04/308 2013 4726 Blood Gas VBG pH 7.401 VBG pCO2 [...] pH (5.0 - 9.0) 5.0 Ur Specific Hurley (1.000 - 1.030) 1.010 Urine Protein (NEGATIVE [...] (Auto) (23.0 - 38.0 %) 8.1 L [place] % (Auto) (1.0 - 10.0 %) 7.8 Eos % (Auto) (1.0 - 5.0 %) 0.2 L Baso % (Auto) (0.0 - 1.0 %) 0.4 Neut # (Auto) (2.4 - 6.3 K/mm3) 14.1 H Lymph # (Auto) (1.2 - 4.0 K/mm3) 1.4 [place] # (Auto) (0.0 - 0.6 K/mm3) 1.3 [...] the family or caregiver. at 0134 RPT #:[id number] END OF [id number] 22:21:[address] [facility] ([facility]) EMERGENCY PROVIDER REPORT REPORT#:[id number] REPORT STATUS: Signed DATE:04/29/20 TIME: 2220 PATIENT: KURT LLAMAS UNIT #: [id number] ROOM/BED: [place] [address] AGE: 44 SEX: F PCP PHYS: No Primary or Family Physician SERVICE AUTHOR: Charlie Tapia DO * ALL edits or amendments must be made on the electronic/computer document * Charlie Tapia 04/29/20 222: HPI-Dizziness/Weakness General Initial Greet Date/Time 04/29/202206 Past [...] Ox 97 04/30 2339 B/P 109/72 04/30 0001 B/P Mean 84 04/30 0001 Temp 36.9 04/30 2339 Pulse 58 04/30 0001 Resp 15 04/30 0001 O2 Delivery Room air 04/29 2339 Review of Vital Signs Reviewed Interpretation Diagnostics Lab Results Interpretation Results Laboratory Tests 04/29/204: [Embedded Image Not Available] Laboratory Tests: 04/308 3192 2187 Blood Gas VBG pH 7.401 VBG pCO2 [...] pH (5.0 - 9.0) 5.0 Ur Specific Hurley (1.000 - 1.030) 1.010 Urine Protein (NEGATIVE [...] EPI/HPF) 0-3 Urine Bacteria (NONE) TNTC H 04/291 2214 Chemistry Sodium (134.0 - 147.0 mmol/l) [...] (Auto) (23.0 - 38.0 %) 8.1 L [place] % (Auto) (1.0 - 10.0 %) 7.8 Eos % (Auto) (1.0 - 5.0 %) 0.2 L Baso % (Auto) (0.0 - 1.0 %) 0.4 Neut # (Auto) (2.4 - 6.3 K/mm3) 14.1 H Lymph # (Auto) (1.2 - 4.0 K/mm3) 1.4 [place] # (Auto) (0.0 - 0.6 K/mm3) 1.3 [...] RADIOLOGY - XR CHEST 1 V 04/29 6289 Report Impression - Status: SIGNED Entered: 04/29/2020 [...] the family or caregiver. at 0134 RPT #:[id number] END OF [id number] 22:21:[address] [facility] ([facility]) EMERGENCY PROVIDER REPORT REPORT#:[id number] REPORT STATUS: Signed DATE:04/29/20 TIME: 2220 PATIENT: KURT LLAMAS UNIT #: [id number] ROOM/BED: [place] [address] AGE: 44 SEX: F PCP PHYS: No [...] 2214: [Embedded Image Not Available] Laboratory Tests: 04/308 2352 2318 Blood Gas VBG pH 7.401 [...] pH (5.0 - 9.0) 5.0 Ur Specific Hurley (1.000 - 1.030) 1.010 Urine Protein (NEGATIVE mg/dl) NEGATIVE Urine Glucose (UA) (NORMAL mg/dl) 1000 mg/dl H Urine Ketones (NEGATIVE mg/dl) 50 mg/dl H Urine Blood (NEGATIVE Homero/micL) 10 Homero/micL H Urine Nitrite (NEGATIVE) POSITIVE H Urine Bilirubin (NEGATIVE mg/dL) NEGATIVE Urine Urobilinogen (NORMAL mg/dl) NORMAL Ur Leukocyte Esterase (NEGATIVE Abigail/micL) 100 Baigail/micL H Urine RBC (0 - 3 RBC/HPF) [...] (Auto) (23.0 - 38.0 %) 8.1 L [place] % (Auto) (1.0 - 10.0 %) 7.8 Eos % (Auto) (1.0 - 5.0 %) 0.2 L Baso % (Auto) (0.0 - 1.0 %) 0.4 Neut # (Auto) (2.4 - 6.3 K/mm3) 14.1 H Lymph # (Auto) (1.2 - 4.0 K/mm3) 1.4 [place] # (Auto) (0.0 - 0.6 K/mm3) 1.3 [...] RADIOLOGY - XR CHEST 1 V 04/29 2437 Report Impression - Status: SIGNED Entered: 04/29/20202307 [...] Temp 37.8 04/29 2154 Pulse 115 04/29 215 Resp 18 04/29 2154 Last Documented: Result [...] )( Admission Accepts Yes )( Accepted Time 013 )( Accepted Date 04/30/20 Discharge/Care Plan Counseled [...] family or caregiver. at [address] [facility] #:[id number] END OF REPORTHCAMN
[2024-09-07] MEDS ORDERED: ONDANSETRON 4 MG/2 ML VIAL ONE (12:52)
[2024-09-07] MEDS ORDERED: NA CHLORIDE 0.9% 1,000 ML ONE (12:52)
[2024-09-07] MEDS ORDERED: KETOROLAC 30 MG/ML INJ ONE (12:52)
[2024-09-07 12:55] LABS: Absolute Basophils 0.1 K/uL (0-0.5); Absolute Eosinophils 0.1 K/uL (0-0.5); Absolute Lymphocytes (CBC) 1.4 K/uL (0.7-4.9); Absolute Monocytes 0.6 K/uL (0.1-1.3); Absolute Neutrophil 6.1 K/uL (1.8-8.0); Basophils % 0.8 % (0-1.3); Hematocrit 33.5 % (36.0-45.0); Hemoglobin 11.7 g/dL (12.0-15.0); Lymphocytes % 17.3 % (15.3-44.8); MCH 28.3 pg (27.0-35.0); MCHC 34.9 g/dL (32.0-36.0); MCV 81.1 fL (80-100); MPV 7.9 fL (7.6-11.3); Monocytes % 6.8 % (3.3-12.3); Neutrophils % 74.1 % (41.7-73.7); Platelets 321 thou/uL (152-406); RBC Red Blood Cell Count 4.13 M/uL (3.86-4.86); Red Cell Distribution Width 13.4 % (12.1-15.2)
[2024-09-07 13:14] LABS: Albumin/Globulin Ratio 0.6 (1.1-1.8); Alkaline Phosphatase 90 U/L (45-117); BUN Blood Urea Nitrogen 23 mg/dL (7-18); Bicarbonate 27 mEq/L (21-32); Bilirubin Total 0.2 mg/dL (0.2-1.0); Globulin 3.3 g/dL (2.3-3.5); Glomerular Filtration Rate 59 ml/min (=/>90); Glucose Level 381 mg/dL (74-106); Lipase 35 U/L (13-75); Protein, Total 5.3 g/dL (6.4-8.2); Sodium Level 139 mEq/L (136-145)
[2024-09-07 13:15] LABS: Specific Gravity 1.009 (1.005-1.030); Sqamous Epithelial <5 /HPF (None Seen); Urine Bacteria >50 /HPF (<20); Urine Bilirubin NEGATIVE (Negative); Urine Blood 2+ (Negative); Urine Clarity Extremely Turbid (Clear); Urine Color Light-Orange (Yellow); Urine Culture Reflex Order REFLEXED; Urine Glucose 4+ (Negative); Urine Ketones NEGATIVE (Negative); Urine Microscopic Reflex YN ORDER UMIC; Urine Mucus Slight /HPF (None Seen); Urine Nitrite NEGATIVE (Negative); Urine Protein 3+ (Negative); Urine RBC 21-50 /HPF (None Seen); Urine Urobilinogen Normal (Normal); Urine WBC >50 /HPF (<5); Urine WBC Clump Many /HPF (None Seen)
[2024-09-07 13:17] LABS: ALT/SGPT < 14 U/L (13-56); AST/SGOT < 10 U/L (15-37)
--- NOTE | 2024-09-07 13:50 | EDPHYS ---
Physician Documentation [facility] Name: Sarita Zelaya Age: 48 yrs Sex: Female : 1975 Arrival Date: 09/07/2024 Time: 11:20 Bed 17 Private MD: ED Physician Job Piedra HPI: 09/07 11:47 This 48 yrs old Female presents to ER via Wheelchair with complaints of High Blood sb4 Sugar, Nausea, Headache. 11:48 Patient reports nausea, vomiting, headache, low back pain since last night. States that sb4 she has a history of hypertension and diabetes and has not been on her medications for about a month now due to financial reasons. Denies any abdominal pain, fever, chills. Denies any urinary symptoms. 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 - Infectious Disease History:: Denies. - Social history:: Smoking status: Patient denies any tobacco usage or history of. ROS: 11:48 Constitutional: Negative for fever, chills, and weight loss, sb4 11:48 Abdomen/GI: Positive for nausea and vomiting, 11:48 Back: Positive for pain at rest, of the left low back and right low back, 11:48 Neuro: Positive for headache, 11:48 All other systems are negative, Exam: 11:48 Constitutional: This is a well developed, well nourished patient who is awake, alert, sb4 and in no acute distress. Head/Face: Normocephalic, atraumatic. Eyes: Extra-ocular motions intact. Periorbital areas with no swelling, redness, or edema. ENT: Mucous membranes moist. Cardiovascular: Regular rate and rhythm with a normal S1 and S2. Respiratory: No increased work of breathing, no retractions or nasal flaring. Abdomen/GI: Soft, non-tender, no distension. Back: No spinal tenderness. No costovertebral tenderness. Full range of motion. Skin: Warm, dry with normal turgor. Normal color with no rashes, no lesions, and no evidence of cellulitis. MS/ Extremity: Pulses equal, no cyanosis. Neurovascular intact. Full, normal range of motion. Vital Signs: 11:36 BP 168 / 98; Pulse 92; Resp 17; Temp 97; Pulse Ox 98% ; Weight 70.31 kg; Height 5 ft. 6 ap3 in. ; Pain 8/10; 13:00 BP 180 / 93; Pulse 79; Resp 16; Pulse Ox 100% ; me1 14:00 BP 162 / 98; Pulse 79; Resp 15; Temp 98.2; Pulse Ox 100% ; me1 14:12 Pain 3/10; me1 11:36 Body Mass Index 25.02 (70.31 kg, 167.64 cm) ap3 11:36 Pain Scale: Adult ap3 14:12 Pain Scale: Adult me1 MDM: 11:39 Medical Screening Exam initiated sb4 13:49 Data reviewed: vital signs, nurses notes, lab test result(s), radiologic studies, and sb4 as a result, I will discharge patient. Care significantly affected by the following chronic conditions: Diabetes, Hypertension. Care significantly affected by the following Social Determinants of Health: Poor access to healthcare and/or lack of insurance. Counseling: I had a detailed discussion with the patient and/or guardian regarding the historical points, exam findings, and any diagnostic results supporting the discharge/admit diagnosis, lab results, radiology results, the need for outpatient follow up, for definitive care, to return to the emergency department if symptoms worsen or persist or if there are any questions or concerns that arise at home. 09/07 11:44 Order name: CBC with Diff; Complete Time: 12:59 sb4 09/07 11:44 Order name: CMP; Complete Time: 13:20 sb4 09/07 11:44 Order name: Lipase; Complete Time: 13:20 sb4 09/07 11:44 Order name: Urinalysis w/ reflexes; Complete Time: 13:38 sb4 09/07 11:51 Order name: Glucose, Ancillary Testing; Complete Time: 11:52 EDMS 09/07 13:40 Order name: Urine Culture EDNH 09/07 11:44 Order name: IV Saline Lock; Complete Time: 13:07 sb4 09/07 11:44 Order name: Labs collected and sent; Complete Time: 13:07 sb4 09/07 13:20 Order name: PO challenge; Complete Time: 14:04 sb4 Administered Medications: 13:07 Drug: TORadol - Ketorolac IVP 15 mg IVP once Route: IVP; Site: right antecubital; me1 14:12 Follow up: Pain 3/10 Adult; Response: No adverse reaction; Pain is decreased me1 13:07 Drug: Ondansetron IVP 4 mg IVP once; over 2 minutes Route: IVP; Site: right antecubital;me1 14:12 Follow up: Response: No adverse reaction; Nausea is decreased me1 13:07 Drug: NS 0.9% IV 1000 ml IV at 1 bolus Per protocol; to be given as a bolus over 60 me1 minutes Route: IV; Rate: 1 bolus; Site: right antecubital; 14:12 Follow up: Response: No adverse reaction; IV Status: Completed infusion; IV Intake: me1 1000ml 14:04 Drug: Insulin Regular Human Sub-Q 10 units Sub-Q once {Co-Signature: mo Jalloh, de1 Ellie DENT).} Route: Sub-Q; Site: right upper abdomen; 14:24 Follow up: Response: No adverse reaction me1 Point of Care Testing: Blood Glucose: 11:38 Blood Glucose: 266 mg/dL; ap3 Ranges: Critical Glucose Levels:Adult <50 mg/dl or >400 mg/dl <40 mg/dl or >180 mg/dl Disposition: 14:51 Co-signature as Attending Physician, Job Piedra MD I reviewed the patient's care rt provided by Advanced Practice Provider \T\ agree w/ the diagnosis \T\ care plan. I personally saw the pt \T\ performed a substantive portion of the visit, incldng all aspects of the (History/Exam/Medical Decision Making). PA/MICROSYSTEMS ENGINEER's history reviewed, patient interviewed, and examined. HPI: Patient presents ED with hyperglycemia, did not take her metformin, insulin for some time. Denies any ongoing abdominal pain to me My personal exam of patient reveals: No abdominal tenderness, distention I agree with assessment and care plan and confirm the diagnosis (es) above. Disposition Summary: 09/07/24 13:49 Discharge Ordered Notes: Location: Home sb4 Problem: new sb4 Symptoms: have improved sb4 Condition: Stable sb4 Diagnosis - Type 2 diabetes mellitus with hyperglycemia sb4 - UTI/ Urinary tract infection, site not specified sb4 Followup: sb4 - With: Private Physician - When: 2 - 3 days - Reason: Recheck today's complaints, Continuance of care, Re-evaluation by your physician Discharge Instructions: - Discharge Summary Sheet sb4 - Urinary Tract Infection, Adult, Urok-ij-[id number] sb4 - Blood Glucose Monitoring, Adult sb4 Forms: - Antibiotic Education sb4 - Patient Portal Instructions sb4 - Leadership Thank You Letter sb4 - Work release form me1 Prescriptions: - Macrobid 100 mg Oral Capsule - take 1 capsule ORAL route every 12 hours for 7 days; 14 capsule; Refills: 0, sb4 Product Selection Permitted Signatures: Dispatcher [employer] EDMS Neha Rodriguez RN RN ap3 Tracy So PA-C PAPoncho sb4 Job Piedra MD MD rt Tiffany Babb RN RN me1 Ellie Figueredo RN db Corrections: (The following items were deleted from the chart) 11:45 11:45 CBC+H.LAB.BRZ ordered. EDMS EDMS 11:45 11:45 COMPREHENSIVE METABOLIC PANEL+C.LAB.BRZ ordered. EDMS EDMS 11:45 11:45 LIPASE+C.LAB.BRZ ordered. EDMS EDMS 11:45 11:45 Urinalysis+U.LAB.BRZ ordered. EDMS EDMS
--- NOTE | 2024-09-07 13:50 | ER ---
Nurse's Notes [facility] Name: Sarita Zelaya Age: 48 yrs Sex: Female : 1975 Arrival Date: 09/07/2024 Time: 11:20 Bed 17 Private MD: Diagnosis: Type 2 diabetes mellitus with hyperglycemia;UTI/ Urinary tract infection, site not specified Presentation: 09/07 11:35 Chief complaint: Patient states: WOOD, N/V started last night. Coronavirus screen: Client ap3 presents with at least one sign or symptom that may indicate coronavirus-19. Ebola Screen: No symptoms or risks identified at this time. Risk Assessment: Do you want to hurt yourself or someone else? Patient reports no desire to harm self or others. Onset of symptoms was September 06, 2024. 11:35 Method Of Arrival: Wheelchair ap3 11:39 Initial Sepsis Screen: Does the patient meet any 2 criteria? No. Patient's initial ap3 sepsis screen is negative. Does the patient have a suspected source of infection? No. Patient's initial sepsis screen is negative. 11:39 Acuity: BC 3 ap3 Triage Assessment: 11:36 General: Appears in no apparent distress. uncomfortable, Behavior is calm, cooperative, ap3 appropriate for age. Pain: Complains of pain in headache Pain currently is 8 out of 10 on a pain scale. GI: Reports nausea, vomiting. 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 - Infectious Disease History:: Denies. - Social history:: Smoking status: Patient denies any tobacco usage or history of. Screenin:25 [facility] ED Fall Risk Assessment (Adult) History of falling in the last 3 months, me1 including since admission No falls in past 3 months (0 pts) Confusion or Disorientation No (0 pts) Intoxicated or Sedated No (0 pts) Impaired Gait No (0 pts) Mobility Assist Device Used No (0 pt) Altered Elimination No (0 pt) Score/Fall Risk Level 0 - 2 = Low Risk Maintained a safe environment, Provided non-skid footwear, Hourly rounding (assess needs \T\ fall precautionary measures) done. Abuse screen: Denies threats or abuse. Nutritional screening: No deficits noted. Tuberculosis screening: No symptoms or risk factors identified. Assessment: 12:25 General: Appears ill, well groomed, well developed, well nourished, Behavior is calm, me1 cooperative, appropriate for age, Reports WOOD, n/v that started last night. Pain: Complains of pain in right low back and left low back and head Pain does not radiate. Pain currently is 7 out of 10 on a pain scale. Quality of pain is described as aching, Pain began 1 day ago. Is continuous. Neuro: Level of Consciousness is awake, alert, obeys commands, Oriented to person, place, time, situation, Appropriate for age Reports headache. Cardiovascular: Patient's skin is warm and dry. Respiratory: Airway is patent Respiratory effort is even, unlabored, Respiratory pattern is regular, symmetrical. GI: Abdomen is non-distended, Bowel sounds present X 4 quads. Reports nausea, vomiting, since yesterday. : Reports pain in right in lower back. EENT: No signs and/or symptoms were reported regarding the EENT system. Derm: Skin is intact, is healthy with good turgor, Skin is pink, warm \T\ dry. Musculoskeletal: No signs and/or symptoms reported regarding the musculoskeletal system. Vital Signs: 11:36 BP 168 / 98; Pulse 92; Resp 17; Temp 97; Pulse Ox 98% ; Weight 70.31 kg; Height 5 ft. 6 ap3 in. ; Pain 8/10; 13:00 BP 180 / 93; Pulse 79; Resp 16; Pulse Ox 100% ; me1 14:00 BP 162 / 98; Pulse 79; Resp 15; Temp 98.2; Pulse Ox 100% ; me1 14:12 Pain 3/10; me1 11:36 Body Mass Index 25.02 (70.31 kg, 167.64 cm) ap3 11:36 Pain Scale: Adult ap3 14:12 Pain Scale: Adult me1 ED Course: 11:21 Patient arrived in ED. im 11:26 Tracy So PA-C is PHCP. sb4 11:26 Job Piedra MD is Attending Physician. sb4 11:38 Arm band placed on right wrist. ap3 11:39 Triage completed. ap3 12:25 Patient has correct armband on for positive identification. Bed in low position. Call me1 light in reach. Side rails up X2. Provided Education on: POC. Verbalized understanding.. Client placed on continuous cardiac and pulse oximetry monitoring. NIBP monitoring applied. Pulse ox on. NIBP on. 12:25 No provider procedures requiring assistance completed. me1 12:34 Tiffany Babb, RN is Primary Nurse. me1 12:48 Initial lab(s) drawn, by me, sent to lab. Inserted saline lock: 22 gauge in right me1 antecubital area, using aseptic technique. 14:29 IV discontinued, intact, bleeding controlled, No redness/swelling at site. Pressure me1 dressing applied. Administered Medications: 13:07 Drug: TORadol - Ketorolac IVP 15 mg IVP once Route: IVP; Site: right antecubital; me1 14:12 Follow up: Pain 3/10 Adult; Response: No adverse reaction; Pain is decreased me1 13:07 Drug: Ondansetron IVP 4 mg IVP once; over 2 minutes Route: IVP; Site: right antecubital;me1 14:12 Follow up: Response: No adverse reaction; Nausea is decreased me1 13:07 Drug: NS 0.9% IV 1000 ml IV at 1 bolus Per protocol; to be given as a bolus over 60 me1 minutes Route: IV; Rate: 1 bolus; Site: right antecubital; 14:12 Follow up: Response: No adverse reaction; IV Status: Completed infusion; IV Intake: me1 1000ml 14:04 Drug: Insulin Regular Human Sub-Q 10 units Sub-Q once {Co-Signature: mo Jalloh, ne1 Ellie DENT).} Route: Sub-Q; Site: right upper abdomen; 14:24 Follow up: Response: No adverse reaction me1 Medication: 14:28 VIS not applicable for this client. me1 Point of Care Testing: Blood Glucose: 11:38 Blood Glucose: 266 mg/dL; ap3 Ranges: Intake: 14:12 IV: 1000ml; Total: 1000ml. me1 Outcome: 13:49 Discharge ordered by . sb4 14:29 Discharged to home ambulatory, me1 14:29 Condition: stable 14:29 Discharge instructions given to patient, significant other, Instructed on discharge instructions, follow up and referral plans. medication usage, Demonstrated understanding of instructions, follow-up care, medications, Prescriptions given X 1, 14:29 Patient left the ED. me1 Addendum: 09/10/2024 08:07 Addendum: Culture Results: Positive urine culture. No further action required. Bacteria s s sensitive to prescribed antibiotic. Signatures: Eliza España RN RN ss Neha Rodriguez RN RN ap3 Tracy So, PA-C PA-C sb4 Lina Tanner Michelle, RN RN me1 Ellie Figueredo RN db Corrections: (The following items were deleted from the chart) 09/07 14:26 14:00 BP 162 / 98; Pulse 79bpm; Resp 15bpm; Pulse Ox 100%; me1 me1
[2024-09-07] MEDS ORDERED: INSULIN REGULAR (HUMAN) 100 UNIT/ML ONE (14:01)
[2024-09-07 14:53] VITALS: O2SAT 100
[2024-09-07 14:55] VITALS: BP 162/98; TEMP 98.2
== END 2024-09-07 14:29 | disposition home or self-care (01) ==
LOC: ER 11:20
DX: E11.65 Type 2 diabetes mellitus with hyperglycemia (principal); N39.0 Urinary tract infection, site not specified; I10 Essential (primary) hypertension
CPT/HCPCS: 96361; 87088; 85025; 81001; 87086; 36415; 82947; 87077; 87186; 83690; 80053; 96375; 96372; 96374; 99284; J2405; J1815; J7030

== ENCOUNTER 2025-02-07 16:37 | Inpatient (IN) | payer SELFPAY ==
--- OUTSIDE RECORDS SUMMARY | 2025-02-07 16:47 | XMS REPORT | Continuity of Care Document ---
Author Name Unknown Address [address] 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 Name Role Phone Airam Silva Primary Care Physician [phone] Coretta Morris Attending Clinician Unav ailbatsheva Carlson, Generic Provider Attending Clinician Unavailable POLY REYEZ Attending Clinician Unavailab POLY Valenitn Attending Clinician Unavailab Poly Valentin DO Attending Clinician [phone] TERESA PALMA Attending Clinician Unavailable TERESA PALMA Attending Clinician Unavailable Teresa Palma MD Attending Clinician Elinor Carrillo NP Attending Clinician [phone] MACARIO ERWIN Attending Clinician Unavailab marquez Carlson Generic Provider Attending Clinician Unavailable CHINA MONTANEZ Attending Clinician Unavailable Hansa KENYON Attending Clinician Unavailable Hansa Brandon Attending Clinician [phone] Tiny Coulter Attending Clinician Unavailable Dai Lehman Attending Clinician Unavailable Coretta Morris Admitting Clinician Unav ailable Hansa KENYON Admitting Clinician Unavailable Physician, No Primary or Family Admitting Clinic christiano Unavailable Payers Payer Name Policy Type Policy Number Effective Date Expirati on Date Source [facility] SAUNDRA TYSON FOCUS 9 [id number] 2023 00:00:00 Allergies, Adverse Reactions, Alerts Allergy Name Allergy Type Status Severity Reaction(s) Onset Date Inactive Date Treating Clinician Comments Source No Known Allergie s DA Active U 2019-05 00:00: 00 [facility] No Known Allergie s DA Active U 2019-0520 00:00: [address] [facility] No Known Allergie s DA Active U 2019-0518 00:00: 00 [facility] No Known Allergie s DA Active U 2019-0518 00:00: 00 [facility] No Known Allergie s DA Active U 2019-05 2- 00:00: 00 [facility] No Known Allergie s DA Active U 2019-05- 00:00: 00 [facility] No Known Contrast Allergie s DA Active U 2- 00:00: [address] [facility] No Known Drug Allergie s DA Active U 2- 00:00: 00 [facility] No Known Food Allergie s DA Active U 2- 00:00: 00 [facility] No Known Other Allergie s DA Active U 2-05 00:00: 00 [facility] NO KNOWN ALLERGIE S Drug Class Active [facility] Social History Social Habit Start Date Stop Date Quantity Comments Source Sexual orientation U [facility] Exposure to SARS-CoV-2 (event) 2022-09-01 00:00:00 2022-09-11 13:24:00 Not sure [facility] Sex assigned at 1975 00:00:00 1975 00:00:00 [facility] Smoking Status Start Date Stop Date Source Tobacco smoking consumption unknown [facility] Medications Ordered Medication Name Filled Medication Name Start Date Stop Date Current Medication? Ordering Clinician Indication Dosage Frequency Signature (SIG) Comments Components Source telmisartan 80 mg tablet - 00:00: 00 Yes 1mg Jhony Fuller duloxetine 60 mg capsule,del ayed release 4-08 00:00: 00 Yes 1mg Jhony Fuller Xigduo XR 5 mg-1,000 mg tablet,exte nded release 3-05 00:00: 00 Yes 1mg Jhony Fuller ondansetron 8 mg disintegrat ing tablet 3-04 00:00: 00 Yes 1mg Jhony Fuller duloxetine 60 mg capsule,del ayed release 3-04 00:00: 00 Yes 1mg Jhony Fuller diazePAM (VALIUM) tablet 5 mg 07-10 16:00: 00 07-10 16:10 :00 No 5mg 5 mg, Oral, ONCE, 1 dose, On Sat07/10/24 at 1000, [facility]IL[facility] dexamethaso ne sod phos PF injection 10 mg 07-10 16:00: 00 07-10 16:10 :00 No 10mg 10 mg, Oral, ONCE, 1 dose, On Sat07/10/24 at 1000, [address] [facility] methocarbam oL 750 mg tablet 07-10 00:00: 00 Yes [id number] 750mg Take 1 tablet by mouth every 6 (six) hours as needed for Pain (scale 1-3). [facility] HYDROcodone -acetaminop hen (NORCO) 10-325 mg tablet 1 tablet 07-02 13:45: 00 07-02 13:30 :00 No 1{tbl} 1 tablet, Oral, ONCE NOW, 1 dose, On Sat07/02/24 at 0745, Routine [facility] fentanyl PF (SUBLIMAZE (PF)) injection 50 mcg 07-02 11:00: 00 07-02 11:30 :00 No 50ug 50 mcg, Slow IV Push, ONCE, 1 dose, On Sarai 07/02/24 at 0500, Routine [facility] traMADoL (ULTRAM) 50 mg tablet 07-02 00:00: 00 Yes [id number] 50mg Take 1 tablet by mouth every 6 (six) hours as needed for Pain (scale 7-10). Indication s: acute pain [facility] Lantus Solostar U-100 Insulin 100 unit/mL [...] ONCE, 1 dose, On 05/17/24 at 1615, CLOTLIDE, Reason for Anti-Infec tive: Documented Infection, Documented Infection Site: Skin / Soft Tissue, Duration of Therapy: Once (ED) [facility] ketorolac (TORADOL) injection 15 mg 2023-05 20:45: 00 05-17 20:26 :00 No 15mg 15 mg, Slow IV Push, ONCE, 1 dose, On 05/17/24 at 1445, [facility]IL[facility] insulin regular human (HUMULIN R) injection 8 Units 2023-05 20:00: 00 05-17 19:38 :00 No 8U 8 Units, IV Push, ONCE, 1 dose, On 05/17/24 at 1400, CLOTILDE, Indication for insulin: Hyperglyce marco antonio [facility] NaCl 0.9% (NS) bolus infusion 1,000 mL 2023-05 20:00: 00 05-17 20:40 :00 No 1000mL at 999 mL/hr, 1,000 mL, IV Infusion, ONCE, 1 dose, On Sat05/17/24 at 1400, [facility]OTIL[facility] sulfamethox azole-trime thoprim 800-160 mg per tablet 2023-05 00:00: 00 05-28 05:59 :00 No [id number] 1{tbl} Take 1 tablet by mouth every 12 (twelve) hours for [address] [facility] cephALEXin 500 mg capsule 2023-05 00:00: 00 05-25 05:59 :00 No [id number] 500mg Take 1 capsule by mouth in the morning and 1 capsule in the evening. Do all this for [address] [facility] mupirocin 2 % ointment 2023-05 00:00: 00 05-25 05:59 :00 No [id number] Apply to area(s) 3 (three) times daily for [address] [facility] ibuprofen 600 mg tablet 2023-05 00:00: 00 05-23 05:59 :00 No [id number] 600mg Take 1 tablet by mouth every 6 (six) hours as needed for Pain (scale 4-6) for up to [address] [facility] atorvastati n 20 mg tablet 2023-05 [...] ONCE, 1 dose, On Sat07/19/23 at 1830, [facility] ketorolac (TORADOL) injection 15 mg 07-18 21:00: 00 07-18 22:20 :00 No 15mg 15 mg, Slow IV Push, ONCE, 1 dose, On Sat07/19/23 at 1500, [facility] sodium chloride (NS) injection 5 mL 07-18 20:49: 19 Yes 5mL 5 mL, Intravenou s, PRN, Starting on Sat07/19/23 at 1449, Until Discontinu ed, Routine, IV line flushing [facility] metFORMIN (GLUCOPHAGE ) tablet 500 mg 07-16 18:15: 00 07-16 17:26 :00 No 500mg 500 mg, Oral, ONCE, 1 dose, On Sat07/16/23 at 1215, Routine [facility] cefTRIAXone (ROCEPHIN) 1,000 mg in NaCl 0.9% (NS) 100 mL MINI-BAG 07-16 17:30: 00 07-16 17:51 :00 No 1000mg 1,000 mg, IV Piggyback, ONCE, 1 dose, On 2/27/24 at 1130, Administer over 30 Minutes, 100 mL
Reas on for Anti-Infec tive: Documented Infection< br>Documen nereida Infection Site: Urine
D uration of Therapy: Other (see Comments) [facility] ketorolac (TORADOL) injection 15 mg 07-16 17:00: 00 07-16 16:03 :00 No 15mg 15 mg, Slow IV Push, ONCE, 1 dose, On Sat07/16/23 at 1100, [facility]OTIL[facility] ondansetron (ZOFRAN (PF)) injection 4 mg 07-16 16:45: 00 07-16 15:52 :00 No 4mg 4 mg, Slow IV Push, ONCE, 1 dose, On Sat07/16/23 at 1045, [facility]OTILDE [facility] NaCl 0.9% (NS) bolus infusion 1,000 mL 07-16 16:45: 00 07-16 17:51 :00 No 1000mL at 999 mL/hr, 1,000 mL, IV Infusion, ONCE, 1 dose, On Sat07/16/23 at 1045, STAT [facility] metFORMIN 500 mg tablet 07-16 00:00: 00 Yes [id number] 500mg Take 1 tablet by mouth in the morning and 1 tablet in the evening. [facility] ondansetron 4 mg disintegrat ing tablet 07-16 00:00: 00 Yes [id number] 4mg Take 1 tablet by mouth every 8 (eight) hours as needed for Nausea and Vomiting (N/V). [facility] ibuprofen 600 mg tablet 07-16 00:00: 00 Yes [id number] 600mg Take 1 tablet by mouth every 6 (six) hours as needed for Pain (scale 4-6). [facility] cefdinir 300 mg capsule 07-16 00:00: 00 07-26 05:59 :00 No [id number] 300mg Take 1 capsule by mouth every 12 (twelve) hours for [address] [facility] NaCl 0.9% (NS) IV infusion 1,000 mL 2022-05 02:30: 00 Yes 1000mL at 999 mL/hr, Intravenou s, CONTINUOUS , Starting on Sat03/16/23 at 2130, Until Discontinu ed, Routine [facility] ketorolac (TORADOL) injection 30 mg 2022-05 02:30: 00 03-17 01:45 :00 No 30mg 30 mg, Slow IV Push, ONCE, 1 dose, On Sat03/16/23 at 2130, Routine [facility] diphenhydrA MINE (BENADRYL) injection 25 mg 2022-05 01:30: 00 03-17 01:46 :00 No 25mg 25 mg, Slow IV Push, ONCE, 1 dose, On Sat03/16/23 at 2030, STAT [facility] metoclopram cruz HCl (REGLAN) injection 10 mg 2022-05 01:30: 00 03-17 01:46 :00 No 10mg 10 mg, Slow IV Push, ONCE, 1 dose, On 03/16/23 at 2030, [facility]OTILDE [facility] butalbital- acetaminoph en-caff 50-325-40 mg tablet 2022-05 00:00: 00 Yes [id number] 1{tbl} Take 1 tablet by mouth every 6 (six) hours as needed (Headache) . [facility] ondansetron (ZOFRAN) 4 mg tablet 2022-05 00:00: 00 Yes [id number] 4mg Take 1 tablet by mouth every 8 (eight) hours as needed for Nausea and Vomiting (N/V). [facility] ketorolac (TORADOL) injection 30 mg 09-11 19:45: 00 09-11 19:51 :00 No 30mg 30 mg, Slow IV Push, ONCE, 1 dose, On Sat09/11/22 at 1445, Routine [facility] NaCl 0.9% (NS) bolus infusion 1,000 mL 09-11 19:45: 00 09-11 20:47 :00 No 1000mL at 999 mL/hr, 1,000 mL, IV Infusion, ONCE, 1 dose, On Sat09/11/22 at 1445, CLOTILDE [facility] diphenhydrA MINE (BENADRYL) injection 25 mg 09-11 19:00: 00 09-11 19:52 :00 No 25mg 25 mg, Slow IV Push, ONCE, 1 dose, On Sat09/11/22 at 1400, STAT [facility] metoclopram cruz HCl (REGLAN) injection 10 mg 09-11 19:00: 00 09-11 19:54 :00 No 10mg 10 mg, Slow IV Push, ONCE, 1 dose, On Sat09/11/22 at 1400, [facility]OTIL[facility] doxycycline (VIBRAMYCIN ) 100 mg capsule 08-01 00:00: 00 Yes 100mg Take 1 Cap by mouth 2 (two) times daily. [facility] Vital Signs Vital Name Observation Time Observation Value Comments S maria l Systolic blood pressure 2024-07-10 16:09:31 184 mm[Hg] [facility] Diastolic blood pressure 2024-07-10 16:09:31 96 mm[Hg] [facility] Heart rate 2024-07-10 16:09:31 84 /min [facility] Body temperature 2024-07-10 16:09:31 36.94 Kathryn [facility] Respiratory rate 2024-07-10 16:09:31 16 /min [facility] Oxygen saturation in Arterial blood by Pulse oximetry 2024-07-10 16:09:31 100 /min [facility] Body height 2024-07-10 14:40:00 167.6 cm [facility] Body weight 2024-07-10 14:40:00 81.647 kg [facility] BMI 2024-07-10 14:40:00 29.05 kg/m2 [facility] Systolic blood pressure 2024-07-02 13:39:00 170 mm[Hg] [facility] Diastolic blood pressure 2024-07-02 13:39:00 110 mm[Hg] [facility] Heart rate 2024-07-02 13:39:00 93 /min [facility] Body temperature 2024-07-02 13:39:00 36.78 Kathryn [facility] Respiratory rate 2024-07-02 13:39:00 16 /min [facility] Oxygen saturation in Arterial blood by Pulse oximetry 2024-07-02 13:39:00 97 /min [facility] Body height 2024-07-02 10:30:00 167.6 cm [facility] Body weight 2024-07-02 10:30:00 81.647 kg [facility] BMI 2024-07-02 10:30:00 29.05 kg/m2 [facility] Systolic blood pressure 2024-05-17 22:00:00 153 mm[Hg] [facility] Diastolic blood pressure 2024-05-17 22:00:00 87 mm[Hg] [facility] Heart rate 2024-05-17 22:00:00 94 /min [facility] Respiratory rate 2024-05-17 22:00:00 12 /min [facility] Oxygen saturation in Arterial blood by Pulse oximetry 2024-05-17 22:00:00 93 /min [facility] Body temperature 2024-05-17 16:31:00 36.78 Kathryn [facility] Body height 2024-05-17 16:31:00 167.6 cm [facility] Body weight 2024-05-17 16:31:00 77.111 kg [facility] BMI 2024-05-17 16:31:00 27.44 kg/m2 [facility] Systolic blood pressure 2023-07-20 01:00:00 159 mm[Hg] [facility] Diastolic blood pressure 2023-07-20 01:00:00 89 mm[Hg] [facility] Heart rate 2023-07-20 01:00:00 83 /min [facility] Respiratory rate 2023-07-20 01:00:00 16 /min [facility] Oxygen saturation in Arterial blood by Pulse oximetry 2023-07-20 01:00:00 98 /min [facility] Body temperature 2023-07-20 00:12:00 36.61 Kathryn [facility] Body height 2023-07-19 20:40:00 167.6 cm [facility] Body weight 2023-07-19 20:40:00 83.915 kg [facility] BMI 2023-07-19 20:40:00 29.86 kg/m2 [facility] Systolic blood pressure 2023-07-16 18:34:00 155 mm[Hg] [facility] Diastolic blood pressure 2023-07-16 18:34:00 91 mm[Hg] [facility] Heart rate 2023-07-16 18:34:00 77 /min [facility] Respiratory rate 2023-07-16 18:34:00 10 /min [facility] Oxygen saturation in Arterial blood by Pulse oximetry 2023-07-16 18:34:00 96 /min [facility] Body temperature 2023-07-16 15:27:00 36.72 Kathryn [facility] Body height 2023-07-16 15:27:00 167.6 cm [facility] Body weight 2023-07-16 15:27:00 83.915 kg [facility] BMI 2023-07-16 15:27:00 29.86 kg/m2 [facility] Systolic blood pressure 2023-03-17 03:00:00 143 mm[Hg] [facility] Diastolic blood pressure 2023-03-17 03:00:00 84 mm[Hg] [facility] Heart rate 2023-03-17 03:00:00 100 /min [facility] Respiratory rate 2023-03-17 03:00:00 20 /min [facility] Oxygen saturation in Arterial blood by Pulse oximetry 2023-03-17 03:00:00 98 /min [facility] Body temperature 2023-03-17 00:54:00 37.44 Kathryn [facility] Body height 2023-03-17 00:16:00 170.2 cm [facility] Body weight 2023-03-17 00:16:00 81.647 kg [facility] BMI 2023-03-17 00:16:00 28.19 kg/m2 [facility] Systolic blood pressure 2022-09-11 20:00:00 153 mm[Hg] [facility] Diastolic blood pressure 2022-09-11 20:00:00 88 mm[Hg] [facility] Heart rate 2022-09-11 20:00:00 92 /min [facility] Respiratory rate 2022-09-11 20:00:00 16 /min [facility] Oxygen saturation in Arterial blood by Pulse oximetry 2022-09-11 20:00:00 95 /min [facility] Body temperature 2022-09-11 18:26:00 36.72 Kathryn [facility] Body height 2022-09-11 18:26:00 170.2 cm [facility] Body weight 2022-09-11 18:26:00 77.111 kg [facility] BMI 2022-09-11 18:26:00 26.63 kg/m2 [facility] BP Systolic 2024-09-29 13:06:00 160 mm[Hg] Step hen [facility] [place] BP Diastolic 2024-09-29 13:06:00 100 mm[Hg] Maikol phen [facility] [place] Weight Measured 2024-09-29 13:06:00 160.00 pounds Jhony F Jonny Height Measured 2024-09-29 13:06:00 68.00 inches Jhony F Jonny Body Temperature 2024-09-29 13:06:00 98.50 degrees Jhony F Jonny Heart Rate 2024-09-29 13:06:00 93.00 /min Fide en F Jonny Respiratory Rate 2024-09-29 13:06:00 18.00 /min Jhony F Jonny BP Systolic 2024-09-29 12:57:00 160 mm[Hg] Step hen F Jonny BP Diastolic 2024-09-29 12:57:00 100 mm[Hg] Maikol phen F Jonny Weight Measured 2024-09-29 12:57:00 160.00 pounds Jhony F Jonny Height Measured 2024-09-29 12:57:00 68.00 inches Jhony F Jonny Body Temperature 2024-09-29 12:57:00 98.50 degrees Jhony F Jonny Heart Rate 2024-09-29 12:57:00 93.00 /min Fide en F Jonny Respiratory Rate 2024-09-29 12:57:00 18.00 /min Jhony F Jonny BP Systolic 2024-08-25 11:04:00 Step hen F Jonny BP Diastolic 2024-08-25 11:04:00 Maikol phen F Jonny Weight Measured 2024-08-25 11:04:00 Jhony F Jonny Height Measured 2024-08-25 11:04:00 Jhony F Jonny Body Temperature 2024-08-25 11:04:00 Jhony F Jonny Heart Rate 2024-08-25 11:04:00 Fide en F Jonny Respiratory Rate 2024-08-25 11:04:00 Jhony F Jonny BP Diastolic 2024-08-25 10:58:00 81 mm[Hg] Maikol phen F Jonny Weight Measured 2024-08-25 10:58:00 160.00 pounds Jhony F Jonny Height Measured 2024-08-25 10:58:00 68.00 inches Jhony F Jonny Body Temperature 2024-08-25 10:58:00 98.20 degrees Jhony F Jonny Heart Rate 2024-08-25 10:58:00 95.00 /min Fide en F Jonny Respiratory Rate 2024-08-25 10:58:00 18.00 /min Jhony F Jonny BP Systolic 2024-08-25 10:58:00 136 mm[Hg] Step hen F Jonny BP Systolic 2024-07-21 10:28:00 153 mm[Hg] Step hen F Jonny BP Diastolic 2024-07-21 10:28:00 104 mm[Hg] Maikol phen F Jonny Weight Measured 2024-07-21 10:28:00 162.00 pounds Jhony F Jonny Height Measured 2024-07-21 10:28:00 68.00 inches Jhony F Jonny Body Temperature 2024-07-21 10:28:00 97.90 degrees Jhony F Jonny Heart Rate 2024-07-21 10:28:00 110.00 /min Step hen F Jonny Respiratory Rate 2024-07-21 10:28:00 19.00 /min Jhony F Jonny BP Systolic 2024-06-25 12:16:00 178 [...] BP Diastolic 2024-05-11 10:52:00 98 mm[Hg] Maikol Fuller Weight Measured 2024-05-11 10:52:00 174.40 pounds Jhony Fuller Height Measured 2024-05-11 10:52:00 68.00 inches Jhony Fuller Body Temperature 2024-05-11 10:52:00 98.00 degrees Jhony Fuller Heart Rate 2024-05-11 10:52:00 97.00 /min Fide Fuller Procedures Procedure Date / Time Performed Performing Clinicia n Source URINALYSIS 2024-07-02 11:42:[address] [facility] BASIC METABOLIC PANEL (NA, K, CL, CO2, GLUCOSE, BUN, CREATININE, CA) 2024-07-02 11:30:00 Teresa Palma [facility] CBC WITH DIFF 2024-07-02 11:30:00 Teresa Palma [facility] POCT GLUCOSE(AGE >30DAYS) 2024-05-17 20:58:00 Lorena [facility] POCT GLUCOSE (AUTOMATED) 2024-05-17 20:57:00 Lorena [facility] POCT TEST 2024-05-17 20:23:00 Elinor Carrillo [facility] POCT GLUCOSE (AUTOMATED) 2024-05-17 20:06:00 Lorena [facility] POCT GLUCOSE (AUTOMATED) 2024-05-17 19:30:00 Lorena [facility] COMP. METABOLIC PANEL ([id number]) 2024-05-17 17:28:00 Lorena [facility] CBC WITH DIFF 2024-05-17 17:28:[address] [facility] URINALYSIS 2024-05-17 17:28:00 Elinor Carrillo [facility] LIPASE 2023-07-19 22:12:00 China Montanez [facility] COMP. METABOLIC PANEL ([id number]) 2023-07-19 22:12:00 China Montanez [facility] CBC WITH DIFF 2023-07-19 22:12:00 China Montanez [facility] URINALYSIS 2023-07-19 22:12:00 China Montanez [facility] ASSIGNMENT OF BENEFITS 2023-07-19 21:14:17 Docto r Unassigned, [place] [facility] CONSENT/REFUSAL FOR DIAGNOSIS AND TREATMENT 2023-07-19 20:34:55 Doctor Unassigned, [place] [facility] LACTIC ACID WHOLE BLOOD 2023-07-16 17:52:00 Hansa Kenyon [facility] CT ABDOMEN PELVIS WO CONTRAST 2023-07-16 16:39:57 Hansa Kenyon [facility] LIPASE 2023-07-16 15:49:00 [facility] MAGNESIUM 2023-07-16 15:49:00 [facility] TROPONIN I 2023-07-16 15:49:00 [facility] COMP. METABOLIC PANEL ([id number]) 2023-07-16 15:49:00 Hansa Kenyon [facility] CBC WITH DIFF 2023-07-16 15:49:00 Hansa Kenyon [facility] URINALYSIS 2023-07-16 15:49:00 [facility] POCT GLUCOSE (AUTOMATED) 2023-07-16 15:30:00 Hansa Kenyon [facility] CONSENT/REFUSAL FOR DIAGNOSIS AND TREATMENT 2023-07-16 15:24:28 Doctor Unassigned, [place] [facility] POCT GLUCOSE(AGE >30DAYS) 2023-03-17 02:51:00 Teresa Palma [facility] POCT GLUCOSE (AUTOMATED) 2023-03-17 02:49:00 Teresa Palma [facility] URINALYSIS 2023-03-17 01:44:00 Teresa Palma [facility] LIPASE 2023-03-17 01:36:00 Teresa Palma [facility] MET[facility]OLIC PANEL ([id number]) 2023-03-17 01:36:00 Teresa Palma [facility] ACUTE CARE VENOUS BLOOD GAS 2023-03-17 01:35:00 Teresa Palma [facility] POCT GLUCOSE (AUTOMATED) 2023-03-17 01:33:00 Teresa Palma [facility] CBC WITH DIFF 2023-03-17 00:56:00 Teresa Palma [facility] CONSENT/REFUSAL FOR DIAGNOSIS AND TREATMENT 2023-03-17 00:00:38 Doctor Unassigned, [place] [facility] BASIC METABOLIC PANEL (NA, K, CL, CO2, GLUCOSE, BUN, CREATININE, CA) 2022-09-11 19:33:00 Poly Reyez [facility] NOTICE OF PRIVACY PRACTICES 2022-09-11 18:09:58 Doctor Unassigned, [place] [facility] CONSENT/REFUSAL FOR DIAGNOSIS AND TREATMENT 2022-09-11 18:09:12 Doctor Unassigned, [place] [facility] [id number] 2020-05-06 00:00:00 CHANDLER [facility] Encounters Start Date/Time End Date/Time Encounter Type Admission Type Attending [facility] Care Facility Care Department Encounter ID Source 2020-04-30 01:32:00 Inpatient EM Coretta Blandon [facility] TELE [id number] [address] [facility] 2024-09-29 12:34:31 2024-09-29 12:34:31 Outpatient SFA [id number] [id number] Jhony F Jonny 2024-09-29 00:00:00 2024-09-29 00:00:00 Outpatient Visit SFA [id number] Jhony F Jonny 2024-08-25 00:00:00 2024-08-25 00:00:00 Outpatient Visit FANNY [id number] Jhony Fuller 2024-07-21 09:42:54 2024-07-21 09:42:54 Outpatient SFA [facility] [id number] Jhony Fuller 2024-07-21 00:00:00 2024-07-21 00:00:00 Outpatient Visit SFA [id number] Jhony Fuller 2024-07-17 11:20:22 2024-07-17 11:20:22 Outpatient SFA [facility] [id number] Jhony Fuller 2024-07-15 00:00:00 2024-07-15 10:07:00 Letter (Out) Campaigns, Generic Provider Campaigns, Generic Provider [facility] (PATRIC) 1..840.114 [id number] [facility] 2024-07-10 08:46:00 2024-07-10 10:17:00 Emergency X POLY REYEZ SANDRA [facility] ERT [id number] [facility] 2024-07-10 08:46:00 2024-07-10 10:17:00 Emergency Poly Reyez [facility] ..840.114 [id number] [facility] 2024-07-02 04:34:00 2024-07-02 07:43:00 Emergency X TERESA PALMA WAKILI [facility] ERT [id number] [facility] 2024-07-02 04:34:00 2024-07-02 07:43:00 Emergency Teresa Palma [facility] ..840.114 [id number] [facility] 2024-06-25 10:22:39 2024-06-25 10:22:39 Outpatient SFA [facility] [id number] Jhony Fuller 2024-06-25 00:00:00 2024-06-25 00:00:00 Outpatient Visit SFA [id number] Jhony Fuller 2024-05-27 00:00:00 2024-05-27 11:36:01 Letter (Out) Campaigns, Generic Provider Campaigns, Generic Provider [facility] [id number] [id number] [id number] [facility] 2024-05-26 10:01:49 2024-05-26 10:01:49 Outpatient SFA [facility] [id number] Jhony Fuller 2024-05-26 00:00:00 2024-05-26 00:00:00 Outpatient Visit SFA [id number] Jhony Fuller 2024-05-17 10:32:00 2024-05-17 16:37:00 Emergency Elinor Carrillo [facility] 1.2.840.114 350.1.13.10 4.2.7.2.[id number] [facility] 2024-05-11 10:38:36 2024-05-11 10:38:36 Outpatient SFA [facility] [id number] Jhony Fuller 2024-05-11 00:00:00 2024-05-11 00:00:00 Outpatient Visit SFA [id number] Jhony Fuller 2023-10-15 13:30:00 2023-10-15 13:30:00 Outpatient MACARIO ERWIN [id number] [facility] 2023-08-19 09:00:00 2023-08-19 09:00:00 Outpatient MACARIO ERWIN [id number] [facility] 2023-07-24 00:00:00 2023-07-24 00:00:00 Letter (Out) Campaigns, Generic Provider [facility] 1.2.840.114 350.1.13.10 4.2.7.2.[id number] [facility] 2023-07-19 14:42:00 2023-07-19 19:26:00 Emergency X CHINA MONTANEZ [facility] ERT [id number] [facility] 2023-07-19 14:42:00 2023-07-19 19:26:00 Emergency China Montanez [facility] 1.2.840.114 350.1.13.10 4.2.7.2.[id number] [facility] 2023-07-16 09:31:00 2023-07-16 12:37:00 Emergency X Hansa KENYON [facility] ERT [id number] [facility] 2023-07-16 09:31:00 2023-07-16 12:37:00 Emergency Hansa Kenyon [facility] 1.2.840.114 350.1.13.10 4.2.7.2.[id number] [facility] 2023-03-16 19:19:00 2023-03-16 22:14:00 Emergency X TERESA PALMA [facility] ERT [id number] [facility] 2023-03-16 19:19:00 2023-03-16 22:14:00 Emergency Sirilissetgulshan Eddiefelisha Martinez [facility] 1.2.840.114 350.1.13.10 4.2.7.2.[id number] [facility] 2022-09-11 13:34:00 2022-09-11 15:51:00 Emergency X POLY REYEZ [facility] ERT [id number] [facility] 2022-09-11 13:34:00 2022-09-11 15:51:00 Emergency Poly Reyez [facility] 1.2.840.114 350.1.13.10 4.2.7.2.[id number] [facility] 2021-09-27 23:52:00 2021-09-27 23:52:00 Outpatient Tiny Coulter [facility]O [id number] [facility] 2021-09-27 07:25:00 2021-09-27 12:00:00 Emergency EM Yfn Tiny [facility]N [facility]N [id number] [facility] 2021-09-27 07:25:00 2021-09-27 12:00:00 Emergency EM Yfn Tiny [facility] LISA [id number] [facility] 2020-04-30 01:32:00 2020-05-09 18:54:00 Inpatient EM Marisol osborne Coretta [facility] TELE [id number] [facility] 2020-04-30 01:04:00 2020-04-30 01:04:00 Outpatient Dai Lehman [facility] [id number] 19 [facility] 2020-04-30 01:04:00 2020-04-30 01:04:00 Outpatient Dai Lehman [facility] [id number] 19 [facility] Results Test Description Test Time Test Comments Results Result Co mments Source Jhony FullerHEMOGLOBIN [id number] 00:00:00* Test Item Value Reference Range Interpretation Comme nts HEMOGLOBIN A1c (test code = 4548-4) 10.2 %oftotalHgb Jhony FullerMICROALBUMIN, RANDOM URINE (W/CREATININE)2024-07-22 00:00:00* Test Item Value Reference Range Interpretation Comme nts CREATININE, RANDOM URINE (te st code = 2161-8) 55 mg/dL ALBUMIN, URINE (test code = 03476-9) 435.4 mg/dL ALBUMIN/CREATININE RATIO, RANDOM URINE (test code = 9318-7) 7916 mg/gcreat Jhnoy FullerCOMPREHENSIVE METABOLIC [id number] 00:00:00* Test Item Value Reference Range Interpretation Comme nts GLUCOSE (test code = 2345-7) 270 mg/dL UREA NITROGEN (BUN) (test code = 3094-0) 11 mg/dL CREATININE (test code = 2160-0) 1.05 mg/dL EGFR (test code = 54756-5) 65 mL/min/1.73m2 BUN/CREATININE RATIO (test code = 3097-3) 10 (calc) SODIUM (test code = 2951-2) 138 mmol/L POTASSIUM (test code = 2823-3) 3.9 mmol/L CHLORIDE (test code = 2075-0) 102 mmol/L CARBON DIOXIDE (test code = 2027-9) 27 mmol/L CALCIUM (test code = 87566-7) 8.7 mg/dL PROTEIN, TOTAL (test code = 2885-2) 4.9 g/dL ALBUMIN (test code = 1751-7) 2.7 g/dL GLOBULIN (test code = 42710-3) 2.2 g/dL(calc) ALBUMIN/GLOBULIN RATIO (test code = 1759-0) 1.2 (calc) BILIRUBIN, TOTAL (test code = 1975-2) 0.4 mg/dL ALKALINE PHOSPHATASE (test code = 6768-6) 84 U/L AST (test code = 1920-8) 9 U/L ALT (test code = 1742-6) 11 U/L Jhony Lorenzana AustinLIPID [id number] 00:00:00* Test Item Value Reference Range Interpretation Comme nts CHOLESTEROL, TOTAL (test cod e = 2093-3) 283 mg/dL HDL CHOLESTEROL (test code = 2085-9) 48 mg/dL TRIGLYCERIDES (test code = 2571-8) 317 mg/dL LDL-CHOLESTEROL (test code = 24673-7) 181 mg/dL(calc) CHOL/HDLC RATIO (test code = 9830-1) 5.9 (calc) NON HDL CHOLESTEROL (test code = 81568-2) 235 mg/dL(calc) Jhony FullerHEMOGLOBIN [id number] 00:00:00* Test Item Value Reference Range Interpretation Comme nts HEMOGLOBIN A1c (test code = 4548-4) 10.2 %oftotalHgb Jhony FullerMICROALBUMIN, RANDOM URINE (W/CREATININE)2024-07-22 00:00:00* Test Item Value Reference Range Interpretation Comme nts CREATININE, RANDOM URINE (te st code = 2161-8) 55 mg/dL ALBUMIN, URINE (test code = 11082-2) 435.4 mg/dL ALBUMIN/CREATININE RATIO, RANDOM URINE (test code = 9318-7) 7916 mg/gcreat Jhony FullerCOMPREHENSIVE METABOLIC [id number] 00:00:00* Test Item Value Reference Range Interpretation Comme nts GLUCOSE (test code = 2345-7) 270 mg/dL UREA NITROGEN (BUN) (test code = 3094-0) 11 mg/dL CREATININE (test code = 2160-0) 1.05 mg/dL EGFR (test code = 54061-0) 65 mL/min/1.73m2 BUN/CREATININE RATIO (test code = 3097-3) 10 (calc) SODIUM (test code = 2951-2) 138 mmol/L POTASSIUM (test code = 2823-3) 3.9 mmol/L CHLORIDE (test code = 5-0) 102 mmol/L CARBON DIOXIDE (test code = 2027-9) 27 mmol/L CALCIUM (test code = 72556-0) 8.7 mg/dL PROTEIN, TOTAL (test code = 2885-2) 4.9 g/dL ALBUMIN (test code = 1751-7) 2.7 g/dL GLOBULIN (test code = 16445-8) 2.2 g/dL(calc) ALBUMIN/GLOBULIN RATIO (test code = 1759-0) 1.2 (calc) BILIRUBIN, TOTAL (test code = 1975-2) 0.4 mg/dL ALKALINE PHOSPHATASE (test code = 6768-6) 84 U/L AST (test code = 1920-8) 9 U/L ALT (test code = 1742-6) 11 U/L Jhony FullerLIPID [id number] 00:00:00* Test Item Value Reference Range Interpretation Comme nts CHOLESTEROL, TOTAL (test cod e = 2093-3) 283 mg/dL HDL CHOLESTEROL (test code = 2085-9) 48 mg/dL TRIGLYCERIDES (test code = 2571-8) 317 mg/dL LDL-CHOLESTEROL (test code = 59160-7) 181 mg/dL(calc) CHOL/HDLC RATIO (test code = 9830-1) 5.9 (calc) NON HDL CHOLESTEROL (test code = 11934-6) 235 mg/dL(calc) Jhony FullerHEMOGLOBIN [id number] 00:00:00* Test Item Value Reference Range Interpretation Comme [facility] HEMOGLOBIN A1c (test code = 4548-4) 10.2 %oftotalHgb Jhony FullerMICROALBUMIN, RANDOM URINE (W/CREATININE)2024-07-22 00:00:00* Test Item Value Reference Range Interpretation Comme nts CREATININE, RANDOM URINE (te st code = 2161-8) 55 mg/dL ALBUMIN, URINE (test code = 89644-0) 435.4 mg/dL ALBUMIN/CREATININE RATIO, RANDOM URINE (test code = 9318-7) 7916 mg/gcreat hJony FullerCOMPREHENSIVE METABOLIC [id number] 00:00:00* Test Item Value Reference Range Interpretation Comme nts GLUCOSE (test code = 2345-7) 270 mg/dL UREA NITROGEN (BUN) (test code = 3094-0) 11 mg/dL CREATININE (test code = 2160-0) 1.05 mg/dL EGFR (test code = 12328-2) 65 mL/min/1.73m2 BUN/CREATININE RATIO (test code = 3097-3) 10 (calc) SODIUM (test code = 2951-2) 138 mmol/L POTASSIUM (test code = 2823-3) 3.9 mmol/L CHLORIDE (test code = 2075-0) 102 mmol/L CARBON DIOXIDE (test code = 2027-9) 27 mmol/L CALCIUM (test code = 46547-9) 8.7 mg/dL PROTEIN, TOTAL (test code = 2885-2) 4.9 g/dL ALBUMIN (test code = 1751-7) 2.7 g/dL GLOBULIN (test code = 23101-3) 2.2 g/dL(calc) ALBUMIN/GLOBULIN RATIO (test code = 1759-0) 1.2 (calc) BILIRUBIN, TOTAL (test code = 1974-) 0.4 mg/dL ALKALINE PHOSPHATASE (test code = 6768-6) 84 U/L AST (test code = 1920-8) 9 U/L ALT (test code = 1742-6) 11 U/L Jhony Lorenzana [facility] GLUCOSE (AUTOMATED)2024-05-17 20:59:47* Test Item Value Reference Range Interpretation Comme nts POCT GLU (test code = 7001378783) 338 mg/dL 70-110 H Lab Interpretation (test cod e = 72471-7) Abnormal [facility] GLUCOSE(AGE >30DAYS)2024-05-17 20:58:00* Test Item Value Reference Range Interpretation Comme nts POCT Glu (age>30days) (test code = 3342) 338 mg/dL 70-110 A Lab Interpretation (test cod e = 94475-8) Abnormal [facility] [id number] 20:23:00* Test Item Value Reference Range Interpretation Comme nts POCT PREG (test code = 1605) Negative On board controls acceptable with C Line (test code = 3574) Yes POCT PREG LOT # (test code = 3575 735728 POCT PREG TEST DATE ( test code = 3576) 05/04/2025 Lab Interpretation (test cod e = 87350-8) Normal [facility] GLUCOSE (AUTOMATED)2024-05-17 20:07:45* Test Item Value Reference Range Interpretation Comme nts POCT GLU (test code = 5621384354) 440 mg/dL 70-110 H Lab Interpretation (test cod e = 42221-4) Abnormal [facility] GLUCOSE (AUTOMATED)2024-05-17 19:31:17* Test Item Value Reference Range Interpretation Comme nts POCT GLU (test code = 5059587356) 493 mg/dL 70-110 HH Lab Interpretation (test cod e = 41069-4) [facility] 18:42:08* Test Item Value Reference Range Interpretation Comme nts NA (test code = 1002244714) 133 mmol/L 135-145 L K (test code = 8852135912) 4.1 mmol/L 3.5-5.0 CL (test code = 2180318364) 102 mmol/L 98-108 CO2 TOTAL (test code = 5926953875) 26 mmol/L 23-31 AGAP (test code = 1446927029) 5 2-16 BUN (test code = 4145133732) 27 mg/dL 7-23 H GLUCOSE (test code = 6661432930) 435 mg/dL 70-110 H CREATININE (test code = 2160-0) 0.79 mg/dL 0.50-1.04 TOTAL BILI (test code = 1759082387) 0.3 mg/dL 0.1-1.1 CALCIUM (test code = 4722864411) 9.2 mg/dL 8.6-10.6 T PROTEIN (test code = 2175657070) 6.2 g/dL 6.3-8.2 L ALBUMIN (test code = 7320083287) 3.2 g/dL 3.5-5.0 L ALK PHOS (test code = 7221472065) 121 U/L 34-122 ALTv (test code = 1742-6) 13 U/L 5-35 AST(SGOT) (test code = 6941224466) 17 U/L 13-40 eGFR (test code = 90682-9) 91.8 mL/min/1.73m2 CKD-EPI eGFR (2020). Assuming creatinine has been stable day-to-day for at least three months, the eGFR indicates Category G1 (>= 90 mL/min/1.73 m2) Lab Interpretation (test code = 36255-7) Abnormal [facility] WITH [id number] 18:27:42* Test Item Value Reference Range Interpretation [...] 33.7 g/dL 31.6-35.1 RDW-SD (test code = 59931-5) 35.4 fL 39.0-49.9 L RDW-CV (test code = 788-0) 12.1 % 12.0-15.5 PLT (test code = 777-3) 351 166-358 MPV (test code = 59782-5) 10.2 fL 9.5-12.9 NRBC/100 WBC (test code = 5761819678) 0.0 0.0-10.0 NRBC x10^3 (test code = 2266659015) See_Comment [Automated message] The system which generated this result transmitted reference range: 10*3/?L. The reference range was not used to interpret this result as normal/abnormal. GRAN MAT (NEUT) % (test code = 770-8) 83.4 % IMM GRAN % (test code = 0745771865) 0.60 % LYMPH % (test code = 736-9) 9.7 % MONO % (test code = 5905-5) 5.3 % EOS % (test code = 713-8) 0.5 % BASO % (test code = 706-2) 0.5 % GRAN MAT x10^3(ANC) (test code = 2861843175) 10.77 10*3/uL 1.88-7.09 H IMM GRAN x10^3 (test code = 7828677990) 0.08 10*3/uL 0.00-0.06 H LYMPH x10^3 (test code = 731-0) 1.25 10*3/uL 1.32-3.29 L MONO x10^3 (test code = 742-7) 0.68 10*3/uL 0.33-0.92 EOS x10^3 (test code = 711-2) 0.07 10*3/uL 0.03-0.39 BASO x10^3 (test code = 704-7) 0.06 10*3/uL 0.01-0.07 Lab Interpretation (test code = 90179-1) [facility] [id number] 10:04:44* Test Item Value Reference Range Interpretation Comme nts HEMOGLOBIN A1c (test code = 88694) 13.6 % 4.2-5.6 H CITIZEN OF [employer] GUIDELINES FOR HGB A1C: [...] ALTERNATE TESTING OR LABORATORY CONSULTATION. COMPREHENSIVE METABOLIC [id number] 05:21:07* Test Item Value Reference Range Interpretation Comme nts GLUCOSE (test code = 2217) 460 MG/DL 70-99 H BUN (test code = 220) 15 MG/DL 6-20 CREATININE (test code = 2214) 1.01 MG/DL 0.60-1.30 eGFR (2020 CKD-EPI) (test co de = 05984) 68 ML/MIN/1.73 >60 CALC BUN/CREAT (test code [...] code = 2219) 12 U/L 5-40 LIPID [id number] 05:21:07* Test Item Value Reference Range Interpretation [...] SPECIMENS. FOR MOREINFORMATION, SEE CLIENT ANNOUNCEMENT AT [email or web address] CalcLDL-C RISK RATIO LDL/HDL (test code = 2238) (NOTE) RATIO <3.22 UNABLE TO KAREN CULATE ALBUMIN/CREATININE RATIO, URINE, [id number] 05:10:40* Test Item Value Reference Range Interpretation Comme nts CREATININE, URINE, CONC. (test code = 2072) 41.7 MG/DL NOT ESTAB ALBUMIN, URINE, RANDOM (test code = 88519) 325.4 MG/DL NOT ESTAB CALC ALBUMIN/CREAT, RND (test code = 58800) 7803 MG/G <30 H Note: Albumin/Creatinine ratio reference interval reflects ADA and NKF guidelines. UNLESS OTHERWISE INDICATED, ALL TESTING PERFORMED AT [facility] [address] [place] [address] STEAM TABLE ATTENDANT: DAVID KENDRICK M.D. CLIA NUMBER [id number] [facility] [place]. [id number] COMPREHENSIVE METABOLIC [id number] 00:00:00* Test Item Value Reference Range Interpretation Comme nts GLUCOSE (test code = 7) 460 MG/DL BUN (test code = 2208) 15 MG/DL CREATININE (test code = 2214) 1.01 MG/DL eGFR (2020 CKD-EPI) (test co de = 90193) 68 ML/MIN/1.73 CALC BUN/CREAT (test code = 5) 15 RATIO SODIUM (test code = 223) 137 MEQ/L POTASSIUM (test code = 2228) [...] code = 2219) 12 U/L Jhony FullerLIPID [id number] 00:00:00* Test Item Value Reference Range Interpretation Comme nts CHOLESTEROL (test code = 2210) 311 MG/DL TRIGLYCERIDES (test code = 2232) 423 MG/DL HDL CHOLESTEROL (test code = 2220) 47 MG/DL CALC LDL CHOL (test code = 2237) (NOTE) MG/DL RISK RATIO LDL/HDL (test cod e = 2238) (NOTE) RATIO Jhony FullerHEMOGLOBIN [id number] 00:00:00* Test Item Value Reference Range Interpretation Comme nts HEMOGLOBIN A1c (test code = 82311) 13.6 % Jhony FullerALBUMIN/CREATININE RATIO, RANDOM [id number] 00:00:00* Test Item Value Reference Range Interpretation Comme nts CREATININE, URINE, CONC. (te st code = 2072) 41.7 MG/DL ALBUMIN, URINE, RANDOM (test code = 24306) 325.4 MG/DL CALC ALBUMIN/CREAT, RND (katerina t code = 10937) 7803 MG/G Jhony FullerCOMPREHENSIVE METABOLIC [id number] 00:00:00* Test Item Value Reference Range Interpretation Comme nts GLUCOSE (test code = 7) 460 MG/DL BUN (test code = 2208) 15 MG/DL CREATININE (test code = 2214) 1.01 MG/DL eGFR (2020 CKD-EPI) (test co de = 45233) 68 ML/MIN/1.73 CALC BUN/CREAT (test code = [...] = 2219) 12 U/L Jhony Lorenzana AustinLIPID [id number] 00:00:00* Test Item Value Reference Range Interpretation Comme nts CHOLESTEROL (test code = 2210) 311 MG/DL TRIGLYCERIDES (test code = 2232) 423 MG/DL HDL CHOLESTEROL (test code = 2220) 47 MG/DL CALC LDL CHOL (test code = 2237) (NOTE) MG/DL RISK RATIO LDL/HDL (test cod e = 2238) (NOTE) RATIO Jhony FullerCOMPREHENSIVE METABOLIC [id number] 00:00:00* Test Item Value Reference Range Interpretation Comme nts GLUCOSE (test code = 2217) 460 MG/DL BUN (test code = 2208) 15 MG/DL CREATININE (test code = 2214) 1.01 MG/DL eGFR (2020 CKD-EPI) (test co de = 57217) 68 ML/MIN/1.73 CALC BUN/CREAT (test code = [...] code = 2219) 12 U/L Jhony Lorenzana AustinHEMOGLOBIN [id number] 00:00:00* Test Item Value Reference Range Interpretation Comme dannielle HEMOGLOBIN A1c (test code = 31848) 13.6 % Jhony Lorenzana AustinALBUMIN/CREATININE RATIO, RANDOM [id number] 00:00:00* Test Item Value Reference Range Interpretation Comme dannielle CREATININE, URINE, CONC. (te st code = 2072) 41.7 MG/DL ALBUMIN, URINE, RANDOM (test code = 74438) 325.4 MG/DL CALC ALBUMIN/CREAT, RND (katerina t code = 32079) 7803 MG/G Jhony FullerLIPID [id number] 00:00:00* Test Item Value Reference Range Interpretation Comme nts CHOLESTEROL (test code = 2210) 311 MG/DL TRIGLYCERIDES (test code = 2232) 423 MG/DL HDL CHOLESTEROL (test code = 2220) 47 MG/DL CALC LDL CHOL (test code = 2237) (NOTE) MG/DL RISK RATIO LDL/HDL (test cod e = 2238) (NOTE) RATIO Jhony FullerHEMOGLOBIN [id number] 00:00:00* Test Item Value Reference Range Interpretation Comme dannielle HEMOGLOBIN A1c (test code = 80385) 13.6 % Jhony FullerCOMPREHENSIVE METABOLIC [id number] 00:00:00* Test Item Value Reference Range Interpretation Comme nts GLUCOSE (test code = 2217) 460 MG/DL BUN (test code = 2208) 15 MG/DL CREATININE (test code = 2214) 1.01 MG/DL eGFR (2020 CKD-EPI) (test co de = 17331) 68 ML/MIN/1.73 CALC BUN/CREAT (test code = [...] code = 2219) 12 U/L Jhony FullerLIPID [id number] 00:00:00* Test Item Value Reference Range Interpretation Comme nts CHOLESTEROL (test code = 2210) 311 MG/DL TRIGLYCERIDES (test code = 2232) 423 MG/DL HDL CHOLESTEROL (test code = 2220) 47 MG/DL CALC LDL CHOL (test code = 2237) (NOTE) MG/DL RISK RATIO LDL/HDL (test cod e = 2238) (NOTE) RATIO Jhony FullerHEMOGLOBIN [id number] 00:00:00* Test Item Value Reference Range Interpretation Comme dannielle HEMOGLOBIN A1c (test code = 13224) 13.6 % Jhony Lorenzana AustinALBUMIN/CREATININE RATIO, RANDOM [id number] 00:00:00* Test Item Value Reference Range Interpretation Comme nts CREATININE, URINE, CONC. (te st code = 2071) 41.7 MG/DL ALBUMIN, URINE, RANDOM (test code = 61603) 325.4 MG/DL CALC ALBUMIN/CREAT, RND (katerina t code = 02846) 7803 MG/G Jhony Lorenzana AustinALBUMIN/CREATININE RATIO, RANDOM [id number] 00:00:00* Test Item Value Reference Range Interpretation Comme nts CREATININE, URINE, CONC. (te st code = 2071) 41.7 MG/DL ALBUMIN, URINE, RANDOM (test code = 40305) 325.4 MG/DL CALC ALBUMIN/CREAT, RND (katerina t code = 30216) 7803 MG/G Jhony FullerCOMPREHENSIVE METABOLIC [id number] 00:00:00* Test Item Value Reference Range Interpretation Comme nts GLUCOSE (test code = 7) 460 MG/DL BUN (test code = 8) 15 MG/DL CREATININE (test code = 2214) 1.01 MG/DL eGFR (2020 CKD-EPI) (test co de = 79765) 68 ML/MIN/1.73 CALC BUN/CREAT (test code = [...] code = 2219) 12 U/L Jhony FullerLIPID [id number] 00:00:00* Test Item Value Reference Range Interpretation Comme nts CHOLESTEROL (test code = 2210) 311 MG/DL TRIGLYCERIDES (test code = 2232) 423 MG/DL HDL CHOLESTEROL (test code = 2220) 47 MG/DL CALC LDL CHOL (test code = 2237) (NOTE) MG/DL RISK RATIO LDL/HDL (test cod e = 2238) (NOTE) RATIO Jhony FullerHEMOGLOBIN [id number] 00:00:00* Test Item Value Reference Range Interpretation Comme nts HEMOGLOBIN A1c (test code = 09977) 13.6 % Jhony FullerALBUMIN/CREATININE RATIO, RANDOM [id number] 00:00:00* Test Item Value Reference Range Interpretation Comme nts CREATININE, URINE, CONC. (te st code = 2072) 41.7 MG/DL ALBUMIN, URINE, RANDOM (test code = 86394) 325.4 MG/DL CALC ALBUMIN/CREAT, RND (katerina t code = 36553) 7803 MG/G Jhony Lorenzana JonnyCOMPREHENSIVE METABOLIC [id number] 00:00:00* Test Item Value Reference Range Interpretation Comme nts GLUCOSE (test code = 2217) 460 MG/DL BUN (test code = 2208) 15 MG/DL CREATININE (test code = 2214) 1.01 MG/DL eGFR (2020 CKD-EPI) (test co de = 01423) 68 ML/MIN/1.73 CALC BUN/CREAT (test code = [...] code = 2219) 12 U/L Jhony FullerLIPID [id number] 00:00:00* Test Item Value Reference Range Interpretation Comme nts CHOLESTEROL (test code = 2210) 311 MG/DL TRIGLYCERIDES (test code = 2232) 423 MG/DL HDL CHOLESTEROL (test code = 2220) 47 MG/DL CALC LDL CHOL (test code = 2237) (NOTE) MG/DL RISK RATIO LDL/HDL (test cod e = 2238) (NOTE) RATIO Jhony FullerHEMOGLOBIN [id number] 00:00:00* Test Item Value Reference Range Interpretation Comme nts HEMOGLOBIN A1c (test code = 82446) 13.6 % Jhony FullerALBUMIN/CREATININE RATIO, RANDOM [id number] 00:00:00* Test Item Value Reference Range Interpretation Comme nts CREATININE, URINE, CONC. (te st code = 2072) 41.7 MG/DL ALBUMIN, URINE, RANDOM (test code = 13490) 325.4 MG/DL CALC ALBUMIN/CREAT, RND (katerina t code = 01008) 7803 MG/G Jhony FullerComplete Metabolic [id number] 22:55:37* Test Item Value Reference Range Interpretation Comme nts NA (test code = 9256866947) 132 mmol/L 135-145 L K (test code = 9886433244) 4.2 mmol/L 3.5-5.0 CL (test code = 8547043025) 102 mmol/L 98-108 CO2 TOTAL (test code = 2647125705) 28 mmol/L 23-31 AGAP (test code = 1894966289) 2 2-16 BUN (test code = 7618526408) 12 mg/dL 7-23 GLUCOSE (test code = 8827361908) 340 mg/dL 70-110 H CREATININE (test code = 2160-0) 0.54 mg/dL 0.50-1.04 TOTAL BILI (test code = 5807220942) 0.4 mg/dL 0.1-1.1 CALCIUM (test code = 9636174361) 9.2 mg/dL 8.6-10.6 T PROTEIN (test code = 8538226093) 6.4 g/dL 6.3-8.2 ALBUMIN (test code = 7987467926) 3.4 g/dL 3.5-5.0 L ALK PHOS (test code = 0438187901) 103 U/L 34-122 ALTv (test code = 1742-6) 15 U/L 5-35 AST(SGOT) (test code = 5195715726) 17 U/L 13-40 eGFR (test code = 10253-2) 113.7 mL/min/1.73m2 CKD-EPI eGFR (2020). Assuming creatinine has been stable day-to-day for at least three months, the eGFR indicates Category G1 (>= 90 mL/min/1.73 m2) Lab Interpretation (test code = 52875-5) [facility] [id number] 22:49:26* Test Item Value Reference Range Interpretation Comme nts LIPASE (test code = 4147401557) 449 U/L 0-220 H Lab Interpretation (test cod e = 11506-7) [facility] with [id number] 22:40:19* Test Item Value Reference Range Interpretation [...] 34.6 g/dL 31.6-35.1 RDW-SD (test code = 98186-3) 35.6 fL 39.0-49.9 L RDW-CV (test code = 788-0) 12.4 % 12.0-15.5 PLT (test code = 777-3) 289 166-358 MPV (test code = 86169-6) 9.9 fL 9.5-12.9 NRBC/100 WBC (test code = 8179988604) 0.0 0.0-10.0 NRBC x10^3 (test code = 5569690109) See_Comment [Automated messa ge] The system which generated this result transmitted reference range: 10*3/?L. The reference range was not used to interpret this result as normal/abnormal. GRAN MAT (NEUT) % (test code = 770-8) 61.5 % IMM GRAN % (test code = 0726458157) 0.60 % LYMPH % (test code = 736-9) 26.3 % MONO % (test code = 5905-5) 9.4 % EOS % (test code = 713-8) 1.4 % BASO % (test code = 706-2) 0.8 % GRAN MAT x10^3(ANC) (test code = 8134978070) 5.25 10*3/uL 1.88-7.09 IMM GRAN x10^3 (test code = 5051682837) 0.05 10*3/uL 0.00-0.06 LYMPH x10^3 (test code = 731-0) 2.25 10*3/uL 1.32-3.29 MONO x10^3 (test code = 742-7) 0.80 10*3/uL 0.33-0.92 EOS x10^3 (test code = 711-2) 0.12 10*3/uL 0.03-0.39 BASO x10^3 (test code = 704-7) 0.07 10*3/uL 0.01-0.07 Lab Interpretation (test code = 97972-5) [facility]normal [facility] HospitalLactic Acid Whole [id number] 17:56:21* Test Item Value Reference Range Interpretation Comme nts LACTIC ACID (test code = 2425877146) 1.19 mmol/L 0.50-2.20 Lab Interpretation (test cod e = 04957-6) Normal [facility]CT [facility] WO [id number] 17:26:41EXAM: CT ABDOMEN PELVIS WO CONTRAST HISTORY: [...] osteophytosisabout the lower thoracic and lower lumbar spine.[facility]. Metabolic Panel (23736)2023-07-16 16:55:43* Test Item Value Reference Range Interpretation Comme nts NA (test code = 6116334530) 134 mmol/L 135-145 L K (test code = 3373744014) 4.7 mmol/L 3.5-5.0 CL (test code = 3370918159) 101 mmol/L 98-108 CO2 TOTAL (test code = 7136870974) 33 mmol/L 23-31 H AGAP (test code = 9706908036) 2-16 L BUN (test code = 4351369829) 15 mg/dL 7-23 GLUCOSE (test code = 7913438474) 366 mg/dL 70-110 H CREATININE (test code = 2160-0) 0.58 mg/dL 0.50-1.04 TOTAL BILI (test code = 8183775871) 0.5 mg/dL 0.1-1.1 CALCIUM (test code = 3344720424) 9.0 mg/dL 8.6-10.6 T PROTEIN (test code = 7173393354) 6.6 g/dL 6.3-8.2 ALBUMIN (test code = 6509720342) 3.3 g/dL 3.5-5.0 L ALK PHOS (test code = 3441695450) 108 U/L 34-122 ALTv (test code = 1742-6) 20 U/L 5-35 AST(SGOT) (test code = 7357093288) 21 U/L 13-40 eGFR (test code = 58031-1) 111.8 mL/min/1.73m2 CKD-EPI eGFR (2020). Assuming creatinine has been stable day-to-day for at least three months, the eGFR indicates Category G1 (>= 90 mL/min/1.73 m2) Lab Interpretation (test code = 36369-5) [facility]normal [facility] HospitalTroponin [id number] 16:47:50* Test Item Value Reference Range Interpretation Comme nts TROPONIN I (test code = 0272378587) 0.009 ng/mL <=0.034 GIO (test code = [...] of biotin. Lab Interpretation (test code = 57917-7) [facility] 16:36:26* Test Item Value Reference Range Interpretation Comme nts MAGNESIUM (test code = 0714920278) 2.0 mg/dL 1.7-2.4 Lab Interpretation (test cod e = 69617-1) [facility]ase2024-02-27 16:36:06* Test Item Value Reference Range Interpretation Comme nts LIPASE (test code = 3419831758) 74 U/L 0-220 Lab Interpretation (test cod e = 04200-3) Normal [facility] HospitalCbc with Mwvm5571-55-42 16:29:20* Test Item Value Reference Range Interpretation [...] 34.0 g/dL 31.6-35.1 RDW-SD (test code = 75027-7) 36.9 fL 39.0-49.9 L RDW-CV (test code = 788-0) 12.4 % 12.0-15.5 PLT (test code = 777-3) 292 166-358 MPV (test code = 78967-9) 10.3 fL 9.5-12.9 NRBC/100 WBC (test code = 5957084943) 0.0 0.0-10.0 NRBC x10^3 (test code = 4102653188) See_Comment [Automated messa ge] The system which generated this result transmitted reference range: 10*3/?L. The reference range was not used to interpret this result as normal/abnormal. GRAN MAT (NEUT) % (test code = 770-8) 65.5 % IMM GRAN % (test code = 2893311960) 0.40 % LYMPH % (test code = 736-9) 23.8 % MONO % (test code = 5905-5) 8.6 % EOS % (test code = 713-8) 1.0 % BASO % (test code = 706-2) 0.7 % GRAN MAT x10^3(ANC) (test code = 9759478321) 4.59 10*3/uL 1.88-7.09 IMM GRAN x10^3 (test code = 7964019639) 0.03 10*3/uL 0.00-0.06 LYMPH x10^3 (test code = 731-0) 1.67 10*3/uL 1.32-3.29 MONO x10^3 (test code = 742-7) 0.60 10*3/uL 0.33-0.92 EOS x10^3 (test code = 711-2) 0.07 10*3/uL 0.03-0.39 BASO x10^3 (test code = 704-7) 0.05 10*3/uL 0.01-0.07 Lab Interpretation (test code = 79626-4) Abnormal [facility] GLUCOSE (AUTOMATED)2023-07-16 15:31:53* Test Item Value Reference Range Interpretation Comme nts POCT GLU (test code = 8739685045) 354 mg/dL 70-110 H Lab Interpretation (test cod e = 68823-2) Abnormal [facility] GLUCOSE(AGE >30DAYS)2023-03-17 02:51:00* Test Item Value Reference Range Interpretation Comme nts POCT Glu (age>30days) (test code = 3342) 271 mg/dL 70-110 A Lab Interpretation (test cod e = 84086-9) Abnormal [facility] GLUCOSE (AUTOMATED)2023-03-17 02:50:17* Test Item Value Reference Range Interpretation Comme [facility] POCT GLU (test code = 7169400475) 271 mg/dL 70-110 H Lab Interpretation (test cod e = 95669-0) [facility]normal [facility] Hospital[facility] Metabolic Kilsa2766-18-46 02:31:47* Test Item Value Reference Range Interpretation Comme nts NA (test code = 1433105948) 136 mmol/L 135-145 K (test code = 9320874212) 3.9 mmol/L 3.5-5.0 CL (test code = 2743858396) 101 mmol/L 98-108 CO2 TOTAL (test code = 6729838850) 23 mmol/L 23-31 AGAP (test code = 4216937175) 12 2-16 BUN (test code = 2108905912) 14 mg/dL 7-23 GLUCOSE (test code = 9299399895) 308 mg/dL 70-110 H CREATININE (test code = 9423438510) 0.45 mg/dL 0.50-1.04 L TOTAL BILI (test code = 4212255073) 0.5 mg/dL 0.1-1.1 CALCIUM (test code = 1491544687) 9.1 mg/dL 8.6-10.6 T PROTEIN (test code = 0252504723) 6.7 g/dL 6.3-8.2 ALBUMIN (test code = 1091398040) 3.5 g/dL 3.5-5.0 ALK PHOS (test code = 4442270978) 94 U/L 34-122 ALTv (test code = 1742-6) 19 U/L 5-35 AST(SGOT) (test code = 2343326437) 17 U/L 13-40 eGFR (test code = 1199908964) 148.7 mL/min/1.73m2 GIO (test code = GIO) [...] imaging tests). Lab Interpretation (test code = 97884-1) [facility]normal [facility] HospitalLipase, Qtitw4689-82-69 02:31:27* Test Item Value Reference Range Interpretation Comme nts LIPASE (test code = 1733065059) 31 U/L 0-220 Lab Interpretation (test cod e = 59493-8) Normal [facility]PO[facility] (AUT[facility]ATED)2023-03-17 01:34:16* Test Item Value Reference Range Interpretation Comme nts POCT GLU (test code = 9629116722) 299 mg/dL 70-110 H Lab Interpretation (test cod e = 52565-3) [facility]normal [facility] HospitalCB with Yuzeyoswwywf3659-07-12 01:15:26* Test Item Value Reference Range Interpretation Comme [facility] WBC (test code = 6690-2) 12.20 [...] 33.9 g/dL 31.6-35.1 RDW-SD (test code = 92310-0) 37.0 fL 39.0-49.9 L RDW-CV (test code = 788-0) 12.4 % 12.0-15.5 PLT (test code = 777-3) 279 See_Comment [Automated message] The system which generated this result transmitted reference range: 166 - 358 10*3/?L. The reference range was not used to interpret this result as normal/abnormal. MPV (test code = 48517-0) 10.4 fL 9.5-12.9 NRBC/100 WBC (test code = 1606265922) 0.0 See_Comment [Automated message] The system which generated this result transmitted reference range: 0.0 - 10.0 /100 WBCs. The reference range was not used to interpret this result as normal/abnormal. NRBC x10^3 (test code = 7431083029) See_Comment [Automated message] The system which generated this result transmitted reference range: 10*3/?L. The reference range was not used to interpret this result as normal/abnormal. GRAN MAT (NEUT) % (test code = 770-8) 83.6 % IMM GRAN % (test code = 3879120567) 0.90 % LYMPH % (test code = 736-9) 11.6 % MONO % (test code = 5905-5) 3.4 % EOS % (test code = 713-8) 0.1 % BASO % (test code = 706-2) 0.4 % GRAN MAT x10^3(ANC) (test code = 2080769396) 10.21 10*3/uL 1.88-7.09 H IMM GRAN x10^3 (test code = 9937321054) 0.11 10*3/uL 0.00-0.06 H LYMPH x10^3 (test code = 731-0) 1.41 10*3/uL 1.32-3.29 MONO x10^3 (test code = 742-7) 0.41 10*3/uL 0.33-0.92 EOS x10^3 (test code = 711-2) 0.03-0.39 L BASO x10^3 (test code = 704-7) 0.05 10*3/uL 0.01-0.07 Lab Interpretation (test code = 93419-0) Abnormal [facility] METABOLIC PANEL (NA, K, CL, CO2, GLUCOSE, BUN, CREATININE, CA)2022-09-11 20:13:22* Test Item Value Reference Range Interpretation Comme nts NA (test code = 1588985344) 136 mmol/L 135-145 K (test code = 4582521534) 4.5 mmol/L 3.5-5.0 CL (test code = 9742888180) 101 mmol/L 98-108 CO2 TOTAL (test code = 0985227453) 29 mmol/L 23-31 AGAP (test code = 7495231148) 6 2-16 BUN (test code = 3270355388) 14 mg/dL 7-23 GLUCOSE (test code = 6235637678) 381 mg/dL 70-110 H CREATININE (test code = 8650084361) 0.49 mg/dL 0.50-1.04 L CALCIUM (test code = 9387804500) 9.3 mg/dL 8.6-10.6 eGFR (test code = 0281028746) 135.4 mL/min/1.73m2 GIO (test code = GIO) [...] imaging tests). Lab Interpretation (test code = 91535-3) [facility] METABOLIC FNDRF9941-90-10 11:35:00* Test Item Value Reference Range Interpretation [...] 9.3 mg/dl 8.0-10.5 N HEPATIC FUNCTION PANEL M5761-90-95 11:35:00* Test Item Value Reference Range Interpretation [...] code = ALKP) 101 Units/L 50.0-136.0 N EVKXPC7100-85-69 11:35:00* Test Item Value Reference Range Interpretation Comme nts LIPASE (test code = LIP) 153 Units/L 65.0-230.0 N CBC W/AUTO WEKN8402-01-75 11:13:00* Test Item Value Reference Range Interpretation [...] 3uL 0.00-0.01 N DRUGS OF ABUSE SCREEN RE7709-93-61 10:28:00* Test Item Value Reference Range Interpretation [...] Methadone cut-o ff concentration: 300 ng/mL URINALYSIS XDMYNVUM5972-91-51 10:26:00* Test Item Value Reference Range Interpretation [...] (test code = YEASTU) FEW NEGATIVE SURGICAL MIJZEQCWT7394-52-45 16:45:00* Test Item Value Reference Range Interpretation Comme nts SURGICAL SPECIMENS (test code = SURG) RUN DATE: 05/11/20 [facility] - Lab PAGE 1 RUN TIME: 1646 Specimen Inquiry RUN USER: INTERFACE PATIENT: KURT LLAMAS LOC: [place] U #: [id number] AGE/SX: 44/F ROOM: [facility] RE04/30/20REG DR: Coretta Morris : 73 BED: 1 DIS: 05/09/20 STATUS: DIS IN TLOC: SPEC #: [id number] RECD: 05/09/20 STATUS: XI REQ #: [id number] ROCKY: 05/09/20- SUBM DR: Coretta Morris MD ENTERED: 05/09/20 SP TYPE: SURG SPEC OTHR DR: No Primary or Family Physician Self Referred Frederick Perry DPM, William S MDORDERED: BONE DECAL/2, GM LEVEL 4/2, REQUEST COMMENTS: 1. RIGHT DISTAL HALLUX 2. RIGHT HALLUX PROXIMAL CLEAR MARGIN COPIES TO: No Primary or Family Physician Self Referred Frederick Perry DPM [address] [place] [address] Coretta Morris MD [address] [facility] [address] [phone] @WOWIO Refugio Mora MD [address] [place], [address] [place] [address] ICD CODES: 785.4 - PROCEDURES: BONE DECAL (Incomplete) GM LEVEL 4 (05/11/20-1347) REQUEST (05/09/20-1208) FINAL DIAGNOSIS A. RIGHT DISTAL HALLUX: GANGRENE WITH CHRONIC OSTEOMYELITIS. B. RIGHT HALLUX PROXIMAL CLEAR MARGIN: BONE AND SOFT TISSUE WITH NO PATHOLOGY. CPT CODE: 21006 X 2, 62497 X 2 CONTINUED ON NEXT PAGE RUN DATE: 05/11/20 [facility] - Lab PAGE 2 RUN TIME: 1646 Specimen Inquiry RUN USER: INTERFACE SPEC #: [id number] PATIENT: KURT LLAMAS EVIE #[id number] (Continued) MACROSCOPIC Clinical history: Right hallux osteomyelitis A. Specimen labeled "right distal hallux" consists of a terminal portion of a toemeasuring 2.5 cm in length and 2 cm in maximum diameter. The skin underlying the toe showsslippage and separate from the underlying tissue. Carpet Floor Layer Apprentice sections including bonein one cassette A. B. Specimen labeled "right hallux proximal clear margins" consists of a roughlyrectangular piece of bone with partial cartilagenous covering measuring 1.4 cm in maximumdiameter. Carpet Floor Layer Apprentice sections one cassette, ____ A2 for decalcification. MICROSCOPIC SEE DIAGNOSIS Signed SIGNATURE ON FILE Brian Dubon Basil. 05/11/20 1645 END OF REPORT [id number] 15:25:00* Test Item Value Reference Range Interpretation Comme nts GLUBED (test code = GLUBED) 199 mg/dL 70-110 H [id number] 11:28:00* Test Item Value Reference Range Interpretation Comme nts GLUBED (test code = GLUBED) 249 mg/dL 70-110 H RLWBHK4682-39-19 08:28:00* Test Item Value Reference Range Interpretation Comme nts GLUBED (test code = GLUBED) 217 mg/dL 70-110 H VANCOMYCIN [id number] 00:42:00* Test Item Value Reference Range Interpretation Comme nts VANCOMYCIN TROUGH (test code = VANCT) 16.8 mcg/mL 10-20 N Other diseas e associated reference ranges: 10 - 15 mcg/mL Cellulitis, urinary tract infection 15 - 20 mcg/mL Bacteremia, infective endocarditis, osteomyelitis, meningitis, pneumonia, severe skin/soft tissue infection, spinal abscess BASIC METABOLIC [id number] 00:41:00* Test Item Value Reference Range Interpretation [...] CA) 9.0 mg/dl 8.0-10.5 N CBC W/AUTO [id number] 00:33:00* Test Item Value Reference Range Interpretation [...] = NRBC#) 0.00 X10 3uL 0.00-0.01 N YSLGQM2917-51-41 20:46:00* Test Item Value Reference Range Interpretation Comme nts GLUBED (test code = GLUBED) 281 mg/dL 70-110 H BASIC METABOLIC FVPVK3855-90-49 05:10:00* Test Item Value Reference Range Interpretation [...] code = CA) 8.6 mg/dl 8.0-10.5 N [id number] 21:03:00* Test Item Value Reference Range Interpretation Comme nts GLUBED (test code = GLUBED) 239 mg/dL 70-110 H [id number] 16:36:00* Test Item Value Reference Range Interpretation Comme nts GLUBED (test code = GLUBED) 268 mg/dL 70-110 H UEMMVJ7334-88-03 13:31:00* Test Item Value Reference Range Interpretation Comme nts GLUBED (test code = GLUBED) 307 mg/dL 70-110 H YJPYOI6939-66-43 07:45:00* Test Item Value Reference Range Interpretation Comme nts GLUBED (test code = GLUBED) 225 mg/dL 70-110 H PJOAWZ0404-07-44 21:52:00* Test Item Value Reference Range Interpretation Comme nts GLUBED (test code = GLUBED) 271 mg/dL 70-110 H - XR FOOT 3 + V [id number] 18:29:00 [facility] 1975 Sex: F FAX: Jerel Goodman [phone] [place]: St: DIS FAX: Kathya SabinamarisolDerek [phone] Name: KURT LLAMAS [facility] : 1975 Age/S: 44/F [address] [facility] Unit #: [id number]: [address] [place], [place] Phys: Jerel Goodman DPM [address] Acct: [id number] Dis Date: [id number]: DIS IN PHONE #: [phone] Exam Date: 05/06/2020 1820 FAX #: [phone] Reason: s/p right partial ampuation hallux EXAMS: CPT CODE: [id number] XR FOOT 3 + V RT 09476 Site ID: [id number] INDICATION: Postoperative, partial amputation of the hallux IMPRESSION: Satisfactory postoperative films following partial first digit amputation the distal portion of the first proximal phalanx at 1829 Reported and signed by: Kuldip Lozano M.D. CC: Jerel Goodman DPM; Coretta Morris MD Technologist: JAMES RANDOLPH Trnscrd Date/Time/By: 05/06/2020 (1828) : By: [email or web address] PAGE 1 Signed Report FAX: Jerel Goodman [phone] [place]: St: DIS FAX: Derek Eisenberg [phone] Name: KURT LLAMAS [facility] : 1975 Age/S: 44/F [address] [facility] Unit #: [id number] Loc: [address] [place], [place] Phys: Jerel Goodman DPM [address] Acct: [id number] Dis Date: 20200509 Status: DIS IN PHONE #: [phone] Exam Date: 05/06/20200 FAX #: [phone] Reason: s/p right partial ampuation hallux EXAMS: CPT CODE: [id number] XR FOOT 3 + V RT 19360 <Continued> Orig Print D/T: S: 05/06/2020 (1833) PAGE 2 Signed Report- XR FOOT 3 + V [id number] 18:29:00 [facility] 1975 Sex: F FAX: Jerel Goodman [phone] [place]: St: [facility] FAX: Derek Eisenberg [phone] Name: KURT LLAMAS [facility] : 1975 Age/S: 44/F [address] [facility] Unit #: [id number] Loc: [address] [place], [place] Phys: Jerel Goodman DPM [address] Acct: [id number] Dis Date: Status: ADM IN PHONE #: [phone] Exam Date: 05/06/20201819 FAX #: [phone] Reason: s/p right partial ampuation hallux EXAMS: CPT CODE: [id number] XR FOOT 3 + V RT 33520 Site ID: [id number] INDICATION: Postoperative, partial amputation of the hallux IMPRESSION: Satisfactory postoperative films following partial first digit amputation the distal portion of the first proximal phalanx Electronically Signedby Alina Lozano on 05/06/2020 at 1829 Reported and signed by: Kuldip Lozano M.D. CC: Jerel Goodman DPM; Coretta Morris MD Technologist: JAMES RANDOLPH Trnmnrd Date/Time/By: 05/06/2020 (1828) : By: [email or web address] PAGE 1 Signed Report FAX: Jerel Goodman [phone] [place]: St: [facility] FAX: Derek Eisenberg [phone] Name: KURT LLAMAS [facility] : 1975 Age/S: 44/F [address] [facility] Unit #: [id number] Loc: [address] [place], [place] Phys: Jerel GoodmanM[address] Acct: [id number] Dis Date: Status: ADM IN PHONE #: [phone] Exam Date: 05/06/2020 1820 FAX #: [phone] Reason: s/p right partial ampuation hallux EXAMS: CPT CODE: [id number] XR FOOT 3+ V RT 43014 (Continued) Orig Print D/T: S: 05/06/2020 (1833) PAGE 2 Signed ReportGLUBED 2020-05-06 15:19:00* Test Item Value Reference Range Interpretation Comme nts GLUBED (test code = GLUBED) 174 mg/dL 70-110 H COVID 19 Asymptomatic IH [id number] 12:57:00* Test Item Value Reference Range Interpretation Comme nts COVID 19 Asymptomatic IH AG (test code = COVNONPUIAG) NEGATIVE NEGATIVE Negative results should be treated as presumptive and ifinconsistent with clinical signs and symptoms, or necessaryfor patient management, should be tested with an alternativemolecular assay. Negative results do not preclude GNCQ-IsP-2lcxkmlkwc and should not be used as the sole basis forpatient management decisions. Negative results should beconsidered in the context of a patient's recent exposures,history, presence of clinical signs and symptoms consistentwith COVID-19. Specimen comments: If not done this smywroetzKTDOQT1035-01-38 11:17:00* Test Item Value Reference Range Interpretation Comme nts GLUBED (test code = GLUBED) 217 mg/dL 70-110 H [id number] 07:26:00* Test Item Value Reference Range Interpretation Comme nts GLUBED (test code = GLUBED) 263 mg/dL 70-110 H VANCOMYCIN [id number] 05:58:00* Test Item Value Reference Range Interpretation Comme nts VANCOMYCIN TROUGH (test code = VANCT) 8.4 mcg/mL 10-20 L Other diseas e associated reference ranges: 10 - 15 mcg/mL Cellulitis, urinary tract infection 15 - 20 mcg/mL Bacteremia, infective endocarditis, osteomyelitis, meningitis, pneumonia, severe skin/soft tissue infection, spinal abscess Specimen comments: PLEASE DRAW VANCO TROUGH PRIR TO 0500 DOSE, THANK YOUComments to Award Machine Operator: PLEASE MAKE SURE VANCO IS NOT HANGING, THANK YOUCOMPREHENSIVE METABOLIC [id number] 05:49:00* Test Item Value Reference Range Interpretation [...] ALKP) 92 Units/L 50.0-136.0 N CBC W/AUTO [id number] 05:29:00* Test Item Value Reference Range Interpretation [...] N - MRI LOW EXT W/O CONT [id number] 14:53:00 [facility] : 1975 Sex: F FAX: Milton Kraus [phone] [place]: St: DIS FAX: Derek Eisenberg [phone] Name: KURT LLAMAS [facility] : 1975 Age/S: 44/F [address] [facility] Unit #: [id number] Loc: [address] [place] [address] Phys: Milton Teixeira [address] Acct: [id number] Dis Date: 20200509 Status: DIS IN PHONE #: [phone] Exam Date: 05/05/2020 1423 FAX #: [phone] Reason: Eval osteo rt toe EXAMS: CPT CODE: [id number] MRI [place] EXT W/[place] [address] Site ID: [id number] HISTORY: Right great toe osteomyelitis COMPARISON: CT of the legs of the same day TECHNIQUE: Multiplanar, multisequenceMRI of the right mid to forefoot was [...] plantar soft tissue and subperiosteal abscess at 0393 Reported and signed by: Kuldip Lozano M.D. CC: Milton RUIZ; Coretta Morris MD Technologist: JANIE NGUYỄN Trnscrd Date/Time/By: 05/05/2020 (7960) : By: [email or web address] PAGE 1 Signed Report FAX: Milton Kraus [phone] [place]: St: DIS FAX: Derek Eisenberg [phone] Name: KURT LLAMAS [facility] : 1975 Age/S: 44/F [address] [facility] Unit #: [id number] Loc: [address] Phys: Milton Teixeira [address] Acct: [id number] Dis Date: 20200509 Status: DIS IN PHONE #: [phone] ExamDate: 05/05/2020 1423 FAX #: [phone] Reason: Eval osteo rt toe EXAMS: CPT CODE: [id number] MRI [place] EXT W/[place] [address] <Continued> Orig Print D/T: S: 05/05/2020 (6356) PAGE 2 Signed Report- MRI LOW EXT W/O CONT [id number] 14:53:00[facility] : 1975 Sex: F FAX: Milton Kraus [phone] [place]: St: [facility] FAX: Derek Eisenberg [phone] Name: KURT LLAMAS [facility] : 1975 Age/S: 44/F [address] [facility] Unit #: [id number]: [address] [place], [place] Phys: Milton Teixeira [address] Acct: [id number] Dis Date: Status: ADMIN PHONE #: [phone] Exam Date: 05/05/2020 1423 FAX #: [phone] Reason: Eval osteo rt toe EXAMS: CPT CODE: [id number] MRI [place] EXT W/[place] [address] Site ID: T18 HISTORY: Right great toe osteomyelitis COMPARISON: CT of the legs of the same day TECHNIQUE: Multiplanar, multisequence MRI of theright mid to forefoot was performed without intravenous contrast FINDINGS: Moderate subcutaneous ed monika/cellulitis of the hallux, with a thin 2 [...] plantar soft tissue and subperiosteal abscess at 6255 Reported and signed by: Kuldip Lozano M.D. CC: Milton RUIZ; Coretta Morris MD Technologist: JANIE RANDOLPH; YARITZA NGUYỄN Trnmnrd Date/Time/By: 05/05/2020 (0950) : By: [email or web address] PAGE 1 Signed Report FAX: Milton Kraus [phone] [place]: St: [facility] FAX: Derek Eisenberg [phone] Name: KURT LLAMAS [facility] : 1975 Age/S: 44/F [address] [facility] Unit #: [id number] Loc: [address] [place], [place] Phys: Milton Teixeira [address] Acct: [id number] Dis Date: Status: ADM IN PHONE #: [phone] Exam Date: 05/05/2020 1423 FAX #: [phone] Reason: Eval osteo rt toe EXAMS: CPT CODE: [id number] [place] [address] (Continued) Orig Print D/T: S: 05/05/2020 (1874) PAGE 2 Signed Report- CT LOWER EXTRM W/O C [id number] 13:23:00 [facility] : 1975 Sex: F FAX: Milton Kraus [phone] [place]: St: DIS FAX: Derek Eisenberg [phone] Name: KURT LLAMAS [facility] : 1975 Age/S: 44/F [address] [facility] Unit: [id number] Loc: [address] [place], [place] Phys: Milton Teixeira [address] Acct: [id number] Dis Date: 05/09/2020 Status: DIS IN PHONE #: [phone] Exam Date: 05/05/2020 1126 FAX #: [phone] Reason: r/o osteoEXAMS: CPT CODE: [id number] CT L[place]TRM W/[place] [address] EXAM: - CT LOWER EXTRM W/O C [...] ordered. Each foot should be scanned separately inorder to increase sensitivity of the study. Possible loss of normal cortex at the plantar aspect ofthe right great toe distal phalanx. Recommend further evaluation with MRI of the right forefoot. at 1323 Reported and signed by: Gaurav Wlaker M.D. CC: Milton RUIZ; Coretta Morris MD Technologist: PILAR ERNST Trnscrd Dt/Tm: 05/05/2020 (3553) t.SDR.HV2 Orig Print D/T: S: 05/05/2020 (9636 PAGE 1 Signed Report- CT LOWER EXTRM W/O C [id number] 13:23:00 [facility] : 1975 Sex: F FAX: Milton Kraus [phone] [place]: St: [facility] FAX: Derek Eisenberg [phone] Name: KURT LLAMASEE [facility] : 1975 Age/S: 44/F [address] [facility] Unit: [id number] Loc: [address] [place], [place] Phys: Milton Teixeria [address] Acct: [id number] Dis Date: Status: ADM IN PHONE #: [phone] Exam Date: 05/05/2020 1126 FAX #: [phone] Reason: r/o osteo EXAMS: CPTCODE: [id number] [place]TR[place] [address] EXAM: - CT LOWER EXTRM W/O C [...] Technologist: PILAR ERNST Trnscrd Dt/Tm: 05/05/2020 (1323) tRAYRAYR.HV2 Orig Print D/T: S: 05/05/2020 (0676 PAGE 1 Signed ReportGLUBED 2020-05-05 06:41:00* Test Item Value Reference Range Interpretation Comme nts GLUBED (test code = GLUBED) 289 mg/dL 70-110 H [id number] 06:41:00* Test Item Value Reference Range Interpretation Comme nts GLUBED (test code = GLUBED) 356 mg/dL 70-110 H [id number] 20:58:00* Test Item Value Reference Range Interpretation Comme nts GLUBED (test code = GLUBED) 331 mg/dL 70-110 H [id number] 15:23:00* Test Item Value Reference Range Interpretation Comme nts GLUBED (test code = GLUBED) 247 mg/dL 70-110 H [id number] 07:07:00* Test Item Value Reference Range Interpretation Comme nts GLUBED (test code = GLUBED) 282 mg/dL 70-110 H [id number] 20:59:00* Test Item Value Reference Range Interpretation Comme nts GLUBED (test code = GLUBED) 289 mg/dL 70-110 H [id number] 06:56:00* Test Item Value Reference Range Interpretation Comme nts GLUBED (test code = GLUBED) 279 mg/dL 70-110 H [id number] 20:30:00* Test Item Value Reference Range Interpretation Comme nts GLUBED (test code = GLUBED) 319 mg/dL 70-110 H [id number] 15:25:00* Test Item Value Reference Range Interpretation Comme nts GLUBED (test code = GLUBED) 307 mg/dL 70-110 H [id number] 11:29:00* Test Item Value Reference Range Interpretation Comme nts GLUBED (test code = GLUBED) 275 mg/dL 70-110 H [id number] 09:03:00* Test Item Value Reference Range Interpretation Comme nts GLUBED (test code = GLUBED) 232 mg/dL 70-110 H BASIC METABOLIC [id number] 03:15:00* Test Item Value Reference Range Interpretation [...] code = CA) 8.6 mg/dl 8.0-10.5 N [id number] 03:15:00* Test Item Value Reference Range Interpretation Comme nts MAGNESIUM (test code = MAG) 1.9 mg/dl 1.8-2.4 N [id number] 03:14:00* Test Item Value Reference Range Interpretation Comme nts HGBA1C% (test code = HGBA1C%) 12.4 %A1C 4.8-6.0 H ESTIMATED AVERAGE GLUCOSE (t est code = EAG) 309 MG/DL CBC W/AUTO [id number] 03:07:00* Test Item Value Reference Range Interpretation [...] = NRBC#) 0.00 X10 3uL 0.00-0.01 N [id number] 19:26:00* Test Item Value Reference Range Interpretation Comme nts GLUBED (test code = GLUBED) 275 mg/dL 70-110 H [id number] 17:38:00* Test Item Value Reference Range Interpretation Comme nts GLUBED (test code = GLUBED) 340 mg/dL 70-110 H [id number] 11:12:00* Test Item Value Reference Range Interpretation Comme nts GLUBED (test code = GLUBED) 320 mg/dL 70-110 H COMPREHENSIVE METABOLIC [id number] 07:53:00* Test Item Value Reference Range Interpretation [...] code = ALKP) 95 Units/L 50.0-136.0 N [id number] 07:53:00* Test Item Value Reference Range Interpretation Comme nts MAGNESIUM (test code = MAG) 1.9 mg/dl 1.8-2.4 N THYROID STIMULATING [id number] 07:53:00* Test Item Value Reference Range Interpretation Comme nts THYROID STIMULATING HORMONE (test code = TSH) 0.50 IU/ML 0.47-5.01 N Result is in International Units/milliliter [id number] 07:52:00* Test Item Value Reference Range Interpretation Comme nts GLUBED (test code = GLUBED) 273 mg/dL 70-110 H [id number] 07:38:00* Test Item Value Reference Range Interpretation Comme nts HGBA1C% (test code = HGBA1C%) 12.9 %A1C 4.8-6.0 H ESTIMATED AVERAGE GLUCOSE (t est code = EAG) 324 MG/DL CBC W/AUTO [id number] 06:58:00* Test Item Value Reference Range Interpretation [...] = NRBC#) 0.00 X10 3uL 0.00-0.01 N [id number] 00:04:00* Test Item Value Reference Range Interpretation Comme nts GLUBED (test code = GLUBED) 291 mg/dL 70-110 H [id number] 21:10:00* Test Item Value Reference Range Interpretation Comme nts GLUBED (test code = GLUBED) 333 mg/dL 70-110 H [id number] 16:13:00* Test Item Value Reference Range Interpretation Comme nts GLUBED (test code = GLUBED) 297 mg/dL 70-110 H [id number] 13:02:00* Test Item Value Reference Range Interpretation Comme nts GLUBED (test code = GLUBED) 266 mg/dL 70-110 H CBC W/AUTO [id number] 06:03:00* Test Item Value Reference Range Interpretation [...] (test code = PLTEST) ADQ LACTIC ACID [id number] 03:25:00* Test Item Value Reference Range Interpretation Comme nts LACTIC ACID REPEAT (test cod e = LACTR) 0.6 mmol/L 0.4-2.0 N LACTIC [id number] 01:14:00* Test Item Value Reference Range Interpretation Comme nts LACTIC ACID (test code = LACT) 2.4 MMOL/L 0.4-2.0 H URINALYSIS [id number] 00:04:00* Test Item Value Reference Range Interpretation [...] = BACU) TNTC NONE A VENOUS BLOOD [id number] 00:02:00* Test Item Value Reference Range Interpretation [...] FIO2 (test code = FIO2V) 21.0 URINALYSIS [id number] 23:50:00* Test Item Value Reference Range Interpretation [...] BACTERIA (test code = BACU) NONE ACETONE [id number] 23:26:00* Test Item Value Reference Range Interpretation Comme nts ACETONE BLOOD (test code = ACETB) SMALL NEGATIVE A BASIC METABOLIC [id number] 23:16:00* Test Item Value Reference Range Interpretation [...] code = CA) 9.3 mg/dl 8.0-10.5 N [id number] 23:16:00* Test Item Value Reference Range Interpretation Comme nts TROPONIN-I (test code = TROPI) <0.02 NG/ML 0.00-0.06 N REFERENCE RANGE TROPONIN I HEALTHY INDIVIDUALS: <0.06 ng/mL R/O ISCHEMIA: 0.07 - 0.60 ng/mL CUT-OFF RANGE FOR AMI: 0.60 - 1.5 ng/mL - XR CHEST 1 [id number] 23:05:00 [facility] 1975 Sex: F FAX: Charlie Tapia DO [phone] [place]: St: DIS Name: LLAMAS,KURT CASE [facility] : 1975 Age/S: 44/F [address] [facility] Unit #: [id number] Loc: E.[address] [place], [place]: [place] [address] Acct: [id number] Dis Date: 20200509 Status: DIS IN PHONE #: [phone] Exam Date: 04/29/20202258 FAX #: [phone] Reason: SOB EXAMS: CPT CODE: [id number] XR CHEST 1 V 92933 EXAM: - XR CHEST 1 V INDICATION: SOB Location: H62. COMPARISON: None TECHNIQUE: Frontal view of the chest. FINDINGS: Lungs appear clear. Cardiomediastinal silhouette and osseous structures appear unremarkable. No pleural effusion appreciated. IMPRESSION: No acute cardiopulmonary process seen. at 8084 Reported and signed by: Diego Marin M.D. CC: Charlie aTpia DO Technologist: CHARLY TA Trnmnrd Date/Time/By: 04/29/2020 (9418) : By:[email or web address] PAGE 1 Signed Report FAX: Charlie Tapia DO [phone] [place]: St: DIS Name: KURT LLAMAS [facility] : 1975 Age/S: 44/F [address] [facility] Unit #: [id number] Loc: [address] Phys: [place] [address] Acct: [id number] Dis Date: 20200509 Status: DIS IN PHONE#: [phone] Exam Date: 04/29/2020 5546 FAX #: [phone] Reason: SOB EXAMS: CPT CODE: [id number] XR CHEST 1 V 14783 <Continued> Orig Print D/T: S: 04/29/2020 (2746) PAGE 2 Signed Report- XR CHEST 1 [id number] 23:05:00 [facility] : 1975 Sex: FFAX: WillieCharlie ACOSTA [phone] [place]: St: REG Name: KURT SHARP [facility] : 1975 Age/S: 44/F[address] [facility] Unit #: [id number] Loc: [address] Phys: TapiaCharlie [id number] Acct: [id number] Dis Date: Status: REG ER PHONE #: [phone] Exam Date: 04/29/2020 4074 FAX #: [phone] Reason: SOB EXAMS: CPT CODE: [id number] XR CHEST 1 V 89927 EXAM: - XR CHEST 1 V INDICATION: SOB Location: H62. COMPARISON: None TECHNIQUE: Frontal view of the chest. FINDINGS: Lungs appear clear. Cardiomediastinal silhouette and osseous structures appear unremarkable. No pleuraleffusion appreciated. IMPRESSION: No acute cardiopulmonary process seen. at 2305 Reported and signed by: Diego Marin M.D. CC: Charlie Tapia DO Technologist: CHARLY TA Trnscrd Date/Time/By: 04/29/2020 (3425) : By: [email or web address] PAGE 1 Signed Report FAX: Charlie Tapia DO [phone] [place]: St: REG Name: KURT SHARP [facility] : 1975 Age/S: 44/F [address] Unit #: [id number] Loc: E[facility] [place], [place]: [place] [address] Acct: [id number] Dis Date: Status: REG ER PHONE #: [phone] Exam Date: 04/29/2020 8586 FAX #: [phone] Reason: SOB EXAMS: CPT CODE: [id number] XR CHEST 1 V 13769 (Continued) Orig Print D/T: S: 04/29/2020 (2446) PAGE 2 Signed ReportCBC W/AUTO [id number] 22:48:00* Test Item Value Reference Range Interpretation [...] X10 3uL 0.00-0.01 N Coronavirus 2018 nCoV [id number] 22:40:00* Test Item Value Reference Range Interpretation Comme nts Coronavirus 2019 nCoV Bedside (test code = [id number]) Negative NEGATIVE Negative results should be treated as presumptive and ifinconsistent with clinical signs and symptoms, or necessaryfor patient management, should be tested with an alternativemolecular assay. Negative results do not preclude SUFK-ZaU-4kqronklfa and should not be used as the sole basis forpatient management decisions. Negative results should beconsidered in the context of a patient's recent exposures,history, presence of clinical signs and symptoms consistentwith COVID-19. - CT CERVICAL SP WO [id number] 07:30:00 [facility] : 1975 Sex: F FAX: Bill Storey MD [phone] [place]: St: UNK Name: KURT LLAMAS [facility] : 1975 Age/S: 30/F [address] [facility] Unit: [id number] Loc: [place], [place]: [place] [address] Acct: [id number] Dis Date: Status: UNK PHONE #: [phone] Exam Date: 06/24/2006348 FAX #: [phone] Reason: am: AMS/FALL EXAMS: CPT CODE: [id number] CT CERVICAL SP WO CON [id number] CT HEAD WO CON 81564 [id number] CHEST 1V AP/PA 34455 [id number] CERVICAL SP MIN 4VWS 28706DSWELVZF SPINE, TWO VIEWS HISTORY: Fall. The cervical [...] 1 Signed Report (CONTINUED) FAX:Bill Storey MD [phone] [place]: St: [facility] Name: KURT LLAMAS [facility] : 1975 Age/S: 30/F [address] [facility] Unit: [id number] Loc: [place], [place]: [place] [address] Acct: [id number] Dis Date: Status: [facility] PHONE #: [phone] Exam Date: 06/24/2006 034 FAX #: [phone] Reason: am: AMS/FALL EXAMS: CPT CODE: [id number] CT CERVICAL SP WO CON [id number] HEAD WO CON 69889 [id number] CHEST 1V AP/PA 44403 [id number] CERVICAL SP MIN 4VWS 43122 <Continued> levels are appropriate. The C5, C6 [...] COULTER; DWIGHT GOFF Trnscrd Dt/Tm: 06/24/2006 (0918) ILDAB/Germán.EDGARDO.JLB/ANUP.JLCele Orig Print D/T: S: 06/24/2006 (1049 PAGE 2 Signed Report- CT HEAD WO [id number] 07:30:00[facility] : 1975 Sex: F FAX: Bill Storey MD [phone] [place]: St: UNK Name: KURT LLAMAS [facility] : 1975 Age/S: 30/F [address] [facility] Unit: [id number] Loc: [place], [place]: [place] [address] Acct: [id number] Dis Date: Status: UNK PHONE #: [phone] Exam Date: 06/24/2006348 FAX #: [phone] Reason: am: AMS/FALL EXAMS: CPT CODE: [id number] CT CERVICAL SP [place] CON [address] HEAD WO CON 54038 472070086 CHEST 1V AP/PA 02605 037332324 CERVICAL SP MIN 4VWS 27930ZOPVBDOW SPINE, TWO VIEWS HISTORY: Fall. The cervical [...] PAGE 1 Signed Report (CONTINUED) FAX: Bill Kincaid MD [phone] [place]: St: [facility] Name: KURT LLAMAS [facility] : 1975 Age/S: 30/F[address] [facility] Unit: [id number] Loc: [place], [place]: [place] [address] Acct: [id number] Dis Date: Status: UNK PHONE #: [phone] Exam Date: 06/24/2006348 FAX #: [phone] Reason: am: AMS/FALL EXAMS: CPT CODE: [id number] CT CERVICAL SP [place] CON [address] HEAD [place] CON 75384 625292086 CHEST 1V AP/PA 11669 800175239 CERVICAL SP MIN 4VWS 00394 <Continued> levels are appropriate. The C5, C6 [...] COULTER; DWIGHT GOFF Trnscrd Dt/Tm: 06/24/2006 (0918) JOSEFINA/JOSEFINA/ANUP.ANTHONY Orig Print D/T: S: 06/24/2006 (1049 PAGE 2 Signed Report- CHEST 1V AP/[id number] 07:30:00[facility] : 1975 Sex: F FAX: Bill Storey MD [phone] [place]: St: UNK Name: LLAMASDENVERKathya CASE [facility] : 1975 Age/S: 30/F [address] Unit: [id number] Loc: [place], [place]: [place] [address] Acct: [id number] Dis Date: Status: UNK PHONE #: [phone] Exam Date: 06/24/2006 0349 FAX #: [phone] Reason: am: AMS/FALL EXAMS: CPT CODE: [id number] CT CERVICAL SP WO CON [id number] CT HEAD WO CON 03134 496919190 CHEST 1V AP/PA 81579 045734591 CERVICAL SP MIN 4VWS 87701CWRUGTHF SPINE, TWO VIEWS HISTORY: Fall. The cervical [...] low density areas of CVA are seen. Posteriorfossa structures appear to be intact also. No [...] Signed Report (CONTINUED) FAX: Bill Storey MD [phone] [place]: St: [facility] Name: FARHADKURT CASE [facility] : 1975 Age/S:30/F [address] [facility] Unit: [id number] Loc: UNK [place], [place]: [place] [address] Acct: [id number] Dis Date: Status: UNK PHONE #: [phone] Exam Date: 06/24/2006 0349 FAX #: [phone] Reason: am: AMS/FALL EXAMS: CPT CODE: [id number] CT CERVICAL SP WO CON [address] HEAD WO CON 96330 672428008 CHEST 1V AP/PA 06767 030418137 CERVICAL SP MIN 4VWS 81613 <Continued> levels are appropriate. The C5, C6 [...] Starks MD Technologist: SHRUTHI COULTER; DWIGHT DENVER [facility] Dt/Tm: 06/24/2006 (0918) E.HIM.JLB/E.HIM.JLB/E.HIM.JLB Orig Print D/T: S: 06/24/2006(1049 PAGE 2 Signed Report- CERVICAL SP MIN 4VWS 2006-06-24 07:30:00 [facility] : 1975 Sex: F FAX: Bill Storey MD [phone] [place]: St: [facility] Name: KURT LLAMAS [facility] : 1975 Age/S: 30/F [address] [facility] [employer] Unit: [id number] Loc: [place], [place]: [place] [address] Acct: [id number] Dis Date: Status: [facility] PHONE #: [phone] Exam Date: 06/24/2006348 FAX #: [phone] Reason: am: AMS/FALL EXAMS: CPT CODE: [id number] CT CERVICAL SP [place] [address] HEAD WO CON 11907 869643333 CHEST 1V AP/PA 60897 [id number] CERVICAL SP MIN 4VWS 92651 CERVICAL SPINE, TWO VIEWS HISTORY: Fall. The [...] obtained. Minimal sinusitis or mucoperiosteal thickening is seenat the left maxillary level. No fractures of the facial bones that are visualized can be seen. The C1-C2 articulation appears to be intact. The C2-C3 and C3-C4 PAGE 1 Signed Report (CONTINUED) FAX: Bill Storey MD [phone] [place]: St: [facility] Name: KURT LLAMAS [facility] : 1975 Age/S: 30F[address] [facility] Unit: [id number] Loc: [place], [place]: [place] [address] Acct: [id number] Dis Date: Status: K PHONE #: [phone] Exam Date: 06/24/2006 034 FAX #: [phone] Reason: am: AMS/FALL EXAMS: CPT CODE: [id number] CT CERVICAL SP [place] CON [id number] HEAD WO CON 17214 300945270 CHEST 1V AP/PA 04164 [id number] CERVICAL SP MIN 4VWS 44685 <Continued> levels are appropriate. The C5, C6 [...] Technologist: SHRUTHI GOFF Trnscrd Dt/Tm: 06/24/2006 (0918) ILDAB/ANUP.CANDACEB/Germán.EDGARDO.JLB Orig Print D/T: S: 06/24/2006 (1042 PAGE 2 Signed Report Notes Date/Time Note Provider Source Jhony Cohen [facility]2025-04-08 00:00:[address] [facility]2025-03-04 00:00:00 [address]hony [address] [facility]2025-02-21 10:16:45 Patient given discharge instructions on sciatica. Given prescription X 1 for robaxin. Advised to follow up with pcp. Pt left ER via wheelchair with adult. No signs of distress. IKE Mahmood [facility]sin[facility]24[facility]52[facility]64 08:41:33 CC: patient presents to the ER [...] wheelchair. Appears in no distress. IKE Land Count includes the [facility] HospitalBoffur1795-18-40 08:35:00 [facility] Emergency Department Note Patient Name: Kurt Llamas Date of : 1975 48 year old female Treatment Room: [place] [address] Primary Care Physician: PATIENT DOES NOT HAVE A PCP Patient Escorted by: Self [9] Mode of Arrival: Personal means [1] EMS Treatment Prior to ED Arrival: PROTECTIVE CLOTHING ISSUER treatment: None Travel and Exposure Screening: Symptoms [...] taking these medications which have NOT CHANGED HHBRLAVENI-FIVBYNGPIOSQJ-BNHC 50-325-40 MG TABLET Take 1 tablet by [...] signed by: Poly Reyez DO 07/10/24 0959 [facility]2025-02-13 07:41:13 Pt given printed and verbal discharge [...] apparent distress. Left with . IKE Land [place] 866815-02-13 04:28:07 Patient arrived via with family to ED c/o not sleeping for 4 days. Patient states being diabetic with severe lower back pain and bilateral leg cramps. Patient took Ibu last night with no relief. IKE Kennedy Count includes the [facility] HospitalWdzndn9252-43-38 00:00:00 Jhony [facility]2025-01-07 00:00:00 [facility] 16:35:24 Pt given printed and verbal discharge [...] with steady gait, in no apparent distress, ASSIGNMENT EDITOR Lynsey Villeda Count includes the [facility] HospitalPpepou3679-44-28 10:30:35 Patient reports having abscess on base of neck just under hairline that she tried to charles herself about 1 week ago and it is not going away and causing her more pain. IKE Neal Count includes the [facility] HospitalHkdenv4012-88-39 00:00:00 Jhony Cohen [facility]2024-03-01 19:25:21 Pt discharged home following ERP eval. VSS. Given all education and information regarding s/s of worsening condition, pain management and the importance of follow up. Pt verbalized understanding. Alert and ambulatory to pov with spouse. IKE Hunt [place] 866814-03-01 14:38:11 Patient states: "It started Saturday and [...] Pmhx: frequent UTI"s, hysterectomy, DM- type 2, IKE Mahmood Count includes the [facility] HospitalZgclwi5228-22-54 12:36:39 Pt discharged with diagnosis of pyelonephritis. Printed and verbal instructions reviewed with and given to patient. Prescriptions given x 3. Pt verbalized understanding of teaching, medications, and recommended follow-up. Denies questions or concerns at this time. Pt ambulatory at discharge. Appears in no apparent distress. No ataxia noted. Accompanied by spouse. IKE Conn Count includes the [facility] HospitalTbiebx2649-28-08 09:25:54 Patient woke up with lower right side back pain 2 days ago. Reports that the pain has continued along with nausea and vomiting. Additionally reports that she is is a diabetic non-compliant with insulin or oral medications due to financial constraints and that she always has numbers in the 400's. Glucose at triage: 354 mg/dl IKE Maldonado [facility] - Ylzzwu5299-88-17 08:45:00 [facility] ([facility]) EMERGENCY PROVIDER REPORT REPORT#:[id number] REPORT STATUS: Signed DATE:09/27/21 TIME: 844 PATIENT: KURT LLAMAS UNIT #: [id number] ROOM/BED: AGE: 45 SEX: F PCP PHYS: [...] fever chills. Patient states she been taking zqkh-hwo-lxmyatt medications to help with migraines. Risk-Headache Risk [...] 09/27 725 Pulse 78 09/27 725 Resp 09/27 Review of Vital Signs Reviewed, Vital signs [...] (Auto) (23.0 - 38.0 %) 10.1 L [place] % (Auto) (1.0 - 10.0 %) 2.5 Eos % (Auto) (1.0 - 5.0 %) 0.1 L Baso % (Auto) (0.0 - 1.0 %) 0.3 Neut # (Auto) (2.4 - 6.3 K/mm3) 11.4 H Lymph # (Auto) (1.2 - 4.0 K/mm3) 1.3 [place] # (Auto) (0.0 - 0.6 K/mm3) 0.3 [...] pH (5.0 - 9.0) 5.0 Ur Specific [place] (1.000 - 1.030) 1.020 Urine Protein (NEGATIVE [...] STA 09/27 0758 DC Tromethamine IV 09/27 0759 Electrolytic, Caloric, And Teressa Sig/Mendoza Start time Last Medication Dose Route Stop Time Status Admin Sodium Chloride 1,000 ML X1ED STA 09/27 0758 DC IV 09/27 0857 Gastrointestinal Drugs Sig/Mendoza Start time Last Medication Dose Route Stop Time Status Admin Metoclopramide HCl 10 MG X1ED STA 09/27 0758 DC 05/11 IV 09/27 0759 1156 Hormones And Synthetic Substit Sig/Mendoza Start time Last Medication Dose Route Stop Time Status Admin Dexamethasone Sodium 8 MG X1ED STA 09/27 0758 DC Phosphate IV 09/27 0759 Patient Discharge Departure Vital Signs/Condition Vital Signs First Documented: Result Date Time Pulse Ox 99 09/27 725 B/P 128/84 09/27 07 B/P Mean 98 [...] 78 09/27 725 Resp 17 09/27 725 All vital signs available at the time [...] Explanation Myself, Nurse, Family at 1539 RPT #:[id number] END OF REPORTMOQBF8034-53-74 10:27:00 [facility] ([facility] Infectious Dis. Progress Note REPORT#:[id number] REPORT STATUS: Signed DATE:05/09/20 TIME: 1027 PATIENT: KURT LLAMAS UNIT #: [id number] ROOM/BED: [place] [address] : [birth year] AGE: 44 SEX: F ATTEND: [...] who reported to the ER at [facility] with a 4-day history of muscle [...] Room air 05/09 0742 B/P 113/77 05/09 632 B/P Mean 89.4 05/09 632 Temp 36.8 05/09 632 Pulse 72 05/09 632 Resp 18 12/21 0632 O2 Flow Rate 8 05/06 1807 FiO2 05/02 0652 Vital Signs Date Temp Pulse [...] edema Musculoskeletal: normal inspection, no joint swelling Neuro/FLIGHT SIMULATOR TEACHER: alert, oriented X 3, CNII-XII intact, normal [...] Virus Type A Antigen - NEGATIVE 04/30 003 BLOOD: Blood Culture - NEGATIVE 04/30 28 BLOOD: Blood Culture - NEGATIVE 04/29 2318 [...] Goodman. 4. Medical management as per the [facility]. at 1031 RPT #:[id number] END OF REPORTVKNYR8520-95-04 07:17:00 [facility] Podiatry Progress Note REPORT#:[id number] REPORT STATUS: Signed DATE:05/09/20 TIME: 716 PATIENT: KURT LLAMAS UNIT #: [id number] ROOM/BED: [place] [address] : [birth year] AGE: 44 SEX: F ATTEND: [...] tenderness, neurological deficit Musculoskeletal: Musculoskeletal: decreased ROM Neuro/FLIGHT SIMULATOR TEACHER: alert, oriented X 3 Skin: abnormal color, atrophic shiny skin, poor skin turgor Diagnosis, Assessment Plan Free Text A P: Impression: 1. right hallux cellulitis with OM and abscess s/p partial hallux ampuation 12/ 18 2. DM w/ PN Plan: seen and evaluated DVT prophylaxis per medicine Abx per medicine MRI noted CT noted keep dressing c/d/i. heel touch WB Pain control Pending surgical micro and path. Follow up in office < 1 week Will follow Covering for Dr. Neal/Vicky at 0023 RPT #:[id number] END OF REPORTLWMFL7653-96-22 16:17:00 [facility] ([facility]) Hospitalist Progress Note REPORT#:[id number] REPORT STATUS: Signed DATE:05/08/20 TIME: 1616 PATIENT: KURT LLAMAS UNIT #: [id number] ROOM/BED: [place] [address] : [birth year] AGE: 44 SEX: F ATTEND: [...] Chloride 100 ML Sodium Chloride 1,000 ML .E15J64U IV (DC) Insulin Glargine 20 UNITS BEDTIME [...] edema, no cyanosis, right foot in dressing Neuro/FLIGHT SIMULATOR TEACHER: alert, oriented X 3, no focal deficits [...] yesterday monitor blood sugars at 1625 RPT #:[id number] END OF REPORTOFXWY6997-86-62 13:19:00 [facility] ([facility]) Infectious Dis. Progress Note REPORT#:[id number] REPORT STATUS: Signed DATE:05/08/20 TIME: 1319 PATIENT: KURT LLAMAS UNIT #: [id number] ROOM/BED: [place] [address] : [birth year] AGE: 44 SEX: F ATTEND: [...] who reported to the ER at [facility] with a 4-day history of muscle [...] Chloride 100 ML Sodium Chloride 1,000 ML .W30J06F IV (DC) Insulin Glargine 20 UNITS BEDTIME [...] edema Musculoskeletal: normal inspection, no joint swelling Neuro/FLIGHT SIMULATOR TEACHER: alert, oriented X 3, CNII-XII intact, normal [...] 0034 BLOOD: Blood Culture - NEGATIVE 04/30 28 BLOOD: Blood Culture - NEGATIVE 04/29 2318 [...] Goodman. 5. Medical management as per the [facility]. at 1342 RPT #:[id number] END OF [id number] 09:04:00 [facility] Pharmacy Prog.Note-Vancomycin REPORT#:[id number] REPORT STATUS: Signed DATE:05/08/20 TIME: 09 PATIENT: KURT LLAMAS UNIT #: [id number] ROOM/BED: [place] [address] : [birth year] AGE: 44 SEX: F ATTEND: Coretta Morris MD ADM AUTHOR: Ayaka Juarez [facility] * ALL edits or amendments must be [...] to uterine cancer in remission. Presented to [facility] due to muscle aches feeling weak [...] Thanks for the consult at 0914 RPT #:[id number] END OF [id number] 23:08:00 [facility] ([facility]) Podiatry Progress Note REPORT#:[id number] REPORT STATUS: Signed DATE:05/07/20 TIME: 2307 PATIENT: KURT LLAMAS UNIT #: [id number] ROOM/BED: [place] [address] : [birth year] AGE: 44 SEX: F ATTEND: Coretta Morris MD ADM AUTHOR: Jerel Goodman DPAlysa * ALL edits or amendments must be [...] Chloride 100 ML Sodium Chloride 1,000 ML .X34P80G IV (DC) Insulin Glargine 20 UNITS BEDTIME [...] tenderness, neurological deficit Musculoskeletal: Musculoskeletal: decreased ROM Neuro/FLIGHT SIMULATOR TEACHER: alert, oriented X 3 Skin: abnormal color, [...] Covering for Dr. Neal/Vicky at 2317 RPT #:[id number] END OF [id number] 17:09:00 [facility] ([facility] Hospitalist Progress Note REPORT#:[id number] REPORT STATUS: Signed DATE:05/07/20 TIME: 1708 PATIENT: KURT LLAMAS UNIT #: [id number] ROOM/BED: [place] [address] : [birth year] AGE: 44 SEX: F ATTEND: [...] PRN IV (DC) Lactated Ringer's 1,000 ML .Q40I50C IV (DC) Ondansetron HCl 4 MG PACU ONCE PRN PRN IV (DC) Sodium Chloride 1,000 ML .K61Z20E IV (DCr) Insulin Glargine 20 UNITS BEDTIME [...] 1820 Report Impression - Status: SIGNED Entered: 05/06/2020 1833 IMPRESSION: Satisfactory postoperative films following partial first [...] Extremities: moves all, no edema, no cyanosis Neuro/FLIGHT SIMULATOR TEACHER: alert, oriented X 3, no focal deficits [...] fioricet DVT prophylaxis Lovenox at 1717 RPT #:[id number] END OF [id number] 17:51:721689-[address] [address] PATIENT NAME: KURT LLAMAS ADMIT DATE: 04/30/20 ACCOUNT NO: [id number] DISCHARGE DATE: 05/09/20 ROOM NO: [id number] REPORT TYPE: OPERATIVE REPORT DATE OF : [birth year] AGE: 44 SEX: F ADMITTING PHYSICIAN:Corteta Morris MD ATTENDING PHYSICIAN:Coretta Morris MD OPERATION DATE: 05/06/2020 PREOPERATIVE DIAGNOSIS: Right hallux osteomyelitis. POSTOPERATIVE DIAGNOSIS: Right hallux osteomyelitis. PROCEDURE PERFORMED: Right hallux partial amputation. PRIMARY SURGEON: Jerel Goodman DPM SENIOR BIOINFORMATICS SCIENTIST: None. ANESTHESIA: General with local anesthesia. ESTIMATED [...] when walking. 3. Physical therapy and gait link trainer teacher to evaluate the patient. 4. The patient is to be kept in-house until the pathology comes back as well as microbiology for outpatient antibiotics. 5. The patient follow up in the office in 3 to 5 weeks after discharge. 6. The patient will be followed while in-house. Dictated By: Jerel Goodmna DPM WT: OP:ANUP/CHANDLER/DANNIELLE Conf#: [id number]/DID#: [id number] Authenticated by Jerel Goodman MD On 05/14/2020 05:27:45 PM at 1728 PATIENT NAME: KURT LLAMAS 17:42:00 [facility] ([facility]) Brief Op Note REPORT#:[id number] REPORT STATUS: Signed DATE:05/06/20 TIME: 174 PATIENT: KURT LLAMAS UNIT #: [id number] ROOM/BED: [place] [address] : 74 AGE: 44 SEX: F ATTEND: Coretta Morris MD ADM AUTHOR: Jerel Goodman DPM * ALL edits or amendments must be made on the electronic/computer document * Op/Inv Proc Note - Brief Pre-procedure diagnosis: right hallux osteomyeltitis Post-procedure diagnosis: same as pre procedure dx Procedures performed: right hallux partial amputation Primary Surgeon: Dr. Maxine GUTHRIE Software Development Coordinator(s): none Anesthesia: general anesthesia, local anesthesia Findings: fully dictated Complications: none Estimated blood loss in ml's: 10cc Specimens removed/altered: cultures to micro x 2 path distal phalanx path clear margin proximal Drain(s): None Tube(s): none Implant(s): none Fluids: as per anesthesia Urine output: as per anesthesia Approach: open Wound class: infected Disposition: return to floor, stable at 1743 RPT #:[id number] END OF [id number] 13:16:[id number] [facility] [address], [place] [address] PATIENT NAME: KURT LLAMAS ADMIT DATE: 04/30/20 ACCOUNT NO: [id number] ROOM NO: [facility] AGE: 44 REPORT TYPE: eVASCULAR STUDY DATE OF : 73 SEX: F ADMITTING PHYSICIAN:Coretta Morris MD ATTENDING PHYSICIAN:Coretta Morris MD Exam Date: 05/05/2020 15:33:00 Exam Type: Non-Invasive Vascular Procedure Codes: 76786 - Duplex scan of lower extremity arteries [...] PSV Name Value Units EIA 134.9 cm/sec HORTICULTURAL WORKER 70.28 cm/sec PATIENT NAME: KURT LLAMAS SFA - pro 94.18 cm/sec SFA - mid 78.72 cm/sec SFA - dis 66.07 cm/sec Popliteal 78.72 cm/sec MARTY - dis 78.72 cm/sec PROTECTIVE CLOTHING ISSUER - dis 50.6 cm/sec Left PSV Name Value Units EIA 120.8 cm/sec HORTICULTURAL WORKER 57.63 cm/sec SFA - pro 81.53 cm/sec SFA - mid 60.44 cm/sec SFA - dis 52.01 cm/sec Popliteal 60.44 cm/sec MARTY - dis 43.58 cm/sec PROTECTIVE CLOTHING ISSUER - dis 63.26 cm/sec at 1321 PATIENT NAME: KURT LLAMAS 11:24:00 [facility] ([facility] Hospitalist Progress Note REPORT#:[id number] REPORT STATUS: Signed DATE:05/06/20 TIME: 1124 PATIENT: KURT LLAMAS UNIT #: [id number] ROOM/BED: [place] [address] : 74 AGE: 44 SEX: F ATTEND: [...] the right forefoot. Impression By: [email or web address] - Gaurav Walker M.D. MAGNETIC RESONANCE IMAGING - MRI LOW EXT W/O CONT RT 05/05 4440 Report Impression - Status: SIGNED Entered: 05/05/2020 3447 IMPRESSION: Osteomyelitis changes throughout the 1st distal [...] Extremities: moves all, no edema, no cyanosis Neuro/FLIGHT SIMULATOR TEACHER: alert, oriented X 3, no focal deficits [...] fioricet DVT prophylaxis Lovenox at 0832 RPT #:[id number] END OF [id number] 19:47:00 [facility] ([facility]) Podiatry Consult Note REPORT#:[id number] REPORT STATUS: Signed DATE:05/05/20 TIME: 1946 PATIENT: KURT LLAMAS UNIT #: [id number] ROOM/BED: [place] [address] : 74 AGE: 44 SEX: F ATTEND: [...] to uterine cancer in remission. Presented to [facility] due to muscle aches feeling weak [...] tenderness, neurological deficit Musculoskeletal: Musculoskeletal: decreased ROM Neuro/FLIGHT SIMULATOR TEACHER: alert, oriented X 3 Skin: abnormal color, [...] Covering for Dr. Neal/Vicky at 2354 RPT #:[id number] END OF [id number] 13:31:00 [facility] ([facility]) Hospitalist Progress Note REPORT#:[id number] REPORT STATUS: Signed DATE:05/05/20 TIME: 1331 PATIENT: KURT LLAMAS UNIT #: [id number] ROOM/BED: [place] [address] : 74 AGE: 44 SEX: F ATTEND: [...] no midline vertebral tend, no muscle spasm Neuro/FLIGHT SIMULATOR TEACHER: alert, oriented X 3, CNII-XII intact, normal [...] podiatry. DVT prophylaxis Lovenox at 1334 RPT #:[id number] END OF [id number] 15:04:00 [facility] ([facility] Hospitalist Progress Note REPORT#:[id number] REPORT STATUS: Signed DATE:05/04/20 TIME: 150 PATIENT: KURT LLAMAS UNIT #: [id number] ROOM/BED: [place] [address] : 74 AGE: 44 SEX: F ATTEND: [...] 18 107/76 86.6 94 Room air 05/03 191 98.6 99 18 107/76 86.6 94 Room [...] no midline vertebral tend, no muscle spasm Neuro/FLIGHT SIMULATOR TEACHER: alert, oriented X 3, CNII-XII intact, normal [...] -Podiatry DVT prophylaxis Lovenox at 1509 RPT #:[id number] END OF [id number] 11:14:00 [facility] ([facility]) Infect Disease Consult Note REPORT#:[id number] REPORT STATUS: Signed DATE:05/02/20 TIME: 1114 PATIENT: KURT LLAMAS UNIT #: [id number] ROOM/BED: [place] [address] : 74 AGE: 44 SEX: F ATTEND: [...] who reported to the ER at [facility] with a 4-day history of muscle [...] 05/01 2100 AC 05/01 (LANTUS) SUBQ 05/31 2059 2131 Insulin Human Lispro 0 AC HS [...] edema Musculoskeletal: normal inspection, no joint swelling Neuro/FLIGHT SIMULATOR TEACHER: alert, oriented X 3, CNII-XII intact, normal [...] - 110 mg/dL) 340 H Laboratory Tests 05/027 Hematology WBC (4.5 - 11.0 K/mm3) 12.2 [...] % (Auto) (23.0 - 38.0 %) 23.0 [place] % (Auto) (1.0 - 10.0 %) 9.7 Eos % (Auto) (1.0 - 5.0 %) 0.7 L Baso % (Auto) (0.0 - 1.0 %) 0.4 Neut # (Auto) (2.4 - 6.3 K/mm3) 8.0 H Lymph # (Auto) (1.2 - 4.0 K/mm3) 2.8 [place] # (Auto) (0.0 - 0.6 K/mm3) 1.2 [...] Virus Type A Antigen - NEGATIVE 04/30 003 BLOOD: Blood Culture - NO GROWTH AFTER [...] addressed. 3. Medical management as per the [facility]. at 1501 RPT #:[id number] END OF [id number] 11:26:00 [facility] Hospitalist Progress Note REPORT#:[id number] REPORT STATUS: Signed DATE:05/01/20 TIME: 1126 PATIENT: KURT LLAMAS UNIT #: [id number] ROOM/BED: [place] [address] : 74 AGE: 44 SEX: F ATTEND: [...] Admin Ceftriaxone Sodium 1,000 MG Q24H 05/01 003 DC Sodium Chloride 10 ML IV 05/01 [...] 16 118/80 92.6 96 Room air 05/01 07 98.1 97 17 124/78 93.5 94 Room air 05/01 034 99.5 99 16 120/76 91.0 96 04/30 [...] 4. DVT prophylaxis Lovenox at 1133 RPT #:[id number] END OF [id number] 11:26:00 [facility] ([facility] Hospitalist Progress Note REPORT#:[id number] REPORT STATUS: Signed DATE:05/01/20 TIME: 1125 PATIENT: KURT LLAMAS UNIT #: [id number] ROOM/BED: [place] [address] : 74 AGE: 44 SEX: F ATTEND: [...] RADIOLOGY - XR CHEST 1 V 04/29 2388 Report Impression - Status: SIGNED Entered: 04/29/2020 9312 IMPRESSION: No acute cardiopulmonary process seen. Impression [...] prophylaxis Lovenox at 1133 at 1003 RPT #:[id number] END OF [id number] 12:23:00 [facility] ([facility]) History Physical - Adult REPORT#:[id number] REPORT STATUS: Signed DATE:04/30/20 TIME: 1223 PATIENT: KURT LLAMAS UNIT #: [id number] ROOM[facility]BED: [facility] : 74 AGE: 44 SEX: F ATTEND: Coretta Morris MD ADM AUTHOR: Leonid Tello BEAD WRAPPER * ALL edits or amendments must be made on the electronic/computer document * History of Present Illness HPI Chief complaint: Sepsis due to acute cystitis Hyperglycemia Hyponatremia PCP: PCP: No Primary or Family Physician HPI: 44-year-old female past medical history of asthma and hysterectomy due to uterine cancer in remission. 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 X 3 Diagnosis, Assessment Plan [...] depending on clinical course at 1233 RPT #:[id number] END OF [id number] 12:23:00 [facility] ([facility]) History Physical - Adult REPORT#:[id number] REPORT STATUS: Signed DATE:04/30/20 TIME: 1223 PATIENT: KURT LLAMAS UNIT #: [id number] ROOM/BED: [place] [address] : 74 AGE: 44 SEX: F ATTEND: Coretta Morris MD ADM AUTHOR: Leonid Tello BEAD WRAPPER * ALL edits or amendments must be made on the electronic/computer document * History of Present Illness HPI Chief complaint: Sepsis due to acute cystitis Hyperglycemia Hyponatremia PCP: PCP: No Primary or Family Physician HPI: 44-year-old female past medical history of asthma and hysterectomy due to uterine cancer in remission. 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 X 3 Diagnosis, Assessment Plan [...] clinical course at 1233 at 1003 RPT #:[id number] END OF [id number] 22:21:00 [facility] ([facility]) EMERGENCY PROVIDER REPORT REPORT#:[id number] REPORT STATUS: Signed DATE:04/29/20 TIME: 2220 PATIENT: KURT SHARP UNIT #: [id number] ROOM/BED: AGE: 44 SEX: F PCP PHYS: [...] pH (5.0 - 9.0) 5.0 Ur Specific [place] (1.000 - 1.030) 1.010 Urine Protein (NEGATIVE [...] (Auto) (23.0 - 38.0 %) 8.1 L [place] % (Auto) (1.0 - 10.0 %) 7.8 Eos % (Auto) (1.0 - 5.0 %) 0.2 L Baso % (Auto) (0.0 - 1.0 %) 0.4 Neut # (Auto) (2.4 - 6.3 K/mm3) 14.1 H Lymph # (Auto) (1.2 - 4.0 K/mm3) 1.4 [place] # (Auto) (0.0 - 0.6 K/mm3) 1.3 [...] Report Impression - Status: SIGNED Entered: 04/29/2020 3509 IMPRESSION: No acute cardiopulmonary process seen. Impression By: [email or web address] Macie Marin M.D. Re-Evaluation MDM Re-Evaluation/Progress #1 Text/Dict Note Patient found to be hyperglycemic, she is awaiting lab work to rule out DKA. Time of Re-Eval 231 Re-Evaluation/Progress #2 Text/Dict Note Patient states feeling [...] the family or caregiver. at 0134 RPT #:[id number] END OF [id number] 22:21:00 [facility] ([facility]) EMERGENCY PROVIDER REPORT REPORT#:[id number] REPORT STATUS: Signed DATE:04/29/20 TIME: 2220 PATIENT: KRUT LLAMAS UNIT #: [id number] ROOM/BED: [place] [address] AGE: 44 SEX: F PCP PHYS: No Primary or Family Physician SERVICE AUTHOR: Charlie Tapia DO * ALL edits or amendments must be made on the electronic/computer document * Charlie Tapia 04/29/201: HPI-Dizziness/Weakness General Initial Greet Date/Time 04/29/202206 Past [...] Available] Laboratory Tests: 04/30 04/29 04/29 0028 4018 9217 Blood Gas VBG pH 7.401 VBG pCO2 [...] pH (5.0 - 9.0) 5.0 Ur Specific [place] (1.000 - 1.030) 1.010 Urine Protein (NEGATIVE [...] (Auto) (23.0 - 38.0 %) 8.1 L [place] % (Auto) (1.0 - 10.0 %) 7.8 Eos % (Auto) (1.0 - 5.0 %) 0.2 L Baso % (Auto) (0.0 - 1.0 %) 0.4 Neut # (Auto) (2.4 - 6.3 K/mm3) 14.1 H Lymph # (Auto) (1.2 - 4.0 K/mm3) 1.4 [place] # (Auto) (0.0 - 0.6 K/mm3) 1.3 [...] RADIOLOGY - XR CHEST 1 V 04/29 3289 Report Impression - Status: SIGNED Entered: 04/29/2020 0990 IMPRESSION: No acute cardiopulmonary process seen. Impression By: RockyAHNakita Marin M.D. Re-Evaluation MDM Re-Evaluation/Progress #1 Text/Dict Note Patient found to be hyperglycemic, she is awaiting lab work to rule out DKA. Time of Re-Eval 2314 Re-Evaluation/Progress #2 Text/Dict Note Patient states feeling [...] Bitart/ 1 TAB Q4H PRN PRN 04/30 130 AC Acetaminophen PO 05/01 0030 Electrolytic, Caloric, [...] B/P Mean 84 04/30 2339 Temp 36.9 04/30 2339 Pulse 58 04/30 0001 Resp 15 04/30 2339 O2 Delivery Room air 04/29 2339 All [...] the family or caregiver. at 0134 RPT #:[id number] END OF [id number] 22:21:00 [facility] EMERGENCY PROVIDER REPORT REPORT#:[id number] REPORT STATUS: Signed DATE:04/29/20 TIME: 2220 PATIENT: KURT LLAMAS UNIT #: [id number] ROOM/BED: [place] [address] AGE: 44 SEX: F PCP PHYS: No [...] 109/72 04/30 2339 B/P Mean 84 04/30 0001 Temp 36.9 04/30 2339 Pulse 58 04/30 2339 Resp 15 04/30 2339 O2 Delivery Room [...] pH (5.0 - 9.0) 5.0 Ur Specific [place] (1.000 - 1.030) 1.010 Urine Protein (NEGATIVE [...] EPI/HPF) 0-3 Urine Bacteria (NONE) TNTC H 12/11 12/11 2221 2214 Chemistry Sodium (134.0 - 147.0 [...] (Auto) (23.0 - 38.0 %) 8.1 L [place] % (Auto) (1.0 - 10.0 %) 7.8 Eos % (Auto) (1.0 - 5.0 %) 0.2 L Baso % (Auto) (0.0 - 1.0 %) 0.4 Neut # (Auto) (2.4 - 6.3 K/mm3) 14.1 H Lymph # (Auto) (1.2 - 4.0 K/mm3) 1.4 [place] # (Auto) (0.0 - 0.6 K/mm3) 1.3 [...] 109/72 04/30 0001 B/P Mean 84 04/30 2339 Temp 36.9 04/30 2339 Pulse 58 04/30 2339 Resp 15 04/30 2339 O2 Delivery Room air 04/29 3119 All vital signs available at the time [...] family or caregiver. at 0134 at 0854 [facility] #:[id number] END OF REPORTHCAMN
[2025-02-07 17:48] LABS: Absolute Lymphocytes (CBC) 1.1 K/uL (0.7-4.9); Hematocrit 28.5 % (36.0-45.0); Hemoglobin 9.4 g/dL (12.0-15.0); MCH 27.3 pg (27.0-35.0); MCHC 33.2 g/dL (32.0-36.0); MCV 82.3 fL (80-100); MPV 7.3 fL (7.6-11.3); Nucleated RBC Absolute Count 0.0 (0-0); Nucleated Red Blood Cells % 0.1 % (0-0); RBC Red Blood Cell Count 3.46 M/uL (3.86-4.86); White Blood Count 8.00 thou/uL (4.3-10.9)
[2025-02-07] MEDS ORDERED: FUROSEMIDE 40 MG/4 ML VIAL ONE (17:50)
[2025-02-07] MEDS ORDERED: ONDANSETRON 4 MG/2 ML VIAL ONE (17:50)
[2025-02-07 17:53] LABS: PT Prothrombin Time 15.3 SECONDS (10-13.0); Protime INR 1.37
[2025-02-07 18:07] LABS: ALT/SGPT 21 U/L (13-56); AST/SGOT 14 U/L (15-37); Albumin 2.2 g/dL (3.4-5.0); Albumin/Globulin Ratio 0.6 (1.1-1.8); Alkaline Phosphatase 149 U/L (45-117); Anion Gap 11.6 mEq/L (5.0-15.0); BUN Blood Urea Nitrogen 41 mg/dL (7-18); Globulin 3.4 g/dL (2.3-3.5); Glucose Level 180 mg/dL (74-106); Magnesium 2.3 mg/dL (1.6-2.4); NT PRO-BNP 12249 pg/mL (<125); Potassium 3.6 mEq/L (3.5-5.1); Troponin High Sensitivity 21.3 pg/mL (<58.9)
[2025-02-07 18:09] LABS: Bilirubin Indirect, Calculated 0.1 mg/dL (0.2-0.8)
--- NOTE | 2025-02-07 18:26 | RAD REPORT ---
EXAM: Chest Single View HISTORY: 49 years Female Chest pain;SOB COMPARISON: 01/18/2025 FINDINGS: LUNGS/PLEURA: Bilateral pleural effusions with probable underlying atelectasis. Hazy opacities bilate rally. CARDIAC/MEDIASTINUM: Mild cardiomegaly UPPER ABDOMEN: No significant abnormality. BONES: No acute abnormality. LINES/TUBES/OTHER: N/A IMPRESSION: Bilateral pleural effusions with probable underlying atelectasis most likely secondary to edema/conge stive heart failure. The findings have worsened since 01/18/2025.
--- NOTE | 2025-02-07 18:48 | EDPHYS ---
Physician Documentation [facility] Name: Sarita Zelaya Age: 49 yrs Sex: Female : 1975 Arrival Date: 02/07/2025 Time: 16:37 Bed 3 Private MD: ED Physician João Kraft HPI: 02/07 17:25 This 49 yrs old Female presents to ER via Wheelchair with complaints of Nausea, cp Breathing Difficulty. 17:25 The patient has shortness of breath at rest. cp 17:25 Onset: The symptoms/episode began/occurred 2 day(s) ago. Duration: The symptoms are cp continuous, and are steadily getting worse. The patient's shortness of breath is aggravated by supine position. The patient presents to the emergency department with nausea, with "dry heaves". The patient has been recently been admitted at [facility], for osteomyelitis of right foot, currently taking prescribed Doxycycline. Historical: - Allergies: 17:02 No Known Allergies; hb - PMHx: 17:02 diabetes mellitus; Hypertensive disorder; Migraine; neuropathy; uternine cancer; hb remission; - PSHx: 17:02 RT FOOT PARTIAL AMPUTATION; Total abdominal hysterectomy; hb - Immunization history:: Adult Immunizations unknown. - Infectious Disease History:: Denies. - Social history:: Smoking status: unknown. ROS: 17:30 Constitutional: Negative for body aches, chills, fever, poor PO intake, cp 17:30 Eyes: Negative for injury, pain, redness, and discharge, cp 17:30 ENT: Negative for drainage from ear(s), ear pain, sore throat, difficulty swallowing, difficulty handling secretions, 17:30 Cardiovascular: Positive for edema, Negative for chest pain, 17:30 Respiratory: Positive for shortness of breath, at rest. 17:30 Abdomen/GI: Positive for nausea, Negative for abdominal pain, diarrhea, constipation, 17:30 Neuro: Negative for altered mental status, 17:30 All other systems are negative, Exam: 17:33 Constitutional: The patient appears in no acute distress, alert, awake, cp non-diaphoretic, non-toxic, well developed, well nourished, uncomfortable, overweight 17:33 Head/Face: Normocephalic, atraumatic. cp 17:33 Eyes: Periorbital structures: appear normal, Conjunctiva: normal, no exudate, no injection, Sclera: no appreciated abnormality, Lids and lashes: appear normal, bilaterally, 17:33 ENT: External ear(s): are unremarkable, Nose: is normal, Mouth: Lips: moist, Oral mucosa: moist, Posterior pharynx: Airway: no evidence of obstruction, patent, swelling, is not appreciated, erythema, is not appreciated, exudate, is not appreciated, 17:33 Neck: ROM/movement: is normal, is supple, without pain, no range of motions limitations, 17:33 Chest/axilla: Inspection: normal, 17:33 Cardiovascular: Rate: tachycardic, Rhythm: regular, Edema: ankle edema, that is moderate, JVD: is not appreciated, no pain to lower legs, no erythema, 17:33 Respiratory: the patient does not display signs of respiratory distress, Respirations: labored breathing, that is mild, Breath sounds: decreased breath sounds, that are moderate, are heard in the right posterior middle lobe and right posterior lower lobe, stridor, is not appreciated, wheezing: is not appreciated, 17:33 Abdomen/GI: Inspection: distension, that is mild, Bowel sounds: active, all quadrants, Palpation: abdomen is soft and non-tender, in all quadrants, rebound tenderness, is not appreciated, involuntary guarding, is not appreciated, 17:33 Back: pain, is absent, ROM is normal, 17:33 Skin: no rash present. 17:33 Neuro: Orientation: to person, place \\T\\ time. Mentation: is normal, 18:00 ECG was reviewed by the Attending Physician. cp Vital Signs: 16:57 BP 177 / 93; Pulse 100; Resp 18; Temp 98.6(O); Pulse Ox 91% on R/A; Weight 90.72 kg; hb Height 5 ft. 7 in. ; Pain 0/10; 17:30 BP 173 / 93; Pulse 88; Resp 19 S; Pulse Ox 93% on R/A; aa5 18:23 BP 175 / 97; Pulse 84; Resp 19; Pulse Ox 95% on R/A; iw 19:30 BP 176 / 90; Pulse 79; Resp 18 S; Pulse Ox 95% on R/A; lg3 16:57 Body Mass Index 31.32 (90.72 kg, 170.18 cm) hb 16:57 Pain Scale: Adult hb MDM: 16:59 Medical Screening Exam initiated cp 18:50 Data reviewed: vital signs, nurses notes, lab test result(s), EKG, radiologic studies, cp plain films, and as a result, I will admit patient. 18:50 Antibiotic administration: Not indicated, the patient does not have an appreciated cp infiltrate. Differential diagnosis: CHF exacerbation, Chronic Obstructive Pulmonary Disease gastritis, gastroenteritis, Myocardial Infarction pneumonia, Pneumothorax pulmonary edema, Pulmonary Embolism reactive airway disease, Sepsis. Data interpreted: gambling monitor: rate is 82 beats/min, rhythm is normal sinus rhythm, Interpretation: normal rate, normal rhythm, Pulse oximetry: on room air is 95 %. Interpretation: acceptable, Plan: O2 by NC applied. Management of patient was discussed with the following: Hospitalist: DR Cruz will admit after discussion. I considered the following discharge prescriptions or medication management in the emergency department Medications were administered in the Emergency Department. See MAR. Independent interpretation of the following test(s) in the Emergency Department EKG: See my EKG interpretation above. Test considered but Not performed: Ultrasound lower extremities. CT: chest. Care significantly affected by the following chronic conditions: Diabetes, Hypertension, Congestive Heart Failure. Counseling: I had a detailed discussion with the patient and/or guardian regarding the historical points, exam findings, and any diagnostic results supporting the discharge/admit diagnosis, the presence of at least one elevated blood pressure reading (>120/80) during this emergency department visit, lab results, radiology results, the need for further work-up and treatment in the hospital. Response to treatment: the patient's symptoms have mildly improved after treatment. 02/07 17: Order name: Basic Metabolic Panel; Complete Time: 18:12 cp 02/07 18:12 Interpretation: Normal except: CL 110; GLUC 180; BUN 41; CRE 2.21; GFR 27. cp 02/07 17: Order name: CBC with Diff; Complete Time: 18:12 cp 02/07 18:12 Interpretation: Normal except: RBC 3.46; HGB 9.4; HCT 28.5; RDW 15.6; MPV 7.3; DARSHAN% cp 75.7; LYM% 14.1. 02/07 17:22 Order name: LFT's; Complete Time: 18:12 cp 02/07 18:12 Interpretation: Normal except: AST 14; ALK 149; IBILI, CALC 0.1; TP 5.6; ALB 2.2; A/G cp 0.6. 02/07 17:22 Order name: Magnesium; Complete Time: 18:12 cp 02/07 17:22 Order name: NT PRO-BNP; Complete Time: 18:12 cp 02/07 18:13 Interpretation: Reviewed. cp 02/07 17:22 Order name: PT-INR; Complete Time: 18:12 cp 02/07 17:22 Order name: Troponin HS; Complete Time: 18:12 cp 02/07 19:09 Order name: CBC with Automated Diff EDMS 02/07 19:09 Order name: CBC with Automated Diff EDMS 02/07 19:09 Order name: Comprehensive Metabolic Panel EDMS 02/07 19:09 Order name: Comprehensive Metabolic Panel EDMS 02/07 19:10 Order name: Troponin High Sensitivity EDMS 02/07 19:10 Order name: Troponin High Sensitivity EDMS 02/07 19:10 Order name: Troponin High Sensitivity EDMS 02/07 17:22 Order name: XRAY Chest (1 view); Complete Time: 18:44 cp 02/07 17:22 Order name: Cardiac monitoring; Complete Time: 17:39 cp 02/07 17:22 Order name: EKG - Nurse/Tech; Complete Time: 17:55 cp 02/07 17:22 Order name: IV Saline Lock; Complete Time: 17:39 cp 02/07 17:22 Order name: Labs collected and sent; Complete Time: 17:39 cp 02/07 17:22 Order name: O2 Per Protocol; Complete Time: 17:39 cp 02/07 17:22 Order name: O2 Sat Monitoring; Complete Time: 17:39 cp EC:00 Rate is 87 beats/min. Rhythm is regular. AL interval is normal. QRS interval is normal. cp QT interval is normal. T waves are Inverted in leads III, aVR. Interpreted by me. Reviewed by me. Administered Medications: 17:52 Drug: Ondansetron IVP 4 mg IVP once; over 2 minutes Route: IVP; Site: left antecubital; aa5 17:54 Follow up: Response: No adverse reaction aa5 17:55 Drug: Furosemide IVP 40 mg IVP once; give over 2 minutes Route: IVP; Site: left aa5 antecubital; 18:55 Follow up: Response: No adverse reaction iw Disposition: 02/08 07:03 Co-signature as Attending Physician, João Kraft MD I reviewed the patient's care rn provided by the Advanced Practice Provider and agree with the diagnosis and treatment plan. Disposition Summary: 02/07/25 18:48 Hospitalization Ordered Notes: Hospitalization Status: Inpatient Admission cp Provider: Lee Cruz cp Location: Telemetry/MedSurg (Inpatient) cp Condition: Stable cp Problem: an acute exacerbation cp Symptoms: have improved cp Bed/Room Type: Standard cp Room Assignment: 408(02/07/25 19:22) jl7 Diagnosis - Unspecified combined systolic (congestive) and diastolic (congestive) heart failure cp - Pleural effusion, not elsewhere classified cp - Acute pulmonary edema cp Forms: - Medication Reconciliation Form cp - SBAR form cp - Leadership Thank You Letter cp Signatures: Dispatcher [employer] EDMS João Kraft MD MD rn Calderon, Audri RN RN aa5 Mando Coley, PA-C PA-C cp Kimberli Gomez, RN Slade Cedillo RN RN jl7 Kelly Young RN RN vc1 Lauren Boothe RN iw Corrections: (The following items were deleted from the chart) 02/07 17:23 17:23 BASIC METABOLIC PANEL+C.LAB.BRZ ordered. EDMS EDMS 17:23 17:23 CBC+H.LAB.BRZ ordered. EDMS EDMS 17:23 17:23 HEPATIC FUNCTION+C.LAB.BRZ ordered. EDMS EDMS 17:23 17:23 MAGNESIUM+C.LAB.BRZ ordered. EDMS EDMS 17:23 17:23 PROBNP+C.LAB.BRZ ordered. EDMS EDMS 17:23 17:23 PROTIME (+INR)+COAG.LAB.BRZ ordered. EDMS EDMS 17:23 17:23 Troponin High Sensitivity+C.LAB.BRZ ordered. EDMS EDMS 17:23 17:23 Chest Single View+RAD.RAD.BRZ ordered. EDMS EDMS 19:22 18:48 cp jl7 02/08 18:06 02/07 17:33 Cardiovascular: Rate: tachycardic, Rhythm: regular, Edema: ankle edema, cp that is moderate, JVD: is not appreciated, cp
--- NOTE | 2025-02-07 18:48 | ER ---
Nurse's Notes [facility] Name: Sarita Zelaya Age: 49 yrs Sex: Female : 1975 Arrival Date: 02/07/2025 Time: 16:37 Bed 3 Private MD: Diagnosis: Unspecified combined systolic (congestive) and diastolic (congestive) heart failure;Pleural effusion, not elsewhere classified;Acute pulmonary edema Presentation: 02/07 16:57 Chief complaint: Chief complaint: SOB, malaise, nausea, dry heaving, and chills x 2 hb days. Recently inpatient for osteomyelitis of right foot, taking doxycycline. Coronavirus screen: At this time, the client does not indicate any symptoms associated with coronavirus-19. Ebola Screen: No symptoms or risks identified at this time. Onset of symptoms was February 06, 2025. 16:57 Method Of Arrival: Wheelchair hb 16:57 Acuity: BC 2 hb 19:00 Initial Sepsis Screen: Does the patient meet any 2 criteria? No. Patient's initial vc1 sepsis screen is negative. Does the patient have a suspected source of infection? No. Patient's initial sepsis screen is negative. 19:00 Risk Assessment: Do you want to hurt yourself or someone else? Patient reports no vc1 desire to harm self or others. Historical: - Allergies: 17:02 No Known Allergies; hb - PMHx: 17:02 diabetes mellitus; Hypertensive disorder; Migraine; neuropathy; uternine cancer; hb remission; - PSHx: 17:02 RT FOOT PARTIAL AMPUTATION; Total abdominal hysterectomy; hb - Immunization history:: Adult Immunizations unknown. - Infectious Disease History:: Denies. - Social history:: Smoking status: unknown. Screenin:17 Abuse screen: Denies threats or abuse. Denies injuries from another. Nutritional iw screening: Has had N/V for 3 or more days. Tuberculosis screening: No symptoms or risk factors identified. 19:00 [facility] ED Fall Risk Assessment (Adult) History of falling in the last 3 months, vc1 including since admission No falls in past 3 months (0 pts) Confusion or Disorientation No (0 pts) Intoxicated or Sedated No (0 pts) Impaired Gait No (0 pts) Mobility Assist Device Used No (0 pt) Altered Elimination Score/Fall Risk Level 0 - 2 = Low Risk Oriented to surroundings, Maintained a safe environment, Educated pt \T\ family on fall prevention, incl call for assistance when getting out of bed, Hourly rounding (assess needs \T\ fall precautionary measures) done. Assessment: 17:15 General: Appears uncomfortable, ill, Behavior is calm, cooperative. Pain: Complains of iw pain in chest. Neuro: Level of Consciousness is awake, alert, obeys commands, Oriented to person, place, time, situation, Moves all extremities. Cardiovascular: Edema is 2+ to left ankle, left foot, right ankle and right foot pitting to left ankle, left foot, right ankle and right foot Chest pain. Respiratory: Respiratory effort is even, unlabored, Respiratory pattern is regular, symmetrical. GI: Abdomen is non-distended, Reports nausea. Derm: Skin is fragile, is thin, Skin is dry, Skin is pale. Musculoskeletal: Range of motion: intact in all extremities. 17:50 Reassessment: Patient is alert, oriented x 3, equal unlabored respirations, skin aa5 warm/dry/pink. 18:19 Reassessment: Patient appears in no apparent distress at this time. No changes from iw previously documented assessment. Respiratory: Airway is patent Respiratory effort is unlabored, Respiratory pattern is regular, symmetrical. Derm: Skin is pale. 19:00 General: Appears in no apparent distress. uncomfortable, well groomed, Behavior is vc1 calm, cooperative, appropriate for age. Pain: Complains of pain in right foot and left foot. Neuro: Level of Consciousness is awake, alert, obeys commands, Oriented to person, place, time, situation, Appropriate for age Platen Drier Operator are equal bilaterally. Cardiovascular: Heart tones S1 S2 present Capillary refill < 3 seconds Patient's skin is warm and dry. Respiratory: Airway is patent Respiratory effort is even, unlabored, Respiratory pattern is regular, symmetrical, Breath sounds are clear bilaterally. GI: Reports nausea. : No deficits noted. No signs and/or symptoms were reported regarding the genitourinary system. EENT: No deficits noted. No signs and/or symptoms were reported regarding the EENT system. Derm: Skin is intact, Skin is dry. Vital Signs: 16:57 BP 177 / 93; Pulse 100; Resp 18; Temp 98.6(O); Pulse Ox 91% on R/A; Weight 90.72 kg; hb Height 5 ft. 7 in. ; Pain 0/10; 17:30 BP 173 / 93; Pulse 88; Resp 19 S; Pulse Ox 93% on R/A; aa5 18:23 BP 175 / 97; Pulse 84; Resp 19; Pulse Ox 95% on R/A; iw 19:30 BP 176 / 90; Pulse 79; Resp 18 S; Pulse Ox 95% on R/A; lg3 16:57 Body Mass Index 31.32 (90.72 kg, 170.18 cm) hb 16:57 Pain Scale: Adult hb ED Course: 16:39 Patient arrived in ED. mr 16:48 Mando Coley PA-C is PHCP. cp 16:48 João Kraft MD is Attending Physician. cp 17:02 Triage completed. hb 17:03 Arm band placed on. hb 17:15 Lauren Boothe, JAILENE is Primary Nurse. iw 17:17 Patient has correct armband on for positive identification. Client placed on continuous iw cardiac and pulse oximetry monitoring. NIBP monitoring applied. fisher line on. 17:38 Initial lab(s) drawn, by me, sent to lab. Inserted saline lock: 20 gauge in left iw antecubital area, using aseptic technique. Blood collected. Flushed with 10 mL NS. 18:15 XRAY Chest (1 view) In Process Unspecified. EDNE 18:47 Lee Cruz MD is Hospitalizing Provider. cp 20:39 No provider procedures requiring assistance completed. Patient admitted, IV remains in vc1 place. Administered Medications: 17:52 Drug: Ondansetron IVP 4 mg IVP once; over 2 minutes Route: IVP; Site: left antecubital; aa5 17:54 Follow up: Response: No adverse reaction aa5 17:55 Drug: Furosemide IVP 40 mg IVP once; give over 2 minutes Route: IVP; Site: left aa5 antecubital; 18:55 Follow up: Response: No adverse reaction iw Medication: 17:17 VIS not applicable for this client. iw Outcome: 18:48 Decision to Hospitalize by Provider. cp 20:39 Admitted to Tele accompanied by tech, via wheelchair, room 408, vc1 20:39 Condition: stable 20:40 Instructed on the need for admit, vc1 20:40 Patient left the ED. vc1 Signatures: Dispatcher [employer] EDNE Lisa Land Reg Reg mr TlLauren, RN RN iw Nayana Shafer, RN RN aa5 Mando Coley PA-C PA-C cp Baxter, Heather, RN RN hb Able, JAILENE Lassiter RN lg3 Kelly Young RN RN vc1 Corrections: (The following items were deleted from the chart) 17:03 16:57 Acuity: BC 3 hb hb 17:03 16:57 BP 177 / 93; Pulse 100bpm; Resp 18bpm; Pulse Ox 94% RA; Temp 98.6F Oral; 90.72 hb kg; Height 5 ft. 7 in.; BMI: 31.3; Pain 0/10, Adult; hb 17:57 07:55 Furosemide IVP 40 mg IVP in left antecubital aa5 aa5
--- NOTE | 2025-02-07 19:03 | P.HP ---
Certification for Inpatient Patient admitted to: Inpatient With expected LOS: >2 Midnights Practitioner: I am a practitioner with admitting privileges, knowledge of patient current condition, hospital course, and medical plan of care. Services: Services provided to patient in accordance with Admission requirements found in Title 42 Section 412.3 of the Code of Federal Regulations Patient History Date of Service: 02/07/25 Reason for admission: SOB History of Present Illness: 49-year-old female with past medical history of type 2 diabetes mellitus, essential hypertension, chronic kidney disease stage II, migraine headache, uterine cancer, had hysterectomy, anemia, diabetic neuropathy, patient states she does not feel any sensation from knee down both legs. Patient states she occasionally has shortness of breath at home, at times at rest, and with exertion. Patient had partial right foot amputation a month ago with all 5 digits amputated in [place], [place]. Patient presents to the ER today due to shortness of breath. Patient started having short of breath 4 - 5 days ago and has been progressively getting worse and was brought to ER. Patient denies any chest pain. No fever or chills. No nausea vomiting or diarrhea Patient was assessed in the ER and was found to have CHF exacerbation and was admitted for further management. Allergies No Known Allergies Allergy (Unverified 01/27/25 10:33) Home Medications: Metformin ER [Glucophage ER*] 1,000 mg PO BID 01/21/25 Doxycycline Hyclate 100 mg PO BID 30 Days #60 tab 01/29/25 Furosemide [Lasix*] 40 mg PO DAILY 30 Days #30 tab 01/29/25 Losartan Potassium [Cozaar*] 25 mg PO DAILY 30 Days #30 tab 01/29/25 Spironolactone [Aldactone] 25 mg PO DAILY 30 Days #30 tab 01/29/25 carvediloL [Coreg*] 25 mg PO BID 6AM 6PM 30 Days #60 tab 01/29/25 - Past Medical/Surgical History Past Medical History: Reviewed- Non-Contributory -: Type 2 diabetes mellitus. -: Diabetic neuropathy -: Essential hypertension -: CKD. -: Migraine headache. -: Anemia. -: Uterine cancer. Past Surgical History: Reviewed- Non-Contributory -: Partial amputation right foot -: Hysterectomy. - Family History Mother -: Diabetes, Cancer - Social History Smoking Status: Never smoker Alcohol use: No CD- Drugs: No Caffeine use: No Review of Systems 10-point ROS is otherwise unremarkable Physical Examination - Vital Signs Temperature: 97.8 F Blood Pressure: 172/82 Pulse: 62 Respirations: 18 Pulse Ox (%): 94 - Physical Exam General: Alert, Oriented x3, Mild distress HEENT: Atraumatic, Normocephalic Neck: Supple Respiratory: Clear to auscultation bilaterally, Normal air movement Cardiovascular: Regular rate/rhythm, Normal S1 S2, Edema Capillary refill: <2 Seconds Gastrointestinal: Soft and benign, W/out hepatosplenomegaly Musculoskeletal: No clubbing, Swelling Integumentary: No rashes Neurological: Other (Alert awake nonfocal) Lymphatics: No axilla or inguinal lymphadenopathy - Studies Laboratory Data (last 24 hrs) 02/07/25 02/07/25 02/07/25 17:38 17:38 17:38 WBC 8.00 Hgb 9.4 L Hct 28.5 L Plt Count 386 PT 15.3 H INR 1.37 Sodium 140 Potassium 3.6 BUN 41 H Creatinine 2.21 H Glucose 180 H Magnesium 2.3 Total Bilirubin 0.3 AST 14 L ALT 21 Alkaline Phosphatase 149 H Assessment and Plan - Plan Acute on chronic CHF possibly systolic/diastolic Monitor closely on telemetry Started on aggressive diuresis X-ray findings consistent with CHF Oxygen supplementation Will try to wean down oxygen requirement Continue home medications Titrate as needed Cardiology consult Right foot cellulitis/infection , h/o right foot amputation Surgical consult Started on IV antibiotic CKD stage II Nephrology consulted Renal parameters monitored Nephrology consulted Hypertension Antihypertensives titrated Continue home medications and titrate as needed Hyperlipidemia Continue statin Diabetes Insulin sliding scale Accu-Chek before every meal and at bedtime Anemia of chronic disease Monitor H&H closely GI/DVT prophylaxis Advanced directive full code Discharge Plan: Home Plan to discharge in: 48 Hours - Advance Directives Does patient have a Living Will: No Does patient have a Durable POA for Healthcare: No - Code Status/Comfort Care Code Status: Full Code Time Spent Managing Pts Care (In Minutes): 48
[2025-02-07] MEDS ORDERED: D10W 125 ML IV PRN ×2 (19:08→21:55)
[2025-02-07] MEDS ORDERED: GLUCAGON 1 MG/VIAL IM PRN ×2 (19:08→21:55)
[2025-02-07] MEDS: FUROSEMIDE 40 MG/4 ML VIAL IV SCH (19:09)
[2025-02-07] MEDS: INSULIN REGULAR (HUMAN) 100 UNIT/ML SQ SCH (21:00)
[2025-02-07 21:01] VITALS: BMI 33.5
[2025-02-07] MEDS: ONDANSETRON 4 MG/2 ML VIAL IV ONE (21:44)
[2025-02-08] MEDS: CEFAZOLIN 1 GM in NA CHLORIDE 0.9% 50 ML IVPB SCH (00:48)
[2025-02-08 05:49] LABS: Absolute Lymphocytes (CBC) 1.2 K/uL (0.7-4.9); Hematocrit 25.7 % (36.0-45.0); Hemoglobin 8.7 g/dL (12.0-15.0); MCH 27.6 pg (27.0-35.0); MCHC 33.9 g/dL (32.0-36.0); MCV 81.6 fL (80-100); MPV 7.8 fL (7.6-11.3); Nucleated RBC Absolute Count 0.0 (0-0); Nucleated Red Blood Cells % 0.1 % (0-0); RBC Red Blood Cell Count 3.15 M/uL (3.86-4.86); White Blood Count 8.40 thou/uL (4.3-10.9)
[2025-02-08 06:07] LABS: ALT/SGPT 19 U/L (13-56); Albumin 2.0 g/dL (3.4-5.0); Albumin/Globulin Ratio 0.7 (1.1-1.8); Alkaline Phosphatase 124 U/L (45-117); Anion Gap 10.4 mEq/L (5.0-15.0); BUN Blood Urea Nitrogen 40 mg/dL (7-18); Globulin 2.9 g/dL (2.3-3.5); Glucose Level 156 mg/dL (74-106); Potassium 3.4 mEq/L (3.5-5.1)
[2025-02-08 06:10] LABS: AST/SGOT < 10 U/L (15-37)
[2025-02-08] MEDS ORDERED: DOXYCYCLINE HYCLATE 100 MG PO SCH (09:00)
[2025-02-08] MEDS: ENOXAPARIN 40 MG/0.4 ML SQ SCH (09:07)
[2025-02-08] MEDS: ONDANSETRON 4 MG/2 ML VIAL IV PRN (09:07)
[2025-02-08] MEDS: POTASSIUM CL SA 10 MEQ TAB PO ONE (09:07)
[2025-02-08] MEDS: LOSARTAN POTASSIUM 50 MG TABLET PO SCH (09:10)
[2025-02-08] MEDS: SPIRONOLACTONE 25 MG TABLET PO SCH (09:10)
--- NOTE | 2025-02-08 09:41 | P.CNS ---
Date of Consult: 02/08/25 Chief Complaint: SOB History of Present Illness: Patient with PMH of heart failure, presented with worsening BLE, and SOB associated with Nausea and vomitting, denies chest pain, no palpitations, no syncope. Allergies No Known Allergies Allergy (Unverified 01/27/25 10:33) Home medications list reviewed: Yes Home Medications: Metformin ER [Glucophage ER*] 1,000 mg PO BID 01/21/25 Doxycycline Hyclate 100 mg PO BID 30 Days #60 tab 01/29/25 Furosemide [Lasix*] 40 mg PO DAILY 30 Days #30 tab 01/29/25 Losartan Potassium [Cozaar*] 25 mg PO DAILY 30 Days #30 tab 01/29/25 Spironolactone [Aldactone] 25 mg PO DAILY 30 Days #30 tab 01/29/25 carvediloL [Coreg*] 25 mg PO BID 6AM 6PM 30 Days #60 tab 01/29/25 - Past Medical/Surgical History Diabetic: Yes -: Type 2 diabetes mellitus. -: Diabetic neuropathy -: Essential hypertension -: CKD. -: Migraine headache. -: Anemia. -: Uterine cancer. -: Partial amputation right foot -: Hysterectomy. - Family History Mother Medical History: Diabetes, Cancer - Social History Smoking Status: Unknown if ever smoked Alcohol use: No CD- Drugs: No Caffeine use: No Place of Residence: [facility] Review of Systems 10-point ROS is otherwise unremarkable Physical Examination Temp Pulse Resp BP Pulse Ox 97.9 F 91 H 16 202/97 H 91 02/08/25 08:00 02/08/25 09:10 02/08/25 08:00 02/08/25 09:10 02/08/25 08:00 General: Alert, In no apparent distress HEENT: Atraumatic, PERRLA, Mucous membr. moist/pink, EOMI, Sclerae nonicteric Neck: Supple, 2+ carotid pulse no bruit, No LAD, Without JVD or thyroid abnormality Respiratory: Normal air movement, Crackles/rales Cardiovascular: Regular rate/rhythm, Normal S1 S2, Edema Gastrointestinal: Normal bowel sounds, No tenderness Musculoskeletal: No tenderness Integumentary: No rashes Neurological: Normal gait, Normal speech, Normal tone, Normal affect Lymphatics: No axilla or inguinal lymphadenopathy Laboratory Data (last 24 hrs) 09/02/07/25 02/07/25 17:38 17:38 17:38 WBC 8.00 Hgb 9.4 L Hct 28.5 L Plt Count 386 PT 15.3 H INR 1.37 Sodium 140 Potassium 3.6 BUN 41 H Creatinine 2.21 H Glucose 180 H Magnesium 2.3 Total Bilirubin 0.3 AST 14 L ALT 21 Alkaline Phosphatase 149 H - Problems (1) Bilateral lower extremity edema Current Visit: No Status: Acute Plan: continue Lasix 40 mg IV Q8 Continue to monitor input and output and electrolytes add back Coreg 12.5 mg po BID Losartan 25 mg daily Aldactone 25 mg daily (2) HTN (hypertension) Current Visit: No Status: Acute Plan: adjust medications as above.
--- NOTE | 2025-02-08 19:49 | P.PN ---
Subjective Date of Service: 02/08/25 Chief Complaint: SOB Patient reports improvement in his shortness of breath. No recorded fever Patient is tolerating his diet. Physical Examination - Vital Signs Temperature: 97.9 F Blood Pressure: 176/92 Pulse: 81 Respirations: 16 Pulse Ox (%): 90 Assessment And Plan - Plan Physical examination General: Alert and oriented x 3, NAD, Neck: No elevated JVD Heart: Heart sounds 1 and 2 normal, regular rhythm, normal rate, no pedal edema Lungs: Mild bibasilar rales, adequate breath sounds bilaterally, no rhonchi Abdomen: Soft, nondistended, nontender, normal bowel sounds. Extremities: Right transmetatarsal amputation Skin: A couple of right foot amputation stump wound with dry eschar, no discharge or erythema Neuro: No focal motor deficit. Normal speech. Psychiatry: Normal mood, no agitation. Plan: Acute on chronic CHF possibly systolic heart failure Cardiology input appreciated Continue IV Lasix Wean off oxygen Continue home medications Continue Coreg, losartan and Aldactone Monitor and replace electrolytes as needed H/o right foot amputation No cellulitis. Wound looks clean pt is on antibiotics. CKD stage II Nephrology consulted Nephrology consulted Hypertension Uncontrolled Continue home medications-Coreg and losartan Hydralazine IV as needed for BP spikes Diabetes Insulin sliding scale Accu-Chek before every meal and at bedtime Anemia of chronic disease Monitor H&H and transfuse as needed for hemoglobin less than 8 DVT prophylaxis: Lovenox Advanced directive full code
[2025-02-08] MEDS: DOXYCYCLINE 100 MG CAP PO SCH (20:24)
[2025-02-08] MEDS: ACETAMINOPHEN 325 MG TABLET PO PRN (20:27)
[2025-02-08] MEDS ORDERED: DOXYCYCLINE 100 MG CAP PO SCH (21:00)
--- NOTE | 2025-02-09 03:41 | CON ---
Date of Consultation: 02/08/2025 Chief Complaint: Chronic kidney disease, anasarca, fluid overload, cardiorenal syndrome. History Of Present Illness: The patient is a 49-year-old woman with past medical history of diabetes mellitus, essential hypertension, chronic kidney disease stage 3, migraine headache, uterine cancer, status post hysterectomy, anemia due to chronic kidney disease, diabetic neuropathy. The patient ca me to the emergency room because of edema, shortness of breath, and chest discomfort. The patient pr eviously was hospitalized for fluid overload, anasarca, and she responded to Lasix drip. The patient has underlying chronic kidney disease stage 3 advancing to stage 4. She developed acute on chronic kidney injury and renal function was plateauing. The patient is admitted to the hospital for congest stephanie heart failure exacerbation. Past Medical History: Diabetes mellitus type 2, diabetic neuropathy, essential hypertension, migrain e headache, anemia, uterine cancer, status post partial amputation of the right foot, hysterectomy. Social History: Denies tobacco, alcohol. Denies drugs. Review of Systems: Constitutional: Denies fever, chills. Eyes: Denies vision changes. Ears, Nose, Mouth, and Throat: Denies sore throat, earache. Respiratory: Has shortness of breath at rest and with light activities. Denies hemoptysis. : Denies dysuria, hematuria. All other systems reviewed and all are negative. Physical Examination: Vital Signs: Blood pressure 172/80, heart rate 62, temperature 97.8, pulse oximeter 94%, respiration 18. General: The patient is alert and oriented x3, in mild respiratory distress. HEENT: Atraumatic, normocephalic. Neck: Supple. Lungs: Crackles bilaterally at bases. Cardiovascular: S1, S2. No pericardial friction rub. Abdomen: Soft, benign, nontender. No rebound. No guarding. Extremities: Edema, anasarca. Laboratory Work: Hemoglobin 9.4, WBC 8, platelet count 386,000. INR 1.27, PT 16.3. Sodium 140, pot assium 3.7, BUN 41, creatinine 2.21, glucose 180, magnesium 2.3. Impression And Plan: 1. Acute on chronic congestive heart failure, systolic-diastolic dysfunction. Continue IV diuretic. Monitor urine output and fluid balance. Continue to re-evaluate chest x-ray. 2. Right foot cellulitis, infection, history of right foot amputation. Surgical consultation was req uested. The patient was started on IV antibiotics. 3. Chronic kidney disease stage 3. Long Good[employer] Drier was consulted for fluid overload, acute on chronic c ardiorenal syndrome. Continue diuretics. Monitor electrolytes closely. 4. Hypertension, on blood medication. Continue current treatment. 5. Diabetes mellitus. Patient cannot take metformin due to the fact that it may cause severe side ef fects in setting of chronic kidney disease and acute kidney injury. EB/MODL Voice ID: [id number] Report ID: [id number]
[2025-02-09] MEDS: HYDRALAZINE HCL 20 MG/ML VIAL IV PRN (04:17)
[2025-02-09 07:25] LABS: Absolute Lymphocytes (CBC) 1.1 K/uL (0.7-4.9); Hematocrit 27.6 % (36.0-45.0); Hemoglobin 9.2 g/dL (12.0-15.0); MCH 27.3 pg (27.0-35.0); MCHC 33.4 g/dL (32.0-36.0); MCV 81.5 fL (80-100); MPV 7.5 fL (7.6-11.3); Nucleated RBC Absolute Count 0.0 (0-0); Nucleated Red Blood Cells % 0.1 % (0-0); RBC Red Blood Cell Count 3.39 M/uL (3.86-4.86); White Blood Count 7.60 thou/uL (4.3-10.9)
[2025-02-09 07:40] LABS: Anion Gap 12.5 mEq/L (5.0-15.0); BUN Blood Urea Nitrogen 40.0 mg/dL (7-18); Glucose Level 111.0 mg/dL (74-106); Potassium 3.5 mEq/L (3.5-5.1)
[2025-02-09 10:18] VITALS: O2SAT 93
--- NOTE | 2025-02-09 10:20 | P.PN ---
Date of Service: 02/09/25 Subjective: feeling a little better reports ongoing nausea for last 1-2 weeks, ~same today no new issues say shes 15-20lb heavier than few weeks ago Physical Exam: Gen: Alert, Oriented, NAD CV: Regular rate and rhythm, Lower extremity edema, Anasarca Pulm: Nonlabored respirations on room air, clear bilaterally Abdomen: Soft, nontender, nondistended Integumentary: Right foot amputation stump wound. No erythema or drainage. Neuro: Normal strength, normal affect Problem List: Anasarca secondary to CHFvs cardiorenal syndrome Hx right foot amputation CKD2 Chronic anemia Hypertension NIDDM2 Hx uterine cancer Anasarca on admission, presents with worsening shortness of breath, lower extremity edema, anasarca Had echo done last admission which reportedly showed normal LV systolic function with DD per cardio notes. No echo official report in chart. No formal diagnosis of CHF in chart. Continue IV Lasix q8h Resume home coreg, spironolactone, losartan Cardiology consulted Hx right foot amputation Wound looks clean. No evidence of cellulitis. Continue oral doxycycline that was prescribed last admission CKD2 Nephrology consulted Creatinine stable/improved compared to last week Chronic anemia Daily labs. Improved compared to prior labs Hypertension NIDDM2 Hx uterine cancer Resume home coreg, spironolactone, losartan accu-cheks, SSI VTE: Lovenox Code: Full Dispo: Home, 24-48hrs Time spent managing patient's care: 45 minutes
--- NOTE | 2025-02-09 11:03 | P.PN ---
Date of Service: 02/09/25 49-year-old female with significant past medical history of diabetes from 2020 complicated with neuropathy, retinopathy, hypertension, hyperlipidemia, peripheral neuropathy, osteomyelitis, uterine cancer, the patient recently admitted to the hospital with foot infection, treated with vancomycin. The patient moved to the area because of stump swelling and redness, found to have cellulitis with edema. For that reason, the patient was admitted. The patient's primary labs show elevation in creatinine of 1.7 with GFR of 36. For that reason, we have been consulted. Reviewing the record back in August, creatinine 1.1, GFR of 59. The patient denied taking any nonsteroidal. No contrast exposure. The patient as I mentioned denied taking any nonsteroidal, no contrast. The patient is being on metformin. The patient was started on vancomycin and Zosyn. Patient also started on diuresis kidney function has been improving patient the plan for MRI to rule out osteomyelitis seen by surgery Physical Examination: Temp Pulse Resp BP Pulse Ox 97.6 F 82 17 163/85 H 93 02/09/25 08:00 02/09/25 09:24 02/09/25 08:00 02/09/25 09:02/09/25 08:00 General: When I saw the patient, the patient is lying in bed. Chest: Clear to auscultation. Heart: S1, S2. Systolic murmur. Abdomen: Soft, nontender. Extremities: +2 edema. TMA with erythema on the right foot. Neurologic: Alert and oriented x3. No focality. Laboratory Last Values WBC 8.00 thou/uL (4.3-10.9) 02/07/25 17:38 RBC 3.46 M/uL (3.86-4.86) L 02/07/25 17:38 Hgb 9.4 g/dL (12.0-15.0) L 02/07/25 17:38 Hct 28.5 % (36.0-45.0) L 02/07/25 17:38 MCV 82.3 fL (80-100) 02/07/25 17:38 MCH 27.3 pg (27.0-35.0) 02/07/25 17:38 MCHC 33.2 g/dL (32.0-36.0) 02/07/25 17:38 RDW 15.6 % (12.1-15.2) H 02/07/25 17:38 Plt Count 386 thou/uL (152-406) 02/07/25 17:38 MPV 7.3 fL (7.6-11.3) L 02/07/25 17:38 Neutrophils % 75.7 % (41.7-73.7) H 02/07/25 17:38 Lymphocytes % 14.1 % (15.3-44.8) L 02/07/25 17:38 Monocytes % 8.0 % (3.3-12.3) 02/07/25 17:38 Eosinophils % 0.9 % (0-4.4) 02/07/25 17:38 Basophils % 1.3 % (0-1.3) 02/07/25 17:38 Absolute Neutrophils 6.1 K/uL (1.8-8.0) 02/07/25 17:38 Absolute Lymphocytes 1.1 K/uL (0.7-4.9) 02/07/25 17:38 Absolute Monocytes 0.6 K/uL (0.1-1.3) 02/07/25 17:38 Absolute Eosinophils 0.1 K/uL (0-0.5) 02/07/25 17:38 Absolute Basophils 0.1 K/uL (0-0.5) 02/07/25 17:38 PT 15.3 SECONDS (10-13.0) H 02/07/25 17:38 INR 1.37 02/07/25 17:38 Sodium 140 mEq/L (136-145) 02/07/25 17:38 Potassium 3.6 mEq/L (3.5-5.1) 02/07/25 17:38 Chloride 110 mEq/L (98-107) H 02/07/25 17:38 Carbon Dioxide 22 mEq/L (21-32) 02/07/25 17:38 Anion Gap 11.6 mEq/L (5.0-15.0) 02/07/25 17:38 BUN 41 mg/dL (7-18) H 02/07/25 17:38 Creatinine 2.21 mg/dL (0.55-1.02) H 02/07/25 17:38 Est GFR (CKD-EPI) 27 ml/min (=/>90) L 02/07/25 17:38 Glucose 180 mg/dL (74-106) H 02/07/25 17:38 Calcium 8.7 mg/dL (8.5-10.1) 02/07/25 17:38 Magnesium 2.3 mg/dL (1.6-2.4) 02/07/25 17:38 Total Bilirubin 0.3 mg/dL (0.2-1.0) 02/07/25 17:38 Direct Bilirubin < 0.2 mg/dL (0-0.2) 02/07/25 17:38 Indirect Bilirubin 0.1 mg/dL (0.2-0.8) L 02/07/25 17:38 AST 14 U/L (15-37) L 02/07/25 17:38 ALT 21 U/L (13-56) 02/07/25 17:38 Alkaline Phosphatase 149 U/L (45-117) H 02/07/25 17:38 Troponin I High Sens 21.3 pg/mL (<58.9) 02/07/25 17:38 NT-Pro-B Natriuret Pep 00953 pg/mL (<125) H 02/07/25 17:38 Serum Total Protein 5.6 g/dL (6.4-8.2) L 02/07/25 17:38 Albumin 2.2 g/dL (3.4-5.0) L 02/07/25 17:38 Globulin 3.4 g/dL (2.3-3.5) 02/07/25 17:38 Albumin/Globulin Ratio 0.6 (1.1-1.8) L 02/07/25 17:38 Acetaminophen (Acetaminophen 325 Mg Tablet) 650 mg PO Q4HP PRN PRN Reason: Pain scale 2-4 (Mild) Last Admin: 02/09/25 09:24 Dose: 650 mg Carvedilol (Carvedilol 25 Mg Tab) 25 mg PO BID 6AM 6PM [facility] Last Admin: 02/09/25 05:45 Dose: 25 mg Doxycycline Monohydrate (Doxycycline 100 Mg Cap) 100 mg PO BID [facility]; Protocol Last Admin: 02/09/25 09:24 Dose: 100 mg Enoxaparin Sodium (Enoxaparin 40 Mg/0.4 Ml) 40 mg SQ DAILY [facility] Last Admin: 02/09/25 09:24 Dose: 40 mg Furosemide (Furosemide 40 Mg/4 Ml Vial) 40 mg IV Q8HR ANANYA Last Admin: 02/09/25 09:24 Dose: 40 mg Glucagon (Glucagon 1 Mg/Vial) 1 mg IM 1X PRN PRN Reason: HYPOGLYCEMIA Hydralazine HCl (Hydralazine Hcl 20 Mg/Ml Vial) 10 mg IV Q6HP PRN PRN Reason: Goal to achieve SBP in comment Last Admin: 02/09/25 04:17 Dose: 10 mg Dextrose (Dextrose 10% Water Iv Soln.) 125 mls @ 0 mls/hr IV PRN PRN; Protocol PRN Reason: HYPOGLYCEMIA Insulin Human Regular (Insulin Regular (Human) 100 Unit/Ml) 0 unit SQ ACHS ANANYA; Protocol Last Admin: 02/08/25 20:24 Dose: Not Given Losartan Potassium (Losartan Potassium 50 Mg Tablet) 25 mg PO DAILY [facility] Last Admin: 02/09/25 09:23 Dose: 25 mg Ondansetron HCl (Ondansetron 4 Mg/2 Ml Vial) 4 mg IV Q6HP PRN PRN Reason: NAUSEA / VOMITING Last Admin: 02/08/25 09:07 Dose: 4 mg Potassium Chloride (Potassium Cl Sa 10 Meq Tab) 20 meq PO 1X ONE Stop: 02/09/25 12:01 Spironolactone (Spironolactone 25 Mg Tablet) 25 mg PO DAILY [facility] Last Admin: 02/09/25 09:24 Dose: 25 mg Assessment And Plan: 1. Acute kidney injury disproportionate in the kidney size 10.6/13.1 secondary to cardiorenal, obstructive uropathy has been ruled out normal volume, superimposed with metformin light chain disease has been ruled out serology was negative except for mild elevation in BOBBI without activity in the urine: and toxic ATN secondary to UTI. a.resume lasix 2-chronic kidney disease disproportionate kidney size 10.6/13.1 nephrotic range proteinuria secondary to diabetes nephropathy/hypertension nephrosclerosis/cardiorenal with acute kidney injury as above 3. Hypertension, not controlled with the presence of acute kidney injury. Avoid ROLANDA inhibitor or ARB. We Keep holding losartan and Lasix 4. Edema, possible secondary to cardiorenal syndrome/nephrotic range proteinuria hypothyroidism has been ruled out resume lasix 5. Nephrotic range proteinuria mostly secondary to diabetes light chain disease has been ruled out with the presence of acute kidney injury: Keep hold ARB Follow-up labs today to decide about adding spironolactone 7. Neuropathy. Continue symptomatic treatment. Thank you, for allowing us to participate in the care of your patient. Time spent examining the patient [id number], reviewing data, lab and radiology, placing order, discussing the case with the patient, discussing the case with the team facilitator including hospitalist and nursing staff more than 55 minutes.
[2025-02-09] MEDS: POTASSIUM CL SA 10 MEQ TAB PO ONE (12:01)
[2025-02-09 21:54] VITALS: BP 180/95; TEMP 97.2
--- NOTE | 2025-02-10 07:03 | P.DS ---
Admission Date: 02/07/25 Discharge Date: 02/10/25 Disposition: AMA-LEFT AGAINST MEDICAL ADVIC Discharge Condition: FAIR Reason for Admission: SOB Brief History of Present Illness: 49yo F, PMH: type 2 diabetes mellitus, essential hypertension, chronic kidney disease stage II, migraine headache, uterine cancer, had hysterectomy, anemia, diabetic neuropathy, patient states she does not feel any sensation from knee down both legs. Patient states she occasionally has shortness of breath at home, at times at rest, and with exertion. Patient had partial right foot amputation a month ago with all 5 digits amputated in [place], [place]. Patient presents to the ER today due to shortness of breath. Patient started having short of breath 4 - 5 days ago and has been progressively getting worse and was brought to ER. Patient denies any chest pain. No fever or chills. No nausea vomiting or diarrhea Patient was assessed in the ER and was found to have CHF exacerbation and was admitted for further management. Hospital Course: Problem List: Anasarca secondary to CHFvs cardiorenal syndrome Hx right foot amputation CKD2 Chronic anemia Hypertension NIDDM2 Hx uterine cancer Physician discharge instructions: Patient presented with worsening shortness of breath associated with lower extremity edema secondary to acute on chronic CHF exacerbation. Chest xray on admission was consistent bilateral pleural effusions with probable underlying atelectasis, worse compared to 01/18 CXR. Troponins were negative x3. BNP was 12k. Cardiology and nephrology were consulted on admission. Patient was started on IV lasix and had improvement of her symptoms. Lower extremity edema and breathing improved with diuretics. Creatinine remained stable throughout hospitalization, improved compared to creatinine on last discharge ~1 week ago. 02/09 evening ~9pm patient informed nursing staff she wanted to leave AMA due to her room being cold and she wanted to go home and sleep. Patient was educated on importance of hospitalization and was explained the risks if she were to leave. Patient verbalized understanding and proceeded to sign herself out AMA. Surgery was consulted on admission given his history of right foot amputation with chronic wound. There was no evidence of active infection or cellulitis seen. No findings to warrant surgical intervention. Patient was continued on doxycycline while hospitalized that was previously prescribed from last admission. Medications: no change in home meds Follow up: PCP 3-5 days Cardiology in 2-4 weeks Nephrology in 2-4 weeks Please call to schedule / confirm appointments Physical Exam: Gen: Alert, Oriented, NAD CV: Regular rate and rhythm, Lower extremity edema, Anasarca Pulm: Nonlabored respirations on room air, clear bilaterally Abdomen: Soft, nontender, nondistended Integumentary: Right foot amputation stump wound. No erythema or drainage. Neuro: Normal strength, normal affect Vital Signs/Physical Exam: Temp Pulse Resp BP Pulse Ox 97.2 F 90 18 180/95 H 91 02/09/25 20:00 02/09/25 20:00 02/09/25 20:00 02/09/25 20:00 02/09/25 20:00 Laboratory Data at Discharge: WBC 7.60 thou/uL (4.3-10.9) 02/09/25 07:10 Hgb 9.2 g/dL (12.0-15.0) L 02/09/25 07:10 Hct 27.6 % (36.0-45.0) L 02/09/25 07:10 Plt Count 384 thou/uL (152-406) 02/09/25 07:10 PT 15.3 SECONDS (10-13.0) H 02/07/25 17:38 INR 1.37 02/07/25 17:38 Sodium 142 mEq/L (136-145) 02/09/25 06:10 Potassium 3.5 mEq/L (3.5-5.1) 02/09/25 06:10 BUN 40 mg/dL (7-18) H 02/09/25 06:10 Creatinine 2.07 mg/dL (0.55-1.02) H 02/09/25 06:10 Glucose 111 mg/dL (74-106) H 02/09/25 06:10 Magnesium 2.3 mg/dL (1.6-2.4) 02/07/25 17:38 Total Bilirubin 0.2 mg/dL (0.2-1.0) 02/08/25 05:31 AST < 10 U/L (15-37) L 02/08/25 05:31 ALT 19 U/L (13-56) 02/08/25 05:31 Alkaline Phosphatase 124 U/L (45-117) H 02/08/25 05:31 Home Medications: Metformin ER [Glucophage ER*] 1,000 mg PO BID 01/21/25 Doxycycline Hyclate 100 mg PO BID 30 Days #60 tab 01/29/25 Furosemide [Lasix*] 40 mg PO DAILY 30 Days #30 tab 01/29/25 Losartan Potassium [Cozaar*] 25 mg PO DAILY 30 Days #30 tab 01/29/25 Spironolactone [Aldactone] 25 mg PO DAILY 30 Days #30 tab 01/29/25 carvediloL [Coreg*] 25 mg PO BID 6AM 6PM 30 Days #60 tab 01/29/25 Physician Discharge Instructions: Physician discharge instructions: Patient presented with worsening shortness of breath associated with lower extremity edema secondary to acute on chronic CHF exacerbation. Chest xray on admission was consistent bilateral pleural effusions with probable underlying atelectasis, worse compared to 01/18 CXR. Troponins were negative x3. BNP was 12k. Cardiology and nephrology were consulted on admission. Patient was started on IV lasix and had improvement of her symptoms. Lower extremity edema and breathing improved with diuretics. Creatinine remained stable throughout hospitalization, improved compared to creatinine on last discharge ~1 week ago. 02/09 evening ~9pm patient informed nursing staff she wanted to leave AMA due to her room being cold and she wanted to go home and sleep. Patient was educated on importance of hospitalization and was explained the risks if she were to leave. Patient verbalized understanding and proceeded to sign herself out AMA. Surgery was consulted on admission given his history of right foot amputation with chronic wound. There was no evidence of active infection or cellulitis seen. No findings to warrant surgical intervention. Patient was continued on doxycycline while hospitalized that was previously prescribed from last admission. Medications: no change in home meds Follow up: PCP 3-5 days Cardiology in 2-4 weeks Nephrology in 2-4 weeks Please call to schedule / confirm appointments Followup: NONE,NONE [Primary Care Provider] - Time spent managing pt's care (in minutes): 45
== END 2025-02-09 21:11 | disposition left against medical advice (07) | DRG 291 ==
LOC: ER 16:37 → 4TH 19:03
PROVIDERS: ADMIT Family Medicine; ATTEND Hospitalist
DX: I13.0 Hypertensive heart and chronic kidney disease with heart failure and stage 1 through stage 4 chronic kidney disease, or unspecified chronic kidney disease (principal); I50.23 Acute on chronic systolic (congestive) heart failure; N17.0 Acute kidney failure with tubular necrosis; L03.115 Cellulitis of right lower limb; Z59.00 Homelessness unspecified; N18.4 Chronic kidney disease, stage 4 (severe); E11.22 Type 2 diabetes mellitus with diabetic chronic kidney disease; E11.40 Type 2 diabetes mellitus with diabetic neuropathy, unspecified; D63.1 Anemia in chronic kidney disease; E78.5 Hyperlipidemia, unspecified; Z79.84 Long term (current) use of oral hypoglycemic drugs; Z79.02 Long term (current) use of antithrombotics/antiplatelets; Z89.431 Acquired absence of right foot; Z90.710 Acquired absence of both cervix and uterus; Z85.42 Personal history of malignant neoplasm of other parts of uterus; Z79.899 Other long term (current) drug therapy
CPT/HCPCS: 36415; 71045; 80048; 80053; 80076; 82947; 83735; 83880; 84484; 85025; 85610; 93005; 94760; 96374; 96375; 99285; J0360; J0690; J1650; J1815; J1938; J2405